=== PATIENT | female | born 1965 | race Caucasian/White ===

== ENCOUNTER 2022-09-29 10:05 | Outpatient (OUT) | payer OTHER, SELFPAY ==
[2022-09-29 10:46] LABS: Basophils Percent Auto 0.3 % (0.2-2.0); Eosinophils Absolute Auto 0.3 10^3/uL (0.0-0.7); Eosinophils Percent Auto 3.1 % (0.9-7.0); Hematocrit 38.5 % (36.0-48.0); Immature Granulocytes Abs Auto 0.04 10^3/uL (0.00-0.03); Immature Granulocytes Pct Auto 0.4 % (0.0-0.5); Lymphocytes Absolute Auto 2.1 10^3/uL (1.2-3.8); Lymphocytes Percent Auto 21.6 % (20.5-60.0); Mean Corpuscular HGB Conc 31.2 g/dL (29.9-35.2); Mean Corpuscular Hemoglobin 27.7 pg (26.7-34.0); Mean Corpuscular Volume 88.9 fL (81.0-99.0); Mean Platelet Volume 10.5 fL (9.5-13.5); Monocytes Absolute Auto 0.6 10^3/uL (0.3-0.8); Monocytes Percent Auto 6.7 % (1.7-12.0); Neutrophils Absolute Auto 6.5 10^3/uL (1.4-6.5); Neutrophils Percent Auto 67.9 % (43.0-75.0); Platelet Count 233 10^3/uL (150-450); Red Blood Count 4.33 10^6/uL (4.20-5.40); Red Cell Distribution Width 15.7 % (11.0-15.0); White Blood Count 9.6 10^3/uL (4.0-11.0)
[2022-09-29 10:49] LABS: Bilirubin Urine NEGATIVE (NEGATIVE); Blood Urine NEGATIVE (NEGATIVE); Clarity Urine CLEAR (CLEAR); Color Urine YELLOW (YELLOW); Glucose Urine UA NEGATIVE (NEGATIVE); Ketones Urine NEGATIVE (NEGATIVE); Leukocyte Esterase Urine NEGATIVE (NEGATIVE); Nitrite Urine NEGATIVE (NEGATIVE); Protein Urine NEGATIVE (NEG/TRACE); Urobilinogen Urine 0.2 EU/dL (0.2-1.0); pH Urine 5.5 (5.0-9.0)
[2022-09-29 11:03] LABS: Bacteria Urine TRACE #/HPF (NONE SEEN); Cast Seen? NONE SEEN #/LPF (NONE SEEN); Crystals Seen? None Seen #/HPF (None Seen); Mucus Urine NONE SEEN (NONE SEEN); RBC Urine 0-2 #/HPF (0-2); Squamous Epithelial Cell Urine RARE #/LPF (NONE/RARE); WBC Urine NONE SEEN #/HPF (NONE SEEN)
[2022-09-29 11:15] LABS: Microalbumin Urine Random <1.3 mg/dL (<=30.0)
[2022-09-29 11:20] LABS: Alanine Aminotransferase 18 U/L (14-59); Albumin Globulin Ratio 0.6; Albumin Level 3.2 g/dL (3.4-5.0); Alkaline Phosphatase 101 U/L (46-116); Anion Gap 10.6; Aspartate Amino Transferase 12 U/L (15-37); BUN Creatinine Ratio 14.9; Bilirubin Total 0.4 mg/dL (0.2-1.0); Carbon Dioxide 29.2 mmol/L (21.0-32.0); Chloride 103 mmol/L (98-107); Chol HDL Ratio 2.1; Cholesterol 86 mg/dL (<=200); Estimated GFR (African America >60 (>=60); Estimated GFR (Non-African Ame >60 (>=60); Glucose 97 mg/dL (74-106); HDL Cholesterol 41 mg/dL (40-60); LDL Cholesterol Calculated 32.2 mg/dL; Potassium 3.8 mmol/L (3.5-5.1); Sodium 139 mmol/L (136-145); Thyroid Stimulating Hormone 1.663 uIU/mL (0.358-3.740); Total Protein 8.2 g/dL (6.4-8.2); Triglycerides 64 mg/dL (<=150); VLDL CHOLESTEROL 12.8 mg/dL
[2022-09-29 11:24] LABS: Estimated Average Glucose 123 mg/dL; Glycohemoglobin A1C 5.9 % (4.5-6.2)
== END 2022-09-29 10:06 ==
LOC: LAB 10:10
PROVIDERS: PCP Nurse Practitioner; Visit Provider Nurse Practitioner
DX: E11.9 Type 2 diabetes mellitus without complications (principal); I10 Essential (primary) hypertension; E66.9 Obesity, unspecified
CPT/HCPCS: 36415; 80053; 80061; 81001; 82043; 83036; 84443; 85025

== ENCOUNTER 2022-10-03 13:52 | Outpatient (OUT) | payer OTHER, SELFPAY ==
--- NOTE | 2022-10-03 13:56 | MM_ITS ---
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 MG MAMM SCREEN 3D JULI CAD, 09/25/2020. MG MAMM SCREEN JULI W CAD, 06/28/2019. MG MAMM SCREEN JULI W CAD, 09/08/2013. INDICATIONS: Screening mammogram Z12.31 Calculator Name NCI Breast Cancer Risk Assessment Tool 5 Year Breast Cancer Risk 1.20% Lifetime Breast Cancer Risk 8.10% Personal Breast Cancer No Personal Ovarian Cancer No Treatments None Family Cancers None LOCATION: [facility] BREAST COMPOSITION: Extremely dense, which lowers the sensitivity of mammography. FINDINGS: DIAGNOSTIC CATEGORY 1--NEGATIVE. RIGHT BREAST: No significant suspicious finding. No significant change has occurred. LEFT BREAST: No significant suspicious finding. No significant change has occurred. RECOMMENDATIONS: ROUTINE MAMMOGRAM AND CLINICAL EVALUATION IN 12 MONTHS. PLEASE NOTE: A NORMAL MAMMOGRAM DOES NOT EXCLUDE THE POSSIBILITY OF BREAST CANCER. A CLINICALLY SUSPICIOUS PALPABLE LUMP SHOULD BE BIOPSIED. Dictated by: Austin Correa M.D. on 10/08/2022 at 14:57 Approved by: Austin Correa M.D. on 10/08/2022 at 15:00
== END 2022-10-03 13:53 ==
LOC: MAMMO 13:53
PROVIDERS: PCP Nurse Practitioner; Visit Provider Nurse Practitioner
DX: Z12.31 Encounter for screening mammogram for malignant neoplasm of breast (principal)
CPT/HCPCS: 77063; 77067

== ENCOUNTER 2023-03-13 12:51 | Outpatient (OUT) | payer OTHER, SELFPAY ==
[2023-03-13 13:46] LABS: Estimated Average Glucose 128 mg/dL; Glycohemoglobin A1C 6.1 % (4.5-6.2)
== END 2023-03-13 12:52 | disposition home or self-care (01) ==
LOC: LAB 12:53
PROVIDERS: PCP Nurse Practitioner; Visit Provider Nurse Practitioner
DX: E11.9 Type 2 diabetes mellitus without complications (principal)
CPT/HCPCS: 36415; 83036

== ENCOUNTER 2024-11-16 21:00 | Outpatient (REF) | payer OTHER, SELFPAY ==
--- OUTSIDE RECORDS SUMMARY | 2024-11-16 13:40 | XMS_ITS | Encounter Summary ---
Author Organization [facility] Address [address] [place] [address] Care Team Providers Care Manager Mortgage Name Role Phone Janet Munoz NP Unavailable [phone] Peter Meyer MD Primary Care Provider [phone] Reason for Visit * Reason Comments Hypertension Encounter Details Date Type Department Care Team (Late st Contact Info) Description 11/16/2024 1:40 PM EDT Office Visit [facility] [address] [place] [address] Janet Munoz NP [address] [place] [address] HTN (hypertension), benign (Primary Dx); Bilateral carotid artery stenosis; Type 2 diabetes mellitus without complication, without long-term current use of insulin ([facility]); Morbid (severe) obesity due to excess calories ([facility]); Tobacco dependence; Mixed hyperlipidemia ; Symptomatic urinary tract infection; Pre-diabetes; Environmental and seasonal allergies; Hidradenitis suppurativa Social History Tobacco Use Types Packs/Day Years Used Date Smoking Tobacco: Every Day Cigarettes Passive Smoke Exposure: Current Smokeless Tobacco: Never Alcohol Use Standard Drinks/Week Comments Never 0 (1 standard drink = 0.6 oz pur e alcohol) caffine: mountain dew 2 daily Social Connection and Isolat ion Panel [NHANES] Answer Date Recorded In a typical week, how many times do you talk on the phone with family, friends, or neighbors? More than three times a week 08/30/2023 How often do you get togethe r with friends or relatives? Twice a week 08/30/2023 How often do you attend chur ch or restorationism services? Never 08/30/2023 Do you belong to any clubs o r organizations such as confucianist groups, unions, fraternal or athletic groups, or school groups? No 08/30/2023 How often do you attend meet ings of the clubs or organizations you belong to? Never 08/30/2023 Are you , , di vorced, , never , or living with a partner? 08/30/2023 AUDIT-C Answer Date Recorded Q1: How often do you have a drink containing alcohol? Never 08/30/2023 Q2: How many drinks containi ng alcohol do you have on a typical day when you are drinking? Patient does not drink Q3: How often do you have si x or more drinks on one occasion? Never 08/30/2023 Overall Financial Resource Strain (CARDIA) Answe r Date Recorded How hard is it for you to pa y for the very basics like food, housing, medical care, and heating? Very hard 08/30/2023 PHQ-2 Answer Date Recorded Patient Health Questionnaire-2 Score 0 09/02/2023 [facility] - Occupational Stress Questionnaire Answer Date Recorded Do you feel stress - tense, restless, nervous, or anxious, or unable to sleep at night because your mind is troubled all the time - these days? Not at all 08/30/2023 Exercise Vital Sign Answer Date Recorde d On average, how many days pe r week do you engage in moderate to strenuous exercise (like a brisk walk)? 2 days On average, how many minutes do you engage in exercise at this level? Patient declined 08/30/2023 Hunger Vital Sign Answer Date Recorded Within the past 12 months, y ou worried that your food would run out before you got the money to buy more. Sometimes true Within the past 12 months, t he food you bought just didn't last and you didn't have money to get more. Sometimes true 08/2023 PRAPARE - Transportation Answer Date Re corded In the past 12 months, has l ack of transportation kept you from medical appointments or from getting medications? No 08/2023 In the past 12 months, has l ack of transportation kept you from meetings, work, or from getting things needed for daily living? No 08/30/2023 Housing Stability Vital Sign Answer Silas e Recorded In the last 12 months, was t here a time when you were not able to pay the mortgage or rent on time? No 08/30/2023 In the last 12 months, how many places have you lived? 1 08/30/2023 In the last 12 months, was t here a time when you did not have a steady place to sleep or slept in a [facility] (including now)? No 08/30/2023 Comments Unknown Sex and Gender Information Value Date Recorded Sex Assigned at Not on file Legal Sex Female 7:17 PM EDT Gender Identity Not on file Sexual Orientation Not on file documented as of this encounter Last Filed Vital Signs Vital Sign Reading Time Taken Comments Blood Pressure 144/76 11/16/2024 1:44 PM EDT Pulse 114 11/16/2024 1:44 PM EDT Temperature 36.9 C (98.5 F) 11/16/2024 1:44 PM EDT Respiratory Rate 20 11/16/2024 1:44 PM EDT Oxygen Saturation 95% 11/16/2024 1:44 PM EDT Inhaled Oxygen Concentration - - Weight 103 kg (226 lb 9.6 oz) 11/16/2024 1:44 PM EDT Height - - Body Mass Index 34.45 05/09/2024 1:26 PM EST documented in this encounter Patient Instructions * Patient Instructions* Janet Munoz NP - 11/16/2024 1:40 PM EDT Buproprion: take 1 pill every other day for 5 doses, then 1 pill every 3rd for 5 dose then stop Augmentin for urinary tract infection documented in this encounter Progress Notes * Janet Munoz NP - 11/16/2024 2:26 PM EDTAssociated Problem(s): Hidradenitis suppurativa Flare to left axillary region augmentin * Janet Munoz NP - 11/16/2024 2:24 PM EDTAssociated Problem(s): Symptomatic urinary tract infection +UTI on office dip Augmentin BID for 10 days Check culture * FRANCISCO GONSALES - 11/16/2024 1:40 PM EDT Lower back pain, abd pain, burning urination, urgency, frequency, foul smell, dark urine * Janet Munoz NP - 11/16/2024 1:40 PM EDT Images from the original note were not included. Kena Urbina is a 59 y.o. female presents with chief complaint of Hypertension HPI: Continues with smoking despite buproprion , wants to quit this, only remembers once a day, also gets tremors from meds, does not want a new med to take its place Hypertension This is a chronic problem. The current episode started more than 1 year ago. The problem has been waxing and waning since onset. The problem is uncontrolled. Associated symptoms include peripheral edema. Pertinent negatives include no chest pain, headaches, palpitations or shortness of breath. Pasttreatments include LOIDA inhibitors. The current treatment provides moderate improvement. There are no compliance problems. UTI This is a new problem. The current episode started 1 to 4 weeks ago. The problem is unchanged. Associated symptoms include pain. The pain is present in the back and suprapubic region. Risk factors include diabetes. SUBJECTIVE: MEDICATIONS: Current Outpatient Medications Medication Instructions albuterol HFA 90 mcg/act inhaler 2 puffs, Inhalation, Every 6 hours PRN amoxicillin-clavulanate (Augmentin) 875-125 MG tablet 875 mg, Oral, 2 times daily, Take with food aspirin 81 mg, Once atorvastatin (LIPITOR) 80 mg, Oral, Nightly Blood Glucose Monitoring Suppl (Contour Blood Glucose System) w/Device kit 1 kit, Does not apply, Daily Blood Glucose Monitoring Suppl (True Metrix Air Glucose Meter) w/Device kit 1 each, Does not apply,Daily clopidogrel (PLAVIX) 75 mg, Daily RT folic acid (FOLVITE) 1 mg, Daily glucose blood (Contour Test) test strip Once a day lisinopril 40 mg, Oral, Daily metFORMIN XR (GLUCOPHAGE-XR) 500 mg, Oral, Daily montelukast (SINGULAIR) 10 mg, Oral, Nightly ondansetron ODT (ZOFRAN-ODT) 4 mg, Every 8 hours PRN tiZANidine (ZANAFLEX) 4 mg, Oral, Nightly PRN zolpidem (AMBIEN) 10 mg, Oral, Nightly PRN ALLERGIES: Allergies Allergen Reactions Sumatriptan Anaphylaxis, Palpitations and Other Gives signs of heart attack REVIEW OF SYMPTOMS: Review of Systems Constitutional: Negative for appetite change, chills and fever. HENT: Negative for congestion, ear pain and sore throat. Eyes: Negative for pain, discharge, redness and visual disturbance. Respiratory: Negative for cough, shortness of breath and wheezing. Cardiovascular: Negative for chest pain, palpitations and leg swelling. Gastrointestinal: Negative for abdominal pain, blood in stool, constipation, diarrhea, nausea and vomiting. Genitourinary: Positive for dysuria. Negative for difficulty urinating and frequency. Musculoskeletal: Negative for arthralgias, back pain, joint swelling and myalgias. Skin: Negative for rash and wound. Neurological: Negative for dizziness, tremors, seizures, syncope and headaches. Psychiatric/Behavioral: Negative for behavioral problems, self-injury and suicidal ideas. The patient is not nervous/anxious. Hematological: Does not bruise/bleed easily. Endocrine: Negative for polydipsia, polyphagia and polyuria. Allergic/Immunologic: Negative for environmental allergies and food allergies. PAST MEDICAL HISTORY Past Medical History: Diagnosis Date COPD (chronic obstructive pulmonary disease) (HCC) DM II (diabetes mellitus, type II), controlled ([facility]) HTN (hypertension) Past Surgical History: Procedure Laterality Date ABDOMINAL SURGERY family history includes HTN in her mother; Heart attack in her father; Heart disease in her mother. OBJECTIVE: Visit Vitals BP 144/76 (BP Location: Left arm, Patient Position: Sitting, BP Cuff Size: Large adult) Pulse (!) 114 Temp 98.5 ??F (Temporal) Resp 20 Wt 226 lb 9.6 oz SpO2 95% BMI 34.45 kg/m?? Smoking Status Every Day BSA 2.22 m?? Physical Exam Vitals and nursing note reviewed. Constitutional: General: She is not in acute distress. Appearance: Normal appearance. HENT: Head: Normocephalic and atraumatic. Right Ear: External ear normal. Left Ear: External ear normal. Nose: Nose normal. Mouth/Throat: Mouth: Mucous membranes are moist. Eyes: Extraocular Movements: Extraocular movements intact. Conjunctiva/sclera: Conjunctivae normal. Neck: Vascular: Carotid bruit (right carotid bruit) present. Cardiovascular: Rate and Rhythm: Normal rate and regular rhythm. Pulses: Normal pulses. Heart sounds: Normal heart sounds. Pulmonary: Effort: Pulmonary effort is normal. Breath sounds: Normal breath sounds. No wheezing or rhonchi. Abdominal: General: Bowel sounds are normal. There is no distension. Palpations: Abdomen is soft. There is no mass. Tenderness: There is no abdominal tenderness. Comments: Mild flank pain Musculoskeletal: General: Normal range of motion. Cervical back: Normal range of motion and neck supple. Right lower leg: Edema present. Left lower leg: Edema present. Comments: Trace edema Skin: General: Skin is warm and dry. Capillary Refill: Capillary refill takes 2 to 3 seconds. Findings: No rash. Comments: HS lesion right axillary region Neurological: General: No focal deficit present. Mental Status: She is alert and oriented to person, place, and time. Psychiatric: Mood and Affect: Mood normal. Behavior: Behavior normal. Thought Content: Thought content normal. Judgment: Judgment normal. ASSESSMENT AND PLAN: Follow up in about 8 weeks (around 01/11/2025) for Recheck. Problem List Items Addressed This Visit HTN (hypertension), benign - Primary Please check blood pressure daily and record DASH diet Limit caffeine Take medication as directed Contact office if chest pain, pressure, dizziness, shortness of breath, swelling legs Recommend slow position changes increase lisinopril at 40mg daily Pt did not want b jairo therapy d/t side effect of fatigue Relevant Medications lisinopril 40 MG tablet Bilateral carotid artery stenosis Is on ASA, and statin Has had US and fu with vascular doctor See report in chart for specifics Aggressive risk factor modification is goal: control blood pressure, and needs to quit smoking Relevant Medications atorvastatin (Lipitor) 80 MG tablet Hidradenitis suppurativa Flare to left axillary region augmentin Tobacco dependence The patient has been advised of the risks of continued smoking: stroke, DC, all forms of cancer, lung disease, and . Options for quitting smoking include: cold turkey, hypnosis, acupuncture, nicotine replacement meds(gum, lozenges, and patches), Buproprion, and Varenicline. At this time pt is encouraged to evaluate their goals for wanting to quit smoking, and reach out toprovider when ready to start this process Wean off buproprion Mixed hyperlipidemia Continue statin therapy Check labs yearly and as needed with dose changes Relevant Medications atorvastatin (Lipitor) 80 MG tablet Environmental and seasonal allergies Relevant Medications montelukast (Singulair) 10 MG tablet Type 2 diabetes mellitus without complications (HCC) Check blood sugars daily, notify if <70 or >200. Take medications (pills or insulin) as directed. Monitor for s/s of hypoglycemia (sweaty, dizziness, nausea, vomiting, or shakiness). Watch for increase in thirst, urination, or appetite. Inspect feet frequently monitoring for open wounds , andalso recommend yearly eye exam. Pt should attempt to remain as physically active as chronic conditions allow, as well as trying to follow a diet low in carbohydrates, and simple sugars. Current meds: metformin, statin, asa, loida A1c 6.6% 11/16/24, 6.8% 08/18/24 Relevant Orders POCT glycosylated hemoglobin (Hb A1C) docked device (Completed) Morbid (severe) obesity due to excess calories ([facility]) Discussed with patient their BMI (actual, verses recommended). We have also discussed lifestyle modifications: attempts to perform physical activity as chronic conditions allow, also to monitor dietary intake: increasing protein/fruits/veggies and lowering carb intake (unless contraindicated). Limit sodas, juices, and sugary drinks. Symptomatic urinary tract infection +UTI on office dip Augmentin BID for 10 days Check culture Relevant Medications amoxicillin-clavulanate (Augmentin) 875-125 MG tablet Other Relevant Orders POCT Urinalysis dipstick (Completed) Urine culture (clean catch) Other Visit Diagnoses Pre-diabetes Relevant Medications metFORMIN XR (Glucophage-XR) 500 MG 24 hr tablet * Janet Munoz NP - 11/16/2024 6:45 AM EDTAssociated Problem(s): Mixed hyperlipidemia Continue statin therapy Check labs yearly and as needed with dose changes * Janet Munoz NP - 11/16/2024 6:45 AM EDTAssociated Problem(s): Tobacco dependence The patient has been advised of the risks of continued smoking: stroke, DC, all forms of cancer, lung disease, and . Options for quitting smoking include: cold turkey, hypnosis, acupuncture, nicotine replacement meds(gum, lozenges, and patches), Buproprion, and Varenicline. At this time pt is encouraged to evaluate their goals for wanting to quit smoking, and reach out toprovider when ready to start this process Wean off buproprion * Janet Munoz NP - 11/16/2024 6:44 AM EDTAssociated Problem(s): Morbid (severe) obesity due to excess calories ([facility]) Discussed with patient their BMI (actual, verses recommended). We have also discussed lifestyle modifications: attempts to perform physical activity as chronic conditions allow, also to monitor dietary intake: increasing protein/fruits/veggies and lowering carb intake (unless contraindicated). Limit sodas, juices, and sugary drinks. * Janet Munoz NP - 11/16/2024 6:44 AM EDTAssociated Problem(s): Type 2 diabetes mellitus without complications (HCC) Check blood sugars daily, notify if <70 or >200. Take medications (pills or insulin) as directed. Monitor for s/s of hypoglycemia (sweaty, dizziness, nausea, vomiting, or shakiness). Watch for increase in thirst, urination, or appetite. Inspect feet frequently monitoring for open wounds , andalso recommend yearly eye exam. Pt should attempt to remain as physically active as chronic conditions allow, as well as trying to follow a diet low in carbohydrates, and simple sugars. Current meds: metformin, statin, asa, loida A1c 6.6% 11/16/24, 6.8% 08/18/24 * Janet Munoz NP - 11/16/2024 6:44 AM EDTAssociated Problem(s): Bilateral carotid artery stenosis Is on ASA, and statin Has had US and fu with vascular doctor See report in chart for specifics Aggressive risk factor modification is goal: control blood pressure, and needs to quit smoking * Janet Munoz NP - 11/16/2024 6:44 AM EDTAssociated Problem(s): HTN (hypertension), benign Please check blood pressure daily and record DASH diet Limit caffeine Take medication as directed Contact office if chest pain, pressure, dizziness, shortness of breath, swelling legs Recommend slow position changes increase lisinopril at 40mg daily Pt did not want b jairo therapy d/t side effect of fatigue documented in this encounter Plan of Treatment Upcoming Encounters Date Type Department Care Team (Late st Contact Info) Description 01/11/2025 1:20 PM EDT Office Visit [facility] [address] [place] [address] Janet Munoz NP [address] [place] [address] Scheduled Orders Name Type Priority Associated Diagnoses Orde r Schedule Urine culture (clean catch) Microbiology Routine Symptomatic urinary tract infection Expected: 11/16/2024 (Approximate), Expires: 11/16/2025 documented as of this encounter Procedures Procedure Name Priority Date/Time Associated Diagnosis Comments POCT GLYCOSYLATED HEMOGLOBIN (HGB A1C) Routine 11/16/2024 2:05 PM EDT Type 2 diabetes mellitus without complication, without long-term current use of insulin (HCC) POCT URINALYSIS DIPSTICK Routine 11/16/2024 2:05 PM EDT Symptomatic urinary tract infection documented in this encounter Results * (ABNORMAL) POCT Urinalysis dipstick (11/16/2024 2:05 PM EDT) Color, UA Camille Clarity, UA Clear Glucose, UA Negative Negative - 2000(110) ++++ mg/dL Bilirubin, UA Negative Negative - 4(70) +++ mg/dL Ketones, UA Negative Negative - 160(16) ++++ mg/dL Spec Grav, UA 1.010 1 - 1.03 Blood, UA Positive Negative - 50 Leeroy/mcL Comment:trace-lysed pH, UA 5.5 5 - 9 Protein, UA Negative Negative - 2000(20) ++++ mg/dL Urobilinogen, UA 0.2 0.2 - 12 mg/dL Leukocytes, UA Positive Negative - 500+++ Trudy/mcL Comment:large Nitrite, UA Positive Negative - Positive Urine 11/16/2024 2:05 PM EDT Janet Munoz NP POINT OF CARE TEST ENTER/EDIT O RDERABLES Final Result * (ABNORMAL) POCT glycosylated hemoglobin (Hb A1C) docked device (11/16/2024 2:05 PM EDT) Hemoglobin A1C 6.6 Blood Venous blood specimen / Unknown 11/16/2024 2:05 PM EDT Janet Munoz CUTTER OPERATOR HELPER POINT OF CARE TEST ENTER/EDIT O RDERABLES Final Result documented in this encounter Visit Diagnoses Diagnosis HTN (hypertension), benign- Primary Essential hypertension, benign Bilateral carotid artery stenosis Occlusion and stenosis of carotid artery without mention of cerebral infarction Type 2 diabetes mellitus without complication, without long-term current use of insulin ([facility]) Morbid (severe) obesity due to excess calories ([facility]) Tobacco dependence Tobacco use disorder Mixed hyperlipidemia Mixed hyperlipidemia Symptomatic urinary tract infection Pre-diabetes Other abnormal glucose Environmental and seasonal allergies Hidradenitis suppurativa Hidradenitis documented in this encounter Care Teams Manager Mortgage Relationship Specialty Start Date End Date Peter Meyer MD [address] [place] [address] PCP - General Family Medicine 10/06/23 Janet Munoz NP [address] [place] [address] Nurse Practitioner Family Medicine 02/25/23 documented as of this encounter
--- OUTSIDE RECORDS SUMMARY | 2024-11-16 21:05 | XMS_ITS | Clinical Summary ---
Author Organization [facility] Address [facility] [place] [address] Care Team Providers Care Cook Relief Name Role Phone Janet Munoz CNP Primary Care Provider Allergies Active Allergy Reactions Criticality Noted Date Comments Fibrinolysin Unknown 04/21/2015 Sumatriptan Other: See Comments 12/06/2019 Gives signs of heart attack Medications albuterol HFA (PROVENTIL HFA, VENTOLIN HFA) 90 mcg/actuation inhaler inhale 2 puffs by mouth and INTO THE LUNGS four times a day if needed 12/05/2019 Active zolpidem (AMBIEN) 10 mg Take 10 mg by mouth at bedtime as needed. Active lisinopril (ZESTRIL, PRINIVIL) 10 mg tablet Take 10 mg by mouth once daily. Active polyethylene glycol 3350 (MIRALAX ORAL) Take by mouth. Active soy isofla/blk cohosh/mag bark (ESTROVEN ORAL) Take by mouth. Active cyanocobalamin, vitamin B-12, (VITAMIN B12 ORAL) Take by mouth. Active cetirizine HCl (ALLERGY RELIEF, CETIRIZINE, ORAL) Take by mouth. Active simethicone (GAS RELIEF ORAL) Take 25 mg by mouth. Active triamcinolone acetonide (NASACORT NASAL) Use in the nose. Active melatonin 10 mg cap Take by mouth. Active ascorbic acid, vitamin C, (VITAMIN C) 500 mg tablet Take 500 mg by mouth once daily. Active montelukast (SINGULAIR) 10 mg tablet Take 10 mg by mouth daily at bedtime. Active acetaminophen/d iphenhydramine (PM PAIN RELIEF ORAL) Take by mouth. Active multivit,benjamin,mi ns/FA/bioflav4 (DIABETES HEALTH SUPPORT ORAL) Take by mouth. Active metFORMIN ER (GLUCOPHAGE XR) 500 mg 24 hr tablet 12/22/2020 Active atorvastatin (LIPITOR) 40 mg tablet 03/06/2022 Active aspirin, enteric coated (ASPIRIN, ENTERIC COATED) 81 mg EC tablet Take 81 mg by mouth. Active tiZANidine (ZANAFLEX) 4 mg tablet as needed. 03/04/2023 Active Active Problems No known active problems Immunizations Immunization Administration Dates Next Due COVID-19 original vaccine, a ge 12+ yr, monovalent ([employer]fm - PURPLE TOP) 08/31/2020,08/10/2020 influenza (IIV4) vaccine, ag e 6 mo - 64 yr, quadrivalent, PF (AFLURIA, FLUARIX, FLULAVAL, FLUZONE) 01/09/2019,02/03/2017,01/18/2016,2014 influenza (IIV4) vaccine, quadrivalent (AFLURIA, FLULAVAL, FLUZONE) 02/04/2018 influenza (ccIIV4) vaccine, age 6+ mo, quadrivalent, PF (FLUCELVAX) 03/27/2021 Social History Tobacco Use Types Packs/Day Years Used Date Smoking Tobacco: Every Day Cigarettes 0.5 41 Smokeless Tobacco: Never Alcohol Use Standard Drinks/Week Comments Not Currently 0 (1 standard drink = 0.6 oz pur e alcohol) PHQ-2 Answer Date Recorded PHQ-2 score 1 09/04/2020 Area Deprivation Index Answer Date Tristan rded National Score (1-100), lower number is lower ri sk 60 03/22/2024 State Score (1-10), lower number is lower risk 4 03/22/2024 Data from: https://www.neighborhoodatlas.medicine.[facility].edu/. Last address used for calculation [address] 03/22/2024 Comments No Sex and Gender Information Value Date Recorded Sex Assigned at Not on file Legal Sex Female 3:25 PM EST Gender Identity Not on file Sexual Orientation Not on file Last Filed Vital Signs Vital Sign Reading Time Taken Comments Blood Pressure 156/82 03/22/2024 2:14 PM EST Pulse 62 03/22/2024 2:14 PM EST Temperature 36.2 C (97.1 F) 03/22/2024 2:14 PM EST Respiratory Rate 18 03/22/2024 2:14 PM EST Oxygen Saturation 100% 03/22/2024 2:14 PM EST Inhaled Oxygen Concentration - - Weight 104.4 kg (230 lb 2.6 oz) 03/22/2024 2:14 PM EST Height 171.5 cm (5' 7.52 ) 03/22/2024 2:14 PM ES T Body Mass Index 35.5 03/22/2024 2:14 PM EST Plan of Treatment Upcoming Encounters Date Type Department Care Team (Latest Contact Info) Description 03/21/2025 2:15 PM EST Office Visit [facility] [address] [place] [address] [place] [address] 1 year follow up with lab 03/21/2025 2:20 PM EST Visit (SP) Office Hematology/Oncology [address] [place] [address] [place] [address] Luis Manuel Wells MD [address] [place] [address] [place] [address] 1 year follow up with lab Health Maintenance Due Date Last Done Comments Anxiety Screening 09/24/1985 Depression Screening 09/24/1985 HIV Screening 09/24/1985 Hepatitis C Screening 09/24/1985 DTaP,Tdap,Td Vaccine (1 - Tdap) 09/24/1986 Hepatitis B Vaccine (1 of 3 - 19+ 3-dose series) 09/24/1986 Pneumococcal Vaccine: 50+ (1 of 2 - PCV) 09/24/1986 Cervical Cancer Screening 09/24/1988 CT Colonography 09/24/2012 Cologuard (FIT-DNA) 09/24/2012 Colonoscopy 09/24/2012 Colorectal Cancer Screening 09/24/2012 Fecal Occult Blood 09/24/2012 Sigmoidoscopy 09/24/2012 Lung Cancer Screening 09/24/2017 Shingrix Vaccine (1 of 2) 09/24/2017 Mammogram Screening 04/14/2019 04/14/2018, 04/14/2018, 04/14/2018, Additional history exists Influenza Vaccine (#1) 2024 , 01/09/2019, 02/04/2018, Additional history exists Diabetes Screening 03/22/2027 03/22/2024, 0 10/07/2023, 10/07/2023, Additional history exists Lipid Screening 09/09/2028 09/10/2023 Procedures Procedure Name Priority Date/Time Associated Diagnosis Comments COMPREHENSIVE METABOLIC PANEL Routine 03/22/2024 2:48 PM EST Monoclonal gammopathy from Last 3 Months or Most Recently Relevant to Health Maintenance Results * (ABNORMAL) COMPREHENSIVE METABOLIC PANEL (03/22/2024 2:48 PM EST) Pathologist [facility] Protein, Total 8.1(H) 6.3 - 8.0 g/dL 03/22/2024 3:18 PM EST [facility] Albumin 4.2 3.9 - 4.9 g/dL 03/22/2024 3:18 PM EST [facility] Calcium, Total 9.5 8.5 - 10.2 mg/dL 03/22/2024 3:18 PM EST [facility] Bilirubin, Total 0.2 0.2 - 1.3 mg/dL 03/22/2024 3:18 PM EST [facility] Alkaline Phosphatase 129(H) 34 - 123 U/L 03/22/2024 3:18 PM EST [facility] AST 20 13 - 35 U/L 03/22/2024 3:18 PM EST [facility] ALT 21 7 - 38 U/L 03/22/2024 3:18 PM EST [facility] Glucose 146(H) 74 - 99 mg/dL 03/22/2024 3:18 PM EST [facility] Comment: The [place] Diabetes Association (ADA) provides guidance for cutoff values for fasting glucose and random glucose. The ADA defines fasting as no caloric intake for at least 8 hours. Fasting plasma glucose results between 100 to 125 mg/dL indicate increased risk for diabetes (prediabetes). Fasting plasma glucose results greater than or equal to 126 mg/dL meet the criteria for diagnosis of diabetes. In the absence of unequivocal hyperglycemia, results should be confirmed by repeat testing. In a patient with classic symptoms of hyperglycemia or hyperglycemic crisis, random plasma glucose results greater than or equal to 200 mg/dL meet the criteria for diagnosis of diabetes. Reference: Standards of Medical Care in Diabetes 2016, [place] [employer] Association. Diabetes Care. 2016.39(Suppl 1). BUN 9 7 - 21 mg/dL 03/22/2024 3:18 PM EST [facility] Creatinine 0.67 0.58 - 0.96 mg/dL 03/22/2024 3:18 PM EST [facility] Sodium 139 136 - 144 mmol/L 03/22/2024 3:18 PM EST [facility] Potassium 3.7 3.7 - 5.1 mmol/L 03/22/2024 3:18 PM EST [facility] Chloride 103 98 - 107 mmol/L 03/22/2024 3:18 PM EST [facility] CO2 24 22 - 30 mmol/L 03/22/2024 3:18 PM EST [facility] Anion Gap 12 8 - 15 mmol/L 03/22/2024 3:18 PM EST [facility] Estimated Glomerular Filtration Rate 103 >=60 mL/min/1. 73m 03/22/2024 3:18 PM EST [facility] Comment:Estimated Glomerular Filtration Rate (eGFR) is calculated using the 2020 CKD-EPI creatinine equation. This equation utilizes serum creatinine, sex, and age as parameters. The creatinine assay has traceable calibration to isotope dilution- mass spectrometry. Refer to KDIGO guidelines for clinical interpretation. In patients with unstable renal function, e.g. those with acute kidney injury, the eGFR may not accurately reflect actual GFR. Blood BLOOD SPECIMEN / Unknown Venipuncture / Unknown 03/22/2024 2:48 PM EST 03/22/2024 2:48 PM EST us Luis Manuel Wells MD LABORATORY Final Res ult [facility] [address] [place] [address] from Last 3 Months or Most Recently Relevant to Health Maintenance Insurance [facility] [employer] Care Teams Cook Relief Relationship Specialty Start Date End Date Janet Munoz, [employer]OOK WRITER [facility] [place] [address] PCP - General Family Medicine 03/25/22
--- OUTSIDE RECORDS SUMMARY | 2024-11-16 21:05 | XMS_ITS | Clinical Summary ---
Author Organization [employer]) Sys tem Address [id number] [address] [place] [address] Care Team Providers Care Genetics Physician Name Role Phone Janet Munoz APRN-CNC MILL SET UP OPERATOR Primary Care Provider Allergies Active Allergy Reactions Criticality Noted Date Comments Sumatriptan Anaphylaxis,Other (S ee Comments),Palpitations High 12/06/2019 Gives signs of heart attack Medications albuterol (PROVENTIL HFA;VENTOLIN HFA) 90 mcg/actuation inhaler 2 Active ascorbic acid (VITAMIN C) 500 mg tablet Take 1 tablet (500 mg total) by mouth in the morning. Active lisinopriL (PRINIVIL,ZESTRIL) 10 mg tablet 3 tablets (30 mg total). 2 Active metFORMIN XR (GLUCOPHAGE XR) 500 mg 24 hr tablet 1 Active melatonin 10 mg capsule Take by mouth. Active metFORMIN XR (GLUCOPHAGE XR) 500 mg 24 hr tablet 2 Active zolpidem (AMBIEN) 10 mg tablet 2 Active aspirin 81 mg Take 1 tablet (81 mg total) by mouth in the morning. Active atorvastatin (LIPITOR) 80 mg tablet Take 1 tablet (80 mg total) by mouth nightly. 60 tablet 3 5 Active montelukast (SINGULAIR) 10 mg tablet Take 1 tablet (10 mg total) by mouth. 4 Active ondansetron ODT (ZOFRAN ODT) 4 mg disintegrating tablet Dissolve 1 tablet (4 mg total) on tongue every 8 (eight) hours as needed. Active tiZANidine (ZANAFLEX) 4 mg tablet Take 1 tablet (4 mg total) by mouth daily as needed. 4 Active clopidogreL (PLAVIX) 75 mg tablet Take 1 tablet (75 mg total) by mouth in the morning. 30 tablet 5 Active clopidogreL (PLAVIX) 75 mg tablet Take 1 tablet (75 mg total) by mouth in the morning. 90 tablet 2 5 Active Active Problems Problem Noted Date Diagnosed Date Morbid (severe) obesity due to excess calories 0 05/09/2024 Type 2 diabetes mellitus without complications 1 05/29/2023 Diverticulitis 09/02/2023 Heart palpitations 09/02/2023 Insomnia, unspecified 09/02/2023 Overview (05/16/2024): Med agreement signed 03/28/24 Monoclonal gammopathy of undetermined significan ce 09/02/2023 Tobacco dependence 09/02/2023 Hidradenitis suppurativa 07/27/2023 HTN (hypertension), benign 07/27/2023 Insulin resistance 07/27/2023 Bilateral carotid artery stenosis 05/05/2022 Encounters Date Type Department Care Team Description 09/27/2024 Travel 08/24/2024 Refill [facility] [address] [place] [address] Kimi Méndez DO 08/23/2024 Orders Only [facility] [address] [facility] [place] [id number] [phone] Britany Hernandez CMA 08/23/2024 Refill [facility] [address] [place] [address] Kimi Méndez DO from Last 3 Months Family History Medical History Relation Name Comments Stroke Mother Breast cancer Paternal Aunt Relation Name Status Comments Mother Paternal Aunt Social History Tobacco Use Types Packs/Day Years Used Date Smoking Tobacco: Every Day Cigarettes 0.5 42 Smokeless Tobacco: Never Tobacco Cessation:Ready to Q uit: Not Asked; Counseling Given: Not Answered Alcohol Use Standard Drinks/Week Comments Not Currently 0 (1 standard drink = 0.6 oz pur e alcohol) Childcare Answer Date Recorded Childcare Unknown 10/06/2018 Employment Answer Date Recorded Employment Unknown 10/06/2018 Hunger Screening Answer Date Recorded Within the past 12 months we worried whether our food would run out before we got money to buy more. Never True 10/03/2023 Within the past 12 months th e food we bought just didn't last and we didn't have money to get more. Never True 10/03/2023 Purpose - Life Answer Date Recorded Purpose and direction in life Unknown Comments No Sex and Gender Information Value Date Recorded Sex Assigned at Not on file Legal Sex Female 11:34 AM EDT Gender Identity Not on file Sexual Orientation Not on file Last Filed Vital Signs Vital Sign Reading Time Taken Comments Blood Pressure 148/82 07/19/2024 11:23 AM EDT Pulse 84 07/19/2024 11:23 AM EDT Temperature 36.8 C (98.2 F) 10/03/2023 11:23 PM EDT Respiratory Rate 18 10/04/2023 12:59 AM EDT Oxygen Saturation 97% 10/04/2023 12:59 AM EDT Inhaled Oxygen Concentration - - Weight 103 kg (227 lb) 07/19/2024 11:23 AM EDT Height 170.2 cm (5' 7 ) 07/19/2024 11:23 AM EDT Body Mass Index 35.55 07/19/2024 11:23 AM EDT Plan of Treatment Upcoming Encounters Date Type Department Care Team (Late st Contact Info) Description 01/13/2025 9:00 AM EDT Office Visit [facility] [address] [place] [id number] Chico Solitario MD [address] [place] [address] Ashley Corbett MD [address] [place] [address] Health Maintenance Due Date Last Done Comments Diabetic Ophthalmology Exam 1967 Tobacco Counseling 1967 Depression Screening 1979 Adult BMI Follow Up Plan 09/24/1985 Diabetic Foot Exam 09/24/1985 DTaP,Tdap and Td Vaccines (1 - Tdap) 09/24/1986 Zoster (Shingles) Vaccine (1 of 2) 09/24/1986 Pap Smear 09/24/1988 COVID-19 Vaccine (3 - Pfizer risk series) 09/28/2020 08/31/2020, 08/10/2020 Influenza Vaccine 12/26/2024 03/28/2024, , 01/09/2019, Additional history exists Tobacco Screening 07/07/2025 07/07/2024 Adult BMI Screening 07/19/2025 07/19/2024 Medical Devices Not on file Procedures Procedure Name Priority Date/Time Associated Diagnosis Comments MICROALBUMIN / CREATININE URINE RATIO Routine 09/27/2024 12:59 PM EDT Essential (primary) hypertension Palpitations Occlusion and stenosis of bilateral carotid arteries Morbid (severe) obesity due to excess calories ([facility]) Type 2 diabetes mellitus without complications ([facility]) Mixed hyperlipidemia Nicotine dependence, unspecified, uncomplicated URINALYSIS Routine 09/27/2024 12:59 PM EDT Essential (primary) hypertension Palpitations Occlusion and stenosis of bilateral carotid arteries Morbid (severe) obesity due to excess calories (CMS-HCC) Type 2 diabetes mellitus without complications (CMS-HCC) Mixed hyperlipidemia Nicotine dependence, unspecified, uncomplicated ERYTHROCYTE SEDIMENTATION RATE (ESR) Routine 09/27/2024 12:56 PM EDT Stenosis of left carotid artery C-REACTIVE PROTEIN Routine 09/27/2024 12 :56 PM EDT Stenosis of left carotid artery TSH Routine 09/27/2024 12:56 PM EDT Essential (primary) hypertension Palpitations Occlusion and stenosis of bilateral carotid arteries Morbid (severe) obesity due to excess calories (CMS-HCC) Type 2 diabetes mellitus without complications (CMS-HCC) Mixed hyperlipidemia Nicotine dependence, unspecified, uncomplicated COMPREHENSIVE METABOLIC PANEL Routine 09/27/2024 12:56 PM EDT Essential (primary) hypertension Palpitations Occlusion and stenosis of bilateral carotid arteries Morbid (severe) obesity due to excess calories (CMS-HCC) Type 2 diabetes mellitus without complications (CMS-HCC) Mixed hyperlipidemia Nicotine dependence, unspecified, uncomplicated CBC WITH AUTO DIFFERENTIAL Routine 09/27/2024 12:56 PM EDT Essential (primary) hypertension Palpitations Occlusion and stenosis of bilateral carotid arteries Morbid (severe) obesity due to excess calories (CMS-HCC) Type 2 diabetes mellitus without complications (CMS-HCC) Mixed hyperlipidemia Nicotine dependence, unspecified, uncomplicated LIPID PROFILE Routine 09/27/2024 12:56 PM EDT Essential (primary) hypertension Palpitations Occlusion and stenosis of bilateral carotid arteries Morbid (severe) obesity due to excess calories (CMS-HCC) Type 2 diabetes mellitus without complications (CMS-HCC) Mixed hyperlipidemia Nicotine dependence, unspecified, uncomplicated from Last 3 Months Results * Microalbumin - Albumin: Creatinine Urine Ratio (09/27/2024 12:59 PM EDT) URINE CREATININE,RDM 94.94 mg/dL 09/27/2024 6:21 PM EDT [facility] MALB/CREAT RATIO 09/28/19 6:21 PM EDT [facility] Comment:Urine Microalbumin / Creatinine ratio not calculated due to non-numeric component. MICROALBUMIN, URINE <0.7 0.0 - 1.9 mg/dL 09/27/2024 6:21 PM EDT [facility] Urine Urine specimen collection, clean catch / Unknown 09/27/2024 12:59 PM EDT 09/27/2024 12:59 PM EDT us Janet Munoz VEHICLE MAINTENANCE TECHNICIAN-CNC MILL SET UP OPERATOR URINE ORDERABLES Final Result [facility] [address] [place] [address], [place] [phone] * (ABNORMAL) Urinalysis (09/27/2024 12:59 PM EDT) COLOR Yellow Yellow, Colorless 09/27/2024 6:02 PM EDT [facility] TURBIDITY Clear Clear 09/27/2024 6:02 PM EDT [facility] SPECIFIC GRAVITY 1.017 1.003 - 1.035 09/27/2024 6:02 PM EDT [facility] NITRITE Positive(A) Negative 09/27/2024 6:02 PM EDT [facility] PH,URINE 5.5 5.0 - 8.5 09/27/2024 6:02 PM EDT [facility] LEUKOCYTE ESTERASE Large(A) Negative 09/27/2024 6:02 PM EDT [facility] PROTEIN Negative Negative 09/27/2024 6:02 PM EDT [facility] KETONES (URINE) Negative Negative 6:02 PM EDT [facility] UROBILINOGEN <1.1 eu/dL <1.1 eu/dL 09/27/2024 6:02 PM EDT [facility] BILIRUBIN (URINE) Negative Negative 09/27/2024 6:02 PM EDT [facility] BLOOD/HGB Negative Negative 09/27/2024 6:02 PM EDT [facility] MUCOUS Present(A) None 09/27/2024 6:02 PM EDT [facility] R.B.CELLS 2 0 - 5 09/27/2024 6:02 PM EDT [facility] SQUAMOUS EPITHELIUM 6(H) 0 - 5 09/27/2024 6:02 PM EDT [facility] W.B.CELLS 17(H) 0 - 5 09/27/2024 6:02 PM EDT [facility] GLUCOSE (URINE) Negative Negative 6:02 PM EDT [facility] Urine 09/27/2024 12:5 9 PM EDT 09/27/2024 12:59 PM EDT us Janet Munoz VEHICLE MAINTENANCE TECHNICIAN-CNC MILL SET UP OPERATOR URINE ORDERABLES Final Result [facility] [address] [place] [address], [place] [phone] * (ABNORMAL) Erythrocyte Sedimentation Rate (ESR) (09/27/2024 12:56 PM EDT) [facility] ESR, Erythrocyte Sedimentation Rate 31(H) 0 - 30 mm/h 09/27/2024 6:56 PM EDT [facility] Blood Venipuncture / Unknown 09/27/2024 12:56 PM EDT 09/27/2024 12:56 PM EDT us Kimi Méndez DO LAB BLOOD ORDERABLES Final Resul t [facility] [address] [place] [address], * (ABNORMAL) CBC auto differential (09/27/2024 12:56 PM EDT) [facility] WBC 10.9 4 - 11 x10E9/L 09/27/2024 6:05 PM EDT [facility] RBC Count 4.72 3.8 - 5.2 X10E12/L 09/27/2024 6:05 PM EDT [facility] Hemoglobin 13.4 11.7 - 15.5 g/dL 09/27/2024 6:05 PM EDT [facility] Hematocrit 41.3 35 - 47 % 09/27/2024 6:05 PM EDT [facility] MCV 87 80 - 100 fL 09/27/2024 6:05 PM EDT [facility] MCH 28.4 27 - 34 pg 09/27/2024 6:05 PM EDT [facility] MCHC 32.5 32 - 36 g/dL 09/27/2024 6:05 PM EDT [facility] RDW 15.5(H) 11.5 - 15 % 09/27/2024 6:05 PM EDT [facility] Platelet Count 228 150 - 450 X10E9/L 09/27/2024 6:05 PM EDT [facility] MPV 9.2 7 - 12 fL 09/27/2024 6:05 PM EDT [facility] Neutrophils % 68.9 % 09/27/2024 6:05 PM EDT [facility] Lymphocytes % 20.4 % 09/27/2024 6:05 PM EDT [facility] Monocytes % 6.4 % 09/27/2024 6:05 PM EDT [facility] Eosinophils % 3.3 % 09/27/2024 6:05 PM EDT [facility] Basophils % 1.0 % 09/27/2024 6:05 PM EDT [facility] Neutrophils Absolute (A) 7.5(H) 1.5 - 6.6 10*3/uL 09/27/2024 6:05 PM EDT [facility] Lymphocytes Absolute 2.2 1.0 - 3.5 10*3/uL 09/27/2024 6:05 PM EDT [facility] Monocytes Absolute 0.7 0.0 - 0.9 10*3/uL 09/27/2024 6:05 PM EDT [facility] Eosinophils Absolute 0.4 0.0 - 0.4 10*3/uL 09/27/2024 6:05 PM EDT [facility] Basophils Absolute 0.1 0.0 - 0.2 10*3/uL 09/27/2024 6:05 PM EDT [facility] Differential Type AUTOMATED DIFFERENTIAL 09/27/2024 6:05 PM EDT [facility] Blood Venous blood / Unknown Venipuncture / Unknown 09/27/2024 12:56 PM EDT 09/27/2024 12:56 PM EDT us Janet Munoz VEHICLE MAINTENANCE TECHNICIAN-CNC MILL SET UP OPERATOR LAB BLOOD ORDERABLES Fi nal Result [facility] [address] [place] [address], [place] [phone] * (ABNORMAL) C-reactive protein (09/27/2024 12:56 PM EDT) C REACTIVE PROTEIN 2.2(H) <=0.7 mg/dL 09/27/2024 6:05 PM EDT [facility] Blood Venipuncture / Unknown 09/27/2024 12:56 PM EDT 09/27/2024 12:56 PM EDT Kimi Méndez DO LAB BLOOD ORDERABLES Final Resul t [facility] [address] [place] [address], [place] [phone] * TSH (09/27/2024 12:56 PM EDT) Pathologist [facility] TSH 1.17 0.49 - 4.67 uIU/mL 09/27/2024 6:09 PM EDT [facility] Blood Venous blood / Unknown Venipuncture / Unknown 09/27/2024 12:56 PM EDT 09/27/2024 12:56 PM EDT Janet Munoz VEHICLE MAINTENANCE TECHNICIAN-CNC MILL SET UP OPERATOR LAB BLOOD ORDERABLES Fi nal Result [facility] [address] [place] [address], [place] [phone] * (ABNORMAL) Lipid profile (09/27/2024 12:56 PM EDT) CHOLESTEROL 91(L) 150 - 200 mg/dL 09/27/2024 5:59 PM EDT [facility] TRIGLYCERIDE 117 27 - 150 mg/dL 09/27/2024 5:59 PM EDT [facility] HDL CHOLESTEROL 34(L) >39 mg/dL 5:59 PM EDT [facility] Comment: HDL <40 mg/dL - High Risk HDL > or = 40mg/dL- Desirable HDL >60 mg/dL - Negative Risk LDL (CALC) 34 <130 mg/dL 09/27/2024 5:59 PM EDT [facility] Comment: LDL <100 mg/dL - Desirable LDL >160 mg/dL - High Risk CHOLESTEROL:HDL 2.7 1.0 - 5.0 5:59 PM EDT [facility] VERY LOW LIPOPROTEIN 23 0 - 30 mg/dL 09/27/2024 5:59 PM EDT [facility] Blood Venous blood / Unknown Venipuncture / Unknown 09/27/2024 12:56 PM EDT 09/27/2024 12:56 PM EDT us Janet Munoz VEHICLE MAINTENANCE TECHNICIAN-CNC MILL SET UP OPERATOR LAB BLOOD ORDERABLES Fi nal Result [facility] [address] [place] [id number], * (ABNORMAL) Comprehensive metabolic panel (09/27/2024 12:56 PM EDT) SODIUM 135 134 - 146 mmol/L 09/27/2024 5:59 PM EDT [facility] POTASSIUM 4.4 3.5 - 5.0 mmol/L 09/27/2024 5:59 PM EDT [facility] CHLORIDE 101 98 - 109 mmol/L 09/27/2024 5:59 PM EDT [facility] CARBON DIOXIDE 23 22 - 32 mmol/L 09/27/2024 5:59 PM EDT [facility] ANION GAP 11 5 - 15 mmol/L 09/27/2024 5:59 PM EDT [facility] BLOOD UREA NITROGEN 13 5 - 23 mg/dL 09/27/2024 5:59 PM EDT [facility] CREATININE 0.74 0.40 - 1.00 mg/dL 09/27/2024 5:59 PM EDT [facility] Comment:METHOD TRACEABLE TO IDMS STANDARD GLUCOSE 128(H) 65 - 99 mg/dL 09/27/2024 5:59 PM EDT [facility] CALCIUM 9.6 8.5 - 10.5 mg/dL 09/27/2024 5:59 PM EDT [facility] TOTAL PROTEIN 8.1(H) 6.0 - 8.0 g/dL 09/27/2024 5:59 PM EDT [facility] ALBUMIN 3.9 3.2 - 5.3 g/dL 09/27/2024 5:59 PM EDT [facility] ALKALINE PHOSPHATASE 101 39 - 130 U/L 09/27/2024 5:59 PM EDT [facility] AST 17 <=41 U/L 09/27/2024 5:59 PM EDT [facility] ALT 18 <=31 U/L 09/27/2024 5:59 PM EDT [facility] BILIRUBIN,TOTAL 0.3 0.3 - 1.2 mg/dL 09/27/2024 5:59 PM EDT [facility] EGFR Non-Race Dependent >90 >=60 ml/min/1.7 3sq.m 09/27/2024 5:59 PM EDT [facility] Comment: Reported eGFR is based on the CKD-EPI 2020 equation that does not use a race coefficient. Blood Venous blood / Unknown Venipuncture / Unknown 09/27/2024 12:56 PM EDT 09/27/2024 12:56 PM EDT Janet Munoz VEHICLE MAINTENANCE TECHNICIAN-CNC MILL SET UP OPERATOR LAB BLOOD ORDERABLES nal Result [facility] [address] [place] [address], from Last 3 Months Insurance [employer] Care Teams Genetics Physician Relationship Specialty Start Date End Date Janet Munoz, VEHICLE MAINTENANCE TECHNICIAN-CNC MILL SET UP OPERATOR PCP - General Nurse Practitioner 04/29/22
--- OUTSIDE RECORDS SUMMARY | 2024-11-16 21:05 | XMS_ITS | Clinical Summary ---
Author Organization [facility] Healthcare Address [address] [place] [address] Care Team Providers Care Repairer Handtools Name Role Phone Janet Munoz NP Unavailable [phone] Peter Meyer MD Primary Care Provider [phone] Allergies Active Allergy Reactions Criticality Noted Date Comments Sumatriptan Anaphylaxis,Palpitat ions ,Other High 12/06/2019 Gives signs of heart attack Medications ondansetron ODT (Zofran-ODT) 4 MG disintegrating tablet Take 4 mg by mouth every 8 (eight) hours if needed for nausea or vomiting Active folic acid (Folvite) 1 MG tablet Take 1 mg by mouth Daily Active aspirin 81 MG EC tablet Take 81 mg by mouth 1 (one) time Active tiZANidine (Zanaflex) 4 MG tabletIndications: Muscle spasm Take 1 tablet (4 mg) by mouth as needed at bedtime for muscle spasms 90 tablet 1 09/04/19 24 Active clopidogrel (Plavix) 75 MG tablet Take 75 mg by mouth in the morning. 05/18/19 25 Active Blood Glucose Monitoring Suppl (True Metrix Air Glucose Meter) w/Device kitIndications:Typ e 2 diabetes mellitus without complication, without long-term current use of insulin ([facility]) 1 each Daily 1 kit 05/19/19 25 026 Active Blood Glucose Monitoring Suppl (Contour Blood Glucose System) w/Device kitIndications:Typ e 2 diabetes mellitus without complication, without long-term current use of insulin ([facility]) 1 kit Daily 1 kit 05/28/19 25 026 Active glucose blood (Contour Test) test stripIndications:T ype 2 diabetes mellitus without complication, without long-term current use of insulin (HCC) Once a day 100 each 4 05/28/19 25 026 Active albuterol HFA 90 mcg/act inhalerIndications :Environmental and seasonal allergies Inhale 2 puffs every 6 (six) hours if needed for wheezing or shortness of breath 25.5 g 3 06/16/19 25 Active zolpidem (Ambien) 10 MG tabletIndications: Primary insomnia Take 1 tablet (10 mg) by mouth as needed at bedtime for sleep 90 tablet 1 09/13/19 25 025 Active atorvastatin (Lipitor) 80 MG tabletIndications: Bilateral carotid artery stenosis,Mixed hyperlipidemia Take 1 tablet (80 mg) by mouth at bedtime 90 tablet 1 11/17/19 25 025 Active metFORMIN XR (Glucophage-XR) 500 MG 24 hr tabletIndications: Pre-diabetes Take 1 tablet (500 mg) by mouth Daily 90 tablet 1 11/17/19 25 025 Active montelukast (Singulair) 10 MG tabletIndications: Environmental and seasonal allergies Take 1 tablet (10 mg) by mouth at bedtime 90 tablet 1 11/17/19 25 025 Active lisinopril 40 MG tabletIndications: HTN (hypertension), benign Take 1 tablet (40 mg) by mouth Daily 90 tablet 1 11/17/19 25 025 Active amoxicillin-clavul anate (Augmentin) 875-125 MG tabletIndications: Symptomatic urinary tract infection Take 1 tablet (875 mg) by mouth in the morning and 1 tablet (875 mg) before bedtime. Do all this for 10 days. Take with food. 20 tablet 11/17/19 25 025 Active lisinopril 30 MG tabletIndications: HTN (hypertension), benign Take 1 tablet (30 mg) by mouth Daily 90 tablet 1 05/09/19 25 025 Discontin ued(Reord er) atorvastatin (Lipitor) 80 MG tabletIndications: Bilateral carotid artery stenosis,Mixed hyperlipidemia Take 1 tablet (80 mg) by mouth at bedtime 90 tablet 1 06/20/19 25 025 Discontin ued(Reord er) buPROPion SR (Wellbutrin SR) 150 MG 12 hr tabletIndications: Tobacco dependence Take 1 tablet (150 mg) by mouth in the morning and 1 tablet (150 mg) before bedtime. Do not crush, chew, or split. 180 tablet 08/20/19 25 025 Discontin ued(Reord er) metFORMIN XR (Glucophage-XR) 500 MG 24 hr tabletIndications: Pre-diabetes Take 1 tablet (500 mg) by mouth Daily 90 tablet 1 08/26/19 25 025 Discontin ued(Reord er) montelukast (Singulair) 10 MG tabletIndications: Environmental and seasonal allergies Take 1 tablet (10 mg) by mouth at bedtime 90 tablet 1 08/26/19 25 025 Discontin ued(Reord er) buPROPion SR (Wellbutrin SR) 150 MG 12 hr tabletIndications: Tobacco dependence Take 1 tablet (150 mg) by mouth in the morning and 1 tablet (150 mg) before bedtime. Do not crush, chew, or split. 180 tablet 1 11/17/19 25 025 Discontin ued(Side effects) amoxicillin-clavul anate (Augmentin) 875-125 MG tabletIndications: Symptomatic urinary tract infection Take 1 tablet (875 mg) by mouth in the morning and 1 tablet (875 mg) before bedtime. Do all this for 10 days. Take with food. 20 tablet 11/17/19 25 025 Discontin ued(Reord er) Active Problems Problem Noted Date Diagnosed Date Symptomatic urinary tract infection 11/16/2024 Assessment & Plan (11/16/2024 2:24 PM EDT): +UTI on office dip Augmentin BID for 10 days Check culture Morbid (severe) obesity due to excess calories 0 05/09/2024 Assessment & Plan (11/16/2024 6:44 AM EDT): Discussed with patient their BMI (actual, verses recommended). We have also discussed lifestyle modifications: attempts to perform physical activity as chronic conditions allow, also to monitor dietary intake: increasing protein/fruits/veggies and lowering carb intake (unless contraindicated). Limit sodas, juices, and sugary drinks. Assessment & Plan (08/18/2024 7:06 AM EDT): Discussed with patient their BMI (actual, verses recommended). We have also discussed lifestyle modifications: attempts to perform physical activity as chronic conditions allow, also to monitor dietary intake: increasing protein/fruits/veggies and lowering carb intake (unless contraindicated). Limit sodas, juices, and sugary drinks. Assessment & Plan (06/20/2024 7:02 AM EST): Discussed with patient their BMI (actual, verses recommended). We have also discussed lifestyle modifications: attempts to perform physical activity as chronic conditions allow, also to monitor dietary intake: increasing protein/fruits/veggies and lowering carb intake (unless contraindicated). Limit sodas, juices, and sugary drinks. Assessment & Plan (05/09/2024 1:44 PM EST): Discussed with patient their BMI (actual, verses recommended). We have also discussed lifestyle modifications: attempts to perform physical activity as chronic conditions allow, also to monitor dietary intake: increasing protein/fruits/veggies and lowering carb intake (unless contraindicated). Limit sodas, juices, and sugary drinks. Has lost 6 pounds since last visit Needs flu shot 03/28/2024 Type 2 diabetes mellitus without complications 1 05/29/2023 Assessment & Plan (11/16/2024 2:09 PM EDT): Check blood sugars daily, notify if <70 or >200. Take medications (pills or insulin) as directed. Monitor for s/s of hypoglycemia (sweaty, dizziness, nausea, vomiting, or shakiness). Watch for increase in thirst, urination, or appetite. Inspect feet frequently monitoring for open wounds , and also recommend yearly eye exam. Pt should attempt to remain as physically active as chronic conditions allow, as well as trying to follow a diet low in carbohydrates, and simple sugars. Current meds: metformin, statin, asa, andrey A1c 6.6% 11/16/24, 6.8% 08/18/24 Assessment & Plan (08/18/2024 1:30 PM EDT): Check blood sugars daily, notify if <70 or >200. Take medications (pills or insulin) as directed. Monitor for s/s of hypoglycemia (sweaty, dizziness, nausea, vomiting, or shakiness). Watch for increase in thirst, urination, or appetite. Inspect feet frequently monitoring for open wounds , and also recommend yearly eye exam. Pt should attempt to remain as physically active as chronic conditions allow, as well as trying to follow a diet low in carbohydrates, and simple sugars. Current meds: metformin, statin, asa, andrey A1c 6.8% 08/18/24 Assessment & Plan (06/20/2024 7:03 AM EST): Check blood sugars daily, notify if <70 or >200. Take medications (pills or insulin) as directed. Monitor for s/s of hypoglycemia (sweaty, dizziness, nausea, vomiting, or shakiness). Watch for increase in thirst, urination, or appetite. Inspect feet frequently monitoring for open wounds , and also recommend yearly eye exam. Pt should attempt to remain as physically active as chronic conditions allow, as well as trying to follow a diet low in carbohydrates, and simple sugars. A1c 6.8% (03/28/24) Assessment & Plan (03/28/2024 2:48 PM EST): Check blood sugars daily, notify if <70 or >200. Take medications (pills or insulin) as directed. Monitor for s/s of hypoglycemia (sweaty, dizziness, nausea, vomiting, or shakiness). Watch for increase in thirst, urination, or appetite. Inspect feet frequently monitoring for open wounds , and also recommend yearly eye exam. Pt should attempt to remain as physically active as chronic conditions allow, as well as trying to follow a diet low in carbohydrates, and simple sugars. A1c 6.8% At this point no increase in her metfromin, will see if she can start to loose weight and go from there Pre-operative clearance 10/07/2023 Assessment & Plan (10/07/2023 1:52 PM EDT): Here for surgical clearance. Denies CP, SOB. No known hx of CAD/CHF. She has mild/mod carotid artery disease. Current smoker, trying to quit. She is scheduled for left radial fx repair/reduction under local anesthesia. She is limited by her back pain and is not very active but can ambulate at low pace or climb one flight of stairs without any symptoms to suggest underlying CAD/CHF. Reviewed most recent labs. Diabetes is well controlled. No sig electrolyte abnormality. She is at low risk of MACE and cleared to proceed with surgery. Medical clearance signed and faxed. Urinary tract infection without hematuria 2023 Environmental and seasonal allergies 09/04/2023 Muscle spasm 09/04/2023 Diverticulitis 09/02/2023 Hyperproteinemia 09/02/2023 Increased white blood cell count 09/02/2023 Monoclonal gammopathy of undetermined significan ce 09/02/2023 Assessment & Plan (03/28/2024 2:29 PM EST): Continue with hematology Recent labs completed Tobacco dependence 09/02/2023 Assessment & Plan (11/16/2024 2:25 PM EDT): The patient has been advised of the risks of continued smoking: stroke, CO, all forms of cancer, lung disease, and . Options for quitting smoking include: cold turkey, hypnosis, acupuncture, nicotine replacement meds (gum, lozenges, and patches), Buproprion, and Varenicline. At this time pt is encouraged to evaluate their goals for wanting to quit smoking, and reach out to provider when ready to start this process Wean off buproprion Assessment & Plan (08/18/2024 1:29 PM EDT): The patient has been advised of the risks of continued smoking: stroke, CO, all forms of cancer, lung disease, and . Options for quitting smoking include: cold turkey, hypnosis, acupuncture, nicotine replacement meds (gum, lozenges, and patches), Buproprion, and Varenicline. At this time pt is encouraged to evaluate their goals for wanting to quit smoking, and reach out to provider when ready to start this process At last appt ordered buproprion is smoking less, would like to consider hypnosis and is going to look into this Assessment & Plan (06/20/2024 2:26 PM EST): The patient has been advised of the risks of continued smoking: stroke, CO, all forms of cancer, lung disease, and . Options for quitting smoking include: cold turkey, hypnosis, acupuncture, nicotine replacement meds (gum, lozenges, and patches), Buproprion, and Varenicline. At this time pt is encouraged to evaluate their goals for wanting to quit smoking, and reach out to provider when ready to start this process Would like to trial buproprion Assessment & Plan (05/09/2024 7:27 AM EST): The patient has been advised of the risks of continued smoking: stroke, CO, all forms of cancer, lung disease, and . Options for quitting smoking include: cold turkey, hypnosis, acupuncture, nicotine replacement meds (gum, lozenges, and patches), Buproprion, and Varenicline. At this time pt is encouraged to evaluate their goals for wanting to quit smoking, and reach out to provider when ready to start this process Assessment & Plan (03/28/2024 7:19 AM EST): The patient has been advised of the risks of continued smoking: stroke, CO, all forms of cancer, lung disease, and . Options for quitting smoking include: cold turkey, hypnosis, acupuncture, nicotine replacement meds (gum, lozenges, and patches), Buproprion, and Varenicline. At this time pt is encouraged to evaluate their goals for wanting to quit smoking, and reach out to provider when ready to start this process Assessment & Plan (09/02/2023 2:04 PM EDT): .LAsm Heart palpitations 09/02/2023 Insomnia, unspecified 09/02/2023 Overview (03/28/2024): Med agreement signed 03/28/24 Assessment & Plan (05/09/2024 7:25 AM EST): Has been using ambien Doing well OARRS reviewed Assessment & Plan (03/28/2024 7:16 AM EST): Has been using ambien Doing well OARRS reviewed Assessment & Plan (09/02/2023 2:03 PM EDT): Has been using ambien Doing well OARRS reviewed Screening mammogram for breast cancer 09/02/2023 Mixed hyperlipidemia 09/02/2023 Assessment & Plan (11/16/2024 6:45 AM EDT): Continue statin therapy Check labs yearly and as needed with dose changes Assessment & Plan (08/18/2024 7:10 AM EDT): Continue statin therapy Check labs yearly and as needed with dose changes Assessment & Plan (06/20/2024 7:02 AM EST): Continue statin therapy Check labs yearly and as needed with dose changes Assessment & Plan (05/09/2024 1:44 PM EST): Continue statin therapy Check labs yearly and as needed with dose changes Assessment & Plan (03/28/2024 7:20 AM EST): Continue statin therapy Check labs as directed Assessment & Plan (09/02/2023 2:05 PM EDT): Cont statin Check labs Body mass index (BMI) 35.0-35.9, adult Assessment & Plan (03/28/2024 2:30 PM EST): Discussed with patient their BMI (actual, verses recommended). We have also discussed lifestyle modifications: attempts to perform physical activity as chronic conditions allow, also to monitor dietary intake: increasing protein/fruits/veggies and lowering carb intake (unless contraindicated). Limit sodas, juices, and sugary drinks. Also discussed oral medications that can be utilized for weight loss, as well as surgical options for weight loss. 13 pound gain since 08/2023 Colon cancer screening 09/02/2023 Menopausal symptoms 07/27/2023 Insulin resistance 07/27/2023 Assessment & Plan (03/28/2024 7:19 AM EST): Check insulin level, cont metfromin HTN (hypertension), benign 07/27/2023 Assessment & Plan (11/16/2024 2:23 PM EDT): Please check blood pressure daily and record DASH diet Limit caffeine Take medication as directed Contact office if chest pain, pressure, dizziness, shortness of breath, swelling legs Recommend slow position changes increase lisinopril at 40mg daily Pt did not want b jairo therapy d/t side effect of fatigue Assessment & Plan (08/18/2024 7:06 AM EDT): Please check blood pressure daily and record DASH diet Limit caffeine Take medication as directed Contact office if chest pain, pressure, dizziness, shortness of breath, swelling legs Recommend slow position changes continue lisinopril at 30mg daily Pt did not want b jairo therapy d/t side effect of fatigue Assessment & Plan (06/20/2024 2:25 PM EST): Please check blood pressure daily and record DASH diet Limit caffeine Take medication as directed Contact office if chest pain, pressure, dizziness, shortness of breath, swelling legs Recommend slow position changes continue lisinopril at 30mg daily Would recommend possible b jairo d/t tachy rhythm, She does not want b jairo d/t extreme fatigue Assessment & Plan (05/09/2024 1:57 PM EST): Please check blood pressure daily and record DASH diet Limit caffeine Take medication as directed Contact office if chest pain, pressure, dizziness, shortness of breath, swelling legs Recommend slow position changes At last visit increase of lisinopril 20mg daily, still not to goal Will increase to 30mg, w goal of 130/80 or less Fu in 6 weeks Assessment & Plan (03/28/2024 2:47 PM EST): Please check blood pressure daily and record DASH diet Limit caffeine Take medication as directed Contact office if chest pain, pressure, dizziness, shortness of breath, swelling legs Recommend slow position changes Is on lisinopril at 10mg daily, will increase to 20mg daily Fu in 6 weeks for blood pressure check Assessment & Plan (10/07/2023 1:53 PM EDT): Usually at goal and well controlled. Elevated today, likely due to pain. Monitor and follow up as clinically indicated. Cw home meds, no changes made. Assessment & Plan (09/02/2023 2:04 PM EDT): No changes Check labs Hidradenitis suppurativa 07/27/2023 Assessment & Plan (11/16/2024 2:26 PM EDT): Flare to left axillary region augmentin Assessment & Plan (03/28/2024 2:29 PM EST): Treatment as directed Nausea 07/27/2023 Bilateral carotid artery stenosis 05/05/2022 Assessment & Plan (11/16/2024 6:44 AM EDT): Is on ASA, and statin Has had US and fu with vascular doctor See report in chart for specifics Aggressive risk factor modification is goal: control blood pressure, and needs to quit smoking Assessment & Plan (08/18/2024 7:06 AM EDT): Is on ASA, and statin Has had US and fu with vascular doctor See report in chart for specifics Aggressive risk factor modification is goal: control blood pressure, and needs to quit smoking Assessment & Plan (06/20/2024 7:02 AM EST): Is on ASA, and statin Has had US and fu with vascular doctor See report in chart for specifics Aggressive risk factor modification is goal: control blood pressure, and needs to quit smoking Assessment & Plan (03/28/2024 2:39 PM EST): Is on ASA, and statin Has vascular appt 05/21 they order US Personal history of other di seases of the nervous system and sense organs 01/09/2014 Resolved Problems Problem Noted Date Diagnosed Date Resolved Date Viral upper respiratory tract infection 06/20/2024 08/18/2024 Assessment & Plan (06/20/2024 2:28 PM EST): No atb at this time Clear drainage Bilateral carotid artery occlusion 09/02/2023 09/02/2023 Pre-diabetes 09/02/2023 03/28/2024 Assessment & Plan (03/28/2024 7:18 AM EST): Check A1c Check blood sugars daily, notify if <70 or >200. Take medications (pills or insulin) as directed. Monitor for s/s of hypoglycemia (sweaty, dizziness, nausea, vomiting, or shakiness). Watch for increase in thirst, urination, or appetite. Inspect feet frequently monitoring for open wounds , and also recommend yearly eye exam. Pt should attempt to remain as physically active as chronic conditions allow, as well as trying to follow a diet low in carbohydrates, and simple sugars. Assessment & Plan (09/02/2023 2:04 PM EDT): Check A1c Check blood sugars daily, notify if <70 or >200. Take medications (pills or insulin) as directed. Monitor for s/s of hypoglycemia (sweaty, dizziness, nausea, vomiting, or shakiness). Watch for increase in thirst, urination, or appetite. Inspect feet frequently monitoring for open wounds , and also recommend yearly eye exam. Pt should attempt to remain as physically active as chronic conditions allow, as well as trying to follow a diet low in carbohydrates, and simple sugars. Encounters Date Type Department Care Team Description 11/16/2024 1:40 PM EDT Office Visit [facility] [address] [place] [address] Janet Munoz NP HTN (hypertension), benign (Primary Dx); Bilateral carotid artery stenosis; Type 2 diabetes mellitus without complication, without long-term current use of insulin (HCC); Morbid (severe) obesity due to excess calories ([facility]); Tobacco dependence; Mixed hyperlipidemia ; Symptomatic urinary tract infection; Pre-diabetes; Environmental and seasonal allergies; Hidradenitis suppurativa 11/16/2024 Bamboo flowsheet [facility] [address] [place] [address] Janet Munoz NP 09/28/2024 Refill [facility] [address] [place] [address] Janet Munoz, JUNAID Urinary tract infection without hematuria, site unspecified (Primary Dx) 09/11/2024 Refill [facility] [address] [place] [address] Janet Munoz NP Primary insomnia 08/25/2024 Refill [facility] [address] [place] [address] Janet Munoz, JUNAID Pre-diabetes; Environmental and seasonal allergies 08/19/2024 Refill [facility] [address] [place] [address] Janet Munoz, JUNAID Tobacco dependence 08/18/2024 1:00 PM EDT Office Visit [facility] [address] [place] [address] Janet Munoz NP HTN (hypertension), benign (Primary Dx); Heart palpitations; Bilateral carotid artery stenosis; Morbid (severe) obesity due to excess calories ([facility]); Type 2 diabetes mellitus without complication, without long-term current use of insulin ([facility]); Tobacco dependence; Mixed hyperlipidemia 08/18/2024 Bamboo flowsheet [facility] [address] [place] [phone] Janet Munoz, JUNAID from Last 3 Months Immunizations Immunization Administration Dates Next Due Influenza, injectable, MDCK, preservative free, quadrivalent 03/28/2024,03/27/2021 Influenza, injectable, quadrivalent 02/04/2018 Influenza, injectable, quadr ivalent, preservative free 01/09/2019,02/04/2018,02/03/2017,2015,01/23/2015 Family History Medical History Relation Name Comments Heart attack Father HTN Mother Heart disease Mother Relation Name Status Comments Father Mother Social History Tobacco Use Types Packs/Day Years Used Date Smoking Tobacco: Every Day Cigarettes Passive Smoke Exposure: Current Smokeless Tobacco: Never Tobacco Cessation:Ready to Q uit: Yes; Counseling Given: Yes Alcohol Use Standard Drinks/Week Comments Never 0 [...] often do you attend chur ch or buddhist services? Never 08/30/2023 Do you belong to any clubs o r organizations such as restorationism groups, unions, fraternal or athletic groups, or [...] Recorded Patient Health Questionnaire-2 Score 0 09/02/2023 [facility] [employer] [facility] [employer] ional [facility] - Occupational Stress [...] No 08/30/2023 Housing Stability Vital Sign Answer Islas e Recorded In the last 12 months, [...] place to sleep or slept in a usp (including now)? No 08/30/2023 Comments Unknown Sex [...] 9.6 oz) 11/16/2024 1:44 PM EDT Height 172.7 cm (5' 8 ) 05/09/2024 1:26 PM EST Body Mass Index 34.45 05/09/2024 1:26 PM EST Plan of Treatment Upcoming Encounters Date Type Department Care Team (Late st Contact Info) Description 01/11/2025 1:20 PM EDT Office Visit [facility] [address] [place] [address] Janet Munoz, JUNAID [address] [place] [address] Health Maintenance Due Date Last Done Comments CT Colonography 1967 FIT 1967 FOBT 1967 Sigmoidoscopy 1967 HPV/Cotest 09/24/1997 Cervical Cancer Screening 04/27/2020 Pap Smear 04/27/2020 04/27/2017 Colonoscopy 09/13/2023 09/12/2013 Influenza Vaccine (#1) 2024 , 03/27/2021, 01/09/2019, Additional history exists Diabetes: Hemoglobin A1C 02/16/2025 025, 08/18/2024, 03/28/2024, Additional history exists Mammogram 04/11/2025 04/11/2024, 03/27, 10/03/2022, Additional history exists Diabetes: Retinopathy Screening 08/20/2025 Diabetes: Urine Protein Screening 09/27/2025 09/27/2024, 09/27/2024, 09/27/2024, Additional history exists Colorectal Cancer Screening 09/17/2026 FIT-DNA 09/17/2026 09/18/2023 Procedures Procedure Name Priority Date/Time Associated Diagnosis Comments POCT URINALYSIS DIPSTICK Routine 11/16/2024 2:05 PM EDT Symptomatic urinary tract infection POCT GLYCOSYLATED HEMOGLOBIN (HGB A1C) Routine 11/16/2024 2:05 PM EDT Type 2 diabetes mellitus without complication, without long-term current use of insulin (HCC) MICROALBUMIN / CREATININE URINE RATIO Routine 09/27/2024 12:59 PM EDT URINALYSIS, MANUAL ONLY Routine 09/27/2024 12:59 PM EDT TSH ([place]) Routine 09/27/2024 12:56 PM EDT CBC WITH AUTO DIFFERENTIAL Routine 09/27/2024 12:56 PM EDT LIPID PANEL Routine 09/27/2024 12:56 PM EDT COMPREHENSIVE METABOLIC PANEL Routine 09/27/2024 12:56 PM EDT POCT GLYCOSYLATED HEMOGLOBIN (HGB A1C) Routine 08/18/2024 1:28 PM EDT Type 2 diabetes mellitus without complication, without long-term current use of insulin (HCC) BI MAMMOGRAM SCREENING TOMOSYNTHESIS BILATERAL 04/11/2024 10:56 AM EST LAB COLOGUARD COLON CANCER SCREEN Routine 09/18/2023 10:50 AM EDT Colon cancer screening from Last 3 Months or Most Recently Relevant to Health Maintenance Results * (ABNORMAL) POCT glycosylated hemoglobin (Hb A1C) docked device (11/16/2024 2:05 PM EDT) Only the most recent of2 resultswithin the time period is included. Hemoglobin A1C 6.6 Blood Venous blood specimen / Unknown 11/16/2024 2:05 PM EDT Janet Munoz NP POINT OF CARE TEST ENTER/EDIT O RDERABLES Final Result * (ABNORMAL) POCT Urinalysis dipstick (11/16/2024 2:05 [...] - 9 Protein, UA Negative Negative - 1999(20) ++++ mg/dL Urobilinogen, UA 0.2 0.2 - 12 mg/dL Leukocytes, UA Positive Negative - 500+++ Trudy/mcL Comment:large Nitrite, UA Positive Negative - Positive Urine 11/16/2024 2:05 PM EDT Janet Munoz WORD PROCESSING SUPERVISOR POINT OF CARE TEST ENTER/EDIT O RDERABLES Final Result * Microalbumin / creatinine urine ratio (09/27/2024 12:59 PM EDT) URINE CREATININE, RDM 94.94 mg/dL [facility] MALB/CREAT RATIO NA [facility] Comment:Urine Microalbumin / Creatinine ratio not calculated due to non-numeric component. MICROALBUMIN, URINE <0.7 0.0 - 1.9 mg/dL [facility] Comment: PERFORMED AT [facility] [address],[place] [address] 09/27/2024 12:5 9 PM EDT 09/27/2024 5:42 PM EDT Janet Munoz WORD PROCESSING SUPERVISOR LAB URINE ORDERABLES Final Resu lt [facility] * (ABNORMAL) Urinalysis, manual only (09/27/2024 12:59 PM EDT) COLOR Yellow Yellow, Colorless [facility] TURBIDITY Clear Clear [facility] SPECIFIC GRAVITY 1.017 1.003 - 1.035 NA [facility] NITRITE Positive(A) Negative [facility] PH, URINE 5.5 5.0 - 8.5 NA [facility] LEUKOCYTE ESTERASE Large(A) Negative [facility] PROTEIN Negative Negative [facility] KETONES (URINE) Negative Negative [facility] UROBILINOGEN <1.1 eu/dL <1.1 eu/dL [facility] BILIRUBIN (URINE) Negative Negative [facility] BLOOD/HGB Negative Negative [facility] MUCOUS Present(A) None [facility] RED BLOOD CELLS 2 0 - 5 NA [facility] SQUAMOUS EPITHELIUM 6(H) 0 - 5 NA [facility] WHITE BLOOD CELLS 17(H) 0 - 5 NA [facility] GLUCOSE (URINE) Negative Negative [facility] Comment: PERFORMED AT [address], [place] [address] 09/27/2024 12:5 9 PM EDT 09/27/2024 5:42 PM EDT Janet Munoz WORD PROCESSING SUPERVISOR LAB URINE ORDERABLES Final Resu lt [facility] * TSH ([facility]) (09/27/2024 12:56 PM EDT) TSH 1.17 0.49 - 4.67 uIU/mL [facility] Comment: PERFORMED AT [place] [address],[place] [address] 09/27/2024 12:5 6 PM EDT 09/27/2024 5:35 PM EDT Janet Munoz WORD PROCESSING SUPERVISOR LAB BLOOD ORDERABLES Final Resu lt [facility] * (ABNORMAL) CBC auto differential (09/27/2024 12:56 PM EDT) WHITE BLOOD CELL COUNT, WBC 10.9 4 - 11 x10E9/L [facility] RED BLOOD CELL COUNT, RBC 4.72 3.8 - 5.2 X10E12/L [facility] HEMOGLOBIN 13.4 11.7 - 15.5 g/dL [facility] HEMATOCRIT 41.3 35 - 47 % [facility] MEAN CELL VOLUME, MCV 87 80 - 100 fL [facility] MEAN CELL HEMOGLOBIN, MCH 28.4 27 - 34 pg [facility] MEAN CELL HEMOGLOGIN CONCENTRATION, MCHC 32.5 32 - 36 g/dL [facility] RED CELL DISTRIBUTION WIDTH, RDW 15.5(H) 11.5 - 15 % [facility] PLATELET COUNT 228 150 - 450 X10E9/L [facility] MEAN PLATELET VOLUME, MPV 9.2 7 - 12 fL [facility] % NEUTROPHILS 68.9 % [facility] % LYMPHOCYTES 20.4 % [facility] % MONOCYTES 6.4 % [facility] % EOSINOPHILS 3.3 % [facility] % BASOPHILS 1.0 % [facility] ABSOLUTE NEUTROPHIL 7.5(H) 1.5 - 6.6 10*3/uL [facility] ABSOLUTE LYMPHOCYTE 2.2 1.0 - 3.5 10*3/uL [facility] ABSOLUTE MONOCYTE 0.7 0.0 - 0.9 10*3/uL [facility] ABSOLUTE EOSINOPHIL 0.4 0.0 - 0.4 10*3/uL [facility] ABSOLUTE BASOPHIL 0.1 0.0 - 0.2 10*3/uL [facility] DIFFERENTIAL TYPE AUTOMATED DIFFERENTIAL [facility] Comment: PERFORMED AT [address] [address] 09/27/2024 12:5 6 PM EDT 09/27/2024 5:35 PM EDT us Janet Munoz WORD PROCESSING SUPERVISOR LAB BLOOD ORDERABLES Final Resu lt [facility] * (ABNORMAL) Lipid panel (09/27/2024 12:56 PM EDT) CHOLESTEROL 91(L) 150 - 200 mg/dL [facility] TRIGLYCERIDE 117 27 - 150 mg/dL [facility] HDL CHOLESTEROL 34(L) >39 mg/dL [facility] Comment: HDL <40 mg/dL - High Risk HDL > or = 40mg/dL- Desirable HDL >60 mg/dL - Negative Risk LDL (CALC) 34 <130 mg/dL [facility] Comment: LDL <100 mg/dL - Desirable LDL >160 mg/dL - High Risk CHOLESTEROL:HDL 2.7 1.0 - 5.0 NA [facility] VERY LOW LIPOPROTEIN 23 0 - 30 mg/dL [facility] Comment: PERFORMED AT [address],[place] [address] 09/27/2024 12:5 6 PM EDT 09/27/2024 5:35 PM EDT us Janet Munoz WORD PROCESSING SUPERVISOR LAB BLOOD ORDERABLES Final Resu lt [facility] * (ABNORMAL) Comprehensive metabolic panel (09/27/2024 12:56 PM EDT) Sodium 135 134 - 146 mmol/L [facility] Potassium, Bld 4.4 3.5 - 5.0 mmol/L [facility] Chloride 101 98 - 109 mmol/L [facility] Carbon Dioxide 23 22 - 32 mmol/L [facility] Anion Gap 11 5 - 15 mmol/L [facility] BUN 13 5 - 23 mg/dL [facility] Creatinine 0.74 0.40 - 1.00 mg/dL [facility] Comment:METHOD TRACEABLE TO IDMS STANDARD Glucose 128(H) 65 - 99 mg/dL [facility] Calcium 9.6 8.5 - 10.5 mg/dL [facility] TOTAL PROTEIN 8.1(H) 6.0 - 8.0 g/dL [facility] ALBUMIN 3.9 3.2 - 5.3 g/dL [facility] ALKALINE PHOSPHATASE 101 39 - 130 U/L [facility] AST 17 <=41 U/L [facility] ALT 18 <=31 U/L [facility] TOTAL BILIRUBIN 0.3 0.3 - 1.2 mg/dL [facility] EGFR >90 >=60 ml/min/1.7 3sq.m [facility] Comment: Reported eGFR is based on the CKD-EPI 2020 equation that does not use a race coefficient. PERFORMED AT [facility] [address],[place] [address] 09/27/2024 12:5 6 PM EDT 09/27/2024 5:35 PM EDT us Janet Munoz WORD PROCESSING SUPERVISOR LAB BLOOD ORDERABLES Final Resu lt [facility] * Bilateral screening mammogram with tomosynthesis (04/11/2024 10:56 AM EST) Anatomical Region Laterality Modality Breast Bilateral Mammography 04/11/2024 10:5 6 AM EST Narrative 04/11/2024 10:55 AM EST THIS EXAM WAS PERFORMED AT [facility] 1967 [id number] EXAM: MAMM SCREENING BILATERAL W CAD, 04/08/2024 1:16 PM CLINICAL INDICATIONS: Screening, Visit for screening mammogram COMPARISON: 04/12/2018 TECHNIQUE: Bilateral digital tomosynthesis MLO and CC views of the breasts were obtained, with creation of synthetic 2D views. Computer aided detection was utilized. FINDINGS: The breasts are heterogeneously dense, which may obscure small masses. There are no suspicious masses, calcifications, or areas of architectural distortion. IMPRESSION: No mammographic evidence of malignancy. BI-RADS: BI-RADS 1 - Negative RECOMMENDATION: Routine screening mammogram in 1 year. Due to the density and/or complexity of breast tissue on mammography, Molecular Breast Imaging is recommended as a supplement to annual screening mammography. MBI can be used to help detect mammographically occult cancers in dense breasts. RISK ASSESSMENT: TC Lifetime risk: 11%. The patient's reported personal and family medical history was used calculate their Tyrer-Cuzick lifetime risk of malignancy. Scores less than 20% are not considered high risk per ACR guidelines and patient should continue with the above recommendation. Finalized by Joselo Aj MD on 04/11/2024 10:55 AM 1 c MAMM 1 YR FDA Accredited Performing Facility: [facility] - Mammography/[facility]A Imaging [address] [facility] [address] Procedure Note Radiology, Radiologist, - 04/11/2024 THIS EXAM WAS PERFORMED AT [facility] 1967 [id number] EXAM: MAMM SCREENING BILATERAL W CAD, 04/08/2024 1:16 PM CLINICAL INDICATIONS: Screening, Visit for screening mammogram COMPARISON: 04/12/2018 TECHNIQUE: Bilateral digital tomosynthesis MLO and CC views of the breastswere obtained, with creation of synthetic 2D views. Computer aideddetection was utilized. FINDINGS: The breasts are heterogeneously dense, which may obscure small masses. There are no suspicious masses, calcifications, or areas of architecturaldistortion. IMPRESSION: No mammographic evidence of malignancy. BI-RADS: BI-RADS 1 - Negative RECOMMENDATION: Routine screening mammogram in 1 year. Due to the densityand/or complexity of breast tissue on mammography, Molecular BreastImaging is recommended as a supplement to annual screening mammography.MBI can be used to help detect mammographically occult cancers in densebreasts. RISK ASSESSMENT: TC Lifetime risk: 11%. The patient's reported personal and family medical history was usedcalculate their Tyrer-zick lifetime risk of malignancy. Scores less than20% are not considered high risk per ACR guidelines and patient shouldcontinue with the above recommendation. Finalized by Joselo Aj MD on 04/11/2024 10:55 AM 1 c MAMM 1 YR FDA Accredited Performing Facility: [facility] - [facility]ammography[facility] [address] [place] [address] Janet Munoz NP IMG BI PROCEDURES Final Result * Cologuard?? colon cancer screening (09/18/2023 10:50 AM EDT) NONINV COLON CA DNA+OCC BLD SCRN STL-IMP Negative Negative 09/24/2023 12:48 AM EDT [employer] (CLIA #:[id number]) Comment: NEGATIVE TEST RESULT. A negative Cologuard result indicates a low likelihood that a colorectal cancer (CRC) or advanced adenoma (adenomatous polyps with more advanced pre-malignant features) is present. The chance that a person with a negative Cologuard test has a colorectal cancer is less than 1 in 1500 (negative predictive value >99.9%) or has an advanced adenoma is less than 5.3% (negative predictive value 94.7%). These data are based on a prospective cross-sectional study of 10,000 individuals at average risk for colorectal cancer who were screened with both Cologuard and colonoscopy. (Caat Malave al, N Engl J Med 2014;370(14):7924-8507) The normal value (reference range) for this assay is negative. COLOGUARD RE-SCREENING RECOMMENDATION: Periodic colorectal cancer screening is an important part of preventive healthcare for asymptomatic individuals at average risk for colorectal cancer. Following a negative Cologuard result, the [place] Cancer Society and U.S. Multi-Society Task Force screening guidelines recommend a Cologuard re-screening interval of 3 years. References: [place] [employer] Guideline for Colorectal Cancer Screening: https://www.cancer.org/cancer/rbsfg-rwcvzi-mvftpz/drnmfqyrs-fanqifsbs-kyddkqj/ac s-rec ommendations.html.; Ananth DK, Kayode CARMONA, Bianca AndersenK, Colorectal Cancer Screening: Recommendations for Physicians and Patients from the U.S. Multi-Society Task Force on Colorectal Cancer Screening , Am J Gastroenterology 2017; 112:1005-4552. TEST DESCRIPTION: Composite algorithmic analysis of stool DNA-biomarkers with hemoglobin immunoassay. Quantitative values of individual biomarkers are not reportable and are not associated with individual biomarker result reference ranges. Cologuard is intended for colorectal cancer screening of adults of either sex, 45 years or older, who are at average-risk for colorectal cancer (CRC). Cologuard has been approved for use by the U.S. FDA. The performance of Cologuard was established in a cross sectional study of average-risk adults aged 50-84. Cologuard performance in patients ages 45 to 49 years was estimated by sub-group analysis of near-age groups. Colonoscopies performed for a positive result may find as the most clinically significant lesion: colorectal cancer [4.0%], advanced adenoma (including sessile serrated polyps greater than or equal to 1cm diameter) [20%] or non- advanced adenoma [31%]; or no colorectal neoplasia [45%]. These estimates are derived from a prospective cross-sectional screening study of 10,000 individuals at average risk for colorectal cancer who were screened with both Cologuard and colonoscopy. (Cata Malave al, N Engl J Med 2014;370(14):6853-6587.) Cologuard may produce a false negative or false positive result (no colorectal cancer or precancerous polyp present at colonoscopy follow up). A negative Cologuard test result does not guarantee the absence of CRC or advanced adenoma (pre-cancer). The current Cologuard screening interval is every 3 years. ([place] Cancer Society and U.S. Multi-Society Task Force). Cologuard performance data in a 10,000 patient pivotal study using colonoscopy as the reference method can be accessed at the following location: www.Routezilla.Stayhound/results. Additional description of the Cologuard test process, warnings and precautions can be found at www.cologuard.com. Stool specimen (specimen) 09/18/2023 10:50 AM EDT 09/19/2023 7:56 AM EDT us Janet Munoz NP LAB MOLECULAR DIAGNOSTICS ORDER NATY Final Result [employer] (CLIA #:[id number]) [address] [place] [address], from Last 3 Months or Most Recently Relevant to Health Maintenance Insurance Care Teams Repairer Handtools Relationship Specialty Start Date End Date Peter Meyer MD [address] [place] [id number] PCP - General Family Medicine 10/06/23 Janet Munoz NP [address] [place] [id number] Nurse Practitioner Family Medicine 02/25/23
--- OUTSIDE RECORDS SUMMARY | 2024-11-16 21:05 | XMS_ITS | Encounter Summary ---
Author Organization [employer] [facility] [employer] Address [facility] [id number] [address] [place] [address] Care Team Providers Care Press Room Supervisor Name Role Phone BetovenkatDora houstona Nathaly BRAID CUTTER-INSURANCE BILLING CLERK Primary Care Provider Encounter Details Date Type Department Care Team (Late st Contact Info) Description 10/08/2021 Orders Only [facility] [address] [place] [address] Ref Prov, [place] [address] Social History Tobacco Use Types Packs/Day Years Used Date Smoking Tobacco: Never Assessed Childcare Answer Date Recorded Childcare Unknown 10/06/2018 Employment Answer Date Recorded Employment Unknown 10/06/2018 Purpose - Life Answer Date Recorded Purpose and direction in life Unknown Comments No Sex and Gender Information Value Date Recorded Sex Assigned at Not on file Legal Sex Female 11:34 AM EDT Gender Identity Not on file Sexual Orientation Not on file documented as of this encounter Plan of Treatment Upcoming Encounters Date Type Department Care Team (Late st Contact Info) Description 01/13/2025 9:00 AM EDT Office Visit [facility] [address] [place] [phone] Chico Solitario MD [address] [place] [address] Ashley Corbett MD [address] [place], [place] [phone] documented as of this encounter Procedures Procedure Name Priority Date/Time Associated Diagnosis Comments VASC CAROTID DUPLEX BILATERAL Routine 10/08/2021 documented in this encounter Results * Vas carotid duplex bilateral (10/08/2021) Anatomical Region Laterality Modality Vascular Bilateral Ultrasound us Not In System Ref Prov CV VASCULAR ORDERABLES Fi nal Result documented in this encounter Visit Diagnoses Not on filedocumented in this encounter Care Teams Press Room Supervisor Relationship Specialty Start Date End Date Janet Munoz, BRAID CUTTER-INSURANCE BILLING CLERK PCP - General Nurse Practitioner 04/29/22 documented as of this encounter
--- OUTSIDE RECORDS SUMMARY | 2024-11-16 21:05 | XMS_ITS | Encounter Summary ---
Author Organization [facility] Address [address] [place] [address] Care Team Providers Care Polysomnography Tech Name Role Phone Janet Munoz NP Unavailable [phone] Janet Munoz NP Primary Care Provider Shaikh EARLE Tejada Primary Care Provider [phone] Peter Meyer MD Primary Care Provider [phone] Encounter Details Date Type Department Care Team (Late st Contact Info) Description 05/11/2023 Abstract [facility] [address] [place] [phone] Janet Munoz NP [address] [place] [address] Social History Tobacco Use Types Packs/Day Years Used Date Smoking Tobacco: Never Assessed Comments Unknown Sex and Gender Information Value Date Recorded Sex Assigned at Not on file Legal Sex Female 7:17 PM EDT Gender Identity Not on file Sexual Orientation Not on file documented as of this encounter Plan of Treatment Upcoming Encounters Date Type Department Care Team (Late st Contact Info) Description 01/11/2025 1:20 PM EDT Office Visit [facility] [address] [place] [phone] Janet Munoz NP [address] [place] [phone] documented as of this encounter Visit Diagnoses Not on filedocumented in this encounter Care Teams Polysomnography Tech Relationship Specialty Start Date End Date Janet Munoz NP [address] [place] [phone] PCP - General 08/30/23 10/04/23 Shaikh Tejada MD [address] [place] [address] PCP - General Internal Medicine 10/05/23 10/05/23 Peter Meyer MD [address] [place] [address] PCP - General Family Medicine 10/06/23 Janet Munoz NP [address] [place] [phone] Nurse Practitioner Family Medicine 02/25/23 documented as of this encounter
--- OUTSIDE RECORDS SUMMARY | 2024-11-16 21:05 | XMS_ITS | Encounter Summary ---
Author Organization [facility] Address [id number] [address] [place] [address] Care Team Providers Care Med Admin Name Role Phone Janet Munoz APRN-PACKAGE CRIMPER Primary Care Provider Encounter Details Date Type Department Care Team (Late st Contact Info) Description 05/18/2024 Telephone [facility] [address] [place] [address] Kimi Méndez DO [address] [place] [address] Social History Tobacco Use Types Packs/Day Years Used Date Smoking Tobacco: Every Day Cigarettes 0.5 42 Smokeless Tobacco: Never Alcohol Use Standard Drinks/Week [...] on file documented as of this encounter Miscellaneous Notes * Telephone Encounter - Lora Lopez - 05/18/2024 2:22 PM EST Patient just had a CTA that was ordered as STAT. She is now calling to find out when she is to [facility] office for results. Progress note is not complete yet, so I am unable to provide info to patient. Patient can be reached at [phone] Thank you * Telephone Encounter - Marta Peterson LPN - 05/18/2024 2:22 PM EST Electronic Typesetting Machine Operator spoke with , patient is to begin taking plavix and to come to the office to discuss test results. documented in this encounter Plan of Treatment Upcoming Encounters Date Type Department Care Team (Late st Contact Info) Description 01/13/2025 9:00 AM EDT Office Visit [facility] [address] [place] [phone] Chico Solitario MD [address] [place] [address] Ashley Corbett MD [address] [place] [address] documented as of this encounter Visit Diagnoses Not on filedocumented in this encounter Care Teams Med Admin Relationship Specialty Start Date End Date Janet Munoz, MEAL MILLER-PACKAGE CRIMPER PCP - General Nurse Practitioner 04/29/22 documented as of this encounter
--- OUTSIDE RECORDS SUMMARY | 2024-11-16 21:05 | XMS_ITS | Encounter Summary ---
Author Organization [facility] tem Address [facility] [id number] [address] [place] [address] Care Team Providers Care Supervisor Shuttle Fitting Name Role Phone Janet Munoz REAL ESTATE SALES ASSOCIATE-GAS PLANT SPECIALIST Primary Care Provider Encounter Details Date Type Department Care Team (Late st Contact Info) Description 08/23/2024 Orders Only [facility] [address] [facility] [place] [phone] Britany Hernandez, [facility] Social History Tobacco Use Types Packs/Day Years [...] Encounters Date Type Department Care Team (Late Contact Info) Description 01/13/2025 9:00 AM EDT Office Visit [facility] [address] [place] [phone] Chico Solitario MD [address] [place] [address] Ashley Corbett MD [address] [place] [address] documented as of this encounter Visit Diagnoses Not on filedocumented in this encounter Care Teams Supervisor Shuttle Fitting Relationship Specialty Start Date End Date Janet Munoz, REAL ESTATE SALES ASSOCIATE-GAS PLANT SPECIALIST PCP - General Nurse Practitioner 04/29/22 documented as of this encounter
--- OUTSIDE RECORDS SUMMARY | 2024-11-16 21:05 | XMS_ITS | Encounter Summary ---
Author Organization [facility] Address [address] [place] [address] Care Team Providers Care Mud Analysis Well Logging Operator Name Role Phone Janet Munoz GASTROENTEROLOGY TECHNICIAN Unavailable [phone] Peter Meyer MD Primary Care Provider [phone] Encounter Details Date Type Department Care Team (Late st Contact Info) Description 11/16/2024 Bamboo flowsheet [facility] [address] [place] [phone] Janet Munoz NP [address] [place] [phone] Social History Tobacco Use Types Packs/Day Years Used Date Smoking Tobacco: Every Day Cigarettes Passive Smoke Exposure: Current Smokeless Tobacco: Never Alcohol Use Standard Drinks/Week Comments Never 0 (1 standard drink = 0.6 oz pur e alcohol) caffine: [facility] 2 daily Social Connection and Isolat ion Panel [NHANES] Answer Date Recorded In a typical week, how many times do you talk on the phone with family, friends, or neighbors? More than three times a week 08/30/2023 How often do you get togethe r with friends or relatives? Twice a week 08/30/2023 How often do you attend chur ch or restoration services? Never 08/30/2023 Do you belong to any clubs o r organizations such as gnosticism groups, unions, fraternal or athletic groups, or [...] Recorded Patient Health Questionnaire-2 Score 0 09/02/2023 [facility] - Occupational Stress Questionnaire Answer Date Recorded [...] place to sleep or slept in a fdc (including now)? No 08/30/2023 Comments Unknown Sex and Gender Information Value Date Recorded Sex Assigned at Not on file Legal Sex Female 7:17 PM EDT Gender Identity Not on file Sexual Orientation Not on file documented as of this encounter Plan of Treatment Upcoming Encounters Date Type Department Care Team (Late st Contact Info) Description 01/11/2025 1:20 PM EDT Office Visit [facility] [address] [place] [address] Janet Munoz NP [address] [place] [phone] documented as of this encounter Visit Diagnoses Not on filedocumented in this encounter Care Teams Mud Analysis Well Logging Operator Relationship Specialty Start Date End Date Peter Meyer MD [address] [place] [phone] PCP - General Family Medicine 10/06/23 Janet Munoz NP [address] [place] [phone] Nurse Practitioner Family Medicine 02/25/23 documented as of this encounter
--- OUTSIDE RECORDS SUMMARY | 2024-11-16 21:05 | XMS_ITS | Encounter Summary ---
Author Organization [facility] Address [id number] [address] [place] [address] Care Team Providers Care Security Director Name Role Phone Janet Munoz [facility] Primary Care Provider Encounter Details Date Type Department Care Team (Late Contact Info) Description 12/25/2021 Orders Only [facility] [address] [place] [place] [phone] Janet Munoz, [facility] [address] [place] [address] Social History Tobacco Use Types Packs/Day Years [...] on file Sexual Orientation Not on file COVID-19 Exposure Response Date Recorded In the last month, have you been in contact with someone who was confirmed or suspected to have Coronavirus / COVID-19? No / Unsure 11/25/2021 12:48 PM EDT documented as of this encounter Plan of Treatment Upcoming Encounters Date Type Department Care Team (Late st Contact Info) Description 01/13/2025 9:00 AM EDT Office Visit [facility] [address] [place] [phone] Chico Solitario MD [address] [place] [address] Ashley Corbett MD [address] [place] [address] documented as of this encounter Procedures Procedure Name Priority Date/Time Associated Diagnosis Comments MULTIPLE LABS Routine 12/25/2021 VASC CAROTID DUPLEX BILATERAL Routine 12/25/2021 documented in this encounter Results * Multiple labs (12/25/2021) us Janet SMITH [place] IMAGING Final R esult MANUALLY TRANSCRIBED RESULTS * Vas carotid duplex bilateral (12/25/2021) Anatomical Region Laterality Modality Vascular Bilateral Ultrasound us Janet MSITH CV VASCULAR ORDERABLES Final Result documented in this encounter Visit Diagnoses Not on filedocumented in this encounter Care Teams Security Director Relationship Specialty Start Date End Date Janet Munoz APRN-CNP PCP - General Nurse Practitioner 04/29/22 documented as of this encounter
--- OUTSIDE RECORDS SUMMARY | 2024-11-16 21:05 | XMS_ITS | Encounter Summary ---
Author Organization [facility] Address [address] [place] [address] Care Team Providers Care Pasta Maker Name Role Phone Janet Munoz NP Unavailable [phone] Janet Munoz NP Primary Care Provider [phone] Shaikh EARLE Tejada Primary Care Provider [phone] Peter Meyer MD Primary Care Provider [phone] Encounter Details Date Type Department Care Team (Late st Contact Info) Description 09/11/2023 Orders Only [facility] [address] [place] [address] Janet Munoz NP [address] [place] [address] Social History Tobacco Use Types Packs/Day Years Used Date Smoking Tobacco: Every Day Cigarettes Smokeless Tobacco: Never Alcohol Use Standard Drinks/Week [...] 08/30/2023 How often do you attend chur or moravian services? Never 08/30/2023 Do you belong to any clubs o r organizations such as hindu groups, unions, fraternal or athletic groups, or [...] Recorded Patient Health Questionnaire-2 Score 0 09/02/2023 [facility] - Occupational Stress Questionnaire Answer Date Recorded [...] place to sleep or slept in a snf (including now)? No 08/30/2023 Comments Unknown Sex [...] Office Visit [facility] [address] [place] [address] Janet Munoz NP [address] [place] [address] documented as of this encounter Procedures Procedure Name Priority Date/Time Associated Diagnosis Comments MISCELLANEOUS LAB TEST Routine 09/10/2023 11:27 AM EDT documented in this encounter Results * - Miscellaneous Test (09/10/2023 11:27 AM EDT) Janet Munoz NP LAB BLOOD ORDERABLES Final Resu lt documented in this encounter Visit Diagnoses Not on filedocumented in this encounter Care Teams Pasta Maker Relationship Specialty Start Date End Date Janet Munoz NP [address] [place] [address] PCP - General 08/30/23 10/04/23 Shaikh Tejada MD [address] [place] [address] PCP - General Internal Medicine 10/05/23 10/05/23 Peter Meyer MD [address] [place] [address] PCP - General Family Medicine 10/06/23 Janet Munoz NP [address] [place] [address] Nurse Practitioner Family Medicine 02/25/23 documented as of this encounter
--- OUTSIDE RECORDS SUMMARY | 2024-11-16 21:05 | XMS_ITS | Encounter Summary ---
Author Organization [facility] Address [address] [place] [address] Care Team Providers Care Cylinder Machine Operator Name Role Phone Janet Munoz ORACLE DATA WAREHOUSE DEVELOPER Unavailable [phone] Peter Meyer MD Primary Care Provider [phone] Encounter Details Date Type Department Care Team (Late st Contact Info) Description 04/11/2024 External Result [facility] [address] [place] [address] Janet Munoz NP [address] [place] [address] Social History Tobacco Use Types Packs/Day Years Used Date Smoking Tobacco: Every Day Cigarettes Passive Smoke Exposure: Current Smokeless Tobacco: Never Alcohol Use Standard Drinks/Week Comments Never 0 (1 standard drink = 0.6 oz pur e alcohol) caffine: [facility] 2 daily Social Connection and Isolat ion Panel [NHANES] Answer Date Recorded In a typical week, how many times do you talk on the phone with family, friends, or neighbors? More than three times a week 08/30/2023 How often do you get togethe r with friends or relatives? Twice a week 08/30/2023 How often do you attend chur ch or confucianist services? Never 08/30/2023 Do you belong to any clubs o r organizations such as orthodoxy groups, unions, fraternal or athletic groups, or [...] Recorded Patient Health Questionnaire-2 Score 0 09/02/2023 [facility] - Occupational Stress [...] place to sleep or slept in a senior care (including now)? No 08/30/2023 Comments Unknown Sex and Gender Information Value Date Recorded Sex Assigned at Not on file Legal Sex Female 7:17 PM EDT Gender Identity Not on file Sexual Orientation Not on file documented as of this encounter Plan of Treatment Upcoming Encounters Date Type Department Care Team (Late st Contact Info) Description 01/11/2025 1:20 PM EDT Office Visit [facility] [address] [place] [address] Janet Munoz NP [address] [place] [address] documented as of this encounter Procedures Procedure Name Priority Date/Time Associated Diagnosis Comments MICROALBUMIN / CREATININE URINE RATIO Routine 09/27/2024 12:59 PM EDT URINALYSIS, MANUAL ONLY Routine 09/27/2024 12:59 PM EDT TSH ([facility]) Routine 09/27/2024 12:56 PM EDT CBC WITH AUTO DIFFERENTIAL Routine 09/27/2024 12:56 PM EDT LIPID PANEL Routine 09/27/2024 12:56 PM EDT COMPREHENSIVE METABOLIC PANEL Routine 09/27/2024 12:56 PM EDT BI MAMMOGRAM SCREENING TOMOSYNTHESIS BILATERAL 04/11/2024 10:56 AM EST documented in this encounter Results * Microalbumin / creatinine urine ratio (09/27/2024 12:59 PM EDT) URINE CREATININE, RDM 94.94 mg/dL [facility] MALB/CREAT RATIO NA [facility] Comment:Urine Microalbumin / Creatinine ratio not calculated due to non-numeric component. MICROALBUMIN, URINE <0.7 0.0 - 1.9 mg/dL [facility] Comment: PERFORMED AT [address], [place] [address] 09/27/2024 12:5 9 PM EDT 09/27/2024 5:42 PM EDT us Janet Munoz ORACLE DATA WAREHOUSE DEVELOPER LAB URINE ORDERABLES Final Resu lt [facility] [...] (URINE) Negative Negative [facility] Comment: PERFORMED AT [address],[place] [address] 09/27/2024 12:5 9 PM EDT 09/27/2024 5:42 PM EDT us Janet Munoz ORACLE DATA WAREHOUSE DEVELOPER LAB URINE ORDERABLES Final Resu lt [facility] * TSH ([facility]) (09/27/2024 12:56 PM EDT) TSH 1.17 0.49 - 4.67 uIU/mL [facility] Comment: PERFORMED AT [facility] [address],[place] [address] 09/27/2024 12:5 6 PM EDT 09/27/2024 5:35 PM EDT us Janet Whiterosemarie ORACLE DATA WAREHOUSE DEVELOPER LAB BLOOD ORDERABLES Final Resu lt [facility] [...] TYPE AUTOMATED DIFFERENTIAL [facility] Comment: PERFORMED AT [facility] [address],[place] [address] 09/27/2024 12:5 6 PM EDT 09/27/2024 5:35 PM EDT Janet Munoz ORACLE DATA WAREHOUSE DEVELOPER LAB BLOOD ORDERABLES Final Resu lt Performing Organization Address City/[facility]/ZIP Co de Phone Number [facility] * (ABNORMAL) Lipid panel (09/27/2024 12:56 [...] - 30 mg/dL [facility] Comment: PERFORMED AT [facility] [address] [facility],[place] [address] 09/27/2024 12:5 6 PM EDT 09/27/2024 5:35 PM EDT Janet Munoz ORACLE DATA WAREHOUSE DEVELOPER LAB BLOOD ORDERABLES Final Resu lt Performing Organization Address [facility]/ZIP Co de Phone Number [facility] * (ABNORMAL) Comprehensive metabolic panel (09/27/2024 [...] not use a race coefficient. PERFORMED AT [place] [address] [facility],[place] [address] 09/27/2024 12:5 6 PM EDT 09/27/2024 5:35 PM EDT us Janet Munoz ORACLE DATA WAREHOUSE DEVELOPER LAB BLOOD ORDERABLES Final Resu lt [facility] * Bilateral screening mammogram with tomosynthesis (04/11/2024 10:56 AM EST) Anatomical Region Laterality Modality Breast Bilateral Mammography 04/11/2024 10:5 6 AM EST Narrative 04/11/2024 10:55 AM EST THIS EXAM WAS PERFORMED AT [facility] 1965 [id number] EXAM: MAMM SCREENING BILATERAL W CAD, 04/08/2024 [...] MAMM 1 YR FDA Accredited Performing Facility: [facility] - Mammography/[facility]A Imaging [address] [facility] [id number] Procedure Note Radiology, Radiologist, - 04/11/2024 THIS EXAM WAS PERFORMED AT [facility] 1965 [id number] EXAM: MAMM SCREENING BILATERAL W CAD, 04/08/2024 [...] and family medical history was usedcalculate their Tyrer-Cuzick lifetime risk of malignancy. Scores less than20% are not considered high risk per ACR guidelines and patient shouldcontinue with the above recommendation. Finalized by Joselo Aj MD on 04/11/2024 10:55 AM 1 c MAMM 1 YR FDA Accredited Performing Facility: [facility] - [facility]amm[facility]A Imaging [address] [place] [address] Janet Munoz ORACLE DATA WAREHOUSE DEVELOPER IMG BI PROCEDURES Final Result documented in this encounter Visit Diagnoses Not on filedocumented in this encounter Care Teams Cylinder Machine Operator Relationship Specialty Start Date End Date Petre Meyer MD [address] [place] [address] PCP - General Family Medicine 10/06/23 Janet Munoz NP [address] [place] [address] Nurse Practitioner Family Medicine 02/25/23 documented as of this encounter
--- OUTSIDE RECORDS SUMMARY | 2024-11-16 21:05 | XMS_ITS | Encounter Summary ---
Author Organization [facility] Address [address] [place] [address] Care Team Providers Care Business Support Associate Name Role Phone Manjula Fuller MD Primary Care Provider [phone] Janet Munoz CNP Primary Care Provider [phone] Source Comments In the event this information is protected by the Federal Confidentiality of Alcohol and Drug AbusePatient Records regulations: The Federal rules restrict any use of the information to criminally investigate or prosecute any alcohol or drug abuse patient.[facility] Encounter Details Date Type Department Care Team (Latest Contact Info) Description 11/30/2019 H&P External-NonCCF Provider, EUGENIA See Do not enter address information under generic External Provider. Social History Tobacco Use Types Packs/Day Years [...] Description 03/21/2025 2:15 PM EST Office Visit [facility] [address] [place] [address] [place] [address] 1 year follow up with lab 03/21/2025 2:20 PM EST Visit (SP) Office Hematology/Oncology [address] [place] [address] [place] [address] Luis Manuel Wells MD [address] [place] [address] [place] [address] 1 year follow up with lab documented as of this encounter Visit Diagnoses Not on filedocumented in this encounter Care Teams Business Support Associate Relationship Specialty Start Date End Date Manjula Fuller MD PCP - General Family Medicine 04/25/14 03/24/22 Janet Munoz, IMPREGNATION OPERATOR [address] [place] [address] PCP - General Family Medicine 03/25/22 documented as of this encounter
--- OUTSIDE RECORDS SUMMARY | 2024-11-16 21:05 | XMS_ITS | Encounter Summary ---
Author Organization [facility] Address [address] [place] [address] Care Team Providers Care Cellular Tower Climber Name Role Phone Janet Munoz STEAMING CABINET TENDER Unavailable [phone] Peter Meyer MD Primary Care Provider [phone] Encounter Details Date Type Department Care Team (Late st Contact Info) Description 05/18/2024 Orders Only [facility] [address] [place] [address] Janet Munoz, JUNAID [address] [place] [phone] Social History Tobacco Use Types Packs/Day Years Used Date Smoking Tobacco: Every Day Cigarettes Passive Smoke Exposure: Current Smokeless Tobacco: Never Alcohol Use Standard Drinks/Week Comments Never 0 (1 standard drink = 0.6 oz pur e alcohol) caffine: [facility] 2 daily Social Connection and Isolat ion Panel [NHANES] Answer Date Recorded In a typical week, how many times do you talk on the phone with family, friends, or neighbors? More than three times a week 08/30/2023 How often do you get togethe r with friends or relatives? Twice a week 08/30/2023 How often do you attend chur ch or yazidi services? Never 08/30/2023 Do you belong to any clubs o r organizations such as mormon groups, unions, fraternal or athletic groups, or [...] Recorded Patient Health Questionnaire-2 Score 0 09/02/2023 [facility] - [...] place to sleep or slept in a retirement (including now)? No 08/30/2023 Comments Unknown Sex [...] Office Visit [facility] [address] [place] [address] Janet Munoz NP [address] [place] [address] documented as of this encounter Visit Diagnoses Not on filedocumented in this encounter Care Teams Cellular Tower Climber Relationship Specialty Start Date End Date Peter Meyer MD [address] [place] [address] PCP - General Family Medicine 10/06/23 Janet Munoz NP [address] [place] [address] Nurse Practitioner Family Medicine 02/25/23 documented as of this encounter
--- OUTSIDE RECORDS SUMMARY | 2024-11-16 21:05 | XMS_ITS | CCD ---
Author Organization [facility] Care Team Providers Care Storeroom Keeper Name Role Phone Manjula Fuller MD Primary Care Provider [phone] AICHHOLZ, SUBGRADE ROLLER OPERATOR JANET Admitting Unavailable AICHHOLZ, SUBGRADE ROLLER OPERATOR JANET Attending Unavailable AICHHOLZ, SUBGRADE ROLLER OPERATOR JANET Primary Care Unavailable AICHHOLZ, SUBGRADE ROLLER OPERATOR JANET Consulting Unavailable AICHHOLZ, SUBGRADE ROLLER OPERATOR JANET Admitting Unavailable AICHHOLZ, SUBGRADE ROLLER OPERATOR JANET Attending Unavailable AICHHOLZ, SUBGRADE ROLLER OPERATOR JANET Primary Care Unavailable DR CARLOS ZELAYA V Consulting Unavailable AICHHOLZ, SUBGRADE ROLLER OPERATOR JANET Consulting Unavailable AICHHOLZ, SUBGRADE ROLLER OPERATOR JANET Admitting Unavailable AICHHOLZ, SUBGRADE ROLLER OPERATOR JANET Attending Unavailable AICHHOLZ, SUBGRADE ROLLER OPERATOR JANET Primary Care Unavailable AICHHOLZ, SUBGRADE ROLLER OPERATOR JANET Consulting Unavailable AICHHOLZ, SUBGRADE ROLLER OPERATOR JANET Admitting Unavailable AICHHOLZ, SUBGRADE ROLLER OPERATOR JANET Attending Unavailable AICHHOLZ, SUBGRADE ROLLER OPERATOR JANET Primary Care Unavailable AICHHOLZ, SUBGRADE ROLLER OPERATOR JANET Consulting Unavailable AICHHOLZ, SUBGRADE ROLLER OPERATOR JANET Admitting Unavailable AICHHOLZ, SUBGRADE ROLLER OPERATOR JANET Attending Unavailable AICHHOLZ, SUBGRADE ROLLER OPERATOR JANET Primary Care Unavailable AICHHOLZ, SUBGRADE ROLLER OPERATOR JANET Consulting Unavailable Aichholz Janet NIETO Primary Care Provider Aichholz TOBACCO CURER, Janet Unavailable Peter Meyer MD Primary Care Provider AichholJanet tiwari CNP Primary Care Provider AICJANET MARINO Primary Care Unavailable VENNEPUREDGERMAN, LUIS MANUEL Attending Unavailable JANET MUNOZ NIEVES Primary Care Unavailable Aichholz LEATHER WHITENER-Janet NIETO Primary Care Provider KIMI TEJADA Attending Unavailable AICHHOLZ, JANET J Referring Unavailable AICHHOLZ, JANET J Primary Care Unavailable TEJADA, KIMI M Attending Unavailable AICHHOLZ, JANET J Referring Unavailable AICHHOLZ, JANET J Primary Care Unavailable Aichholz LEATHER WHITENER-SUBGRADE ROLLER OPERATOR, Janet J Primary Care Provider JANET MUNOZ Attending Unavailable AICHHOLJANET Tiwari Attending Unavailable AICHHOLJANET Tiwari Attending Unavailable SHAIKH REICH Attending Unavailable AICHHOLZJANET Attending Unavailable AICHHOLZ, JANET Attending Unavailable Aichholz LEATHER WHITENER-SUBGRADE ROLLER OPERATOR, Janet Andersen Primary Care Provider JANET MUNOZ J Primary Care Unavailable DAV SUAREZ Attending Unavailable HUEY ROBERSON Attending Unavailable HUEY ROBERSON Referring Unavailable AICHHOLZ, JANET J Primary Care Unavailable WINTER GOMEZ Referring Unavailable AICHHOLZ, JANET J Primary Care Unavailable WINTER GOMEZ ROSALINA Referring Unavailable AICHHOLZ, JANET J Primary Care Unavailable PATRICIA WINTER ROSALINA Attending Unavailable PATRICIA, WINTER ROSALINA Referring Unavailable AICHHOLZ, JANET J Primary Care Unavailable JULIO CÉSAR SHEPHERD W Referring Unavailable AICHHOLZ, JANET J Primary Care Unavailable HENRY SHEPHERDSON W Referring Unavailable AICHHOLZ, JANET J Primary Care Unavailable AICHHOLZ, JANET J Referring Unavailable AICHHOLZ, JANET J Primary Care Unavailable RENE WALLER Referring Unavailable AICHHOLZ, JANET J Primary Care Unavailable TEJADA, KIMI M Referring Unavailable AICHHOLZ, JANET J Primary Care Unavailable TEJADA, KIMI M Attending Unavailable TEJADA, KIMI M Referring Unavailable AICHHOLZ, JANET J Primary Care Unavailable TEJADA, KIMI M Attending Unavailable TEJADA, KIMI M Referring Unavailable AICHHOLZ, JANET J Primary Care Unavailable BOUMEGOUAS, MANEL Attending Unavailable TEJADA, KIMI M Referring Unavailable AICHHOLZ, JANET J Primary Care Unavailable BOUMEGOUAS, MANEL Attending Unavailable BOUMEGOUAS, MANEL Referring Unavailable AICHHOLZ, JANET J Primary Care Unavailable BOUMEGOUAS, MANEL Attending Unavailable BOUMEGOUAS, MANEL Referring Unavailable AICHHOLZ, JANET J Primary Care Unavailable BOUMEGOUAS, MANEL Attending Unavailable CHICO SOLITARIO Referring Unavailable JANET MUNOZ Primary Care Unavailable CHICO SOLITARIO Attending Unavailable CHICO SOLITARIO Referring Unavailable JANET MUNOZ Primary Care Unavailable JANET MUNOZ Referring Unavailable JANET MUNOZ Primary Care Unavailable Allergies Allergy Classification Reported Allergen(s) Allergy Type Date of Onset Reaction(s) Facility (7 sources) Plasmin; Translations: [FIBRINOLYSIN] Drug Allergy 04-21-2015 Unknown [facility] (20 sources) SUMAtriptan; Translations: [SUMATRIPTAN] Drug Allergy 12-06-2019 Other: See Comments, Anaphylaxis, Palpitations, Other, Other (See Comments) [facility] Medications Current Medications Medication Drug Class(es) Dates Sig (Normalized) Sig (Original) Acetaminophen / diphenhydrAMINE (5 sources) Histamine-1 Receptor Antagonist acetaminophen/diphe nhydramine (PM PAIN RELIEF ORAL) Take by mouth. Active acetaminophen/di phenhydramine (PM PAIN RELIEF ORAL) Take by mouth. 0 Active Comment on above: Take by mouth. [id number] 200 actuat albuterol 0.09 mg/actuat metered dose inhaler (20 sources) beta2-Adrenergic Agonist Start: 4 End: 5 take 2 puff(s) by inhalation every six hours for wheezing albuterol HFA 90 mcg/act inhaler Indications: Environmental and seasonal allergies Inhale 2 puffs every 6 (six) hours if needed for wheezing or shortness of breath 25.5 g 3 06/16/2024 Active Start: 11-10-2021 albuterol (PRO VENTIL HFA;VENTOLIN HFA) 90 mcg/actuation inhaler 11/10/2021 Active Start: 12-05-2019 take 2 puff(s) by mo uth four times daily albuterol HFA (PROVENTIL HFA, VENTOLIN HFA) 90 mcg/actuation inhaler inhale 2 puffs by mouth and INTO THE LUNGS four times a day if needed 12/05/2019 Active Comment on above: inhale 2 puffs by mo uth and INTO THE LUNGS four times a day if needed amoxicillin 875 mg / clavulanate 125 mg oral tablet (4 sources) Penicillin-class Antibacterial Start: End: take 1 tablet by mouth in the morning amoxicillin-clavula bob (Augmentin) 875-125 MG tablet Indications: Symptomatic urinary tract infection Take 1 tablet (875 mg) by mouth in the morning and 1 tablet (875 mg) before bedtime. Do all this for 10 days. Take with food. 20 tablet 11/16/2024 11/26/2024 Active ascorbic acid 500 mg oral tablet (14 sources) Vitamin C take 1 tablet by mouth in the morning ascorbic acid (VITAMIN C) 500 mg tablet Take 1 tablet (500 mg total) by mouth in the morning. Active Comment on above: Take 500 mg by mouth once daily. aspirin 81 mg delayed release oral tablet (20 sources) Platelet Aggregation Inhibitor, Nonsteroidal Anti-inflammatory Drug take 1 tablet by mouth once aspirin 81 MG EC tablet Take 81 mg by mouth 1 (one) time Active take 1 tablet by mouth in the mo rning aspirin 81 mg Take 1 tablet (81 mg total) by mouth in the morning. Active Comment on above: Take 81 mg by mouth. Blood Glucose Monitoring Suppl (Contour Blood Glucose System) w/Device kit (15 sources) Start: 05-28-2024 End: 05-28-2025 Blood Glucose Monitoring Suppl (Contour Blood Glucose System) w/Device kit Indications: Type 2 diabetes mellitus without complication, without long-term current use of insulin ([facility]) 1 kit Daily 1 kit 05/28/2024 05/28/2025 Active Start: 05-28-2024 End: 05-28-2025 Blood Glucose Monitoring [address] (Contour Blood Glucose System) w/Device kit Indications: Type 2 diabetes mellitus without complication, without long-term current use of insulin 1 kit Daily 1 kit 05/28/2024 05/28/2025 Active Start: 05-28-2024 End: 05-28-2025 Blood Glucose Monitoring Sup pl (Contour Blood Glucose System) w/Device kit Indications: Type 2 diabetes mellitus without complication, without long-term current use of insulin ([facility]) 1 kit Daily 1 kit 05/28/2024 05/28/2025 Active Blood Glucose Monitoring Sup pl (True Metrix Air Glucose Meter) w/Device kit (17 sources) Start: 05-19-2024 End: 05-19-2025 Blood Glucose Monitoring Sup pl (True Metrix Air Glucose Meter) w/Device kit Indications: Type 2 diabetes mellitus without complication, without long-term current use of insulin (HCC) 1 each Daily 1 kit 05/19/2024 05/19/2025 Active Start: 05-19-2024 End: 05-19-2025 Blood Glucose Monitoring Sup pl (True Metrix Air Glucose Meter) w/Device kit Indications: Type 2 diabetes mellitus without complication, without long-term current use of insulin 1 each Daily 1 kit 05/19/2024 05/19/2025 Active Start: 05-19-2024 End: 05-19-2025 Blood Glucose Monitoring Sup pl (True Metrix Air Glucose Meter) w/Device kit Indications: Type 2 diabetes mellitus without complication, without long-term current use of insulin ([facility]/HCC) 1 each Daily 1 kit 05/19/2024 05/19/2025 Active End: 05-19-2024 Blood Glucose Monitoring [address] (True Metrix Air Glucose Meter) w/Device kit 1 each Daily 05/19/2024 Discontinued (Reorder) Cetirizine (5 sources) Histamine-1 Receptor Antagonist cetirizine HCl (ALLERGY RELIEF, CETIRIZINE, ORAL) Take by mouth. Active cetirizine HCl ( ALLERGY RELIEF, CETIRIZINE, ORAL) Take by mouth. 0 Active Comment on above: Take by mouth. clopidogrel 75 mg oral tablet (20 sources) P2Y12 Platelet Inhibitor Start: 5 End: 5 take 1 tablet by mouth in the morning clopidogrel (Plavix) 75 MG tablet Take 75 mg by mouth in the morning. 05/18/2024 Active cyanocobalamin, vitamin B-12, (VITAMIN B12 ORAL) (5 sources) cyanocobalamin, vitamin B-12, (VITAMIN B12 ORAL) Take by mouth. Active cyanocobalamin, vitamin B-12, (VITAMIN B12 ORAL) Take by mouth. 0 Active Comment on above: Take by mouth. folic acid 1 mg oral tablet (20 sources) take 1 tablet by mouth once daily folic acid (Folvite) 1 MG tablet Take 1 mg by mouth Daily Active Glucose Blood (TRUE METRIX BLOOD GLUCOSE TEST ) (1 source) End: 5 Glucose Blood (TRUE METRIX BLOOD GLUCOSE TEST ) 1 each by In Vitro route Daily 05/19/2024 Discontinued (Reorder) lisinopril 40 mg oral tablet (20 sources) Angiotensin Converting Enzyme Inhibitor Start: End: take 1 tablet by mouth once daily lisinopril 40 MG tablet Indications: HTN (hypertension), benign Take 1 tablet (40 mg) by mouth Daily 90 tablet 1 11/16/2024 02/14/2025 Active Start: 05-09-2024 End: 11-16-2024 take 1 tablet by mouth once daily lisinopril 30 MG tablet Indications: HTN (hypertension), benign Take 1 tablet (30 mg) by mouth Daily 90 tablet 1 05/09/2024 11/16/2024 Discontinued (Reorder) Start: 03-28-2024 End: 06-26-2024 take 1 tablet by mouth in the morning lisinopril 20 MG tablet Indications: HTN (hypertension), benign (CMS/HCC) Take 1 tablet (20 mg) by mouth in the morning. 90 tablet 1 03/28/2024 05/09/2024 Discontinued (Ineffective) Start: 08-28-2021 lisinopriL (ME INIVIL,ZESTRIL) 10 mg tablet 3 tablets (30 mg total). 08/28/2021 Active Start: 08-28-2021 End: 06-26-2024 lisinopriL (PRINIVIL,ZESTRIL ) 10 mg tablet 08/28/2021 Active Comment on above: Take 10 mg by mouth once daily. melatonin 10 mg oral capsule (14 sources) melatonin 10 mg capsule Take by mouth. Active Comment on above: Take by mouth. multivit,benjamin,mins/FA/bioflav 4 (DIABETES HEALTH SUPPORT ORAL) (5 sources) multivit,benjamin,min s/FA/bioflav 4 (DIABETES HEALTH SUPPORT ORAL) Take by mouth. Active multivit,benjamin,min s/FA/bioflav4 (DIABETES HEALTH SUPPORT ORAL) Take by mouth. 0 Active Comment on above: Take by mouth. nitrofurantoin, macrocrystals 25 mg / nitrofurantoin, monohydrate 75 mg oral capsule (1 source) Nitrofuran Antibacterial Start: End: take 1 capsule by mouth in the morning nitrofurantoin, macrocrystal-monohydr ate, (Macrobid) 100 MG capsule Indications: Urinary tract infection without hematuria, site unspecified Take 1 capsule (100 mg) by mouth in the morning and 1 capsule (100 mg) before bedtime. Do all this for 7 days. 14 capsule 09/28/2024 10/05/2024 Active ondansetron 4 mg disintegrating oral tablet (20 sources) Serotonin-3 Receptor Antagonist take 1 tablet by mouth every eight hours as needed for nausea and vomiting ondansetron ODT (Zofran-ODT) 4 MG disintegrating tablet Take 4 mg by mouth every 8 (eight) hours if needed for nausea or vomiting Active Polyethylene Glycols (5 sources) polyethylene gly col 3350 (MIRALAX ORAL) Take by mouth. Active polyethylene gly col 3350 (MIRALAX ORAL) Take by mouth. 0 Active Comment on above: Take by mouth. simethicone 25 mg delayed release oral capsule (5 sources) simethicone (GAS RELIEF ORAL) Take 25 mg by mouth. Active Comment on above: Take 25 mg by mouth. soy isofla/blk cohosh/mag ba rk (ESTROVEN ORAL) (5 sources) soy isofla/blk c ohosh/mag bark (ESTROVEN ORAL) Take by mouth. Active soy isofla/blk c ohosh/mag bark (ESTROVEN ORAL) Take by mouth. 0 Active Comment on above: Take by mouth. tiZANidine 4 mg oral tablet (20 sources) Central alpha-2 Adrenergic Agonist Start: 03-04-2023 tiZANidine (Zanaflex) 4 MG tablet Indications: Muscle spasm Take 1 tablet (4 mg) by mouth as needed at bedtime for muscle spasms 90 tablet 1 09/04/2023 Active Triamcinolone (5 sources) Corticosteroid triamcinolone ac etonide (NASACORT NASAL) Use in the nose. Active triamcinolone ac etonide (NASACORT NASAL) Use in the nose. 0 Active Comment on above: Use in the nose. zolpidem tartrate 10 mg oral tablet (20 sources) gamma-Aminobutyric Acid-ergic Agonist Start: 09-12-2024 End: 12-11-2024 zolpidem (Ambien) 10 MG tablet Indications: Primary insomnia Take 1 tablet (10 mg) by mouth as needed at bedtime for sleep 90 tablet 1 09/12/2024 12/11/2024 Active Start: 09-18-2021 End: 06-26-2024 zolpidem (Ambien) 10 MG tabl et Indications: Primary insomnia Take 1 tablet (10 mg) by mouth as needed at bedtime for sleep 90 tablet 1 03/28/2024 Active Comment on above: Take 10 mg by mouth at bedtime as needed. Completed/Discontinued Medications Medication Drug Class(es) Dates Sig (Normalized) Sig (Original) acetaminophen 325 mg / HYDROcodone bitartrate 5 mg oral tablet (5 sources) Opioid Agonist Start: 10-10-2023 End: 03-28-2024 take 1 tablet by mouth every six hours as needed for pain HYDROcodone-acetamin ophen (Udell) 5-325 MG tablet Take 1 tablet by mouth every 6 (six) hours if needed for severe pain 10/10/2023 03/28/2024 Discontinued (Therapy completed) atorvastatin 80 mg oral tablet (20 sources) HMG-CoA Reductase Inhibitor Start: 05-23-2024 End: 02-14-2025 take 1 tablet by mouth at bedtime atorvastatin (Lipitor) 80 MG tablet Indications: Bilateral carotid artery stenosis , Mixed hyperlipidemia Take 1 tablet (80 mg) by mouth at bedtime 90 tablet 1 06/20/2024 11/16/2024 Discontinued (Reorder) Start: 10-02-2021 End: 07-11-2024 take 1 tablet by mouth at bedtime atorvastatin (Lipitor) 40 MG tablet Indications: Mixed hyperlipidemia (CMS/HCC) Take 1 tablet (40 mg) by mouth at bedtime Take 40 mg by mouth at bedtime 90 tablet 1 04/12/2024 07/11/2024 Active 12 hr buPROPion hydrochloride 150 mg extended release oral tablet (17 sources) Aminoketone Start: 06-20-2024 End: 11-17-2024 take 1 tablet by mouth every twelve hours in the morning buPROPion SR (Wellbutrin SR) 150 MG 12 hr tablet Indications: Tobacco dependence Take 1 tablet (150 mg) by mouth in the morning and 1 tablet (150 mg) before bedtime. Do not crush, chew, or split. 180 tablet 1 11/16/2024 11/16/2024 Discontinued (Side effects) 24 hr metFORMIN hydrochloride 500 mg extended release oral tablet (20 sources) Biguanide Start: 09-04-2023 End: 02-14-2025 take 1 tablet by mouth once daily metFORMIN XR (Glucophage-XR) 500 MG 24 hr tablet Indications: Pre-diabetes Take 1 tablet (500 mg) by mouth Daily 90 tablet 1 08/25/2024 11/16/2024 Discontinued (Reorder) Start: 12-22-2020 metFORMIN XR ( GLUCOPHAGE XR) 500 mg 24 hr tablet 08/28/2021 Active montelukast 10 mg oral tablet (20 sources) Leukotriene Receptor Antagonist Start: 09-04-2023 End: 02-14-2025 take 1 tablet by mouth at bedtime montelukast (Singulair) 10 MG tablet Indications: Environmental and seasonal allergies Take 1 tablet (10 mg) by mouth at bedtime 90 tablet 1 08/25/2024 11/16/2024 Discontinued (Reorder) Comment on above: Take 10 mg by mouth daily at bedtime. Problems Active Problems Problem Classification Problem Date Documented Date Episodic/Chronic Diabetes mellitus without complication (20 sources) Type 2 diabetes mellitus without complication; Translations: [Type 2 diabetes mellitus without complications] Onset: 10-02-2021 Chronic Diabetes mellitus without complication (20 sources) Prediabetes; Translations: [Prediabetes] Onset: 09-02-2023 Resolved: 03-28-2024 09-02-2023 Episodic Diseases of white blood cells (20 sources) Leukocytosis; Translations: [Elevated white blood cell count, unspecified] Onset: 09-02-2023 09-02-2023 Chronic Disorders of lipid metabolism (20 sources) Mixed hyperlipidemia; Translations: [Mixed hyperlipidemia] Onset: 09-02-2023 09-02-2023 Chronic Diverticulosis and diverticulitis (20 sources) Diverticulitis; Translations: [Diverticulitis of intestine, part unspecified, without perforation or abscess without bleeding] Onset: 09-02-2023 09-02-2023 Chronic Essential hypertension (20 sources) Benign hypertension; Translations: [Essential (primary) hypertension] Onset: 07-27-2023 07-27-2023 Chronic Headache; including migraine (2 sources) Headache; Translations: [Chronic nonintractable headache, unspecified headache type] 06-06-2024 Episodic Headache; including migraine (2 sources) Headache; including migraine; Translations: [Headache, unspecified] Onset: 05-23-2024 Menopausal disorders (20 sources) Menopausal symptom; Translations: [Menopausal and female climacteric states] Onset: 07-27-2023 07-27-2023 Chronic Miscellaneous mental health disorders (6 sources) Primary insomnia; Translations: [Primary insomnia] 03-27-2024 Chronic Neoplasms of unspecified nature or uncertain behavior (20 sources) Monoclonal gammopathy (clinical); Translations: [Monoclonal gammopathy] Onset: 09-02-2023 Chronic Occlusion or stenosis of precerebral arteries (20 sources) Occlusion and stenosis of bilateral carotid arteries; Translations: [Bilateral stenosis of carotid arteries] Onset: 11-18-2021 Resolved: 09-02-2023 Chronic Other lower respiratory disease (2 sources) Dyspnea on exertion; Translations: [Other forms of dyspnea] 07-07-2024 Episodic Other lower respiratory disease (1 source) Other forms of dyspnea; Translations: [Other forms of dyspnea] Onset: 07-07-2024 Episodic Other nervous system disorders (2 sources) Other chronic pain; Translations: [Other chronic pain] Onset: 05-23-2024 Chronic Other nutritional; endocrine; and metabolic disorders (20 sources) Insulin resistance; Translations: [Insulin resistance] Onset: 07-27-2023 07-27-2023 Chronic Other nutritional; endocrine; and metabolic disorders (20 sources) Hyperproteinemia; Translations: [Other disorders of plasma-protein metabolism, not elsewhere classified] Onset: 09-02-2023 09-02-2023 Chronic Other nutritional; endocrine; and metabolic disorders (20 sources) Body mass index 30+ - obesity; Translations: [Obesity, unspecified] Onset: 09-02-2023 09-02-2023 Chronic Other nutritional; endocrine; and metabolic disorders (20 sources) Obesity caused by energy imbalance; Translations: [Morbid (severe) obesity due to excess calories] Onset: 05-09-2024 05-09-2024 Chronic Other nutritional; endocrine; and metabolic disorders (1 source) Morbid (severe) obesity due to excess calories; Translations: [Morbid (severe) obesity due to excess calories] Onset: 05-16-2024 Chronic Other skin disorders (20 sources) Hidradenitis suppurativa; Translations: [Hidradenitis suppurativa] Onset: 07-27-2023 07-27-2023 Episodic Other upper respiratory disease (20 sources) Allergic disposition; Translations: [Other allergic rhinitis] Onset: 09-04-2023 09-04-2023 Chronic Substance-related disorders (20 sources) Tobacco dependence syndrome; Translations: [Nicotine dependence, unspecified, uncomplicated] Onset: 09-02-2023 09-02-2023 Chronic Unclassified (2 sources) CONTACT W/AND (SUSP) EXPOS COVID-19; Translations: [CONTACT W/AND (SUSP) EXPOS COVID-19] Onset: 03-08-2022 Unclassified (1 source) Carotid Artery Disease Onset: 05-23-2024 Unclassified (1 source) New Patient Onset: 07-07-2024 Urinary tract infections (20 sources) Urinary tract infectious disease; Translations: [Urinary tract infection, site not specified] Onset: 09-11-2023 09-11-2023 Episodic Viral infection (1 source) COVID-19; Translations: [COVID-19] Onset: 03-08-2022 Past or Other Problems Problem Classification Problem Date Documented Date Episodic/Chronic Cardiac dysrhythmias (20 sources) Palpitations; Translations: [Palpitations] Onset: 09-02-2023 09-02-2023 Episodic E Codes: Fall (1 source) Unspecified fall, initial encounter; Translations: [Unspecified fall, initial encounter] Onset: 10-03-2023 Episodic Fracture of upper limb (3 sources) Other intraarticular fracture of lower end of left radius, subsequent encounter for closed fracture with routine healing; Translations: [Other intraarticular fracture of lower end of left radius, initial encounter for closed fracture] Onset: 10-03-2023 Episodic Immunizations and screening for infectious disease (20 sources) Needs influenza immunization; Translations: [Encounter for immunization] Onset: 03-28-2024 03-28-2024 Episodic Nausea and vomiting (20 sources) Nausea; Translations: [Nausea] Onset: 07-27-2023 07-27-2023 Episodic Other circulatory disease (1 source) Other specified symptoms and signs involving the circulatory and respiratory systems; Translations: [OTH SPEC SX SIGNS INVLV CIRC RS] Onset: 10-04-2021 Episodic Other connective tissue disease (20 sources) Spasm; Translations: [Other muscle spasm] Onset: 09-04-2023 09-04-2023 Episodic Other nervous system disorders (20 sources) H/O: Disorder; Translations: [Personal history of other diseases of the nervous system and sense organs] Onset: 01-09-2014 07-27-2023 Episodic Other non-traumatic joint disorders (2 sources) Pain in wrist Onset: 10-03-2023 Episodic Other screening for suspected conditions (not mental disorders or infectious disease) (20 sources) Encounter for screening mammogram for malignant neoplasm of breast; Translations: [Patient encounter status] Onset: 10-01-2021 Episodic Other upper respiratory infections (14 sources) Viral upper respiratory tract infection; Translations: [Acute upper respiratory infection, unspecified] Onset: 06-20-2024 Resolved: 08-18-2024 06-20-2024 Episodic Residual codes; unclassified (20 sources) Insomnia; Translations: [Insomnia, unspecified] Onset: 09-02-2023 09-02-2023 Episodic Unclassified (1 source) CONTACT W/AND (SUSP) EXPOS COVID-19; Translations: [CONTACT W/AND (SUSP) EXPOS COVID-19] Onset: 03-04-2022 Results Test Name Value Interpretation Reference Range Facility HbA1c (Bld) [Mass fraction]o n 11-16-2024 Interpretation and review of laboratory results Abnormal [facility] - Hematology and Cell countson 11-16-2024 HbA1c (Bld) [Mass fraction] 6.6 % [facility] Urinalysis macro (dipstick) panel (U)on 11-16-2024 Bilirubin, UA Negative Negative - 4(70) +++ mg/dL [facility] Blood, UA Positive Negative - 50 Leeroy/mcL [facility] Comment on above: trace-lysed Clarity, UA Clear [facility] Color, UA Camille [facility] Glucose, UA Negative Negative - 2000(110) ++++ mg/dL [facility] Interpretation and review of laboratory results Abnormal [facility] Ketones, UA Negative Negative - 160(16) ++++ mg/dL [facility] Leukocytes, UA Positive Negative - 500+++ Trudy/mcL [facility] Comment on above: large Nitrite, UA Positive Negative - Positive [facility] pH, UA 5.5 5 - 9 [facility] Protein, UA Negative Negative - 1999(20) ++++ mg/dL [facility] Spec Grav, UA 1.01 1 - 1.03 [facility] Urobilinogen, UA 0.2 0.2 - 12 mg/dL [facility] C-REACTIVE PROTEINon 09-27- 025 C REACTIVE PROTEIN 2.2 mg/dL High <=0.7 [facility] Comment on above: Performed By: #### CHICO Kimbrough BCA, BMP #### [facility] ([id number]) [address] [address] CBC WITH AUTO DIFFERENTIALon 09-27-2024 BASOPHILS ABSOLUTE COUNT (10*3/UL) BY AUTOMATED COUNT 0.1 10*3/uL Normal 0.0-0.2 [facility] Comment on above: Performed By: #### CHICO Kimbrough BCA, BMP #### [facility] ([id number]) [address], [address] [address] BASOPHILS RELATIVE PERCENT BY AUTOMATED COUNT 1.0 % Normal [facility] Comment on above: Performed By: #### CHICO Kimbrough BCA, BMP #### [facility] ([id number]) [address], [address] [place] [address] CELLAVISION DIFFERENTIAL TYPE AUTOMATED DIFFERENTIAL Normal [facility] Comment on above: Performed By: #### CHICO Kimbrough BCA, BMP #### [facility] ([id number]) [address], [address] [place] [address] Eosinophils (Bld) [#/Vol] 0.4 10*3/uL Normal 0.0-0.4 [facility] Comment on above: Performed By: #### CHICO Kimbrough BCA, BMP #### [facility] ([id number]) [address] [address] [place] [address] EOSINOPHILS RELATIVE PERCENT BY AUTOMATED COUNT 3.3 % Normal [facility] Comment on above: Performed By: #### CHICO Kimbrough BCA, BMP #### [facility] ([id number]) [address] [address] [place] [address] Erythrocyte distribution width (RBC) [Ratio] 15.5 % High 11.5-15 [facility] Comment on above: Performed By: #### C CHICO PENNINGTON, BMP #### [facility] ([id number]) [address] [address] [place] [address] Hematocrit (Bld) [Volume fraction] 41.3 % Normal 35-47 [facility] Comment on above: Performed By: #### CHICO Kimbrough BCA, BMP #### [facility] ([id number]) [address] [address] Hemoglobin (Bld) [Mass/Vol] 13.4 g/dL Normal 11.7-15.5 [facility] Comment on above: Performed By: #### CHICO Kimbrough BCA, BMP #### [facility] ([id number]) [address] [address] [place] [address] LYMPHOCYTES ABSOLUTE COUNT (10*3/UL) BY AUTOMATED COUNT 2.2 10*3/uL Normal 1.0-3.5 [facility] Comment on above: Performed By: #### CHICO Kimbrough BCA, BMP #### [facility] ([id number]) [address] [address] [place] [address] LYMPHOCYTES RELATIVE PERCENT BY AUTOMATED COUNT 20.4 % Normal [facility] Comment on above: Performed By: #### CHICO Kimbrough BCA, BMP #### [facility] ([id number]) [address] [address] [place] [address] MCH (RBC) [Entitic mass] 28.4 pg Normal 27-34 [facility] Comment on above: Performed By: #### ERASTO Kimbrough BCA1C, BMP #### [facility] ([id number]) [address] [address] MCHC (RBC) [Mass/Vol] 32.5 g/dL Normal 32-36 [facility] Comment on above: Performed By: #### CHICO Kimbrough BCA, BMP #### [facility] ([id number]) [address], [address] [place] [address] MCV (RBC) [Entitic vol] 87 fL Normal 80-100 [facility] Comment on above: Performed By: #### CHICO Kimbrough BCA, BMP #### [facility] ([id number]) [address], [facility] [address] [place] [address] MONOCYTES ABSOLUTE COUNT (10*3/UL) BY AUTOMATED COUNT 0.7 10*3/uL Normal 0.0-0.9 [facility] Comment on above: Performed By: #### CHICO Kimbrough BCA, BMP #### [facility] ([id number]) [address], [address] [place] [address] MONOCYTES RELATIVE PERCENT BY AUTOMATED COUNT 6.4 % Normal [facility] Comment on above: Performed By: #### CHICO Kimbrough BCA, BMP #### [facility] ([id number]) [address], [address] [place] [address] NEUTROPHILS ABSOLUTE COUNT BY AUTOMATED COUNT 7.5 10*3/uL High 1.5-6.6 [facility] Comment on above: Performed By: #### CHICO Kimbrough BCA, BMP #### [facility] ([id number]) [address], [address] [place] [address] NEUTROPHILS RELATIVE PERCENT BY AUTOMATED COUNT 68.9 % Normal [facility] Comment on above: Performed By: #### CHICO Kimbrough BCA, BMP #### [facility] ([id number]) [address], [address] [place] [address] Platelet mean volume (Bld) [Entitic vol] 9.2 fL Normal 7-12 [facility] Comment on above: Performed By: #### C CHICO PENNINGTON, BMP #### [facility] ([id number]) [address], [address] [place] [address] Platelets (Bld) [#/Vol] 228 10*3/uL Normal 150-450 [facility] Comment on above: Performed By: #### C GORGE HA1C, BMP #### [facility] ([id number]) [address], [address] [place] [address] RBC COUNT 4.72 X10E12/L Normal 3.8-5.2 [facility] Comment on above: Performed By: #### C CHICO PENNINGTON, BMP #### [facility] ([id number]) [address], [address] [place] [address] WBC (Bld) [#/Vol] 10.9 10*3/uL Normal 4-11 [facility] Comment on above: Performed By: #### C CHICO PENNINGTON, BMP #### [facility] ([id number]) [address], [address] [place] [address] COMPREHENSIVE METABOLIC PANE [place] 09-27-2024 Albumin [Mass/Vol] 3.9 g/dL Normal 3.2-5.3 [facility] Comment on above: Performed By: #### C MP #### [facility] ([facility]) [address] [place] [address] VIR ALP [Catalytic activity/Vol] 101 U/L Normal 39-130 [facility] Comment on above: Performed By: #### C MP #### [facility] ([facility]) [address] [place] [address] VIR ALT [Catalytic activity/Vol] 18 U/L Normal <=31 [facility] Comment on above: Performed By: #### C MP #### [facility] ([facility]) [address] [place] [address] VIR Anion gap [Moles/Vol] 11 mmol/L Normal 5-15 [facility] Comment on above: Performed By: #### C MP #### [facility] ([facility]) [address] [place] [address] VIR AST [Catalytic activity/Vol] 17 U/L Normal <=41 [facility] Comment on above: Performed By: #### C MP #### [facility] ([facility]) [address] [place] [address] VIR Bilirubin [Mass/Vol] 0.3 mg/dL Normal 0.3-1.2 [facility] Comment on above: Performed By: #### C MP #### [facility] ([facility]) [address] [place] [address] VIR Calcium [Mass/Vol] 9.6 mg/dL Normal 8.5-10.5 [facility] Comment on above: Performed By: #### C MP #### [facility] ([facility]) [address] [place] [address] VIR Chloride [Moles/Vol] 101 mmol/L Normal 98-109 [facility] Comment on above: Performed By: #### C MP #### [facility] ([facility]) [address] [place] [address] VIR CO2 [Moles/Vol] 23 mmol/L Normal 22-32 [facility] Comment on above: Performed By: #### C MP #### [facility] ([facility]) [address] [place] [address] VIR Creatinine [Mass/Vol] 0.74 mg/dL Normal 0.40-1.00 [facility] Comment on above: Result Comment: METH OD TRACEABLE TO IDMS STANDARD Performed By: #### C MP #### [facility] ([facility]) [address] [place] [address] VIR EGFR (CKD-EPI) NON-RACE DEPENDENT >^90 Normal >=60 [facility] Comment on above: Result Comment: Repo rted eGFR is based on the CKD-EPI 2020 equation that does not use a race coefficient. Performed By: #### C MP #### [facility] ([facility]) [address] [place] [address] VIR Glucose [Mass/Vol] 128 mg/dL High 65-99 [facility] Comment on above: Performed By: #### C MP #### [facility] ([facility]) [address] [place] [address] VIR Potassium [Moles/Vol] 4.4 mmol/L Normal 3.5-5.0 [facility] Comment on above: Performed By: #### C MP #### [facility] ([facility]) [address] [place] [address] VIR Protein [Mass/Vol] 8.1 g/dL High 6.0-8.0 [facility] Comment on above: Performed By: #### C MP #### [facility] ([facility]) [address] [place] [address] VIR Sodium [Moles/Vol] 135 mmol/L Normal 134-146 [facility] Comment on above: Performed By: #### C MP #### [facility] ([facility]) [address] [place] [address] VIR Urea nitrogen [Mass/Vol] 13 mg/dL Normal 5-23 [facility] Comment on above: Performed By: #### C MP #### [facility] ([facility]) [address] [place] [address] VIR ERYTHROCYTE SEDIMENTATION RA TE (ESR)on 09-27-2024 ESR, ERYTHROCYTE SEDIMENTATION RATE 31 mm/h High 0-30 [facility] Comment on above: Performed By: #### C BCA, HA1C, BMP #### [facility] ([id number]) [address] [place] [address] LIPID PROFILEon 09-27-2024 Cholesterol [Mass/Vol] 91 mg/dL Low 150-200 [facility] Comment on above: Performed By: #### L IPR #### [facility] ([facility]) [address] [place] [address] VIR Cholesterol in HDL [Mass/Vol] 34 mg/dL Low >39 [facility] Comment on above: Result Comment: HDL <40 mg/dL - High Risk HDL > or = 40mg/dL- Desirable HDL >60 mg/dL - Negative Risk Performed By: #### L IPR #### [facility] ([facility]) [address] [place] [address] VIR Cholesterol in LDL [Mass/Vol] 34 mg/dL Normal <130 [facility] Comment on above: Result Comment: LDL <100 mg/dL - Desirable LDL >160 mg/dL - High Risk Performed By: #### L IPR #### [facility] ([facility]) [address] [place] [address] VIR CHOLESTEROL:HDL 2.7 Normal 1.0-5.0 [facility] Comment on above: Performed By: #### L IPR #### [facility] ([facility]) [address] [place] [address] VIR Triglyceride [Mass/Vol] 117 mg/dL Normal 27-150 [facility] Comment on above: Performed By: #### L IPR #### [facility] ([facility]) [address] [place] [address] VIR VERY LOW LIPOPROTEIN 23 mg/dL Normal 0-30 [facility] Comment on above: Performed By: #### L IPR #### [facility] ([facility]) [address] [place] [address] VIR MICROALBUMIN / CREATININE UR INE RATIOon 09-27-2024 Albumin DL <= 20 mg/L (U) [Mass/Vol] mg/dL Normal 0.0-1.9 [facility] Comment on above: Performed By: #### C BCA, HA1C, BMP #### [facility] ([id number]) [address], [address] [place] [address] MALB/CREAT RATIO Normal [facility] Comment on above: Result Comment: Urin e Microalbumin / Creatinine ratio not calculated due to non-numeric component. Performed By: #### C GORGE HA1C, BMP #### [facility] ([id number]) [address] [place] [address] URINE CREATININE,RDM 94.94 mg/dL Normal [facility] Comment on above: Performed By: #### C GORGE HA1C, BMP #### [facility] ([id number]) [address], [address] [place] [address] TSHon 09-27-2024 TSH 1.17 uIU/mL Normal 0.49-4.67 [facility] Comment on above: Performed By: #### C GORGE HA1C, BMP #### [facility] ([id number]) [address], [address] [place] [address] URINALYSISon 09-27-2024 Bilirubin Ql (U) Negative Normal Negative [facility] Comment on above: Performed By: #### C GORGE HA1C, BMP #### [facility] ([id number]) [address], [address] [place] [address] BLOOD/HGB Negative Normal Negative [facility] Comment on above: Performed By: #### C GORGE HA1C, BMP #### [facility] ([id number]) [address], [address] [place] [address] Color (U) Yellow Normal Yellow, Colorless [facility] Comment on above: Performed By: #### C BCA, HA1C, BMP #### [facility] ([id number]) [address], [address] [place] [address] Glucose Ql (U) Negative Normal Negative [facility] Comment on above: Performed By: #### C GORGE HA1C, BMP #### [facility] ([id number]) [address] [place] [address] Ketones Ql (U) Negative Normal Negative [facility] Comment on above: Performed By: #### C GORGE HA1C, BMP #### [facility] ([id number]) [address], [address] [place] [address] Leukocyte esterase Test strip Ql (U) Large Abnormal Negative [facility] Comment on above: Performed By: #### C CHICO PENNINGTON, BMP #### [facility] ([id number]) [address] [place] [address] MUCOUS Present Abnormal None [facility] Comment on above: Performed By: #### C GORGE HA1C, BMP #### [facility] ([id number]) [address], [address] [place] [address] Nitrite Ql (U) Positive Abnormal Negative [facility] Comment on above: Performed By: #### C GORGE HAMaribeth, BMP #### [facility] ([id number]) [address], [address] [place] [address] PH,URINE 5.5 Normal 5.0-8.5 [facility] Comment on above: Performed By: #### C GORGE HA1C, BMP #### [facility] ([id number]) [address] [place] [address] Protein Ql (U) Negative Normal Negative [facility] Comment on above: Performed By: #### C GORGE HA1C, BMP #### [facility] ([id number]) [address], [address] [place] [address] R.B.CELLS 2 Normal 0-5 [facility] Comment on above: Performed By: #### C GORGE HA1C, BMP #### [facility] ([id number]) [address], [address] [place] [address] Specific gravity (U) [Rel density] 1.017 Normal 1.003-1.035 [facility] Comment on above: Performed By: #### CHICO Kimbrough BCA, BMP #### [facility] ([id number]) [address], [facility] [address] [place] [address] SQUAMOUS EPITHELIUM 6 High 0-5 [facility] Comment on above: Performed By: #### C CHICO PENNINGTON, BMP #### [facility] ([id number]) [address] [address] TUR[address] Clear Normal Clear [facility] Comment on above: Performed By: #### CHICO Kimbrough BCA, BMP #### [facility] ([id number]) [address], [address] [address] UROBILINOGEN <1.1 eu/dL Normal <1.1 eu/dL [facility] Comment on above: Performed By: #### CHICO Kimbrough BCA, BMP #### [facility] ([id number]) [address], [address] [address] W.B.CELLS 17 High 0-5 [facility] Comment on above: Performed By: #### CHICO Kimbrough BCA, BMP #### [facility] ([id number]) [address], [address] [address] HbA1c (Bld) [Mass fraction]o n 08-18-2024 Interpretation and review of laboratory results Abnormal [facility] - Hematology and Cell countson 08-18-2024 HbA1c (Bld) [Mass fraction] 6.8 % [facility] MR BRAIN W WO CONTon 025 MR BRAIN W WO CONT MR BRAIN W WO CONT MR BRAIN W WO CONT 06/13/2024 1:37 PM INDICATION: Chronic nonintractable headache, unspecified headache type COMPARISON: No relevant prior studies available. TECHNIQUE: Multiplanar multisequence MR images of the brain were obtained with and without intravenous contrast. FINDINGS: BRAIN: Moderate burden of specific nonspecific T2/FLAIR hyperintensities in the bilateral deep and subcortical white matter. Irregular contour of the lateral mcleod of the lateral ventricles and abnormal nodular foci which are isointense to cline matter concentrated in the periventricular region. No areas of diffusion restriction. No acute intracranial hemorrhage. No pathologic enhancement. 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 VENTRICLES: Normal ventricular size. VASCULATURE: Suspected atheromatous disease and associated narrowing of right greater than left internal carotid arteries. ORBITS: Unremarkable. PARANASAL SINUSES: Mild paranasal sinus mucosal thickening. Air-fluid level within left maxillary sinus. Multiple polypoid lesions. TEMPORAL BONE: Trace fluid in the left mastoid air cells. SOFT TISSUES: The visualized head and neck soft tissues are unremarkable. OSSEOUS STRUCTURES: Degenerative changes of visualized cervical spine. 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 * Moderate burden of nonspecific white matter signal abnormality, favored to be due to chronic small vessel ischemic change, among possible other etiologies. 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 Follow-up examination in 6-12 months could be obtained as a conservative measure. Approved by Anne Marie Da Silva DO on 06/15/2024 9:01 AM IJesus DO have personally reviewed the image(s) and agree with and/or edited the report Finalized by Jesus Connor DO on 06/15/2024 9:[address] [facility] CT CTA CAROTIDon 05-17-[address] CTA CAROTID History: Carotid artery stenosis and visual loss. Exam/Technique: Contiguous axial images are obtained of the CT carotid angiogram 100ml Omnipaque 350 intravenous contrast. Coronal and sagittal reconstructions were performed and reviewed. CT angiogram protocol with 3-D and volumetric scans acquired. Automatic dose exposure reduction technique utilized. Comparison: Findings: NON VASCULAR FINDINGS: Osteopenia with degenerative change. Chronic left chest deformity from previous trauma. Upper lobe emphysema in the lungs. Thyromegaly without thyroid nodules. VASCULAR FINDINGS: The pulmonary outflow demonstrates no obvious embolism. [Atherosclerotic disease aortic arch and great vessels at multiple levels. Narrowing proximal brachiocephalic trunk significant narrowing of the proximal common carotid artery off the aortic arch. There is vertebral artery origin from the subclavian arteries bilaterally with mild atherosclerotic narrowing of the proximal left vertebral artery. Vertebral arteries are tortuous through the intervertebral foramina with no stenosis identified in the neck. Common carotid arteries demonstrate atherosclerotic changes and calcifications in the left mid common carotid artery. The right common carotid artery bifurcation significant atherosclerotic calcification with approximately 50% stenosis.The right internal carotid arteries patent to the skull base. The left common carotid artery bifurcation demonstrates severe calcification and attenuation of the lumen resulting in greater than 70% stenosis at the bifurcation. Above this the internal carotid artery is markedly attenuated in caliber to the skull base. Just proximal to the skull base of the second area of significant calcification with 50% narrowing of the narrowed lumen. IMPRESSION: Severe atherosclerotic changes aortic arch extending into the major great vessel including possibly the left proximal vertebral artery. Right carotid bifurcation demonstrates 50% stenosis. Left carotid bifurcation demonstrates greater than 70% stenosis. Left internal carotid artery just proximal to the skull base demonstrates a further area of 50% stenosis of narrowed lumen. Study interpreted with NASCET criteria. Distal ICA -Area of Stenosis/Max ICA diameter. All CT scans at this facility use dose modulation, iterative reconstruction, and/or weight based dosing when appropriate to reduce radiation dose to as low as reasonably achievable. Finalized by Juma Moore MD on 05/17/2024 3:[address] [facility] CTA Carotid artery W contras t Darryl 05-17-2024 History: Carotid art leeroy stenosis and visual loss. Exam/Technique: Contiguous axial images are obtained of the CT carotid angiogram 100ml Omnipaque 350 intravenous contrast. Coronal and sagittal reconstructions were performed and reviewed. CT angiogram protocol with 3-D and volumetric scans acquired. Automatic dose exposure reduction technique utilized. Comparison: Findings: NON VASCULAR FINDINGS: Osteopenia with degenerative change. Chronic left chest deformity from previous trauma. Upper lobe emphysema in the lungs. Thyromegaly without thyroid nodules. VASCULAR FINDINGS: The pulmonary outflow demonstrates no obvious embolism. [Atherosclerotic disease aortic arch and great vessels at multiple levels. Narrowing proximal brachiocephalic trunk significant narrowing of the proximal common carotid artery off the aortic arch. There is vertebral artery origin from the subclavian arteries bilaterally with mild atherosclerotic narrowing of the proximal left vertebral artery. Vertebral arteries are tortuous through the intervertebral foramina with no stenosis identified in the neck. Common carotid arteries demonstrate atherosclerotic changes and calcifications in the left mid common carotid artery. The right common carotid artery bifurcation significant atherosclerotic calcification with approximately 50% stenosis.The right internal carotid arteries patent to the skull base. The left common carotid artery bifurcation demonstrates severe calcification and attenuation of the lumen resulting in greater than 70% stenosis at the bifurcation. Above this the internal carotid artery is markedly attenuated in caliber to the skull base. Just proximal to the skull base of the second area of significant calcification with 50% narrowing of the narrowed lumen. IMPRESSION: Severe atherosclerotic changes aortic arch extending into the major great vessel including possibly the left proximal vertebral artery. Right carotid bifurcation demonstrates 50% stenosis. Left carotid bifurcation demonstrates greater than 70% stenosis. Left internal carotid artery just proximal to the skull base demonstrates a further area of 50% stenosis of narrowed lumen. Study interpreted with NASCET criteria. Distal ICA -Area of Stenosis/Max ICA diameter. All CT scans at this facility use dose modulation, iterative reconstruction, and/or weight based dosing when appropriate to reduce radiation dose to as low as reasonably achievable. Finalized by Juma Moore MD on 05/17/2024 3:40 PM [facility] Juma Moore M D - 05/17/2024 History: Carotid artery stenosis and visual loss. Exam/Technique: Contiguous axial images are obtained of the CT carotid angiogram 100ml Omnipaque 350 intravenous contrast. Coronal and sagittal reconstructions were performed and reviewed. CT angiogram protocol with 3-D and volumetric scans acquired. Automatic dose exposure reduction technique utilized. Comparison: Findings: NON VASCULAR FINDINGS: Osteopenia with degenerative change. Chronic left chest deformity from previous trauma. Upper lobe emphysema in the lungs. Thyromegaly without thyroid nodules. VASCULAR FINDINGS: The pulmonary outflow demonstrates no obvious embolism. [Atherosclerotic disease aortic arch and great vessels at multiple levels. Narrowing proximal brachiocephalic trunk significant narrowing of the proximal common carotid artery off the aortic arch. There is vertebral artery origin from the subclavian arteries bilaterally with mild atherosclerotic narrowing of the proximal left vertebral artery. Vertebral arteries are tortuous through the intervertebral foramina with no stenosis identified in the neck. Common carotid arteries demonstrate atherosclerotic changes and calcifications in the left mid common carotid artery. The right common carotid artery bifurcation significant atherosclerotic calcification with approximately 50% stenosis.The right internal carotid arteries patent to the skull base. The left common carotid artery bifurcation demonstrates severe calcification and attenuation of the lumen resulting in greater than 70% stenosis at the bifurcation. Above this the internal carotid artery is markedly attenuated in caliber to the skull base. Just proximal to the skull base of the second area of significant calcification with 50% narrowing of the narrowed lumen. IMPRESSION: Severe atherosclerotic changes aortic arch extending into the major great vessel including possibly the left proximal vertebral artery. Right carotid bifurcation demonstrates 50% stenosis. Left carotid bifurcation demonstrates greater than 70% stenosis. Left internal carotid artery just proximal to the skull base demonstrates a further area of 50% stenosis of narrowed lumen. Study interpreted with NASCET criteria. Distal ICA -Area of Stenosis/Max ICA diameter. All CT scans at this facility use dose modulation, iterative reconstruction, and/or weight based dosing when appropriate to reduce radiation dose to as low as reasonably achievable. Finalized by Juma Moore MD on 05/17/2024 3:40 PM [facility] Radiology Study observation (narrative) [facility] CTA Carotid artery W contras t IVOrdered By: Juma Moore on 05-17-2024 [facility] Work Phone: CREATININEon 05-16-2024 Creatinine [Mass/Vol] 0.75 mg/dL Normal 0.40-1.00 [facility] Comment on above: Result Comment: METH OD TRACEABLE TO IDMS STANDARD Performed By: #### C RT #### [facility] ([id number]) [address] [place] [address], [address] [place] [address] eGFR (CKD-EPI) NON-RACE DEPENDENT >90 Normal >59 [facility] Comment on above: Result Comment: Reported eGFR is based on the CKD-EPI 2020 equation that does not use a race coefficient. Performed By: #### C RT #### [facility] ([id number]) [address] [place] [address], [address] [place] [address] Creatinine includes GFR, ser umon 05-16-2024 Creatinine [Mass/Vol] 0.75 mg/dL 0.40 - 1.00 mg/dL [facility] Comment on above: METHOD TRACEABLE TO IDMS STANDARD eGFR (CKD-EPI)non-race dependent - PINF [facility] Comment on above: Reported eGFR is based on the CKD-EPI 2020 equation that does not use a race coefficient. 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 Finalized by Joeslo Aj MD on 04/11/2024 10:55 AM 1 c MAMM [address] [facility] HbA1c (Bld) [Mass fraction]o n 03-28-2024 Interpretation and review of laboratory results Abnormal [facility] - Hematology and Cell countson 03-28-2024 HbA1c (Bld) [Mass fraction] 6.8 % [facility] CBC W Auto Differential pane l (Bld)on 03-22-2024 Basophils (Bld) [#/Vol] 0.05 10*3/uL [facility] Differential cell count method Nom (Bld) Auto [facility] Eosinophils (Bld) [#/Vol] 0.31 10*3/uL [facility] Immature granulocytes (Bld) [#/Vol] 0.06 10*3/uL [facility] Immature granulocytes/100 WBC (Bld) 0.5 % [facility] Lymphocytes (Bld) [#/Vol] 2.49 10*3/uL [facility] MCV (RBC) [Entitic vol] 87.0 fL 80.0 - 100.0 fL [facility] Monocytes (Bld) [#/Vol] 0.69 10*3/uL [facility] Neutrophils (Bld) [#/Vol] 8.02 10*3/uL High [facility] Nucleated RBC (Bld) [#/Vol] [facility] Nucleated RBC/100 WBC (Bld) [Ratio] 0.0 % /100 WBC [facility] Platelet mean volume (Bld) [Entitic vol] 10.7 fL 9.0 - 12.7 fL [facility] Platelets (Bld) [#/Vol] 260 10*3/uL [facility] WBC (Bld) [#/Vol] 11.62 10*3/uL High [facility] Basophils (Bld) [#/Vol] 0.05 10*3/uL Normal <0.11 [facility] Comment on above: Order Comment: Speci men Type: BLOOD SPECIMEN Ordering Facility: [facility] Address: [address] [place] [address] Performed By: #### 5 7021-8 #### [facility] CLIA [id number] [address] [place] [address] Basophils/100 WBC (Bld) 0.4 % Normal [facility] Comment on above: Order Comment: Speci men Type: BLOOD SPECIMEN Ordering Facility: [facility] Address: [address] [place] [address] Performed By: #### 5 7021-8 #### [facility] CLIA [id number] [address] [place] [address] Differential cell count method Nom (Bld) Auto Normal [facility] Comment on above: Order Comment: Speci men Type: BLOOD SPECIMEN Ordering Facility: [facility] Address: [address] [place] [address] Performed By: #### 5 7021-8 #### [facility] CLIA [id number] [address] [place] [address] Eosinophils (Bld) [#/Vol] 0.31 10*3/uL Normal <0.46 [facility] Comment on above: Order Comment: Speci men Type: BLOOD SPECIMEN Ordering Facility: [facility] Address: [address] [place] [address] Performed By: #### 5 7021-8 #### [facility] CLIA [id number] [address] [place] [address]394 Eosinophils/100 WBC (Bld) 2.7 % Normal [facility] Comment on above: Order Comment: Speci men Type: BLOOD SPECIMEN Ordering Facility: [facility] Address: [address] [place] [address] Performed By: #### 5 7021-8 #### [facility] CLIA [id number] [address] [place] [address] 36262 Erythrocyte distribution width (RBC) [Ratio] 14.5 % Normal 11.5-15.0 [facility] Comment on above: Order Comment: Speci men Type: BLOOD SPECIMEN Ordering Facility: [facility] Address: [address] [place] [address] Performed By: #### 5 7021-8 #### [facility] CLIA [id number] [address] [place] [address]349 Hematocrit (Bld) [Volume fraction] 43.4 % Normal 36.0-46.0 [facility] Comment on above: Order Comment: Speci men Type: BLOOD SPECIMEN Ordering Facility: [facility] Address: [address] [place] [address] Performed By: #### 5 7021-8 #### [facility] CLIA [id number] [address] [place] [address] 81731 Hemoglobin (Bld) [Mass/Vol] 14.2 g/dL Normal 11.5-15.5 [facility] Comment on above: Order Comment: Speci men Type: BLOOD SPECIMEN Ordering Facility: [facility] Address: [facility] [place] [address] Performed By: #### 5 7021-8 #### [facility] CLIA [id number] [address] [place] [address] 36448 Immature granulocytes (Bld) [#/Vol] 0.06 10*3/uL Normal <0.10 [facility] Comment on above: Order Comment: Speci men Type: BLOOD SPECIMEN Ordering Facility: [facility] Address: [address] [place] [address] Performed By: #### 5 7021-8 #### [facility] CLIA [id number] [address] [place] [address] 33460 Immature granulocytes/100 WBC (Bld) 0.5 % Normal [facility] Comment on above: Order Comment: Speci men Type: BLOOD SPECIMEN Ordering Facility: [facility] Address: [address] [place] [address] Performed By: #### 5 7021-8 #### [facility] CLIA [id number] [address] [place] [address] 16844 Lymphocytes (Bld) [#/Vol] 2.49 10*3/uL Normal 1.00-4.00 [facility] Comment on above: Order Comment: Speci men Type: BLOOD SPECIMEN Ordering Facility: [facility] Address: [address] [place] [address] Performed By: #### 5 7021-8 #### [facility] CLIA [id number] [address] [place] [address] 34306 Lymphocytes/100 WBC (Bld) 21.4 % Normal [facility] Comment on above: Order Comment: Speci men Type: BLOOD SPECIMEN Ordering Facility: [facility] Address: [address] [place] [address] Performed By: #### 5 7021-8 #### [facility] CLIA [id number] [address] [place] [address] 81577 MCH (RBC) [Entitic mass] 28.5 pg Normal 26.0-34.0 [facility] Comment on above: Order Comment: Speci men Type: BLOOD SPECIMEN Ordering Facility: [facility] Address: [address] [place] [address] Performed By: #### 5 7021-8 #### [facility] CLIA [id number] [address] [place] [address] 50144 MCHC (RBC) [Mass/Vol] 32.7 g/dL Normal 30.5-36.0 [facility] Comment on above: Order Comment: Speci men Type: BLOOD SPECIMEN Ordering Facility: [facility] Address: [address] [place] [address] Performed By: #### 5 7021-8 #### [facility] CLIA [id number] [address] [place] [address] 70759 MCV (RBC) [Entitic vol] 87.0 fL Normal 80.0-100.0 [facility] Comment on above: Order Comment: Speci men Type: BLOOD SPECIMEN Ordering Facility: [facility] Address: [address] [place] [address] Performed By: #### 5 7021-8 #### [facility] CLIA [id number] [address] [place] [address] 08374 Monocytes (Bld) [#/Vol] 0.69 10*3/uL Normal <0.87 [facility] Comment on above: Order Comment: Speci men Type: BLOOD SPECIMEN Ordering Facility: [facility] Address: [address] [place] [address] Performed By: #### 5 7021-8 #### [facility] CLIA [id number] [address] [place] [address] 10641 Monocytes/100 WBC (Bld) 5.9 % Normal [facility] Comment on above: Order Comment: Speci men Type: BLOOD SPECIMEN Ordering Facility: [facility] Address: [address] [place] [address] Performed By: #### 5 7021-8 #### [facility] CLIA [id number] [address] [place] [address] 66852 Neutrophils (Bld) [#/Vol] 8.02 10*3/uL High 1.45-7.50 [facility] Comment on above: Order Comment: Speci men Type: BLOOD SPECIMEN Ordering Facility: [facility] Address: [address] [place] [address] Performed By: #### 5 7021-8 #### [facility] CLIA [id number] [address] [place] [address] 63518 Neutrophils/100 WBC (Bld) 69.1 % Normal [facility] Comment on above: Order Comment: Speci men Type: BLOOD SPECIMEN Ordering Facility: [facility] Address: [address] [place] [address] Performed By: #### 5 7021-8 #### [facility] CLIA [id number] [address] [place] [address] 80956 Nucleated RBC (Bld) [#/Vol] 10*3/uL Normal <0.01 [facility] Comment on above: Order Comment: Speci men Type: BLOOD SPECIMEN Ordering Facility: [facility] Address: [address] [place] [address] Performed By: #### 5 7021-8 #### [facility] CLIA [id number] [address] [place] [address] 96071 Nucleated RBC/100 WBC (Bld) [Ratio] 0.0 /100 WBC Normal [facility] Comment on above: Order Comment: Speci men Type: BLOOD SPECIMEN Ordering Facility: [facility] Address: [address] [place] [address] Performed By: #### 5 7021-8 #### [facility] CLIA [id number] [address] [place] [address] 21466 Platelet mean volume (Bld) [Entitic vol] 10.7 fL Normal 9.0-12.7 [facility] Comment on above: Order Comment: Speci men Type: BLOOD SPECIMEN Ordering Facility: [facility] Address: [address] [place] [address] Performed By: #### 5 7021-8 #### [facility] CLIA [id number] [address] [place] [address] 76643 Platelets (Bld) [#/Vol] 260 10*3/uL Normal 150-400 [facility] Comment on above: Order Comment: Speci men Type: BLOOD SPECIMEN Ordering Facility: [facility] Address: [address] [place] [address] Performed By: #### 5 7021-8 #### [facility] CLIA [id number] [address] [place] [address] 69328 RBC (Bld) [#/Vol] 4.99 10*6/uL Normal 3.90-5.20 [facility] Comment on above: Order Comment: Speci men Type: BLOOD SPECIMEN Ordering Facility: [facility] Address: [address] [place] [address] Performed By: #### 5 7021-8 #### [facility] CLIA [id number] [address] [place] [address] 70171 WBC (Bld) [#/Vol] 11.62 10*3/uL High 3.70-11.00 [facility] Comment on above: Order Comment: Speci men Type: BLOOD SPECIMEN Ordering Facility: [facility] Address: [address] [place] [address] Performed By: #### 5 7021-8 #### [facility] CLIA [id number] [address] [place] [address] 45533 [facility] CBC W AUTO DIFF BLDon [facility] BASOPHILS # BLD AUTO 0.05 [facility] DIFFERENTIAL METHOD BLD Auto [facility] EOSINOPHIL # BLD AUTO 0.31 [facility] LYMPHOCYTES # BLD AUTO 2.49 [facility] MONOCYTES # BLD AUTO 0.69 [facility] NEUTROPHILS # BLD AUTO 8.02 High [facility] NRBC # BLD AUTO <0.01 [facility] NRBC/100 WBC BLD-RTO 0 /100 WBC [facility] PLATELET # BLD AUTO 260 [facility] PMV BLD AUTO 10.7 fL 9.0 - 12.7 fL [facility] WBC # BLD AUTO 11.62 High [facility] IMM GRANULOCYTES # BLD AUTO 0.06 [facility] IMM GRANULOCYTES/LEUK NFR BLD AUTO 0.5 % [facility] MCV (RBC) [Entitic vol] 87 fL 80.0 - 100.0 fL [facility] Specimen Type: BLOOD SPECIMEN Ordering Facility: [facility] Address: [facility] [place] [place] [address] Original Ordering Provider: [facility] CNOV[facility] Visit (SP) Office ([place]) AUGUSTA LEDEZMA ([id number]) 1965 F Date Time Provider Department 03/22/24 2:00 PM LUIS MANUEL WELLS During your visit today, we recorded the following information about you: Temperature Pulse Respiration Blood pressure 97.1 degrees 62/minute 18/minute 156/82 Weight Height 104.4 kg 1.715 m Luis Manuel Wells MD 03/22/2024 4:42 PM Signed PATIENT NAME: Augusta Ledezma CLINIC NO.: [id number] ATTENDING PHYSICIAN: Luis Manuel Wells MD DATE OF SERVICE: March 22, 2024. Some of the elements of this note have been copied from my previous progress note dated 03/25/2022. All the information has been reviewed carefully. Dear Janet Munoz, [employer]GR[employer] ROLLER OPERATOR is an update on a follow up visit on female Augusta Ledezma at the clinic March 24, 2023 Diagnosis: 1. MGUS Treatment History: HPI: Augusta Ledezma is a 57 year old year old female here for follow up. Doing well and lost father in 05/2022 Visit 03/22/24: - Doing well - No major complaints - Last mammogram was in 2022 - Cologuard was in 2023. PAST MEDICAL HISTORY Diagnosis Date Diabetes mellitus (HCC) Elevated blood protein Hidradenitis Social History Tobacco Use Smoking status: Every Day Current packs/day: 0.50 Average packs/day: 0.5 packs/day for 41.0 years (20.5 ttl pk-yrs) Types: Cigarettes Smokeless tobacco: Never Vaping Use Vaping status: Never Used Substance Use Topics Alcohol use: Not Currently Drug use: Never No family history on file. Past medical, social and family history reviewed without any changes. REVIEW OF SYSTEMS GENERAL: No weight loss, malaise or fevers. No night sweats. HEENT: Negative for headaches, No changes in hearing or vision, no nose bleeds or other nasal problems. RESPIRATORY: Negative for cough, wheezing and shortness of breath CARDIOVASCULAR: Negative for chest pain, leg swelling and palpitations GI: Negative for abdominal discomfort, blood in stools or black stools and change in bowel habits : Negative for dysuria, frequency and incontinence MUSCULOSKELETAL: Negative for joint pain or swelling, back pain, and muscle pain. SKIN: Negative for lesions, rash, and itching. HEMATOLOGY/LYMPHOLOGY Negative for prolonged bleeding, bruising easily, and swollen nodes. NEURO: Negative for numbness or tingling of hands/feet. No weakness. PHYSICAL EXAMINATION: There were no vitals taken for this visit. Wt 102.9 kg (226 lb 12.8 oz) BMI 34.98 kg/m2 Last 3 Encounter Wt Readings: Date: Wt: 09/04/2020 102.9 kg (226 lb 12.8 oz) 06/05/2020 102.7 kg (226 lb 6.4 oz) 12/06/2019 99.3 kg (219 lb) General appearance:ECOG PERFORMANCE STATUS: 0- Fully active, able to carry on all pre-disease performance w/o restriction. Patient in NAD. Skin: Skin color, texture, turgor normal. No rashes or lesions. Eyes: Anicteric sclera. Pupils are equally round and reactive to light. Extraocular movements are intact. Lymph Nodes: No cervical, supraclavicular, axillary or inguinal adenopathy. Oropharynx: Lips, mucosa, and tongue normal. Back: No pain to percussion. Negative SLR test Lungs clear to auscultation, No wheezing or rhonchi Heart: RRR without murmur, gallop, or rubs. Abdomen soft, non-tender. No masses, organomegaly Extremities: No deformities. No edema Neuro: Gait and speech normal. Reflexes normal and symmetric. Muscular strength intact. Sensation grossly intact. Rectal: Deferred : Deferred LABS: Glucose (mg/dL) Date Value 03/17/2023 122 03/05/2021 103 Potassium (mmol/L) Date Value 03/17/2023 4.0 03/05/2021 4.4 Sodium (mmol/L) Date Value 03/17/2023 137 03/05/2021 135 Chloride (mmol/L) Date Value 03/17/2023 101 03/05/2021 99 CO2 (mmol/L) Date Value 03/17/2023 25 03/05/2021 23 Creatinine (mg/dL) Date Value 03/17/2023 0.69 03/05/2021 0.69 BUN (mg/dL) Date Value 03/17/2023 8 03/05/2021 16 Anion Gap (mmol/L) Date Value 03/17/2023 11 03/05/2021 13 Calcium (mg/dL) Date Value 03/05/2021 9.5 Calcium, Total (mg/dL) Date Value 03/17/2023 10.2 Protein, Total (g/dL) Date Value 03/17/2023 8.9 03/17/2023 8.4 03/05/2021 7.7 03/05/2021 8.1 Albumin (g/dL) Date Value 03/17/2023 4.7 03/05/2021 4.1 Bilirubin, Total (mg/dL) Date Value 03/17/2023 0.2 03/05/2021 <0.2 Alkaline Phosphatase (U/L) Date Value 03/17/2023 108 03/05/2021 96 AST (U/L) Date Value 03/17/2023 11 03/05/2021 14 ALT (U/L) Date Value 03/17/2023 9 03/05/2021 17 WBC Date Value Ref Range Status 03/17/2023 10.50 3.70 - 11.00 k/uL Final RBC Date Value Ref Range Status 03/17/2023 4.92 3.90 - 5.20 m/uL Final Hemoglobin Date Value Ref Range Status 03/17/2023 14.3 11.5 - 15.5 g/dL Final Hematocrit Date Value Ref Range Status 03/17/2023 44.7 36.0 - 46.0 % Final MCV Date Value Ref Range Status (more content not included)... Normal [facility] metabolic 2000 panelOrdered By: Kenia Potter on 03-22-2024 Albumin [Mass/Vol] 4.2 g/dL 3.9 - 4.9 g/dL [facility] ALP [Catalytic activity/Vol] 129 U/L High 34 - 123 U/L [facility] ALT [Catalytic activity/Vol] 21 U/L 7 - 38 U/L [facility] Anion gap [Moles/Vol] 12 mmol/L 8 - 15 mmol/L [facility] AST [Catalytic activity/Vol] 20 U/L 13 - 35 U/L [facility] Bilirubin [Mass/Vol] 0.2 mg/dL 0.2 - 1.3 mg/dL [facility] Calcium [Mass/Vol] 9.5 mg/dL 8.5 - 10. 2 mg/dL [facility] Chloride [Moles/Vol] 103 mmol/L 98 - 107 mmol/L [facility] CO2 [Moles/Vol] 24 mmol/L 22 - 30 mmol/L [facility] Creatinine [Mass/Vol] 0.67 mg/dL 0.58 - 0.96 mg/dL [facility] GFR/1.73 sq M.predicted among non-blacks MDRD (S/P/Bld) [Vol rate/Area] 103 mL/min/{1.73_m2} - PINF [facility] Comment on above: Estimated Glomerular Filtration Rate (eGFR) is calculated using the 2020 CKD-EPI creatinine equation. This equation utilizes serum creatinine, sex, and age as parameters. The creatinine assay has traceable calibration to isotope dilution-mass spectrometry. Refer to KDIGO guidelines for clinical interpretation. In patients with unstable renal function, e.g. those with acute kidney injury, the eGFR may not accurately reflect actual GFR. Glucose [Mass/Vol] 146 mg/dL High 74 - 99 mg/dL [facility] Comment on above: The [place] Diabete s Association (ADA) provides guidance for cutoff values [...] Standards of Medical Care in Diabetes 2016, [place] [employer]. Diabetes Care. 2016.39(Suppl 1). Interpretation and review of laboratory results Abnormal [facility] Potassium [Moles/Vol] 3.7 mmol/L 3.7 - 5.1 mmol/L [facility] Protein [Mass/Vol] 8.1 g/dL High 6.3 - 8.0 g/dL [facility] Sodium [Moles/Vol] 139 mmol/L 136 - 144 mmol/L [facility] Urea nitrogen [Mass/Vol] 9 mg/dL 7 - 21 mg/dL [facility] metabolic 2000 panelon 03-22-2024 Albumin [Mass/Vol] 4.2 g/dL Normal 3.9-4.9 [facility] Comment on above: Order Comment: Speci men Type: BLOOD SPECIMEN Ordering Facility: [facility] Address: [address] [place] [address] Performed By: #### 2 4323-8 #### [facility] CLIA [id number] [address] [place] [address] ALP [Catalytic activity/Vol] 129 U/L High 34-123 [facility] Comment on above: Order Comment: Speci men Type: BLOOD SPECIMEN Ordering Facility: [facility] Address: [address] [id number] Performed By: #### 2 4323-8 #### [facility] CLIA [id number] [address] [place] [address] ALT [Catalytic activity/Vol] 21 U/L Normal 7-38 [facility] Comment on above: Order Comment: Speci men Type: BLOOD SPECIMEN Ordering Facility: [facility] Address: [address] [place] [address] Performed By: #### 2 4323-8 #### [facility] CLIA [id number] [address] [place] [address] Anion gap [Moles/Vol] 12 mmol/L Normal 8-15 [facility] Comment on above: Order Comment: Speci men Type: BLOOD SPECIMEN Ordering Facility: [facility] Address: [address] [place] [address] Performed By: #### 2 4323-8 #### [facility] CLIA [id number] [address] [place] [address] AST [Catalytic activity/Vol] 20 U/L Normal 13-35 [facility] Comment on above: Order Comment: Speci men Type: BLOOD SPECIMEN Ordering Facility: [facility] Address: [address] [place] [address] Performed By: #### 2 4323-8 #### [facility] CLIA [id number] [address] [place] [address] 76657 Bilirubin [Mass/Vol] 0.2 mg/dL Normal 0.2-1.3 [facility] Comment on above: Order Comment: Speci men Type: BLOOD SPECIMEN Ordering Facility: [facility] Address: [address] [place] [address] Performed By: #### 2 4323-8 #### [facility] CLIA [id number] [address] [place] [address] Calcium [Mass/Vol] 9.5 mg/dL Normal 8.5-10.2 [facility] Comment on above: Order Comment: Speci men Type: BLOOD SPECIMEN Ordering Facility: [facility] Address: [address] [place] [address] Performed By: #### 2 4323-8 #### [facility] CLIA [id number] [address] [place] [address] Chloride [Moles/Vol] 103 mmol/L Normal 98-107 [facility] Comment on above: Order Comment: Speci men Type: BLOOD SPECIMEN Ordering Facility: [facility] Address: [address] [place] [address] Performed By: #### 2 4323-8 #### [facility] CLIA [id number] [address] [place] [address] CO2 [Moles/Vol] 24 mmol/L Normal 22-30 [facility] Comment on above: Order Comment: Speci men Type: BLOOD SPECIMEN Ordering Facility: [facility] Address: [address] [place] [address] Performed By: #### 2 4323-8 #### [facility] CLIA [id number] [address] [place] [address] Creatinine [Mass/Vol] 0.67 mg/dL Normal 0.58-0.96 [facility] Comment on above: Order Comment: Speci men Type: BLOOD SPECIMEN Ordering Facility: [facility] Address: [address] [place] [address] Performed By: #### 2 4323-8 #### [facility] CLIA [id number] [address] [place] [address] Creatinine and Glomerular filtration rate.predicted panel (S/P/Bld) 103 mL/min/1.73m??? Normal >=60 [facility] Comment on above: Order Comment: Speci men Type: BLOOD SPECIMEN Ordering Facility: [facility] Address: [address] [place] [address] Result Comment: Danna mated Glomerular Filtration Rate (eGFR) is calculated using the 2020 CKD-EPI creatinine equation. This equation utilizes serum creatinine, sex, and age as parameters. The creatinine assay has traceable calibration to isotope dilution-mass spectrometry. Refer to KDIGO guidelines for clinical interpretation. In patients with unstable renal function, e.g. those with acute kidney injury, the eGFR may not accurately reflect actual GFR. Performed By: #### 2 4323-8 #### [facility] CLIA [id number] [address] [place] [address] Glucose [Mass/Vol] 146 mg/dL High 74-99 [facility] Comment on above: Order Comment: Rachele dozier Type: BLOOD SPECIMEN Ordering Facility: [facility] Address: [address] [place] [address] Result Comment: The [place] Diabetes Association (ADA) provides guidance for cutoff [...] Standards of Medical Care in Diabetes 2016, [place] [employer] Association. Diabetes Care. 2016.39(Suppl 1). Performed By: #### 2 4323-8 #### [facility] CLIA [id number] [address] [place] [address] Potassium [Moles/Vol] 3.7 mmol/L Normal 3.7-5.1 [facility] Comment on above: Order Comment: Rachele dozier Type: BLOOD SPECIMEN Ordering Facility: [facility] Address: [address] [place] [address] Performed By: #### 2 4323-8 #### [facility] CLIA [id number] [address] [place] [address] Sodium [Moles/Vol] 139 mmol/L Normal 136-144 [facility] Comment on above: Order Comment: Sulmai men Type: BLOOD SPECIMEN Ordering Facility: [facility] Address: [address] [place], [place] [address] Performed By: #### 2 4323-8 #### [facility] CLIA [id number] [address] [place] [address] Urea nitrogen [Mass/Vol] 9 mg/dL Normal 7-21 [facility] Comment on above: Order Comment: Speci men Type: BLOOD SPECIMEN Ordering Facility: [facility] Address: [address] [place] [address] Performed By: #### 2 4323-8 #### [facility]ULY[facility]IL[facility] CLIA [id number] [address] [place] [address] IMMUNOFIXATION SCREEN, SERUM on 03-22-2024 MPA RESULT No M protein is identified. Normal No M protein is identified. [facility] Comment on above: Order Comment: Speci men Type: BLOOD SPECIMEN Ordering Facility: [facility] Address: [address] [place] [address] Performed By: #### I FESC #### [facility] CLIA [id number] [address] [place] [address] [place] STAFF REVIEW (MPA) Reviewed by Dr. Dc Pickett MD [facility] Comment on above: Order Comment: Speci men Type: BLOOD SPECIMEN Ordering Facility: [facility] Address: [address] [place] [address] Performed By: #### I FES #### [facility] CLIA [id number] [address] [place] [address] [place] IMMUNOGLOBULINS,IGG,IGA,IGMo n 03-22-2024 IgA [Mass/Vol] 616 mg/dL High 70-400 [facility] Comment on above: Order Comment: Speci men Type: BLOOD SPECIMEN Ordering Facility: [facility] Address: [address] [place] [address] Performed By: #### S ERIMM #### [facility] CLIA [id number] [address] [place] [address] [place] IgG [Mass/Vol] 1795 mg/dL High 700-1600 [facility] Comment on above: Order Comment: Speci men Type: BLOOD SPECIMEN Ordering Facility: [facility] Address: [address] [place] [address] Performed By: #### S ERIMM #### [facility] CLIA [id number] [address] [place] [address] [place] IgM [Mass/Vol] 70 mg/dL Normal 40-230 [facility] Comment on above: Order Comment: Speci men Type: BLOOD SPECIMEN Ordering Facility: [facility] Address: [address] [place] [address] Performed By: #### S ERIMM #### [facility] CLIA [id number] [address] [place] [address] [place] KAPPA/LAKHANI,FREE,SERon 2023 Immunoglobulin light chains.kappa.free (S) [Mass/Vol] 47.0 mg/L High 3.3-19.4 [facility] Comment on above: Order Comment: Speci [facility] Type: BLOOD SPECIMEN Ordering Facility: [facility] Address: [address] [place] [address] Result Comment: Rare ly, increased serum free light chains levels may not be detected or accurately quantified due to prozone phenomenon or in high viscosity samples using this immunoturbidimetric assay. Correlation with other laboratory results and clinical findings is recommended. The [place] Free Light Chain was performed using the Binding Site Optilite immunoturbidimetric method. Result obtained with different assay methods or kits cannot be used interchangeably. Performed By: #### K LFRS #### [facility] CLIA [id number] [address] [place] [address] [place] Immunoglobulin light chains.kappa/Immuno globulin light chains.lambda (S) [Mass ratio] 1.52 Normal 0.26-1.65 [facility] Comment on above: Order Comment: Speci men Type: BLOOD SPECIMEN Ordering Facility: [facility] Address: [address] [place] [address] Performed By: #### K LFRS #### [facility] CLIA [id number] [address] [place] [address] [place] Immunoglobulin light chains.lambda.free [Mass/Vol] 30.9 mg/L High 5.7-26.3 [facility] Comment on above: Order Comment: Speci men Type: BLOOD SPECIMEN Ordering Facility: [facility] Address: [address] [place] [address] Result Comment: Rare ly, increased serum free light chains levels may not be detected or accurately quantified due to prozone phenomenon or in high viscosity samples using this immunoturbidimetric assay. Correlation with other laboratory results and clinical findings is recommended. The [place] Free Light Chain was performed using the Binding Site Optilite immunoturbidimetric method. Result obtained with different assay methods or kits cannot be used interchangeably. Performed By: #### K LFRS #### [facility] CLIA [id number] [address] [place] [address] [place] [address] [place] Laboratory - Hematology and Cell countson 03-22-2024 Basophils/100 WBC (Bld) 0.4 % [facility] Eosinophils/100 WBC (Bld) 2.7 % [facility] Erythrocyte distribution width (RBC) [Ratio] 14.5 % 11.5 - 15.0 % [facility] Hematocrit (Bld) [Volume fraction] 43.4 % 36.0 - 46.0 % [facility] Hemoglobin (Bld) [Mass/Vol] 14.2 g/dL 11.5 - 15.5 g/dL [facility] Lymphocytes/100 WBC (Bld) 21.4 % [facility] MCH (RBC) [Entitic mass] 28.5 pg 26.0 - 34.0 pg [facility] MCHC (RBC) [Mass/Vol] 32.7 g/dL 30.5 - 36.0 g/dL [facility] Monocytes/100 WBC (Bld) 5.9 % [facility] Neutrophils/100 WBC (Bld) 69.1 % [facility] RBC (Bld) [#/Vol] 4.99 10*6/uL 3.90 - 5.2 0 m/uL [facility] No Panel Informationon 03-22 Interpretation and review of laboratory results Abnormal [facility] PROTEIN ELECTROPHORESIS SERU M (P)on 03-22-2024 Albumin [Mass/Vol] 4.10 g/dL Normal 3.43-5.41 [facility] Comment on above: Order Comment: Speci men Type: BLOOD SPECIMEN Ordering Facility: [facility] Address: [address] [place] [address] Performed By: #### L [id number] #### [facility] CLIA [id number] [address] [place] [address] [place] Alpha 1 globulin Elph [Mass/Vol] 0.35 g/dL Normal 0.18-0.43 [facility] Comment on above: Order Comment: Speci men Type: BLOOD SPECIMEN Ordering Facility: [facility] Address: [address] [place] [address] Performed By: #### L [id number] #### [facility] CLIA [id number] [address] [place] [address] [place] Alpha 2 globulin Elph [Mass/Vol] 0.92 g/dL Normal 0.42-0.98 [facility] Comment on above: Order Comment: Speci men Type: BLOOD SPECIMEN Ordering Facility: [facility] Address: [address] [place] [address] Performed By: #### L [id number] #### [facility] CLIA [id number] [address] [place] [address] [place] Beta globulin Elph [Mass/Vol] 1.22 g/dL High 0.61-1.17 [facility] Comment on above: Order Comment: Speci men Type: BLOOD SPECIMEN Ordering Facility: [facility] Address: [address] [place] [address] Performed By: #### L [id number] #### [facility] CLIA [id number] [address] [place] [address] [place] Gamma globulin Elph [Mass/Vol] 1.50 g/dL Normal 0.53-1.51 [facility] Comment on above: Order Comment: Speci men Type: BLOOD SPECIMEN Ordering Facility: [facility] Address: [address] [place] [address] Performed By: #### L [id number] #### [facility] CLIA [id number] [address] [place] [address] [place] M-PROTEIN LOCATION Normal [facility] Comment on above: Order Comment: Speci men Type: BLOOD SPECIMEN Ordering Facility: [facility] Address: [address] [place] [address] Result Comment: Not Applicable. Performed By: #### L [id number] #### [facility] CLIA [id number] [address] [place] [address] [place] Protein Fractions [Interp] No definitive M protein is identified on protein electrophoresis. Normal No definitive M protein is identified on protein electrophores is. [facility] Comment on above: Order Comment: Speci men Type: BLOOD SPECIMEN Ordering Facility: [facility] Address: [address] [place] [address] Performed By: #### L [id number] #### [facility] CLIA [id number] [address] [place] [address] [place] Protein.monoclonal Elph [Mass/Vol] 0.00 g/dL Normal <=0.00 [facility] Comment on above: Order Comment: Speci men Type: BLOOD SPECIMEN Ordering Facility: [facility] Address: [address] [place] [address] Performed By: #### L [id number] #### [facility] CLIA [id number] [address] [place] [address] [place] SPE STAFF REVIEW Reviewed by Dr. Dc Pickett MD Normal [facility] Comment on above: Order Comment: Speci men Type: BLOOD SPECIMEN Ordering Facility: [facility] Address: [address] [place] [address] Performed By: #### L [id number] #### [facility] CLIA [id number] [address] [place] [address] [place] Prot SerPl-mCncon 03-22-2024 Protein [Mass/Vol] 8.1 g/dL High 6.3-8.0 [facility] Comment on above: Order Comment: Speci men Type: BLOOD SPECIMEN Ordering Facility: [facility] Address: [address] [place], [place] [address] Performed By: #### 2 885-2 #### [facility] CLIA [id number] [address] [place] [address] [place] Performed By: #### 2 4323-8 #### [facility] CLIA [id number] [address] [place] [address] CNCOon 01-07-2024 CNCO Letter Text Normal [facility] BASIC METABOLIC PANLon 10-06 Anion gap [Moles/Vol] 11 mmol/L Normal 5-15 [facility] Comment on above: Performed By: #### C CHICO [place], BMP #### [facility] ([id number]) [address] [place] [address] Calcium [Mass/Vol] 9.7 mg/dL Normal 8.5-10.5 [facility] Comment on above: Performed By: #### C GORGE HA1C, BMP #### [facility] ([id number]) [address] [place] [address] Chloride [Moles/Vol] 102 mmol/L Normal 98-109 [facility] Comment on above: Performed By: #### C GORGE HA1C, BMP #### [facility] ([id number]) [address] [place] [address] CO2 [Moles/Vol] 26 mmol/L Normal 22-32 [facility] Comment on above: Performed By: #### C GORGE HA1C, BMP #### [facility] ([id number]) [address] [place] [address] Creatinine [Mass/Vol] 0.80 mg/dL Normal 0.40-1.00 [facility] Comment on above: Result Comment: METH OD TRACEABLE TO IDMS STANDARD Performed By: #### C CHICO [place], BMP #### [facility] ([id number]) [address] [place] [address] GFR/1.73 sq M.predicted among non-blacks MDRD (S/P/Bld) [Vol rate/Area] 86 mL/min/{1.73_m2} Normal >59 [facility] Comment on above: Result Comment: Reported eGFR is based on the CKD-EPI 2020 equation that does not use a race coefficient. Performed By: #### C CHICO [place], BMP #### [facility] ([id number]) [address] [place] [address] Glucose [Mass/Vol] 111 mg/dL High 65-99 [facility] Comment on above: Performed By: #### C GORGE HA1C, BMP #### [facility] ([id number]) [address] [address] [place] [address] Potassium [Moles/Vol] 3.8 mmol/L Normal 3.5-5.0 [facility] Comment on above: Performed By: #### C GORGE HA1C, BMP #### [facility] ([id number]) [address] [place] [address] Sodium [Moles/Vol] 139 mmol/L Normal 134-146 [facility] Comment on above: Performed By: #### C GORGE HA1C, BMP #### [facility] ([id number]) [address] [address] [place] [address] Urea nitrogen [Mass/Vol] 10 mg/dL Normal 5-23 [facility] Comment on above: Performed By: #### C BCA HA1C, BMP #### [facility] ([id number]) [address] [address] [place] [address] CBC AND AUTO DIFFon 10-07-19 24 ABSOLUTE BASOPHIL 0.1 X10E9/L Normal 0.0-0.2 [facility] Comment on above: Performed By: #### CHICO Kimbrough BCA, BMP #### [facility] ([id number]) [address], [facility] [address] [place] [address] ABSOLUTE NEUTROPHIL 11.1 X10E9/L High 1.5-6.6 [facility] Comment on above: Performed By: #### CHICO Kimbrough BCA, BMP #### [facility] ([id number]) [address], [facility] [address] [place] [address] Basophils/100 WBC (Bld) 0.8 % Normal [facility] Comment on above: Performed By: #### CHICO Kimbrough BCA, BMP #### [facility] ([id number]) [address] [place] [address] Eosinophils (Bld) [#/Vol] 0.1 10*3/uL Normal 0.0-0.4 [facility] Comment on above: Performed By: #### CHICO Kimbrough BCA, BMP #### [facility] ([id number]) [address], [facility] [address] [place] [address] Eosinophils/100 WBC (Bld) 0.8 % Normal [facility] Comment on above: Performed By: #### CHICO Kimbrough BCA, BMP #### [facility] ([id number]) [address], [facility] [address] [place] [address] Erythrocyte distribution width (RBC) [Ratio] 14.4 % Normal 11.5-15.0 [facility] Comment on above: Performed By: #### CHICO Kimbrough BCA, BMP #### [facility] ([id number]) [address] [place] [address] Hematocrit (Bld) [Volume fraction] 41.0 % Normal 35-47 [facility] Comment on above: Performed By: #### CHICO Kimbrough BCA, BMP #### [facility] ([id number]) [address] [place] [address] Hemoglobin (Bld) [Mass/Vol] 12.8 g/dL Normal 11.7-15.5 [facility] Comment on above: Performed By: #### C CHICO [place], BMP #### [facility] ([id number]) [address] [address] [place] [address] Lymphocytes (Bld) [#/Vol] 2.4 10*3/uL Normal 1.0-3.5 [facility] Comment on above: Performed By: #### C CHICO [place], BMP #### [facility] ([id number]) [address], [facility] [address] [place] [address] Lymphocytes/100 WBC (Bld) 16.2 % Normal [facility] Comment on above: Performed By: #### C CHICO [place], BMP #### [facility] ([id number]) [address], [facility] [address] [place] [address] MCH (RBC) [Entitic mass] 27.8 pg Normal 27-34 [facility] Comment on above: Performed By: #### CHICO Kimbrough BCA, BMP #### [facility] ([id number]) [address] [place] [address] MCHC (RBC) [Mass/Vol] 31.3 g/dL Low 32-36 [facility] Comment on above: Performed By: #### Kaylan [place] HAMaribeth, BMP #### [facility] ([id number]) [address] [address] [place] [address] MCV (RBC) [Entitic vol] 89 fL Normal 80-100 [facility] Comment on above: Performed By: #### Kaylan [place] HA1C, BMP #### [facility] ([id number]) [address] [place] [address] Monocytes (Bld) [#/Vol] 1.1 10*3/uL High 0-0.9 [facility] Comment on above: Performed By: #### CHICO Kimbrough BCA, BMP #### [facility] ([id number]) [address] [place] [address] Monocytes/100 WBC (Bld) 7.4 % Normal [facility] Comment on above: Performed By: #### CHICO Kimbrough BCA, BMP #### [facility] ([id number]) [address] [place] [address] Neutrophils/100 WBC (Bld) 74.8 % Normal [facility] Comment on above: Performed By: #### CHICO Kimbrough BCA, BMP #### [facility] ([id number]) [address] [place] [address] Platelet mean volume (Bld) [Entitic vol] 9.3 fL Normal 7-12 [facility] Comment on above: Performed By: #### CHICO Kimbrough BCA, BMP #### [facility] ([id number]) [address] [place] [address] Platelets (Bld) [#/Vol] 265 10*3/uL Normal 150-450 [facility] Comment on above: Performed By: #### CHICO Kimbrough BCA, BMP #### [facility] ([id number]) [address] [place] [address] RBC COUNT 4.62 X10E12/L Normal 3.80-5.20 [facility] Comment on above: Performed By: #### CHICO Kimbrough BCA, BMP #### [facility] ([id number]) [address] [place] [address] WBC (Bld) [#/Vol] 14.8 10*3/uL High 4.0-11.0 [facility] Comment on above: Performed By: #### C CHICO [place] BMP #### [facility] ([id number]) [address] [place] [address] HGB A1C (GLYCO-HGB)on 2023 Glucose [Mass/Vol] 140 mg/dL Normal [facility] Comment on above: Performed By: #### C CHICO [place] BMP #### [facility] ([id number]) [address] [place] [address] HbA1c (Bld) [Mass fraction] 6.5 % High 4.4-5.6 [facility] Comment on above: Result Comment: NOTE ADA Guidelines Result HgbA1c Normal : less than 5.7 % Prediabetes : 5.7 % to 6.4 % Diabetes : > 6.4 % Use with caution in patients with abnormal hemoglobin variants as the half-life of red blood cells and in vivo glycation rates are affected. Performed By: #### CHICO Kimbrough BCA, BMP #### [facility] ([id number]) [address], [facility] [address] [place] [address] XR WRIST LT MIN 3 VWSon 06-0 XR WRIST LT MIN 3 VWS XR WRIST LT MIN 3 VWS XR WRIST LT MIN 3 VWS CLINICAL HISTORY: Acute wrist pain after fall COMPARISON: None. FINDINGS: 3 views are obtained. Soft tissues: Soft tissue swelling at the left wrist. Osseous structures: Lucent lines vertically in the distal end of the left radius with disruption of the lateral cortex suggesting nondisplaced fractures. Joints: No dislocation or malalignment. IMPRESSION: * Acute nondisplaced left distal radial fracture. Finalized by Tamy Evans MD on 10/03/2023 11:[address] [facility] Covid-19 PCR (CVDTBH)on SARS-CoV-2 (COVID-19) RNA DIONTE+probe Ql (Unsp spec) Detected Critically abnormal NOT DETECTED [facility] Comment on above: Result Comment: This test is not yet approved or cleared by the [place] FDA. When there are no FDA-approved or cleared tests available, and other criteria are met, FDA can make tests available under an emergency access mechanism called an Emergency Use Authorization (EUA). The EUA for this test is supported by the Cleaner And Polisher of Health and Human Service's (HHS's) declaration that circumstances exist to justify the emergency use of in vitro diagnostics for the detection and/or diagnosis of the virus that causes COVID-19. This EUA will remain in effect (meaning this test can be used) for the duration of the COVID-19 declaration justifying emergency of IVDs, unless it is terminated or revoked by FDA (after which the test may no longer be used). Performed By: #### A LT, AST, LIPID #### [facility] [address] [place] [address] Dr. Verónica Meredith LIPID PROFILEon 11-18-2021 CHOL-HDL RATIO NORM SEE BELOW Normal [facility] Comment on above: Result Comment: 3.3 - 4.4 LOW RISK 4.4 - 7.1 AVERAGE RISK 7.1 - 11.0 MODERATE RISK >11.0 HIGH RISK Performed By: #### A LT, AST, LIPID #### [facility] [address] [place] [address] Dr. Verónica Meredith Cholesterol [Mass/Vol] 84 mg/dL Normal <=200 [facility] Comment on above: Performed By: #### A LT, AST, LIPID #### [facility] [address] [place] [address] Dr. Verónica Meredith Cholesterol in HDL [Mass/Vol] 32 mg/dL Critically low 40-[address] [facility] Comment on above: Performed By: #### A LT, AST, LIPID #### [facility] [address] [place] [address] Dr. Verónica Meredith Cholesterol in LDL [Mass/Vol] 35.0 mg/dL Normal [facility] Comment on above: Performed By: #### A LT, AST, LIPID #### [facility] [address] [address] [address] Verónica Meredith Cholesterol.total/C holesterol in HDL [Mass ratio] 2.6 {ratio} Normal [facility] Comment on above: Performed By: #### A LT, AST, LIPID #### [facility] [address] [address] [address] Verónica Meredith HDL NORMAL > or = 60 mg/dl - LO W CARDIOVASCULAR RISK <40 mg/dl - HIGH CARDIOVASCULAR RISK Normal [facility] Comment on above: Performed By: #### A LT, AST, LIPID #### [facility] [address] [address] [address] Verónica Meredith LDL CALC NORMAL SEE BELOW Normal [facility] Comment on above: Result Comment: <100 mg/dl OPTIMAL 100 - 129 mg/dl NEAR OR ABOVE OPTIMAL 130 - 159 mg/dl BORDERLINE HIGH 160 - 189 mg/dl HIGH >190 mg/dl VERY HIGH Performed By: #### A LT, AST, LIPID #### [facility] [address] [place] [address] Dr. Verónica Meredith Triglyceride [Mass/Vol] 85 mg/dL Normal <=[address] [facility] Comment on above: Performed By: #### A LT, AST, LIPID #### [facility] [address] [place] [address] Dr. Verónica Meredith VLDL CALC 17.0 mg/dL Normal [facility] Comment on above: Performed By: #### A LT, AST, LIPID #### [facility] [address] [place] [address] Dr. Verónica Meredith SGJohn 11-18-2021 AST [Catalytic activity/Vol] 27 U/L Normal 15-[address] [facility] Comment on above: Performed By: #### A LT, AST, LIPID #### [facility] [address] [place] [address] Dr. Verónica OLIVARESPTon 11-18-2021 ALT [Catalytic activity/Vol] 23 U/L Normal 14-[address] [facility] Comment on above: Performed By: #### A LT, AST, LIPID #### [facility] [address] [address] [address] Verónica Meredith GLYCOHEMOGLOBIN A1Con 2021 ADA RECOMMENDATION SEE BELOW Normal [facility] Comment on above: Result Comment: ADA RECOMMENDED LIMIT 4.0 - 6.0 ADA THERAPEUTIC TARGET < 7.0 ACTION SUGGESTED > 7.0 Performed By: #### A 1C #### [facility] [address] [address] [address] Verónica Meredith Glucose [Mass/Vol] 128 mg/dL Normal [facility] Comment on above: Performed By: #### A 1C #### [facility] [address] [place] [address] Dr. Verónica Meredith HbA1c (Bld) [Mass fraction] 6.1 % Normal 4.5-6.[address] [facility] Comment on above: Performed By: #### A 1C #### [facility] [address] [place] [address] Dr. Verónica Meredith LIPID PROFILEon 10-02-2021 CHOL-HDL RATIO NORM SEE BELOW Normal [facility] Comment on above: Result Comment: 3.3 - 4.4 LOW RISK 4.4 - 7.1 AVERAGE RISK 7.1 - 11.0 MODERATE RISK >11.0 HIGH RISK Performed By: #### L IPID #### [facility] [address] [place] [address] Dr. Verónica Meredith Cholesterol [Mass/Vol] 151 mg/dL Normal <=[address] [facility] Comment on above: Performed By: #### L IPID #### [facility] [address] [place] [address] Dr. Verónica Meredith Cholesterol in HDL [Mass/Vol] 35 mg/dL Critically low 40-[address] [facility] Comment on above: Performed By: #### L IPID #### [facility] [address] [place] [address] Dr. Verónica Meredith Cholesterol in LDL [Mass/Vol] 83.2 mg/dL Normal [facility] Comment on above: Performed By: #### L IPID #### [facility] [address] [place] [address] Dr. Verónica Meredith Cholesterol.total/C holesterol in HDL [Mass ratio] 4.3 {ratio} Normal [facility] Comment on above: Performed By: #### L IPID #### [facility] [address] [address] [address] Verónica Meredith HDL NORMAL > or = 60 mg/dl - LO W CARDIOVASCULAR RISK <40 mg/dl - HIGH CARDIOVASCULAR RISK Normal [facility] Comment on above: Performed By: #### L IPID #### [facility] [address] [address] [address] Verónica Meredith LDL CALC NORMAL SEE BELOW Normal [facility] Comment on above: Result Comment: <100 mg/dl OPTIMAL 100 - 129 mg/dl NEAR OR ABOVE OPTIMAL 130 - 159 mg/dl BORDERLINE HIGH 160 - 189 mg/dl HIGH >190 mg/dl VERY HIGH Performed By: #### L IPID #### [facility] [address] [place] [address] Dr. Verónica Meredith Triglyceride [Mass/Vol] 164 mg/dL Critically high <=150 [facility] Comment on above: Performed By: #### L IPID #### [facility] [address] [address] [address] Verónica Meredith VLDL CALC 32.8 mg/dL Normal [facility] Comment on above: Performed By: #### L IPID #### [facility] [address] [place] [address] Dr. Verónica Meredith MICROALBUMIN, RAND URon 06- mALB 2.7 mg/L Normal <=30.0 [facility] Comment on above: Performed By: #### M ALBR #### [facility] [address] [address] [address] Verónica Meredith UA RANDOM W/MICROSCOPICon BACTERIA SMALL Abnormal NONE SEEN [facility] Comment on above: Performed By: #### U AMIC #### [facility] [address] [place] [address] Dr. Verónica Meredith Bilirubin Ql (U) Negative Normal NEGATIVE [facility] Comment on above: Performed By: #### U AMIC #### [facility] [address] [address] [address] Verónica Meredith CAST NONE SEEN Normal NONE SEEN [facility] Comment on above: Performed By: #### U AMIC #### [facility] [address] [place] [address] Dr. Verónica Meredith Clarity (U) CLEAR Normal CLEAR [facility] Comment on above: Performed By: #### U AMIC #### [facility] [address] [address] [address] Verónica Meredith Color (U) LT. YELLOW Normal YELLOW [facility] Comment on above: Performed By: #### U AMIC #### [facility] [address] [place] [address] Dr. Verónica Meredith Crystals LM Nom (Urine sed) NONE SEEN Normal NONE SEEN [facility] Comment on above: Performed By: #### U AMIC #### [facility] [address] [place] [address] Dr. Verónica Meredith Epithelial cells LM Ql (Urine sed) MODERATE Abnormal NONE SEEN /RARE [facility] Comment on above: Performed By: #### U AMIC #### [facility] [address] [place] [address] Dr. Verónica Meredith Glucose Ql (U) Negative Normal NEGATIVE [facility] Comment on above: Performed By: #### U AMIC #### [facility] [address] [place] [address] Dr. Verónica Meredith Hemoglobin Ql (U) TRACE-INTACT Abnormal NEGATIVE [facility] Comment on above: Performed By: #### U AMIC #### [facility] [address] [place] [address] Dr. Verónica Meredith Ketones Ql (U) Negative Normal NEGATIVE [facility] Comment on above: Performed By: #### U AMIC #### [facility] [address] [place] [address] Dr. Verónica Meredith LEUKOCYTES SMALL Abnormal NEGATIVE [facility] Comment on above: Performed By: #### U AMIC #### [facility] [address] [place] [address] Dr. Verónica Meredith MUCOUS NONE SEEN Normal NONE SEEN [facility] Comment on above: Performed By: #### U AMIC #### [facility] [address] [address] [address] Verónica Meredith Nitrite Ql (U) Negative Normal NEGATIVE [facility] Comment on above: Performed By: #### U AMIC #### [facility] [address] [address] [address] Verónica Meredith pH (U) 5.5 [pH] Normal 5-[address] [facility] Comment on above: Performed By: #### U AMIC #### [facility] [address] [address] [address] Verónica Meredith RBC 0-2 Normal 0-[address] [facility] Comment on above: Performed By: #### U AMIC #### [facility] [address] [place] [address] Dr. Verónica Meredith SPEC GRAVITY 1.020 Normal 1.005-<=1.025 [facility] Comment on above: Performed By: #### U AMIC #### [facility] [address] [place] [address] Dr. Verónica Meredith UA PROTEIN Negative Normal NEGATIVE/ TRACE [facility] Comment on above: Performed By: #### U AMIC #### [facility] [address] [place] [address] Dr. Verónica Meredith Urobilinogen Qn (U) 0.2 {Joi'U}/dL Normal 0.2 - 1. [address] [facility] Comment on above: Performed By: #### U AMIC #### [facility] [address] [place] [address] Dr. Verónica Meredith WBC 5-10 Abnormal NONE SEEN [facility] Comment on above: Performed By: #### U AMIC #### [facility] [address] [place] [address] Dr. Verónica Meredith MG MAMM SCREEN 3D JULI CADon 10-01-2021 MG MAMM SCREEN 3D JULI CAD Patient: AUGUSTA LEDEZMA Exam Date: 10/01/2021 : 1965 Gender:F Ordering : EMILIA JANET MUNOZ [facility] Admission #: [id number] Family : Order #: [id number] CLICK HERE TO VIEW EXAM RADIOLOGY REPORT PROCEDURE: MAMMOGRAM SCREENING 3D BILATERAL CAD COMPARISON: MG MAMM SCREEN 3D JULI CAD, 2020. MG MAMM SCREEN JULI W CAD, 06/28/2019. INDICATIONS: Screening mammography Calculator Name NCI Breast Cancer Risk Assessment Tool 5 Year Breast Cancer Risk 1.10% Lifetime Breast Cancer Risk 8.20% Personal Breast Cancer No Personal Ovarian Cancer No Treatments None Family Cancers None LOCATION: [facility] BREAST COMPOSITION: Extremely dense, which lowers the sensitivity of mammography. FINDINGS: DIAGNOSTIC CATEGORY 1--NEGATIVE. NO CHANGE FROM COMPARISON ASSESSMENT. Scattered benign-appearing calcifications are present. Scattered benign-appearing lymph nodes are present. RIGHT BREAST: No significant suspicious finding. LEFT BREAST: No significant suspicious finding. RECOMMENDATIONS: ROUTINE MAMMOGRAM AND CLINICAL EVALUATION IN 12 MONTHS. PLEASE NOTE: A NORMAL MAMMOGRAM DOES NOT EXCLUDE THE POSSIBILITY OF BREAST CANCER. A CLINICALLY SUSPICIOUS PALPABLE LUMP SHOULD BE BIOPSIED. Dictated by: Carlos Zelaya MD on 10/01/2021 at 15:07 Approved by: Carlos Zelaya MD on 10/01/2021 at 15:09 Normal [facility] US CAROTID ART BILon 06-07-2 022 US CAROTID ART JULI EXAMINATION: US KUHN TID ART JULI HISTORY: Cardiovascular symptoms COMPARISON: No relevant comparison available. TECHNIQUE: Duplex Doppler ultrasound analysis of carotid and vertebral arteries. . Bilateral carotid arterial duplex examination was performed using B-mode, color flow and spectral analysis. Carotid stenosis is reported according to validated velocity parameters, similar to NASCET criteria. FINDINGS: RIGHT CAROTID ARTERY Moderate diffuse atherosclerosis. 69% area reduction distal common carotid artery Subclavian: PSV: 133.8 cm/s cm/s EDV: 0.0 cm/s cm/s CCA: Prox: PSV: 106.2 cm/s cm/s EDV: 17.5 cm/s cm/s Mid: PSV: 65.9 cm/s cm/s EDV: 16.7 cm/s cm/s Distal: PSV: 56.8 cm/s cm/s EDV: 14.1 cm/s cm/s BULB: PSV: 52.9 cm/s cm/s EDV: 15.4 cm/s cm/s ICA: Prox: PSV: 92.6 cm/s cm/s EDV: 27.9 cm/s cm/s Mid: PSV: 96.1 cm/s cm/s EDV: 30.1 cm/s cm/s Distal: PSV: 97.4 cm/s cm/s EDV: 30.1 cm/s cm/s ECA: PSV: 150.4 cm/s cm/s EDV: 16.4 cm/s cm/s VERTEBRAL: PSV: 51.5 cm/s cm/s EDV: 15.9 cm/s cm/s ICA/CCA ratio: PSV: 0.9 EDV: 1.7 LEFT CAROTID ARTERY Moderate diffuse atherosclerosis. 629% area reduction proximal ICA Subclavian: PSV: 122.6 cm/s cm/s EDV: 0.0 cm/s CCA: Prox: PSV: 124.2 cm/s cm/s EDV: 27.3 cm/s Mid: PSV: 141.9 cm/s cm/s EDV: 20.8 cm/s Distal: PSV: 111.2 cm/s cm/s EDV: 24.1 cm/s BULB: PSV: 77.3 cm/s cm/s EDV: 24.1 cm/s ICA: Prox: PSV: 72.5 cm/s cm/s EDV: 27.3 cm/s Mid: PSV: 103.2 cm/s cm/s EDV: 40.2 cm/s Distal: PSV: 104.8 cm/s cm/s EDV: 35.4 cm/s ECA: PSV: 87.0 cm/s cm/s EDV: 19.2 cm/s VERTEBRAL: PSV: 67.2 cm/s cm/s EDV: 16.7 cm/s ICA/CCA ratio: PSV: 0.7 EDV: 1.7 IMPRESSION: Moderate bilateral atherosclerotic plaque 69% area reduction distal right common carotid artery 69% area reduction proximal left internal carotid artery Spectral Doppler US Thresholds (Reference: Markell EG, et al. Radiology 2000; 214:247-252) Stenosis (%) PSV (cm/sec) VICA/VCCA 0-49 <150 <2.5 50-69 150-225 2.5-4.0 >70 >225 >4.0 Electronically authenticated by: CARLOS ZELAYA Date: 2021-10-01 17:[address] [facility] GLYCOHEMOGLOBIN A1Con 2020 ADA RECOMMENDATION ADA THERAPEUTIC TARG ET 6.0 - 7.0 ACTION SUGGESTED > 7.[address] [facility] Comment on above: Performed By: #### A 1C #### [facility] [address] [address] [address] Verónica Meredith Glucose [Mass/Vol] 128 mg/dL Normal [facility] Comment on above: Performed By: #### A 1C #### [facility] [address] [place], [place] [address] Dr. Verónica Meredith HbA1c (Bld) [Mass fraction] 6.1 % Critically high <=6.[address] [facility] Comment on above: Performed By: #### A 1C #### [facility] [address] [address] [address] Verónica Meredith Vital Signs Date Time Vital Sign Value Performing Clinician Elizabeth ardon 11-16-2024 13:44-0400 Body mass index (BMI) [Ratio] 34.45 kg/m2 Janet Munoz [employer] Work Phone: [facility] 11-16-2024 13:44-0400 Body temperature 98.49 [degF] Janet Munoz [employer] Work Phone: [facility] 11-16-2024 13:44-0400 Body weight 102.78 kg Janet Munoz [employer] Work Phone: [facility] 11-16-2024 13:44-0400 Diastolic blood pressure 76 mm[Hg] Janet Munoz [employer] Work Phone: [facility] 11-16-2024 13:44-0400 Heart rate 114 /min Janet Munoz [employer] Work Phone: [facility] 11-16-2024 13:44-0400 Respiratory rate 20 /min Janet Munoz [employer] Work Phone: [facility] 11-16-2024 13:44-0400 SaO2% (BldA) [Mass fraction] 95 % Janetarturo Collazoz [employer] Work Phone: [facility] 11-16-2024 13:44-0400 Systolic blood pressure 144 mm[Hg] Janet Collazoz [employer] Work Phone: [facility] 08-18-2024 13:08-0400 Body mass index (BMI) [Ratio] 34.06 kg/m2 Janetarturo Whitegabriellaz [employer] Work Phone: [facility] 08-18-2024 13:08-0400 Body temperature 98.8 [degF] Janet Cindygabriellaz [employer] Work Phone: [facility] 08-18-2024 13:08-0400 Body weight 101.61 kg Janetarturo Collazoz [employer] Work Phone: [facility] 08-18-2024 13:08-0400 Diastolic blood pressure 76 mm[Hg] Janet Cindyholz [employer] Work Phone: [facility] 08-18-2024 13:08-0400 Heart rate 104 /min Janet Cindyholz [employer] Work Phone: [facility] 08-18-2024 13:08-0400 Respiratory rate 18 /min Janet Cindyholz [employer] Work Phone: [facility] 08-18-2024 13:08-0400 SaO2% (BldA) [Mass fraction] 95 % Janet Zayz [employer] Work Phone: [facility] 08-18-2024 13:08-0400 Systolic blood pressure 118 mm[Hg] Janet Cindyholz [employer] Work Phone: [facility] 07-07-2024 13:16-0400 Body height 170.2 cm Chico Solitario MD Work Phone: [facility] 07-07-2024 13:16-0400 Body mass index (BMI) [Ratio] 35.4 kg/m2 Chico Solitario MD Work Phone: [facility] 07-07-2024 13:16-0400 Body weight 102.51 kg Chico Solitario MD Work Phone: [facility] 07-07-2024 13:16-0400 Diastolic blood pressure 74 mm[Hg] Chico Solitario MD Work Phone: [facility] 07-07-2024 13:16-0400 Heart rate 100 /min Chico Solitario MD Work Phone: [facility] 07-07-2024 13:16-0400 Systolic blood pressure 138 mm[Hg] Chico Solitario MD Work Phone: [facility] 06-20-2024 13:48-0500 Body mass index (BMI) [Ratio] 34.8 kg/m2 Janet Munoz [employer] Work Phone: [facility] 06-20-2024 13:48-0500 Body temperature 98.1 [degF] Janet Munoz [employer] Work Phone: [facility] 06-20-2024 13:48-0500 Body weight 103.83 kg Janet Alexanedr [employer] Work Phone: [facility] 06-20-2024 13:48-0500 Diastolic blood pressure 76 mm[Hg] Janet Munoz [employer] Work Phone: [facility] 06-20-2024 13:48-0500 Heart rate 108 /min Janet Alexander [employer] Work Phone: [facility] 06-20-2024 13:48-0500 Respiratory rate 20 /min Janet Alexander [employer] Work Phone: [facility] 06-20-2024 13:48-0500 SaO2% (BldA) [Mass fraction] 96 % Janet Munoz [employer] Work Phone: [facility] 06-20-2024 13:48-0500 Systolic blood pressure 138 mm[Hg] Janet Munoz [employer] Work Phone: [facility] 05-23-2024 15:08-0500 Body mass index (BMI) [Ratio] 35.4 kg/m2 Kimi Tejada DO Work Phone: [facility] 05-23-2024 15:08-0500 Body weight 102.51 kg Kimi Tejada DO Work Phone: [facility] 05-23-2024 15:08-0500 Diastolic blood pressure 74 mm[Hg] Kimi Tejada DO Work Phone: [facility] 05-23-2024 15:08-0500 Heart rate 99 /min Kimi Tejada DO Work Phone: [facility] 05-23-2024 15:08-0500 Systolic blood pressure 116 mm[Hg] Kimi Tejada DO Work Phone: [facility] 05-16-2024 11:21-0500 Body mass index (BMI) [Ratio] 35.4 kg/m2 Kimi Tejada DO Work Phone: [facility] 05-16-2024 11:21-0500 Body weight 102.51 kg Kimi Tejada DO Work Phone: [facility] 05-16-2024 11:21-0500 Diastolic blood pressure 79 mm[Hg] Kimi Tejada DO Work Phone: [facility] 05-16-2024 11:21-0500 Heart rate 112 /min Kimi Tejada DO Work Phone: [facility] 05-16-2024 11:21-0500 Systolic blood pressure 142 mm[Hg] Kimi Tejada DO Work Phone: [facility] 05-09-2024 13:26-0500 Body height 172.7 cm Janet Munoz [employer] Work Phone: [facility] 05-09-2024 13:26-0500 Body mass index (BMI) [Ratio] 34.36 kg/m2 Janet Aichholz [employer] Work Phone: [facility] 05-09-2024 13:26-0500 Body temperature 98.1 [degF] Janetarturo Whiteholz [employer] Work Phone: [facility] 05-09-2024 13:26-0500 Body weight 102.51 kg Janet Cindyholz [employer] Work Phone: [facility] 05-09-2024 13:26-0500 Diastolic blood pressure 78 mm[Hg] Janet Aichholz [employer] Work Phone: [facility] 05-09-2024 13:26-0500 Heart rate 91 /min Janet Aichholz [employer] Work Phone: [facility] 05-09-2024 13:26-0500 Respiratory rate 19 /min Janet Betohholz [employer] Work Phone: [facility] 05-09-2024 13:26-0500 SaO2% (BldA) [Mass fraction] 96 % Janet Betohholz [employer] Work Phone: [facility] 05-09-2024 13:26-0500 Systolic blood pressure 142 mm[Hg] Janet Betohholz [employer] Work Phone: [facility] 03-28-2024 14:11-0500 Body height 172.7 cm Janet Betohholz [employer] Work Phone: [facility] 03-28-2024 14:11-0500 Body mass index (BMI) [Ratio] 35.15 kg/m2 Janet Betohholz [employer] Work Phone: [facility] 03-28-2024 14:11-0500 Body temperature 98.8 [degF] Janet Aichholz [employer] Work Phone: [facility] 03-28-2024 14:11-0500 Body weight 104.87 kg Janet Betohholz [employer] Work Phone: [facility] 03-28-2024 14:11-0500 Diastolic blood pressure 82 mm[Hg] Janet Aichholz [employer] Work Phone: [facility] 03-28-2024 14:11-0500 Heart rate 105 /min Janet Whiterosemarie [employer] Work Phone: [facility] 03-28-2024 14:11-0500 Respiratory rate 21 /min Janet Whiterosemarie [employer] Work Phone: [facility] 03-28-2024 14:11-0500 SaO2% (BldA) [Mass fraction] 95 % Janet Whiterosemarie [employer] Work Phone: [facility] 03-28-2024 14:11-0500 Systolic blood pressure 160 mm[Hg] Janet Whiterosemarie [employer] Work Phone: [facility] 03-22-2024 14:14-0500 Body height 171.5 cm Luis Manuel Wells MD Work Phone: [facility] 03-22-2024 14:14-0500 Body mass index (BMI) [Ratio] 35.5 kg/m2 Luis Manuel Wells MD Work Phone: [facility] 03-22-2024 14:14-0500 Body temperature 97.11 [degF] Luis Manuel Wells MD Work Phone: [facility] 03-22-2024 14:14-0500 Body weight 104.4 kg Luis Manuel Wells MD Work Phone: [facility] 03-22-2024 14:14-0500 Diastolic blood pressure 82 mm[Hg] Luis Manuel Wells MD Work Phone: [facility] 03-22-2024 14:14-0500 Heart rate 62 /min Luis Manuel Wells MD Work Phone: [facility] 03-22-2024 14:14-0500 Respiratory rate 18 /min Luis Manuel Wells MD Work Phone: [facility] 03-22-2024 14:14-0500 SaO2% (BldA) [Mass fraction] 100 % Luis Manuel Wells MD Work Phone: [facility] 03-22-2024 14:14-0500 Systolic blood pressure 156 mm[Hg] Luis Manuel Wells MD Work Phone: [facility] 05-11-2023 09:36-0500 Body height 172 cm Rene aWller PA Work Phone: [facility] 05-11-2023 09:36-0500 Body mass index (BMI) [Ratio] 30.36 kg/m2 Rene Waller PA Work Phone: [facility] 05-11-2023 09:36-0500 Body weight 89.81 kg Rene Waller PA Work Phone: [facility] 05-11-2023 09:36-0500 Diastolic blood pressure 80 mm[Hg] Rene Waller PA Work Phone: [facility] 05-11-2023 09:36-0500 Systolic blood pressure 130 mm[Hg] Rene Waller PA Work Phone: [facility] 03-25-2022 15:47-0500 Body height 171.5 cm Evan Bonner MD Work Phone: [facility] 03-25-2022 15:47-0500 Body temperature 97.3 [degF] Evan Bonner MD Work Phone: [facility] 03-25-2022 15:47-0500 Body weight 90.99 kg Evan Bonner MD Work Phone: [facility] 03-25-2022 15:47-0500 Diastolic blood pressure 63 mm[Hg] Evan Bonner MD Work Phone: [facility] 03-25-2022 15:47-0500 Heart rate 104 /min Evan Bonner MD Work Phone: [facility] 03-25-2022 15:47-0500 Respiratory rate 16 /min Evan Bonner MD Work Phone: [facility] 03-25-2022 15:47-0500 SaO2% (BldA) [Mass fraction] 98 % Evan Bonner MD Work Phone: [facility] 03-25-2022 15:47-0500 Systolic blood pressure 144 mm[Hg] Evan Bonner MD Work Phone: [facility] 09-09-2021 13:54-0400 Body height 171.5 cm Danae Philly PA-C Work Phone: [facility] 09-09-2021 13:54-0400 Body temperature 97.9 [degF] Danae Philly PA-C Work Phone: [facility] 09-09-2021 13:54-0400 Body weight 97.89 kg Danae Philly PA-C Work Phone: [facility] 09-09-2021 13:54-0400 Diastolic blood pressure 67 mm[Hg] Danae Philly PA-C Work Phone: [facility] 09-09-2021 13:54-0400 Heart rate 99 /min Danae Philly PA-C Work Phone: [facility] 09-09-2021 13:54-0400 Respiratory rate 16 /min Danae Philly PA-C Work Phone: [facility] 09-09-2021 13:54-0400 SaO2% (BldA) [Mass fraction] 97 % Danae Philly PA-C Work Phone: [facility] 09-09-2021 13:54-0400 Systolic blood pressure 150 mm[Hg] Danae Philly PA-C Work Phone: [facility] Encounters Encounter Date Encounter Type Care Provider Facility Start: 11-16-2024 End: 11-16-2024 [place] flowsjourdan Munoz NP Work Phone: [facility] Start: 11-16-2024 End: 11-16-2024 Bamboo flowsheet Janet Munoz [employer] Work Phone: [facility] Start: 11-16-2024 End: 11-16-2024 Office outpatient visit 25 minutes Janet Munoz [employer] Work Phone: [facility] Comment on above: HTN (hypertension), benign (Primary Dx); Bilateral carotid artery stenosis; Type 2 diabetes mellitus without complication, without long-term current use of insulin (HCC); Morbid (severe) obesity due to excess calories ([facility]-HCC); Tobacco dependence; Mixed hyperlipidemia ; Symptomatic urinary tract infection; Pre-diabetes; Environmental and seasonal allergies; Hidradenitis suppurativa Start: 09-28-2024 End: 09-28-2024 Refill Janet Alexander TOBACCO CURER Work Phone: [facility] FM Comment on above: Urinary tract infect ion without hematuria, site unspecified (Primary Dx) Start: 09-27-2024 ambulatory JANET MUNOZ [facility] Start: 09-11-2024 End: 09-12-2024 Refill Janet Alexander TOBACCO CURER Work Phone: [facility] FM Comment on above: Primary insomnia Start: 08-25-2024 End: 08-25-2024 Refill Janet Zayz TOBACCO CURER Work Phone: [facility] FM Comment on above: Pre-diabetes; Environmental and seasonal allergies Start: 08-23-2024 End: 08-23-2024 Refill Kimi Tejada DO Work Phone: [facility] Start: 08-19-2024 End: 08-19-2024 Refill Janet Alexander TOBACCO CURER Work Phone: [facility] FM Comment on above: Tobacco dependence Start: 08-18-2024 End: 08-18-2024 Bamboo flowsheet Janet Munoz TOBACCO CURER Work Phone: [facility] Start: 08-18-2024 End: 08-18-2024 Bamboo flowsheet Janet Alexander TOBACCO CURER Work Phone: [facility] Start: 08-18-2024 End: 08-18-2024 Office outpatient visit 25 minutes Janet Munoz TOBACCO CURER Work Phone: [facility] Comment on above: HTN (hypertension), benign (CMS/HCC) (Primary Dx); Heart palpitations; Bilateral carotid artery stenosis; Morbid (severe) obesity due to excess calories ([facility]/HCC); Type 2 diabetes mellitus without complication, without long-term current use of insulin; Tobacco dependence; Mixed hyperlipidemia ([facility]) Start: 08-18-2024 End: 08-18-2024 ambulatory JANET BETOHHOLZ Not Available Start: 07-19-2024 End: 07-19-2024 ambulatory [facility] Start: 07-19-2024 End: 07-19-2024 ambulatory [facility] Start: 07-19-2024 End: 07-19-2024 ambulatory [facility] Start: 07-15-2024 End: 07-15-2024 Refill Kimi Tejada DO Work Phone: [facility] Start: 07-07-2024 End: 07-07-2024 Office outpatient new 45 minutes Kimi Tejada DO Work Phone: [facility] Comment on above: Exertional dyspnea ( Primary Dx); Bilateral carotid artery stenosis Start: 07-07-2024 End: 07-07-2024 ambulatory [facility] Start: 07-06-2024 End: 07-06-2024 Telephone encounter Anastacia Mathews CMA [facility] Start: 06-20-2024 End: 06-20-2024 Bamboo flowsheet Janet Alexander TOBACCO CURER Work Phone: [facility] Start: 06-20-2024 End: 06-20-2024 Bamboo flowsheet Janet Alexander TOBACCO CURER Work Phone: [facility] Start: 06-20-2024 End: 06-20-2024 ambulatory JANET AICHHOLZ Not Available Start: 06-20-2024 End: 06-20-2024 Office outpatient visit 15 minutes Janet Alexander TOBACCO CURER Work Phone: [facility] Comment on above: HTN (hypertension), benign (CMS/HCC) (Primary Dx); Bilateral carotid artery stenosis; Morbid (severe) obesity due to excess calories ([facility]); Tobacco dependence; Mixed hyperlipidemia ([facility]); Type 2 diabetes mellitus without complication, without long-term current use of insulin ([facility]); Viral upper respiratory tract infection Start: 06-16-2024 End: 06-16-2024 Refill Janet Aichholz TOBACCO CURER Work Phone: [facility] FM Comment on above: Environmental and se asonal allergies Start: 06-16-2024 End: 06-18-2024 Refill Kimi Tejada DO Work Phone: [facility] Start: 06-13-2024 End: 06-13-2024 ambulatory [facility] Start: 05-28-2024 End: 05-28-2024 Refill Janet Aicvenkatholz TOBACCO CURER Work Phone: [facility] FM Comment on above: Type 2 diabetes luci itus without complication, without long- term current use of insulin ([facility]) (Primary Dx) Start: 05-23-2024 End: 05-23-2024 ambulatory [facility] Start: 05-23-2024 End: 05-23-2024 Office outpatient visit 40 minutes Kimi Tejada DO Work Phone: [facility] [place] Comment on above: Stenosis of left car otid artery (Primary Dx); Bilateral carotid artery stenosis; Chronic nonintractable headache, unspecified headache type Start: 05-19-2024 End: 05-19-2024 Refill Janet Aichholz TOBACCO CURER Work Phone: [facility] Comment on above: Type 2 diabetes luci itus without complication, without long- term current use of insulin (CMS/HCC) (Primary Dx) Start: 05-18-2024 End: 05-18-2024 Orders Only Marta Peterson LEX [facility] Start: 05-17-2024 End: 05-17-2024 ambulatory [facility] Alan [facility] Start: 05-16-2024 End: 05-16-2024 ambulatory [facility] Start: 05-16-2024 End: 05-16-2024 ambulatory [facility] Start: 05-16-2024 End: 05-16-2024 Office outpatient visit 15 minutes Kimi Tejada DO Work Phone: [facility] [place] Comment on above: Internal carotid art leeroy stenosis, bilateral (Primary Dx); Stenosis of left carotid artery Start: 05-09-2024 End: 05-09-2024 Bamboo flowsheet Janet Aichholz TOBACCO CURER Work Phone: [facility] FM Start: 05-09-2024 End: 05-09-2024 Bamboo flowsheet Janet Aichholz TOBACCO CURER Work Phone: [facility] FM Start: 05-09-2024 End: 05-09-2024 ambulatory JANET AICHHOLZ Not Available Start: 05-09-2024 End: 05-09-2024 Office outpatient visit 15 minutes Janet Aichholz TOBACCO CURER Work Phone: [facility] Comment on above: HTN (hypertension), benign (CMS/HCC) (Primary Dx); Morbid (severe) obesity due to excess calories (CMS/HCC); Mixed hyperlipidemia (CMS/HCC); Body mass index (BMI) 35.0-35.9, adult; Primary insomnia; Tobacco dependence Start: 05-02-2024 End: 05-02-2024 ambulatory RENE Jernigan KAN [facility] Start: 04-12-2024 End: 04-12-2024 Refill Janet Aichholz TOBACCO CURER Work Phone: [facility] CW FM Comment on above: Mixed hyperlipidemia (CMS/HCC) Start: 04-08-2024 End: 04-08-[address] [facility] Start: 03-28-2024 End: 03-28-2024 Office outpatient visit 25 minutes Janet Munoz TOBACCO CURER Work Phone: [facility] FM Comment on above: HTN (hypertension), benign (CMS/HCC) (Primary Dx); Primary insomnia; Bilateral carotid artery stenosis; Pre-diabetes; Obesity (BMI 30-39.9); Hidradenitis suppurativa; Monoclonal gammopathy of undetermined significance; Tobacco dependence; Mixed hyperlipidemia (CMS/HCC); Needs flu shot; Type 2 diabetes mellitus without complication, without long-term current use of insulin (CMS/HCC) Start: 03-28-2024 End: 03-28-2024 ambulatory JANETArturo MUNOZ Not Available Start: 03-28-2024 End: 03-28-2024 Bamboo flowsheet Janetarturo Munoz TOBACCO CURER Work Phone: [facility] Start: 03-28-2024 End: 03-28-2024 Bamboo flowsheet Janet Alexander TOBACCO CURER Work Phone: [facility] Start: 03-27-2024 End: 03-28-2024 Refill Janet Alexander TOBACCO CURER Work Phone: [facility] Comment on above: Primary insomnia; Environmental and seasonal allergies; HTN (hypertension), benign (CMS/HCC); Pre-diabetes Start: 03-22-2024 End: 03-22-2024 ambulatory JANET MUNOZ Facility:[facility] Start: 03-22-2024 End: 03-22-2024 Clinisync Result Encounter Generic External Data Provider [facility] External Department Unsolicited Start: 03-22-2024 End: 03-22-2024 Clinisync Result Encounter Generic External Data Provider [facility] External Department Unsolicited Start: 03-22-2024 End: 03-22-2024 Office outpatient visit 15 minutes Luis Manuel Wells MD Work Phone: Hematology/Oncology Comment on above: Monoclonal gammopath y (Primary Dx) Start: 12-29-2023 ambulatory JULIO CÉSAR Jernigan [facility] Start: 11-30-2023 End: 12-27-2023 ambulatory JULIO CÉSAR Jernigan [facility] Start: 10-08-2023 End: 10-08-2023 ambulatory [facility] Start: 10-08-2023 End: 10-26-2023 ambulatory [facility] Start: 10-07-2023 Preoperative state Generic Provider [facility] Start: 10-07-2023 End: 10-07-2023 ambulatory HEARD DAMIR Not Available Start: 10-07-2023 Encounter for other [facility]procedural examination [facility] Start: 10-03-2023 End: 10-04-2023 Emergency department patient visit [facility] Start: 09-02-2023 End: 09-02-2023 ambulatory JANET WHITEGABRIELLAKarie Not Available Start: 05-11-2023 End: 05-11-2023 Office outpatient visit 15 minutes Rene THIBODEAUX Work Phone: [facility] Comment on above: Internal carotid art leeroy stenosis, bilateral (Primary Dx) Start: 03-25-2022 End: 03-25-2022 ambulatory Evan Bonner MD Work Phone: Hematology/Oncology Comment on above: Monoclonal gammopath y (Primary Dx) Start: 03-25-2022 End: 03-25-2022 Patient encounter procedure Evan Bonner MD Work Phone: [facility] Start: 03-05-2022 Telephone encounter Eloise Bright Hematology/Oncology Comment on above: Results Start: 03-04-2022 End: 03-04-2022 ambulatory [employer]GRADE ROLLER OPERATOR JANET ALEXANDER Facility:[facility] Start: 02-24-2022 Orders Only Janet rocha [employer]GRADE ROLLER OPERATOR Work Phone: Hematology/Oncology Comment on above: Type 2 diabetes luci itus without complication, unspecified whether long-term insulin use (HCC) (Primary Dx) Start: 11-18-2021 End: 11-19-2021 ambulatory SUBGRADE ROLLER OPERATOR JANET AICHHOLZ Facility:[facility] Start: 10-02-2021 End: 10-03-2021 ambulatory SUBGRADE ROLLER OPERATOR JANET AICHHOLZ Facility:[facility] Start: 10-01-2021 End: 10-02-2021 ambulatory SUBGRADE ROLLER OPERATOR JANET AICHHOLZ Facility:[facility] Start: 09-09-2021 End: 09-09-2021 ambulatory Danae Fraga PA-C Work Phone: Hematology/Oncology Comment on above: Monoclonal gammopath y (Primary Dx) Start: 09-09-2021 End: 09-09-2021 Patient encounter procedure Danae Fraga PA-C Work Phone: [facility] Start: 04-11-2021 End: 04-12-2021 ambulatory SUBGRADE ROLLER OPERATOR JANET AICHHOLZ Facility:[facility] Procedures Date Procedure Procedure Detail Performing Clinician Start: 11-16-2024 Hemoglobin glycosyla gera a1c Janet Aichholz TOBACCO CURER Work Phone: Start: 11-16-2024 Urnls dip stick/tabl et rgnt non-auto w/o micrscp Janet Aichholz TOBACCO CURER Work Phone: Start: 08-18-2024 Hemoglobin glycosyla gera a1c Janet Aichholz TOBACCO CURER Work Phone: Start: 05-23-2024 Follow-up visit Follow-up KIMI TEJADA Start: 04-11-2024 Mammography Janet Aichh olz TOBACCO CURER Work Phone: Start: 03-28-2024 Hemoglobin glycosyla gera a1c Janet Aichholz TOBACCO CURER Work Phone: Start: 03-22-2024 [facility] CBC W AUTO DIFF BLD Generic External Data Provider Start: 09-10-2023 Lipid 1996 panel - S hany or Plasma Luis Manuel Wells MD Work Phone: Start: 09-10-2023 Microalbumin [Mass/volume] in Urine by Test strip Marta Nicholas LEX Start: 10-03-2022 Mammography Generic Pr ovider Start: 09-04-2020 Adult depression screening assessment Danae Fraga PA-C Work Phone: Start: 04-27-2017 Microscopic observat ion [Identifier] in Cervix by Cyto stain Generic Provider Start: 09-12-2013 Colonoscopy Generic Pr ovider Plan of Treatment Date Care Activity Detail Author Start: 09-09-2028 Lipid panel Lipid Screening [facility] Start: 03-22-2027 Diabetes Screening Diabetes Screenin [facility] Start: 09-17-2026 Screening for malign ant neoplasm of colon [facility] Start: 09-27-2025 Urine screening for protein Diabetes: Urine Protein Screening [facility] Start: 08-20-2025 Glaucoma screening Diabetes: R etinopathy Screening [facility] Start: 07-19-2025 Adult BMI Screening Adult BMI Screen ing [facility] Start: 07-07-2025 Adult BMI Screening Adult BMI Screen ing [facility] Start: 07-07-2025 Tobacco Screening Tobacco Screening [facility] Start: 06-13-2025 Adult BMI Screening Adult BMI Screen ing [facility] Start: 05-28-2025 Tobacco Screening Tobacco Screening [facility] Start: 05-23-2025 Adult BMI Screening Adult BMI Screen ing [facility] Start: 05-23-2025 Tobacco Screening Tobacco Screening [facility] Start: 05-16-2025 Adult BMI Screening Adult BMI Screen ing [facility] Start: 04-11-2025 Screening for malign ant neoplasm of breast Mammogram [facility] Start: 03-21-2025 End: 03-21-2025 Follow-up encounter 03/21/2025 2:30 PM EST Visit (SP) Office Hematology/Oncology [address] [place] [address] Luis Manuel Wells MD [facility] [place] [address] 1 year follow up with lab Hematology/Oncology Comment on above: 1 year follow up wit h lab Start: 03-21-2025 End: 03-21-2025 Patient encounter procedure 03/21/2025 2:15 PM EST Office Visit [facility] [address] [place] [address] 1 year follow up with lab [facility] Comment on above: 1 year follow up wit h lab Start: 03-04-2025 DIABETES SCREEN DIABETES SCREEN [facility] Start: 02-16-2025 Hemoglobin A1c measurement Diabetes: Hemoglobin A1C [facility] Start: 01-13-2025 End: 01-13-2025 Patient encounter procedure 01/13/2025 9:00 AM EDT Office Visit [facility] [address] [place] [address] Chico Solitario MD [address] [place] [address] [facility] Start: 01-11-2025 End: 01-11-2025 Patient encounter procedure 01/11/2025 1:20 PM EDT Office Visit [facility] [address] [place] [address] Janet Munoz NP [address] [place] [phone] [facility] Start: 12-26-2024 Influenza vaccination [facility] Start: 11-17-2024 Hemoglobin A1c measurement Diabetes: Hemoglobin A1C [facility] Start: 11-17-2024 End: 11-17-2024 Patient encounter procedure 11/17/2024 1:20 PM EDT Office Visit [facility] [address] [place] [address] Janet Munoz NP [address] [place] [phone] [facility] Start: 11-16-2024 End: 11-16-2025 Bacteria identified in Urine by Culture Urine culture (clean catch) Microbiology Routine Symptomatic urinary tract infection Expected: 11/16/2024 (Approximate), Expires: 11/16/2025 [facility] Work Phone: Comment on above: Expected: 11/16/2024 (Approximate), Expires: 11/16/2025 Start: 11-16-2024 End: 11-16-2024 Patient encounter procedure [facility] Comment on above: HTN (hypertension), benign (Primary Dx); Bilateral carotid artery stenosis; Type 2 diabetes mellitus without complication, without long-term current use of insulin (HCC); Morbid (severe) obesity due to excess calories (CMS-HCC); Tobacco dependence; Mixed hyperlipidemia Start: 10-02-2024 Tobacco Screening Tobacco Screening [facility] Start: 09-09-2024 Urine screening for protein [facility] Start: 09-03-2024 DIABETES SCREEN DIABETES SCREEN [facility] Start: 08-18-2024 End: 08-18-2025 CBC W Auto Differential panel - Blood CBC and differential Lab Routine Tobacco dependence Expected: 08/18/2024 (Approximate), Expires: 08/18/2025 [facility] Comment on above: Expected: 08/18/2024 (Approximate), Expires: 08/18/2025 Start: 08-18-2024 End: 08-18-2025 Comprehensive metabolic 2000 panel - Serum or Plasma Comprehensive metabolic panel Lab Routine HTN (hypertension), benign (CMS/HCC) Bilateral carotid artery stenosis Morbid (severe) obesity due to excess calories (CMS/HCC) Type 2 diabetes mellitus without complication, without long-term current use of insulin Expected: 08/18/2024 (Approximate), Expires: 08/18/2025 [facility] Comment on above: Expected: 08/18/2024 (Approximate), Expires: 08/18/2025 Start: 08-18-2024 End: 08-18-2025 Lipid 1996 panel - Serum or Plasma Lipid panel Lab Routine Bilateral carotid artery stenosis Mixed hyperlipidemia (CMS/HCC) Expected: 08/18/2024 (Approximate), Expires: 08/18/2025 [facility] Comment on above: Expected: 08/18/2024 (Approximate), Expires: 08/18/2025 Start: 08-18-2024 End: 08-18-2025 Microalbumin/Creatinine panel in random Urine Microalbumin / creatinine, urine ratio Lab Routine HTN (hypertension), benign (CMS/HCC) Type 2 diabetes mellitus without complication, without long-term current use of insulin Expected: 08/18/2024 (Approximate), Expires: 08/18/2025 [facility] Comment on above: Expected: 08/18/2024 (Approximate), Expires: 08/18/2025 Start: 08-18-2024 End: 08-18-2025 Thyrotropin [Units/volume] in Serum or Plasma TSH Lab Routine Heart palpitations Expected: 08/18/2024 (Approximate), Expires: 08/18/2025 [facility] Work Phone: Comment on above: Expected: 08/18/2024 (Approximate), Expires: 08/18/2025 Start: 08-18-2024 End: 08-18-2025 Urinalysis complete panel - Urine Urinalysis with reflex microscopic (clean catch) Lab Routine HTN (hypertension), benign (CMS/HCC) Type 2 diabetes mellitus without complication, without long-term current use of insulin Expected: 08/18/2024 (Approximate), Expires: 08/18/2025 [facility] Comment on above: Expected: 08/18/2024 (Approximate), Expires: 08/18/2025 Start: 08-18-2024 End: 08-18-2024 Patient encounter procedure 08/18/2024 1:00 PM EDT Office Visit [facility] [address] [place] [address] Janet Munoz NP [address] [place] [address] HTN (hypertension), benign (CMS/HCC) (Primary Dx); Heart palpitations; Bilateral carotid artery stenosis; Morbid (severe) obesity due to excess calories (CMS/HCC); Type 2 diabetes mellitus without complication, without long-term current use of insulin; Tobacco dependence; Mixed hyperlipidemia (CMS/HCC) [facility] Comment on above: HTN (hypertension), benign (CMS/HCC) (Primary Dx); Heart palpitations; Bilateral carotid artery stenosis; Morbid (severe) obesity due to excess calories ([facility]); Type 2 diabetes mellitus without complication, without long-term current use of insulin; Tobacco dependence; Mixed hyperlipidemia ([facility]) Start: 07-19-2024 End: 07-19-2024 Patient encounter procedure [facility] Start: 07-07-2024 End: 07-07-2025 NM Heart Perfusion W stress and W radionuclide IV Nuc stress Lexiscan Cardiac Services Routine Exertional dyspnea Expected: 07/07/2024, Expires: 07/07/2025 [facility] Work Phone: Comment on above: Expected: 07/07/2024 , Expires: 07/07/2025 Start: 07-07-2024 End: 07-07-2024 Patient encounter procedure 07/07/2024 1:30 PM EDT Office Visit [facility] [address] [place] [address] Kimi Tejada, [address] [place] [address] Chico Solitario MD [address] [place], [place] [phone] [facility] Start: 06-26-2024 Hemoglobin A1c measurement Diabetes: Hemoglobin A1C [facility] Start: 06-20-2024 End: 06-20-2024 Patient encounter procedure 06/20/2024 1:40 PM EST Office Visit [facility] [address] [place] [address] Janet Munoz NP [address] [place] [phone] [facility] Start: 06-13-2024 End: 06-13-2024 Patient encounter procedure 06/13/2024 1:15 PM EST Appointment [facility] [address] [place] [address] Kimi Tejada, DO [address] [place] [address] [facility] Start: 05-23-2024 End: 05-23-2024 Patient encounter procedure 05/23/2024 2:45 PM EST Office Visit [facility] [address] [place] [address] Kimi Tejada, DO [address] [place] [address] [facility] Start: 05-23-2024 End: 05-23-2025 MR Brain WO and W contrast IV MR brain with and without contrast Imaging Routine Chronic nonintractable headache, unspecified headache type Expected: 05/23/2024, Expires: 05/23/2025 [facility] Comment on above: Expected: 05/23/2024 , Expires: 05/23/2025 Start: 05-11-2024 Adult BMI Screening Adult BMI Screen ing [facility] Start: 05-11-2024 End: 05-11-2025 US Carotid arteries - bilateral Vas carotid duplex bilateral Vascular Ultrasound Routine Internal carotid artery stenosis, bilateral Expected: 05/11/2024 (Approximate), Expires: 05/11/2025 [facility] Work Phone: Comment on above: Expected: 05/11/2024 (Approximate), Expires: 05/11/2025 Start: 05-09-2024 End: 05-09-2024 Patient encounter procedure 05/09/2024 1:20 PM EST Office Visit [facility] [address] [place] [phone] Janet Munoz NP [address] [place] [address] [facility] Start: 05-09-2024 End: 05-09-2024 Patient encounter procedure 05/09/2024 9:40 AM EST Office Visit [facility] [address] [place] [address] [place] [address] Jasper Hunter MD [address] [facility] [place], [place] [id number] 944- Darrel [facility] Start: 05-02-2024 End: 05-02-2024 Patient encounter procedure 05/02/2024 10:30 AM EST Appointment [facility] [address] [place] [address] [facility] Start: 03-28-2024 End: 03-28-2024 Patient encounter procedure [facility] Comment on above: Primary insomnia (Pr imary Dx); HTN (hypertension), benign (CMS/HCC); Bilateral carotid artery stenosis; Pre-diabetes; Obesity (BMI 30-39.9); Hidradenitis suppurativa; Monoclonal gammopathy of undetermined significance; Tobacco dependence; Mixed hyperlipidemia (CMS/HCC) Start: 03-22-2024 End: 06-21-2024 IMMUNOFIXATION SCREEN, SERUM [facility] Comment on above: Expected: 03/22/2024 , Expires: 06/21/2024 Start: 03-22-2024 End: 06-21-2024 IMMUNOGLOBULINS,IGG,IGA,I GM [facility] Comment on above: Expected: 03/22/2024 , Expires: 06/21/2024 Start: 03-22-2024 End: 06-21-2024 KAPPA/LAKHANI,FREE,SER [facility] Comment on above: Expected: 03/22/2024 , Expires: 06/21/2024 Start: 03-22-2024 End: 06-21-2024 PROTEIN ELECTROPHORESIS SERUM W/INTERP [facility] Work Phone: Comment on above: Expected: 03/22/2024 , Expires: 06/21/2024 Start: 01-07-2024 Hemoglobin A1c measurement Diabetes: Hemoglobin A1C [facility] Start: 12-27-2023 Covid-19 Vaccine ( season) Covid-19 Vaccine () [facility] Start: 12-27-2023 Influenza vaccination Influenza Vacc ine (#1) [facility] Start: 10-04-2023 Screening for malign ant neoplasm of breast Mammogram [facility] Start: 09-13-2023 Screening for malign ant neoplasm of colon Colonoscopy [facility] Start: 05-05-2023 Tobacco Screening Tobacco Screening [facility] Start: 03-25-2023 End: 05-25-2023 CBC W Auto Differential panel - Blood CBC + DIFF Lab Routine Monoclonal gammopathy Expected: 03/25/2023 (Approximate), Expires: 05/25/2023 [facility] Work Phone: Comment on above: Expected: 03/25/2023 (Approximate), Expires: 05/25/2023 Start: 03-25-2023 End: 05-25-2023 Comprehensive metabolic 2000 panel - Serum or Plasma COMP METABOLIC PANEL Lab Routine Monoclonal gammopathy Expected: 03/25/2023 (Approximate), Expires: 05/25/2023 [facility] Work Phone: Comment on above: Expected: 03/25/2023 (Approximate), Expires: 05/25/2023 Start: 03-25-2023 End: 05-25-2023 MONOCLONAL PROTEIN, SERUM (BLOOD) MONOCLONAL PROTEIN, SERUM (BLOOD) Lab Routine Monoclonal gammopathy Expected: 03/25/2023 (Approximate), Expires: 05/25/2023 [facility] Work Phone: Comment on above: Expected: 03/25/2023 (Approximate), Expires: 05/25/2023 Start: 03-25-2023 End: 05-25-2023 PROTEIN ELECTROPHORESIS SERUM W/INTERP PROTEIN ELECTROPHORESIS SERUM W/INTERP Lab Routine Monoclonal gammopathy Expected: 03/25/2023 (Approximate), Expires: 05/25/2023 [facility] Work Phone: Comment on above: Expected: 03/25/2023 (Approximate), Expires: 05/25/2023 Start: 12-26-2022 COVID-19 Vaccine ( season) COVID-19 Vaccine ( season) [facility] Start: 12-26-2022 Influenza vaccination Influenza Vacc ine [facility] Start: 03-12-2022 End: 05-12-2022 CBC W Auto Differential panel - Blood CBC + DIFF Lab Routine Monoclonal gammopathy Expected: 03/12/2022, Expires: 05/12/2022 [facility] Work Phone: Comment on above: Expected: 03/12/2022 , Expires: 05/12/2022 Start: 03-12-2022 End: 05-12-2022 Comprehensive metabolic 2000 panel - Serum or Plasma COMP METABOLIC PANEL Lab Routine Monoclonal gammopathy Expected: 03/12/2022, Expires: 05/12/2022 [facility] Work Phone: Comment on above: Expected: 03/12/2022 , Expires: 05/12/2022 Start: 03-12-2022 End: 05-12-2022 IMMUNOGLOBULINS RITESH IMMUNOGLOBULINS RITESH Lab Routine Monoclonal gammopathy Expected: 03/12/2022, Expires: 05/12/2022 [facility] Work Phone: Comment on above: Expected: 03/12/2022 , Expires: 05/12/2022 Start: 03-12-2022 End: 05-12-2022 KAPPA/LAKHANI,FREE,SER KAPPA/LAKHANI,FREE,SER Lab Routine Monoclonal gammopathy Expected: 03/12/2022, Expires: 05/12/2022 [facility] Work Phone: Comment on above: Expected: 03/12/2022 , Expires: 05/12/2022 Start: 03-12-2022 End: 05-12-2022 MONOCLONAL PROTEIN, SERUM (BLOOD) MONOCLONAL PROTEIN, SERUM (BLOOD) Lab Routine Monoclonal gammopathy Expected: 03/12/2022, Expires: 05/12/2022 [facility] Work Phone: Comment on above: Expected: 03/12/2022 , Expires: 05/12/2022 Start: 03-12-2022 End: 05-12-2022 PROT ELECT SERUM WITH BRIGITTE AND INTERP PROT ELECT SERUM WITH BRIGITTE AND INTERP Lab Routine Monoclonal gammopathy Expected: 03/12/2022, Expires: 05/12/2022 [facility] Work Phone: Comment on above: Expected: 03/12/2022 , Expires: 05/12/2022 Start: 03-12-2022 End: 05-12-2022 PROTEIN ELECTROPHORESIS SERUM W/INTERP PROTEIN ELECTROPHORESIS SERUM W/INTERP Lab Routine Monoclonal gammopathy Expected: 03/12/2022, Expires: 05/12/2022 [facility] Work Phone: Comment on above: Expected: 03/12/2022 , Expires: 05/12/2022 Start: 03-04-2022 End: 05-04-2022 Basic metabolic 2000 panel - Serum or Plasma BASIC METABOLIC PNL Lab Routine Type 2 diabetes mellitus without complication, unspecified whether long-term insulin use (HCC) Expected: 03/04/2022, Expires: 05/04/2022 [facility] Work Phone: Comment on above: Expected: 03/04/2022 , Expires: 05/04/2022 Start: 02-24-2022 End: 04-26-2022 Hemoglobin A1c in Blood HGB A1C Lab Routine Type 2 diabetes mellitus without complication, unspecified whether long-term insulin use (HCC) Expected: 02/24/2022, Expires: 04/26/2022 [facility] Work Phone: Comment on above: Expected: 02/24/2022 , Expires: 04/26/2022 Start: 12-26-2021 Influenza vaccination INFLUENZA (#1) [facility] Start: 09-04-2021 Adult depression screening assessment DEPRESSION SCREENING [facility] Start: 04-27-2021 DEPRESSION ASSESSMENT DEPRESSION ASS ESSMENT [facility] Start: 01-31-2021 COVID-19 VACCINE (3 - Booster for Pfizer series) COVID-19 VACCINE (3 - Booster for Pfizer series) [facility] Start: 10-26-2020 COVID-19 VACCINE (3 - Booster for Pfizer series) COVID-19 VACCINE (3 - Booster for Pfizer series) [facility] Start: 06-04-2021 COVID-19 Vaccine (3 - Pfizer risk series) COVID-19 Vaccine (3 - Pfizer risk series) [facility] Start: 04-27-2020 Screening for malign ant neoplasm of cervix [facility] Start: 04-14-2019 Screening for malign ant neoplasm of breast Mammogram Screening [facility] Start: 09-24-2017 Administration of varicella zoster vaccine Zoster (Shingles) Vaccine (1 of 2) [facility] Start: 09-24-2017 Influenza vaccination LUNG CANCER SC REENING [facility] Start: 09-24-2017 Screening for malign ant neoplasm of lung Lung Cancer Screening [facility] Start: 09-24-2017 SHINGRIX VACCINE (1 of 2) NEVAREZ GRIX VACCINE (1 of 2) [facility] Start: 09-24-2012 COLOGUARD (FIT-DNA) COLOGUARD (FIT-D NA) [facility] Start: 09-24-2012 Colonoscopy COLONOSCOPY [facility] Start: 09-24-2012 COLORECTAL CANCER SCREENING COLORECTAL CANCER SCREENING [facility] Start: 09-24-[address] COLONOGRAPHY [facility] Start: 09-24-2012 FECAL OCCULT BLOOD FECAL OCCULT BLOO D [facility] Start: 09-24-2012 LIPID SCREEN LIPID SCREEN [facility] Start: 09-24-2012 Screening for malign ant neoplasm of colon [facility] Start: 09-24-2012 SIGMOIDOSCOPY SIGMOIDOSCOPY [facility] Start: 2007 Mammography MAMMOGRAM [facility] Start: 09-24-1997 HPV TESTING HPV TESTING [facility] Start: 09-24-1997 Screening for malign ant neoplasm of cervix HPV/Cotest [facility] Start: 09-24-1988 PAP TESTING PAP TESTING [facility] Start: 09-24-1988 Screening for malign ant neoplasm of cervix [facility] Start: 09-24-1986 Administration of varicella zoster vaccine Zoster (Shingles) Vaccine (1 of 2) [facility] Start: 09-24-1986 DTaP,Tdap and Td Vac cines (1 - Tdap) DTaP,Tdap and Td Vaccines (1 - Tdap) [facility] Start: 09-24-1986 Hepatitis B Vaccine (1 of 3 - 19+ 3-dose series) Hepatitis B Vaccine (1 of 3 - 19+ 3-dose series) [facility] Start: 09-24-1986 Urine microalbumin profile [facility] Start: 09-24-1985 Adult BMI Follow Up Plan Adult BMI F ollow Up Plan [facility] Start: 09-24-1985 Anxiety Screening Anxiety Screening [facility] Start: 09-24-1985 Depression Screening Depression Scre ening [facility] Start: 09-24-1985 Diabetic foot examination Diabetic F oot Exam [facility] Start: 09-24-1985 HEPATITIS C SCREENING HEPATITIS C [facility] Start: 09-24-1985 Hepatitis C screening Hepatitis C [facility] Start: 09-24-1985 HIV SCREENING HIV SCREENING [facility] Start: 09-24-1985 HIV screening HIV Screening [facility] Start: 1979 Depression Screening Depression Scre ening [facility] Start: 09-24-1973 PNEUMOCOCCAL (1 - PCV) PNEUMOCOCCAL (1 - PCV) [facility] Start: 09-24-1973 Pneumococcal vaccination Pneum ococcal Vaccine (1 of 2 - PCV) [facility] Start: 1967 Glaucoma screening Diabetic Op hthalmology Exam [facility] Start: 1967 HEPATITIS B (1 of 3 - 3-dose series) HEPATITIS B (1 of 3 - 3-dose series) [facility] Start: 1967 Screening for malign ant neoplasm of colon [facility] Start: 1967 Tobacco Counseling Tobacco Counselin g [facility] End: 05-23-2025 C-reactive protein C-reactive protein Lab Routine Stenosis of left carotid artery 1 Occurrences starting 05/23/2024 until 05/23/2025 [facility] Comment on above: 1 Occurrences starti ng 05/23/2024 until 05/23/2025 End: 05-23-2025 Erythrocyte sedimentation rate Erythrocyte Sedimentation Rate (ESR) Lab Routine Stenosis of left carotid artery 1 Occurrences starting 05/23/2024 until 05/23/2025 [facility] Work Phone: Comment on above: 1 Occurrences starti ng 05/23/2024 until 05/23/2025 [facility] Immunizations Immunization Date Immunization Notes Care Provider Skyler solorio 03-28-2024 Influenza, injectabl e, [place]in [place] Canine Kidney, preservative free, quadrivalent Janet Alexander TOBACCO CURER Work Phone: [facility] 03-28-2024 influenza virus vaccine, unspecified formulation Kimi Tejada DO Work Phone: [facility] 03-27-2021 Influenza, injectabl e, Madin [place] Canine Kidney, preservative free, quadrivalent Danae Philly PA-C Work Phone: [facility] 03-27-2021 influenza virus vaccine, unspecified formulation Rene Waller PA Work Phone: [facility] 08-31-2020 COVID-19 vaccine, ag e 12+ yr (PFIZER-BIONTECH - PURPLE TOP) Danae Philly PA-C Work Phone: [facility] 08-10-2020 COVID-19 vaccine, ag e 12+ yr (PFIZER-BIONTECH - PURPLE TOP) Danae Philly PA-C Work Phone: [facility] 01-09-2019 influenza, injectabl e, quadrivalent, preservative free Danae Philly PA-C Work Phone: [facility] 02-04-2018 influenza, injectabl e, quadrivalent, contains preservative Danae Philly PA-C Work Phone: [facility] 02-04-2018 influenza, injectabl e, quadrivalent, preservative free Generic Provider [facility] 02-03-2017 influenza, injectabl e, quadrivalent, preservative free Danae Philly PA-C Work Phone: [facility] 01-18-2016 influenza, injectabl e, quadrivalent, preservative free Danae Philly PA-C Work Phone: [facility] 01-23-2015 influenza, injectabl e, quadrivalent, preservative free Danae Philly PA-C Work Phone: [facility] Payers Date Payer Category Payer Managed Care Other (unspecified) [facility] [id number] 2019 Private Health Insurance [facility] CHOICE PLUS [id number] 2019-Present [phone] [address] [place] [address] HMO [id number] 2019 Private Health Insurance [id number] 1967 Unknown [id number] 2.16.840.1.664710.3.579. 2.593 1967 Unknown [id number] 2.16.840.1.510408.3.579. 2.593 1967 Unknown [id number] 2.16.840.1.696334.3.579. 2.593 1967 Unknown [id number] 2.16.840.1.010456.3.579. 2.593 1967 Unknown [id number] 2.16.840.1.751780.3.579. 2.593 1967 Unknown [id number] 2.16.840.1.091400.3.579. 2.1286 1967 Unknown [id number] 2.16.840.1.909142.3.579. 2.1286 1967 Unknown [id number] 2.16.840.1.966643.3.579. 2.1258 1967 Unknown [id number] 2.16.840.1.699018.3.579. 2.1258 1967 Unknown [id number] 2.16.840.1.169939.3.579. 2.1258 1967 Unknown [id number] 2.16.840.1.218767.3.579. 2.1258 1967 Unknown [id number] 2.16840.1.331621.3.579. 2.1258 1967 Unknown [id number] 2.16.840.1.223673.3.579. 2.1258 1967 Unknown [id number] 2.840.1.032183.3.579. 2.1285 1967 Unknown [id number] 2.840.1.063648.3.579. 2.1285 1967 Unknown [id number] 2.840.1.206500.3.579. 2.1285 1967 Unknown [id number] 2.840.1.935699.3.579. 2.1285 1967 Unknown [id number] 2.840.1.419103.3.579. 2.1285 1967 Unknown [id number] 2.840.1.342030.3.579. 2.1285 1967 Unknown [id number] 2.840.1.936244.3.579. 2.1285 1967 Unknown [id number] 2.840.1.558254.3.579. 2.1285 1967 Unknown [id number] 2.840.1.936522.3.579. 2.1285 1967 Unknown [id number] 2.16840.1.100805.3.579. 2.1285 1967 Unknown [id number] 2.16840.1.079355.3.579. 2.6 1967 Unknown [id number] 2.16.840.1.448867.3.579. 2.1285 1967 Unknown [id number] 2.16.840.1.906967.3.579. 2.6 1967 Unknown [id number] 2.16.840.1.234103.3.579. 2.1285 1967 Unknown [id number] 2.16.840.1.537605.3.579. 2.1285 1967 Unknown [id number] 2.16.840.1.898623.3.579. 2.1285 1967 Unknown [id number] 2.16.840.1.713366.3.579. 2.1285 1967 Unknown [id number] 2.16840.1.039709.3.579. 2.6 1959 Private Health Insurance [id number] Social History Date Type Detail Facility Start: 12-06-2019 End: 10-07-2023 Tobacco smoking status TXIS Smokes tobacco daily [facility] History of tobacco use [facility] Start: 12-06-2019 End: 08-30-2023 Cigarettes smoked current (pack per day) - Reported 0.5 [facility] Start: 12-06-2019 End: 10-07-2023 Tobacco use and exposure Smokeless tobacco non-user [facility] Start: 09-09-2021 End: 03-25-2022 Alcohol intake Current drinker of alcohol (finding) [facility] Start: 1965 Sex Assigned At Not on file [facility] Start: 08-30-2021 End: 03-25-2022 Exposure to SARS-CoV-2 (event) Not sure [facility] History of tobacco use Passive smoker [facility] Start: 10-07-2023 End: 11-16-2024 Alcoholic beverage intake Lifetime non-drinker (finding) [facility] Start: 08-30-2023 End: 09-02-2023 Social connection and isolation panel [facility] Do you belong to any clubs or organizations such as confucianist groups, unions, fraternal or athletic groups, or school groups? No [facility] Are you now , , , , never or living with a partner? [facility] How often to you hav e a drink containing alcohol? Never [facility] How many standard dr inks containing alcohol do you have on a typical day? Patient does not drink [facility] How hard is it for y ou to pay for the very basics like food, housing, medical care, and heating Very hard [facility] Do you feel stress - tense, restless, nervous, or anxious, or unable to sleep at night because your mind is troubled all the time - these days [OSQ] Not at all [facility] (I/We) worried whezachary er (my/our) food would run out before (I/we) got money to buy more. Sometimes true [facility] Start: 09-02-2023 Alcohol Comment caffine: shreyas costa 2 daily [facility] Start: 03-22-2024 End: 07-07-2024 Alcoholic beverage intake Ex-drinker (finding) [facility] Start: 11-30-2014 Sex Female (finding) [facility] Medical Equipment Procedure Code Equipment Code Equipment Origin al Text Equipment Identifier Dates 1 each by Other route Daily 1 each by In Vitro route Daily [id number] Start: 05-19-2024 End: 08-27-2024 Once a day [id number] Start: 05-28-2024 End: 05-28-2025 Clinical Notes 09-09-2021 to 11-16-2024 Janet Munoz NP - 11/16/2024 2:26 PM Lulu Munoz NP - 11/16/2024 2:24 PM FRANCISCO BUCHANAN - 11/16/2024 1:40 PM Lulu Munoz NP - 11/16/2024 1:40 PM EDTPatient Instructions Note Date & Type Note Facility 11-16-2024 History of Presen t illness Narrative Associated Problem(s): Hidradenitis suppurativa Flare to left axillary region augmentin Associated Problem(s): Symptomatic urinary tract infection +UTI on office dip Augmentin BID for 10 days Check culture Lower back pain, abd pain, burning urination, urgency, frequency, foul smell, dark urine Images from the original note were not included. Augusta Ledezma is a 59 y.o. female presents with [...] pain, headaches, palpitations or shortness of breath. Past treatments include ANDREY inhibitors. The current treatment provides moderate improvement. [...] Meter) w/Device kit 1 each, Does not apply, Daily clopidogrel (PLAVIX) 75 mg, Daily RT folic [...] Diagnosis Date COPD (chronic obstructive pulmonary disease) ([facility]) DM II (diabetes mellitus, type II), controlled ([facility]) HTN (hypertension) Past Surgical History: Procedure Laterality Date ABDOMINAL SURGERY family history includes HTN in her mother; Heart attack in her father; Heart disease in her mother. OBJECTIVE: Visit Vitals BP 144/76 (BP Location: Left arm, Patient Position: Sitting, BP Cuff Size: Large adult) Pulse (!) 114 Temp 98.5 F (Temporal) Resp 20 Wt 226 lb 9.6 oz SpO2 95% BMI 34.45 kg/m Smoking Status Every Day BSA 2.22 m Physical Exam Vitals and nursing note reviewed. [...] asa, andrey A1c 6.6% 11/16/24, 6.8% 08/18/24 Relevant Orders POCT glycosylated hemoglobin (Hb A1C) docked device (Completed) Morbid (severe) obesity due to excess calories ([facility]) Discussed with patient their BMI (actual, verses [...] XR (Glucophage-XR) 500 MG 24 hr tablet Associated Problem(s): Mixed hyperlipidemia Continue statin therapy Check labs yearly and as needed with dose changes Associated Problem(s): Tobacco dependence The patient has been [...] to start this process Wean off buproprion Associated Problem(s): Morbid (severe) obesity due to excess calories ([facility]) Discussed with patient their BMI (actual, verses recommended). We have also discussed lifestyle modifications: attempts to perform physical activity as chronic conditions allow, also to monitor dietary intake: increasing protein/fruits/veggies and lowering carb intake (unless contraindicated). Limit sodas, juices, and sugary drinks. Associated Problem(s): Type 2 diabetes mellitus without complications [...] asa, andrey A1c 6.6% 11/16/24, 6.8% 08/18/24 Associated Problem(s): Bilateral carotid artery stenosis Is on ASA, and statin Has had US and fu with vascular doctor See report in chart for specifics Aggressive risk factor modification is goal: control blood pressure, and needs to quit smoking Associated Problem(s): HTN (hypertension), benign Please check blood pressure daily and record DASH diet Limit caffeine Take medication as directed Contact office if chest pain, pressure, dizziness, shortness of breath, swelling legs Recommend slow position changes increase lisinopril at 40mg daily Pt did not want b jairo therapy d/t side effect of fatigue documented in this encounter [facility] 11-16-2024 Instructions Janet Munoz NP - 11/16/2024 1:40 PM EDT Buproprion: take 1 pill every other day for 5 doses, then 1 pill every 3rd for 5 dose then stop Augmentin for urinary tract infection documented in this encounter [facility] 08-23-2024 Miscellaneous Notes Good morning - patient is calling because she says for 2 weeks both her and Ghislaine have been trying to get refills of Plavix requested and now she has been out for 4 days. I am not seeing any requests, perhaps Ghislaine had a bad fax number for us. Please refill RONN, again, she has been out for 4 days. She did have her try to call us on Thursday, but of course we were closed. She would like a call when this has been completed [phone]- she is panicking and is about to ask her PCP to step in and help her get the refill. Thank you. Patient need her Plavix need her medication refilled ronn she is all out Please send to [facility] in [place] documented in this encounter [facility] 08-23-2024 Telephone encounter Note Good morning - patient is calling because she says for 2 weeks both her and Ghislaine have been trying to get refills of Plavix requested and now she has been out for 4 days. I am not seeing any requests, perhaps Ghislaine had a bad fax number for us. Please refill RONN, again, she has been out for 4 days. She did have her try to call us on Thursday, but of course we were closed. She would like a call when this has been completed [phone]- she is panicking and is about to ask her PCP to step in and help her get the refill. Thank you. [facility] 08-23-2024 Telephone encounter Note Patient need her Plavix need her medication refilled ronn she is all out Please send to [facility] in [place] [facility] 08-18-2024 History of Presen t illness Narrative Images from the original note were not included. Augusta Ledezma is a 58 y.o. female presents with chief complaint of No chief complaint on file. HPI: Here for recheck Wants to talk about smoking cessation Does not like side effects from wellbutrin : too fatigued, still has thoughts of wanting to smoke Has cut back 1ppd, down to 6-7 cigs daily Never tried chantix Nicotine Dependence Presents for initial visit. Symptoms include cravings, fatigue and irritability. Symptoms are negative for headache and sore throat. Preferred tobacco types include cigarettes. Preferred cigarette types include filtered. Preferred strength is light. Preferred cigarettes are non-menthol. Preferred brands include Ryla. Her urge triggers include company of smokers, meal time and stress. Risk factors do not include drinking alcohol, drinking coffee or driving.Her first smoke is from 8 to 10 AM. She smokes < 1/2 a pack of cigarettes per day. She started smoking when she was 11-12 years old. Past treatments include buproprion. The treatment provided moderate relief. Compliance with prior treatments has been good. Augusta is ready to quit. SUBJECTIVE: MEDICATIONS: Current Outpatient Medications Medication Instructions albuterol HFA 90 mcg/act inhaler 2 puffs, Inhalation, Every 6 hours PRN aspirin 81 mg, Once atorvastatin (LIPITOR) 80 mg, Oral, Nightly Blood Glucose Monitoring Suppl (Contour Blood Glucose System) w/Device kit 1 kit, Does not apply, Daily Blood Glucose Monitoring Suppl (True Metrix Air Glucose Meter) w/Device kit 1 each, Does not apply, Daily buPROPion SR (WELLBUTRIN SR) 150 mg, Oral, 2 times daily, Do not crush, chew, or split. clopidogrel (PLAVIX) 75 mg, Daily RT folic acid (FOLVITE) 1 mg, Daily glucose blood (Contour Test) test strip Once a day glucose blood (True Metrix Blood Glucose Test) test strip 1 each, Other, Daily, 1 each by In Vitro route Daily lisinopril 30 mg, Oral, Daily metFORMIN XR (GLUCOPHAGE-XR) 500 mg, Oral, Daily montelukast (SINGULAIR) 10 mg, Oral, Nightly ondansetron ODT (ZOFRAN-ODT) 4 mg, Every 8 hours PRN tiZANidine (ZANAFLEX) 4 mg, Oral, Nightly PRN zolpidem (AMBIEN) 10 mg, Oral, Nightly PRN ALLERGIES: Allergies Allergen Reactions Sumatriptan Anaphylaxis, Palpitations and Other Gives signs of heart attack REVIEW OF SYMPTOMS: Review of Systems Constitutional: Positive for fatigue and irritability. Negative for appetite change, chills and fever. HENT: Negative for congestion, ear pain and sore throat. Eyes: Negative for pain, discharge, redness and visual disturbance. Respiratory: Negative for cough, shortness of breath and wheezing. Cardiovascular: Negative for chest pain, palpitations and leg swelling. Gastrointestinal: Negative for abdominal pain, blood in stool, constipation, diarrhea, nausea and vomiting. Genitourinary: Negative for difficulty urinating, dysuria and frequency. Musculoskeletal: Negative for arthralgias, back pain, joint swelling and myalgias. Skin: Negative for rash and wound. Neurological: Negative for dizziness, tremors, seizures, syncope and headaches. Psychiatric/Behavioral: Negative for behavioral problems, self-injury and suicidal ideas. The patient is nervous/anxious. Hematological: Does not bruise/bleed easily. Endocrine: Negative for polydipsia, polyphagia and polyuria. Allergic/Immunologic: Negative for environmental allergies and food allergies. PAST MEDICAL HISTORY Past Medical History: Diagnosis Date COPD (chronic obstructive pulmonary disease) ([facility]) DM II (diabetes mellitus, type II), controlled ([facility]) HTN (hypertension) ([facility]) Past Surgical History: Procedure Laterality Date ABDOMINAL SURGERY family history includes HTN in her mother; Heart attack in her father; Heart disease in her mother. OBJECTIVE: Visit Vitals BP 118/76 (BP Location: Left arm, Patient Position: Sitting, BP Cuff Size: Adult long) Pulse 104 Temp 98.8 F (Temporal) Resp 18 Wt 224 lb SpO2 95% BMI 34.06 kg/m Smoking Status Every Day BSA 2.21 m Physical Exam Vitals and nursing note reviewed. Constitutional: General: She is not in acute distress. Appearance: Normal appearance. HENT: Head: Normocephalic and atraumatic. Right Ear: External ear normal. Left Ear: External ear normal. Nose: Nose normal. Mouth/Throat: Mouth: Mucous membranes are moist. Eyes: Extraocular Movements: Extraocular movements intact. Conjunctiva/sclera: Conjunctivae normal. Cardiovascular: Rate and Rhythm: Normal rate and regular rhythm. Pulses: Normal pulses. Heart sounds: Normal heart sounds. Pulmonary: Effort: Pulmonary effort is normal. Breath sounds: Normal breath sounds. Musculoskeletal: General: Normal range of motion. Cervical back: Normal range of motion and neck supple. Skin: General: Skin is warm and dry. Capillary Refill: Capillary refill takes 2 to 3 seconds. Findings: No rash. Neurological: General: No focal deficit present. Mental Status: She is alert and oriented to person, place, and time. Psychiatric: Mood and Affect: Mood normal. Behavior: Behavior normal. Thought Content: Thought content normal. Judgment: Judgment normal. ASSESSMENT AND PLAN: Follow up in about 3 months (around 11/17/2024) for Recheck. Problem List Items Addressed This Visit HTN (hypertension), benign (CMS/HCC) - Primary Please check blood pressure daily and record DASH diet Limit caffeine Take medication as directed Contact office if chest pain, pressure, dizziness, shortness of breath, swelling legs Recommend slow position changes continue lisinopril at 30mg daily Pt did not want b jairo therapy d/t side effect of fatigue Relevant Orders Comprehensive metabolic panel Urinalysis with reflex microscopic (clean catch) Microalbumin / creatinine, urine ratio Bilateral carotid artery stenosis Is on ASA, and statin Has had US and fu with vascular doctor See report in chart for specifics Aggressive risk factor modification is goal: control blood pressure, and needs to quit smoking Relevant Orders Comprehensive metabolic panel Lipid panel Tobacco dependence The patient has been advised [...] and is going to look into this Relevant Orders CBC and differential Heart palpitations Relevant Orders TSH Mixed hyperlipidemia (CMS/HCC) Continue statin therapy Check labs yearly and as needed with dose changes Relevant Orders Lipid panel Type 2 diabetes mellitus without complications Check blood sugars daily, notify if <70 [...] metformin, statin, asa, andrey A1c 6.8% 08/18/24 Relevant Orders POCT glycosylated hemoglobin (Hb A1C) docked device (Completed) Comprehensive metabolic panel Urinalysis with reflex microscopic (clean catch) Microalbumin / creatinine, urine ratio Morbid (severe) obesity due to excess calories (CMS/HCC) Discussed with patient their BMI (actual, verses recommended). We have also discussed lifestyle modifications: attempts to perform physical activity as chronic conditions allow, also to monitor dietary intake: increasing protein/fruits/veggies and lowering carb intake (unless contraindicated). Limit sodas, juices, and sugary drinks. Relevant Orders Comprehensive metabolic panel Associated Problem(s): Mixed hyperlipidemia (CMS/HCC) Continue statin therapy Check labs yearly and as needed with dose changes Associated Problem(s): Tobacco dependence The patient has been [...] and is going to look into this Associated Problem(s): Type 2 diabetes mellitus without complications Check blood sugars daily, notify if <70 [...] metformin, statin, asa, andrey A1c 6.8% 08/18/24 Associated Problem(s): Morbid (severe) obesity due to excess calories (CMS/HCC) Discussed with patient their BMI (actual, verses recommended). We have also discussed lifestyle modifications: attempts to perform physical activity as chronic conditions allow, also to monitor dietary intake: increasing protein/fruits/veggies and lowering carb intake (unless contraindicated). Limit sodas, juices, and sugary drinks. Associated Problem(s): HTN (hypertension), benign (CMS/HCC) Please check blood pressure daily and record DASH diet Limit caffeine Take medication as directed Contact office if chest pain, pressure, dizziness, shortness of breath, swelling legs Recommend slow position changes continue lisinopril at 30mg daily Pt did not want b jairo therapy d/t side effect of fatigue Associated Problem(s): Bilateral carotid artery stenosis Is on ASA, and statin Has had US and fu with vascular doctor See report in chart for specifics Aggressive risk factor modification is goal: control blood pressure, and needs to quit smoking documented in this encounter [facility] 08-18-2024 Instructions Janet Munoz NP - 08/18/2024 1:00 PM EDT Please get labs completed We will continue to use buproprion, if worsening in depression/anxiety less me know A1c is 6.8% documented in this encounter [facility] 07-07-2024 History of Presen t illness Narrative Augusta Ledezma Date of visit: 07/07/2024 Date of : 1965 Age: 58 y.o. Patient Active Problem List Diagnosis Bilateral carotid artery stenosis Diverticulitis Hidradenitis suppurativa Heart palpitations HTN (hypertension), benign Insulin resistance Insomnia, unspecified Monoclonal gammopathy of undetermined significance Morbid (severe) obesity due to excess calories ([facility] [place]) Tobacco dependence Type 2 diabetes mellitus without complications ([facility] [place]) Allergies Allergen Reactions Sumatriptan Anaphylaxis, Other (See Comments) and Palpitations Gives signs of heart attack Current Outpatient Medications Medication Sig Dispense Refill albuterol (PROVENTIL HFA;VENTOLIN HFA) 90 mcg/actuation inhaler ascorbic acid (VITAMIN C) 500 mg tablet Take 1 tablet (500 mg total) by mouth in the morning. aspirin 81 mg Take 1 tablet (81 mg total) by mouth in the morning. atorvastatin (LIPITOR) 80 mg tablet Take 1 tablet (80 mg total) by mouth nightly. 60 tablet 3 buPROPion SR (WELLBUTRIN SR) 150 mg 12 hr tablet Take 1 tablet (150 mg total) by mouth in the morning and 1 tablet (150 mg total) before bedtime. clopidogreL (PLAVIX) 75 mg tablet Take 1 tablet (75 mg total) by mouth in the morning. 30 tablet 0 lisinopriL (PRINIVIL,ZESTRIL) 10 mg tablet 3 tablets (30 mg total). melatonin 10 mg capsule Take by mouth. metFORMIN XR (GLUCOPHAGE XR) 500 mg 24 hr tablet montelukast (SINGULAIR) 10 mg tablet Take 1 tablet (10 mg total) by mouth. ondansetron ODT (ZOFRAN ODT) 4 mg disintegrating tablet Dissolve 1 tablet (4 mg total) on tongue every 8 (eight) hours as needed. tiZANidine (ZANAFLEX) 4 mg tablet Take 1 tablet (4 mg total) by mouth daily as needed. zolpidem (AMBIEN) 10 mg tablet metFORMIN XR (GLUCOPHAGE XR) 500 mg 24 hr tablet (Patient not taking: Reported on 07/07/2024) No current facility-administered medications for this visit. Chief Complaint Patient presents with New Patient TOBACCO CURER REFERRAL KIMI TEJADA Bilateral carotid artery stenosis, MR BRAIN W/WO CONTRAST FELIZ, NO DEVICES, SCHED W/PT, PT WANTS FELIZ ONLY AND CHOSE TO WAIT History of Present Illness 58-year-old female with multiple coronary artery disease risk factors and known significant bilateral carotid artery disease here to establish care Denies chest pain at rest and with activity she is sedentary for the most part and tells me that after walking she does have hip pain and significant shortness of breath that she has been attributed to her extensive smoking history. Started smoking at the age of 13 she has a about 40 pack year smoking history She does have significant left ICA stenosis with a left eye vision changes not classic for symptomatic carotid stenosis she has chronic migraines and was told by her news assistant that it is a Migraine aura she follows with vascular already Past Medical History: Diagnosis Date Abnormal ECG Carotid artery stenosis Primary hypertension No data recorded No data recorded No data recorded Past Surgical History: Procedure Laterality Date HAND SURGERY Left Family History Problem Relation Age of Onset Stroke Mother Breast cancer Paternal Aunt 32 Social History Socioeconomic History Marital status: Spouse name: Not on file Number of children: Not on file Years of education: Not on file Highest education level: Not on file Occupational History Not on file Tobacco Use Smoking status: Every Day Current packs/day: 0.50 Average packs/day: 0.5 packs/day for 42.0 years (21.0 ttl pk-yrs) Types: Cigarettes Smokeless tobacco: Never Substance and Sexual Activity Alcohol use: Not Currently Drug use: Never Sexual activity: Not on file Other Topics Concern Not on file Social History Narrative Not on file Social Drivers of Health Financial Resource Strain: High Risk (08/30/2023) Received from [facility] Overall Financial Resource Strain (CARDIA) Difficulty of Paying Living Expenses: Very hard Food Insecurity: No Food Insecurity (10/03/2023) Hunger Screening Food Insecurity - Worry: Never True Food Insecurity - Inability: Never True Recent Concern: Food Insecurity - Food Insecurity Present (08/30/2023) Received from [facility] Hunger Vital Sign Worried About Running Out of Food in the Last Year: Sometimes true Ran Out of Food in the Last Year: Sometimes true Transportation Needs: No Transportation Needs (08/30/2023) Received from [facility] PRAPARE - Transportation Lack of Transportation (Medical): No Lack of Transportation (Non-Medical): No Physical Activity: Unknown (08/30/2023) Received from [facility] Exercise Vital Sign Days of Exercise per Week: 2 days Minutes of Exercise per Session: Patient declined Stress: No Stress Concern Present (08/30/2023) Received from [facility] [place] [facility] [employer] - Occupational Stress Questionnaire Feeling of Stress : Not at all Social Connections: Moderately Isolated (08/30/2023) Received from [facility] Social Connection and Isolation Panel [NHANES] Frequency of Communication with Friends and Family: More than three times a week Frequency of Social Gatherings with Friends and Family: Twice a week Attends [employer] Services: Never Active Member of Clubs or Organizations: No Attends Club or Organization Meetings: Never Marital Status: Interpersonal Safety: Not on file Housing Instability: Low Risk (08/30/2023) Received from [facility] Housing Stability Vital Sign Unable to Pay for Housing in the Last Year: No Number of Places Lived in the Last Year: 1 Unstable Housing in the Last Year: No Review of Systems Review of Systems Constitutional: Negative for fever, malaise/fatigue, weight gain and weight loss. HENT: Negative for nosebleeds. Eyes: Negative for blurred vision and double vision. Vascular: Negative for asymmetric leg edema, claudication, lower extremity wounds or ulcers and varicose veins. Respiratory: Negative for cough, shortness of breath and wheezing. Hematologic/Lymphatic: Negative for bleeding problem. Does not bruise/bleed easily. Skin: Negative for color change and rash. Musculoskeletal: Negative for joint swelling and muscle weakness. Gastrointestinal: Negative for change in bowel habit and hematochezia. Genitourinary: Negative for hematuria. Neurological: Negative for dizziness, headaches, light-headedness, loss of balance, numbness and tremors. Psychiatric/Behavioral: Negative for depression. The patient is not nervous/anxious. Allergic/Immunologic: Negative for environmental allergies. CARDIOVASCULAR: Please review HPI. Physical Examination General appearance: Alert, oriented and cooperative. In no acute distress. Skin: Warm and dry to touch. Head: Normocephalic, without obvious abnormality, atraumatic. Ears, Nose, Mouth, Throat: Throat clear without erythema or exudate. Dentition intact. Eyes: Conjunctivae unremarkable, EOM intact. Neck: No JVD, No carotid bruit. Neck supple, trachea midline. Respiratory: Clear to auscultation bilaterally, no use of accessory muscles. Cardiovascular: RRR with normal S1 and S2 with no murmurs. Gastrointestinal: Soft, non-tender. Bowel sounds normal. Musculoskeletal: No peripheral edema. Neurologic: Oriented to time, person and place, affect appropriate. No focal/major motor defects noted. Psychiatric: Appropriate mood, memory and judgement. VITAL SIGNS: BP 138/74 Pulse 100 Ht 170.2 cm (5' 7 ) Wt 102.5 kg (226 lb) BMI 35.40 kg/m Orders Placed or Reconciled This Encounter Medications buPROPion SR (WELLBUTRIN SR) 150 mg 12 hr tablet Sig: Take 1 tablet (150 mg total) by mouth in the morning and 1 tablet (150 mg total) before bedtime. montelukast (SINGULAIR) 10 mg tablet Sig: Take 1 tablet (10 mg total) by mouth. ondansetron ODT (ZOFRAN ODT) 4 mg disintegrating tablet Sig: Dissolve 1 tablet (4 mg total) on tongue every 8 (eight) hours as needed. tiZANidine (ZANAFLEX) 4 mg tablet Sig: Take 1 tablet (4 mg total) by mouth daily as needed. There are no discontinued medications. IMPRESSIONS/PLAN 1. Bilateral carotid artery stenosis - [facility] [place], [place] 2. Exertional dyspnea - Nuc stress Lexiscan; Future Exertional dyspnea Primary hypertension Diabetes type 2 not on insulin Tobacco smoking more than 40 pack year smoking history Bilateral Carotid artery stenosis with intermittent vision changes in her left eye (> 70% left carotid stenosis) 50% right carotid stenosis, follows with vascular Chronic migraines Anxiety Family history early vascular disease with mother with CVA at age 51 She is on dual antiplatelet therapy with aspirin, Plavix and Lipitor 80 She is on lisinopril 30 that was recently increase her blood pressure is still above goal that she is reluctant to up titrate today and tells me she has been making lifestyle changes and would like to wait Given her risk factors exertional dyspnea and PAD we will proceed with a nuclear stress test to further evaluate Smoking cessation counseling provided TODAYS ORDERS Orders Placed This Encounter Procedures Nuc stress Lexiscan FOLLOW UP Return in about 6 months (around 01/07/2025). PCP: JANET MUNOZ, LEATHER WHITENER-SUBGRADE ROLLER OPERATOR Referring Physician: Kimi Tejada DO [address] [facility] [address] [place] [id number] [facility] Miscellaneous Notes Called patient to remind them to bring their most current copy of their medication list with them to their appt. Patient verbalizes understanding. documented in this encounter [facility] 07-06-2024 Telephone encounter Note Called patient to remind them to bring their most current copy of their medication list with them to their appt. Patient verbalizes understanding. [facility] 06-20-2024 History of Presen t illness Narrative Associated Problem(s): Viral upper respiratory tract infection No atb at this time Clear drainage Pt is currently getting over a cold she has had for about a week now. Taking nitequil and dayquil still has fatigue and coughing. Pt would like to talk about getting on wellbutrin to quit smoking Pt has not gotten her results for mri and ct scans Pt went to the eye dr- she has aura headaches Pt has been increased in her statin 1 80mg of the atorvastatin at bedtime. Pt is waiting for [facility] to get ahold of her on her Clopidogrel that is now at 80mg also Pt has an appt with with cardiology on 07/07 at 1:15pm Pt has not been drinking any caffeine since her last visit here Images from the original note were not included. Augusta Ledezma is a 58 y.o. female presents with chief complaint of No chief complaint on file. HPI: Pt is currently getting over a cold she has had for about a week now. Taking nitequil and dayquil still has fatigue and coughing. Pt would like to talk about getting on wellbutrin to quit smoking Pt has not gotten her results for mri and ct scans Pt went to the eye dr- she has aura headaches Pt has been increased in her statin 1 80mg of the atorvastatin at bedtime. Pt is waiting for [facility] to get ahold of her on her Clopidogrel that is now at 80mg also Pt has an appt with with cardiology on 07/07 at 1:15pm Pt has not been drinking any caffeine since her last visit here URI: poss slight, sxs over a week, clear mucus, +cough. No dyspnea, no wheezing, +runny nose Nicotine Dependence Presents for initial visit. Symptoms include cravings and irritability. Symptoms are negative for insomnia and sore throat. Preferred tobacco types include cigarettes. Preferred cigarette types include filtered. Preferred strength is light. Preferred cigarettes are non-menthol. Preferred brands include Ryla. Her urge triggers include meal time. Risk factors do not include company of smokers, contact with substance, disruptive behavior, drinking alcohol, drinking coffee, driving, perceived media message about smoking or stress.Time of day of first tobacco use: it varies. Number of cigarettes per day: 1/2-3/4 pack per day. She started smoking when she was 11-12 years old. Past treatments include nothing. Augusta is ready to quit. Augusta has tried to quit 2 (longest time quit was 6 months) times. There is no history of alcohol abuse and drug use. Hypertension This is a chronic problem. The current episode started more than 1 year ago. The problem has been gradually improving since onset. The problem is controlled. Associated symptoms include anxiety. Pertinent negatives include no chest pain, headaches, palpitations, peripheral edema or shortness of breath. There are no associated agents to hypertension. Risk factors for coronary artery disease include dyslipidemia, diabetes mellitus, obesity, sedentary lifestyle, smoking/tobacco exposure, stress and post-menopausal state. Past treatments include ANDREY inhibitors. The current treatment provides moderate improvement. There are no compliance problems. SUBJECTIVE: MEDICATIONS: Current Outpatient Medications Medication Instructions albuterol HFA 90 mcg/act inhaler 2 puffs, Inhalation, Every 6 hours PRN aspirin 81 mg, Once atorvastatin (LIPITOR) 40 mg, Oral, Nightly, Take 40 mg by mouth at bedtime Blood Glucose Monitoring Suppl (Contour Blood Glucose System) w/Device kit 1 kit, Does not apply, Daily Blood Glucose Monitoring Suppl (True Metrix Air Glucose Meter) w/Device kit 1 each, Does not apply, Daily buPROPion SR (WELLBUTRIN SR) 150 mg, Oral, 2 times daily, Do not crush, chew, or split. clopidogrel (PLAVIX) 75 mg, Daily RT folic acid (FOLVITE) 1 mg, Daily glucose blood (Contour Test) test strip Once a day glucose blood (True Metrix Blood Glucose Test) test strip 1 each, Other, Daily, 1 each by In Vitro route Daily lisinopril 30 mg, Oral, Daily metFORMIN XR (GLUCOPHAGE-XR) 500 mg, Oral, Daily montelukast (SINGULAIR) 10 mg, Oral, Nightly ondansetron ODT (ZOFRAN-ODT) 4 mg, Every 8 hours PRN tiZANidine (ZANAFLEX) 4 mg, Oral, Nightly PRN zolpidem (AMBIEN) 10 mg, Oral, Nightly PRN ALLERGIES: Allergies Allergen Reactions Sumatriptan Anaphylaxis, Palpitations and Other Gives signs of heart attack REVIEW OF SYMPTOMS: Review of Systems Constitutional: Positive for irritability. Negative for appetite change, chills and fever. HENT: Negative for congestion, ear pain and sore throat. Eyes: Negative for pain, discharge, redness and visual disturbance. Respiratory: Negative for cough, shortness of breath and wheezing. Cardiovascular: Negative for chest pain, palpitations and leg swelling. Gastrointestinal: Negative for abdominal pain, blood in stool, constipation, diarrhea, nausea and vomiting. Genitourinary: Negative for difficulty urinating, dysuria and frequency. Musculoskeletal: Negative for arthralgias, back pain, joint swelling and myalgias. Skin: Negative for rash and wound. Neurological: Negative for dizziness, tremors, seizures, syncope and headaches. Psychiatric/Behavioral: Negative for behavioral problems, self-injury and suicidal ideas. The patient is nervous/anxious. The patient does not have insomnia. Hematological: Does not bruise/bleed easily. Endocrine: Negative for polydipsia, polyphagia and polyuria. Allergic/Immunologic: Negative for environmental allergies and food allergies. PAST MEDICAL HISTORY Past Medical History: Diagnosis Date COPD (chronic obstructive pulmonary disease) ([facility]) DM II (diabetes mellitus, type II), controlled ([facility]) HTN (hypertension) ([facility]) Past Surgical History: Procedure Laterality Date ABDOMINAL SURGERY family history includes HTN in her mother; Heart attack in her father; Heart disease in her mother. OBJECTIVE: Visit Vitals BP 138/76 (BP Location: Left arm, Patient Position: Sitting, BP Cuff Size: Adult long) Pulse 108 Temp 98.1 F (Temporal) Resp 20 Wt 228 lb 14.4 oz SpO2 96% BMI 34.80 kg/m Smoking Status Every Day BSA 2.23 m Physical Exam Vitals and nursing note reviewed. Constitutional: General: She is not in acute distress. Appearance: Normal appearance. She is obese. She is not ill-appearing. HENT: Head: Normocephalic and atraumatic. Right Ear: Tympanic membrane, ear canal and external ear normal. Left Ear: Tympanic membrane, ear canal and external ear normal. Nose: Congestion and rhinorrhea (clear) present. Comments: Pressure in sinuses Mouth/Throat: Mouth: Mucous membranes are moist. Pharynx: No oropharyngeal exudate (PND clear) or posterior oropharyngeal erythema. Eyes: Extraocular Movements: Extraocular movements intact. Conjunctiva/sclera: Conjunctivae normal. Neck: Vascular: Carotid bruit (right bruit, neg jerson) present. Cardiovascular: Rate and Rhythm: Normal rate and regular rhythm. Pulses: Normal pulses. Heart sounds: Normal heart sounds. Pulmonary: Effort: Pulmonary effort is normal. Breath sounds: Normal breath sounds. No wheezing or rhonchi (faint rhonchi). Abdominal: General: Bowel sounds are normal. There is no distension. Palpations: Abdomen is soft. There is no mass. Tenderness: There is no abdominal tenderness. Musculoskeletal: General: Normal range of motion. Cervical back: Normal range of motion and neck supple. Right lower leg: No edema. Left lower leg: No edema. Lymphadenopathy: Cervical: No cervical adenopathy. Skin: General: Skin is warm and dry. Capillary Refill: Capillary refill takes 2 to 3 seconds. Neurological: General: No focal deficit present. Mental Status: She is alert and oriented to person, place, and time. Psychiatric: Mood and Affect: Mood normal. Behavior: Behavior normal. Thought Content: Thought content normal. Judgment: Judgment normal. ASSESSMENT AND PLAN: Follow up in about 8 weeks (around 08/15/2024). Problem List Items Addressed This Visit HTN (hypertension), benign (CMS/HCC) - Primary Please check blood pressure daily and record DASH diet Limit caffeine Take medication as directed Contact office if chest pain, pressure, dizziness, shortness of breath, swelling legs Recommend slow position changes continue lisinopril at 30mg daily Would recommend possible b jairo d/t tachy rhythm, She does not want b jairo d/t extreme fatigue Bilateral carotid artery stenosis Is on ASA, and statin Has had US and fu with vascular doctor See report in chart for specifics Aggressive risk factor modification is goal: control blood pressure, and needs to quit smoking Tobacco dependence The patient has been advised [...] this process Would like to trial buproprion Relevant Medications buPROPion SR (Wellbutrin SR) 150 MG 12 hr tablet Mixed hyperlipidemia (CMS/HCC) Continue statin therapy Check labs yearly and as needed with dose changes Type 2 diabetes mellitus without complications (CMS/HCC) Check blood sugars daily, notify if <70 [...] carbohydrates, and simple sugars. A1c 6.8% (03/28/24) Morbid (severe) obesity due to excess calories (CMS/HCC) Discussed with patient their BMI (actual, verses recommended). We have also discussed lifestyle modifications: attempts to perform physical activity as chronic conditions allow, also to monitor dietary intake: increasing protein/fruits/veggies and lowering carb intake (unless contraindicated). Limit sodas, juices, and sugary drinks. Viral upper respiratory tract infection No atb at this time Clear drainage Associated Problem(s): Type 2 diabetes mellitus without complications (CMS/HCC) Check blood sugars daily, notify if <70 [...] carbohydrates, and simple sugars. A1c 6.8% (03/28/24) Associated Problem(s): Mixed hyperlipidemia (CMS/HCC) Continue statin therapy Check labs yearly and as needed with dose changes Associated Problem(s): Tobacco dependence The patient has been [...] this process Would like to trial buproprion Associated Problem(s): Morbid (severe) obesity due to excess calories (CMS/HCC) Discussed with patient their BMI (actual, verses recommended). We have also discussed lifestyle modifications: attempts to perform physical activity as chronic conditions allow, also to monitor dietary intake: increasing protein/fruits/veggies and lowering carb intake (unless contraindicated). Limit sodas, juices, and sugary drinks. Associated Problem(s): Bilateral carotid artery stenosis Is on ASA, and statin Has had US and fu with vascular doctor See report in chart for specifics Aggressive risk factor modification is goal: control blood pressure, and needs to quit smoking Associated Problem(s): HTN (hypertension), benign (CMS/HCC) Please check blood pressure daily and record DASH diet Limit caffeine Take medication as directed Contact office if chest pain, pressure, dizziness, shortness of breath, swelling legs Recommend slow position changes continue lisinopril at 30mg daily Would recommend possible b jairo d/t tachy rhythm, She does not want b jairo d/t extreme fatigue documented in this encounter [facility] 06-20-2024 Instructions Janet Munoz NP - 06/20/2024 1:40 PM EST Start buproprion 150mg twice a day for quitting smoking Take medication only as directed. If any suicidal thoughts, thoughts of hurting others, or hallucinations contact the office or proceed to the Emergency Room for mental health evaluation. Medication may cause dry mouth, dizziness, and in some cases worsening in depression symptoms. Please contact the office if these occur. documented in this encounter [facility] 06-16-2024 Miscellaneous Notes Pt calling for refill of clopidigrel- she only has one left. Verified [facility] is her pharmacy. Patient is calling to report she now has no Plavix left. Would like to go to [facility]. She is used to mail order being automatically refilled. documented in this encounter [facility] 06-16-2024 Telephone encounter Note Pt calling for refill of clopidigrel- she only has one left. Verified [facility] is her pharmacy. [facility] 06-16-2024 Telephone encounter Note Patient is calling to report she now has no Plavix left. Would like to go to [facility]. She is used to mail order being automatically refilled. [facility] 05-23-2024 History of Presen t illness Narrative Images from the original note were not included. CC: Chief Complaint Patient presents with Follow-up Carotid Artery Disease Testing done CT- 05/17/24 58 y.o. female w/ h/o HTN, obesity, DM-2, hidradenitis, MGUS, tobacco use, and asymptomatic carotid artery stenosis. Pt last seen in office 05/11/23 (MORELIA Watt). Asymptomatic. Carotid duplex and RTC in 1 year. 05/16/24: Pt states since she was last seen in office she has overall been same. Has noticed intermittent bright flashes in her L eye w/ transient vision loss. Denies pain/cramping in LE w/ activity, rest pain, and/or tissue loss. +current smoker (1/2 pack/day) - trying to quit. Denies pain/cramping in LE w/ activity, rest pain, and/or tissue loss. CTA carotid ordered. 05/23/24: Pt presented to office w/ her who was present for entire visit. Pt states since she was last seen in office she has overall been same. Pt is very anxious and stressed about CTA results. Continues w/ intermittent vision changes in her L eye but does feel like she has noticed less significant episodes since starting plavix. Describes episodes as pressure on L eye from the inside w/ flashing spots. Has an eye dr but has not been seen in at least 1 year. C/o daily headaches/migraines but states she feels more off today. Denies obvious stroke like symptoms. +chronic neck pain for which she regularly sees chiropractor. Has not previously seen cardiology. Patient Active Problem List Diagnosis Bilateral carotid artery stenosis Diverticulitis Hidradenitis suppurativa Heart palpitations HTN (hypertension), benign Insulin resistance Insomnia, unspecified Monoclonal gammopathy of undetermined significance Morbid (severe) obesity due to excess calories ([facility] [place]) Tobacco dependence Type 2 diabetes mellitus without complications ([facility] [place]) BP 116/74 Pulse 99 Wt 102.5 kg (226 lb) BMI 35.40 kg/m Past Medical History: Diagnosis Date Abnormal ECG Carotid artery stenosis Primary hypertension History reviewed. No pertinent surgical history. Physical Exam: Physical Exam Vitals and nursing note reviewed. Constitutional: Appearance: Normal appearance. HENT: Head: Normocephalic and atraumatic. Pulmonary: Effort: Pulmonary effort is normal. Musculoskeletal: General: Normal range of motion. Comments: Moving all ext equally Skin: General: Skin is warm and dry. Neurological: General: No focal deficit present. Mental Status: She is alert and oriented to person, place, and time. Psychiatric: Attention and Perception: Attention normal. Mood and Affect: Mood normal. Speech: Speech normal. Behavior: Behavior is cooperative. Testing Reviewed: CBC with Differential: Lab Results Component Value Date WBC 14.8 (H) 10/07/2023 HGB 12.8 10/07/2023 HCT 41.0 10/07/2023 PLT 265 10/07/2023 MCV 89 10/07/2023 MCH 27.8 10/07/2023 MCHC 31.3 (L) 10/07/2023 RDW 14.4 10/07/2023 BMP: Lab Results Component Value Date SODIUM 139 10/07/2023 K 3.8 10/07/2023 CL 102 10/07/2023 CO2 26 10/07/2023 BUN 10 10/07/2023 CREATININE 0.75 05/16/2024 EGFR >90 05/16/2024 GLU 111 (H) 10/07/2023 BNP: No results found for: BNP Troponin: No results found for: TROPONINI HgBA1c: Lab Results Component Value Date HGBA1C 6.5 (H) 10/07/2023 Lipid Panel: Lab Results Component Value Date CHOL 91 (L) 09/10/2023 TRIG 141 09/10/2023 HDL 35 (L) 09/10/2023 HDL 30 08/24/2014 CHOLHDLR 08/24/2014 RISK FEMALE RATIO MALE RATIO 1/2 AVERAGE 3.27 3.43 AVERAGE 4.44 4.97 2X 7.05 9.55 3X 11.04 23.39 05/17/24 - CTA carotid: Assessment: Encounter Diagnoses Name Primary? Stenosis of left carotid artery Yes Bilateral carotid artery stenosis Chronic nonintractable headache, unspecified headache type Augusta was seen today for follow-up and carotid artery disease. Diagnoses and all orders for this visit: Stenosis of left carotid artery - Erythrocyte Sedimentation Rate (ESR); Future - C-reactive protein; Future [facility] [place], [place]; Future Chronic nonintractable headache, unspecified headache type - MR brain with and without contrast; Future Other orders - atorvastatin (LIPITOR) 80 mg tablet; Take 1 tablet (80 mg total) by mouth nightly. Plan of care: Please note that total time spent was 40 minutes: Including but not limited to: Preparing to see the patient (e.g., review of tests) Obtaining and/or reviewing separately obtained history Performing a medically appropriate examination and evaluation Counseling and educating the patient/family/caregiver Ordering medications, tests, or procedures Documenting visit details Augusta was seen today for follow-up and carotid artery disease. Diagnoses and all orders for this visit: Stenosis of left carotid artery - Erythrocyte Sedimentation Rate (ESR); Future - C-reactive protein; Future [facility] [place] [place]; Future Chronic nonintractable headache, unspecified headache type - MR brain with and without contrast; Future Other orders - atorvastatin (LIPITOR) 80 mg tablet; Take 1 tablet (80 mg total) by mouth nightly. Augusta Ledezma is a 58 y.o. White or female with h/o HTN, obesity, DM-2, hidradenitis, MGUS, tobacco use, and carotid artery stenosis. Carotid artery stenosis: Testing Summary: US 05/02/24: R - <50% stenosis, L - >70% ICA stenosis CTA 05/17/24: R - 50% stenosis, L - approx >70% stenosis w/ attenuated ICA diameter to the skull base and tandem lesion w/ additional area of approx 50% ICA stenosis just proximal to the skull base L eye vision changes not classic for symptomatic L carotid artery stenosis however are concerning. MRI brain ordered to better evaluate for underlying subacute/chronic changes. Treatment of L ICA stenosis not straightforward given attenuated distal ICA and tandem lesion. Distal extent of proximal ICA lesion is borderline C2 and may require high level of dissection for CEA. While technically would be TCAR candidate given attenuated distal ICA w/ tandem lesion concern for full stent expansion and/or risk of thrombosis. Would not plan to electively treat at this time w/o ongoing symptoms (that are unlikely to be caused by other etiology). Pt encouraged to call/schedule w/ optho for eval of eye symptoms to determine if primary optho cause. Continue w/ medical mgmt. Refer to cardiology to establish care - pt high risk for cardiac diease given age, smoking hx etc. If were to require operative intervention related to carotid disease would also require pre-op eval/risk stratification Medical mgmt: Anti-platelet: ASA, plavix Statin: lipitor Return to clinic after MRI brain and optho eval completed to review results and discuss further plan of care. Notify office and/or ED w/ any acute changes, stroke-like symptoms. SIGNATURE: Kimi Tejada DO CC: JANET MUNOZ APRN-[employer]GR[employer] ROLLER OPERATOR Janet Munoz APRN-* [facility] History of Presen t illness Narrative Images from the original note were not included. CC: Chief Complaint Patient presents with Follow-up Carotid Artery Disease Testing done 58 y.o. female w/ h/o HTN, obesity, DM-2, hidradenitis, MGUS, tobacco use, and asymptomatic carotid artery stenosis. Pt last seen in office 05/11/23 (MORELIA Watt). Asymptomatic. Carotid duplex and RTC in 1 year. 05/16/24: Pt states since she was last seen in office she has overall been same. Has noticed intermittent bright flashes in her L eye w/ transient vision loss. Denies pain/cramping in LE w/ activity, rest pain, and/or tissue loss. +current smoker (1/2 pack/day) - trying to quit. Denies pain/cramping in LE w/ activity, rest pain, and/or tissue loss. Patient Active Problem List Diagnosis Bilateral carotid artery stenosis Diverticulitis Hidradenitis suppurativa Heart palpitations HTN (hypertension), benign Insulin resistance Insomnia, unspecified Monoclonal gammopathy of undetermined significance Morbid (severe) obesity due to excess calories ([facility] [place]) Tobacco dependence Type 2 diabetes mellitus without complications ([facility] [place]) BP 142/79 Pulse 112 Wt 102.5 kg (226 lb) BMI 35.40 kg/m Past Medical History: Diagnosis Date Abnormal ECG Carotid artery stenosis Primary hypertension History reviewed. No pertinent surgical history. Physical Exam: Physical Exam Vitals and nursing note reviewed. Constitutional: Appearance: Normal appearance. HENT: Head: Normocephalic and atraumatic. Pulmonary: Effort: Pulmonary effort is normal. Musculoskeletal: General: Normal range of motion. Comments: Moving all ext equally Skin: General: Skin is warm and dry. Neurological: General: No focal deficit present. Mental Status: She is alert and oriented to person, place, and time. Psychiatric: Attention and Perception: Attention normal. Mood and Affect: Mood normal. Speech: Speech normal. Behavior: Behavior is cooperative. Testing Reviewed: CBC with Differential: Lab Results Component Value Date WBC 14.8 (H) 10/07/2023 HGB 12.8 10/07/2023 HCT 41.0 10/07/2023 PLT 265 10/07/2023 MCV 89 10/07/2023 MCH 27.8 10/07/2023 MCHC 31.3 (L) 10/07/2023 RDW 14.4 10/07/2023 BMP: Lab Results Component Value Date SODIUM 139 10/07/2023 K 3.8 10/07/2023 CL 102 10/07/2023 CO2 26 10/07/2023 BUN 10 10/07/2023 CREATININE 0.75 05/16/2024 EGFR >90 05/16/2024 GLU 111 (H) 10/07/2023 BNP: No results found for: BNP Troponin: No results found for: TROPONINI HgBA1c: Lab Results Component Value Date HGBA1C 6.5 (H) 10/07/2023 Lipid Panel: Lab Results Component Value Date CHOL 91 (L) 09/10/2023 TRIG 141 09/10/2023 HDL 35 (L) 09/10/2023 HDL 30 08/24/2014 CHOLHDLR 08/24/2014 RISK FEMALE RATIO MALE RATIO 1/2 AVERAGE 3.27 3.43 AVERAGE 4.44 4.97 2X 7.05 9.55 3X 11.04 23.39 Assessment: Encounter Diagnoses Name Primary? Internal carotid artery stenosis, bilateral Yes Stenosis of left carotid artery Augusta was seen today for follow-up and carotid artery disease. Diagnoses and all orders for this visit: Internal carotid artery stenosis, bilateral - CT angiogram carotid; Future - Creatinine includes GFR, serum; Future Stenosis of left carotid artery - CT angiogram carotid; Future Plan of care: Please note that total time spent was 20 minutes: Including but not limited to: Preparing to see the patient (e.g., review of tests) Obtaining and/or reviewing separately obtained history Performing a medically appropriate examination and evaluation Counseling and educating the patient/family/caregiver Ordering medications, tests, or procedures Documenting visit details Augusta was seen today for follow-up and carotid artery disease. Diagnoses and all orders for this visit: Internal carotid artery stenosis, bilateral - CT angiogram carotid; Future - Creatinine includes GFR, serum; Future Stenosis of left carotid artery - CT angiogram carotid; Future Augusta Britany Ledezma is a 58 y.o. White or female with h/o HTN, obesity, DM-2, hidradenitis, MGUS, tobacco use, and carotid artery stenosis. Carotid artery stenosis: US 05/02/24: R - <50% stenosis, L - >70% ICA stenosis US w/ concern for significant change w/ progressive L ICA stenosis. Additionally, L flashing eye changes concerning for potential symptomatic ICA stenosis. Stat CTA carotid ordered. Continue w/ medical mgmt. Medical mgmt: Anti-platelet: ASA Statin: lipitor Return to clinic after CTA carotid completed to review results and discuss further plan of care. Notify office and/or ED w/ any acute changes, stroke-like symptoms. SIGNATURE: Kimi Tejada DO CC: JANET MUNOZ APRN-[employer]GR[employer] ROLLER OPERATOR Janet Munoz APRN-* [facility] History of Presen t illness Narrative Associated Problem(s): Mixed hyperlipidemia (CMS/HCC) Continue statin therapy Check labs yearly and as needed with dose changes Pt stopped drinking caffine/soda And is trying to diet she use to Pt states she has not checked her blood sugar her strips are Images from the original note were not included. Augusta Ledezma is a 58 y.o. female presents with chief complaint of Hypertension HPI: Hypertension This is a chronic problem. The current episode started more than 1 year ago. The problem has been gradually improving since onset. Pertinent negatives include no blurred vision, chest pain, headaches, palpitations, peripheral edema or shortness of breath. There are no associated agents to hypertension. Risk factors for coronary artery disease include diabetes mellitus, dyslipidemia, obesity, sedentary lifestyle and smoking/tobacco exposure. Past treatments include ANDREY inhibitors. The current treatment provides moderate improvement. There are no compliance problems. There is no history of kidney disease, heart failure or PVD. SUBJECTIVE: MEDICATIONS: Current Outpatient Medications Medication Instructions albuterol HFA 90 mcg/act inhaler 2 puffs, Inhalation, Every 6 hours PRN aspirin 81 mg, Once atorvastatin (LIPITOR) 40 mg, Oral, Nightly, Take 40 mg by mouth at bedtime folic acid (FOLVITE) 1 mg, Daily lisinopril 30 mg, Oral, Daily metFORMIN XR (GLUCOPHAGE-XR) 500 [...] pain and sore throat. Eyes: Negative for blurred vision, pain, discharge, redness and visual disturbance. Respiratory: Negative for cough, shortness of breath and wheezing. Cardiovascular: Negative for chest pain, palpitations and leg swelling. Gastrointestinal: Negative for abdominal pain, blood in stool, constipation, diarrhea, nausea and vomiting. Genitourinary: Negative for difficulty urinating, dysuria and frequency. Musculoskeletal: Negative for arthralgias, back [...] Diagnosis Date COPD (chronic obstructive pulmonary disease) ([facility]) DM II (diabetes mellitus, type II), controlled ([facility]) HTN (hypertension) ([facility]) Past Surgical History: Procedure Laterality Date ABDOMINAL SURGERY family history includes HTN in her mother; Heart attack in her father; Heart disease in her mother. OBJECTIVE: Visit Vitals BP 142/78 (BP Location: Left arm, Patient Position: Sitting, BP Cuff Size: Adult long) Pulse 91 Temp 98.1 F (Temporal) Resp 19 Ht 5' 8 Wt 226 lb SpO2 96% BMI 34.36 kg/m Smoking Status Every Day BSA 2.22 m Physical Exam Vitals and nursing note reviewed. Constitutional: General: She is not in acute distress. Appearance: Normal appearance. HENT: Head: Normocephalic and atraumatic. Right Ear: External ear normal. Left Ear: External ear normal. Nose: Nose normal. Mouth/Throat: Mouth: Mucous membranes are moist. Eyes: Extraocular Movements: Extraocular movements intact. Conjunctiva/sclera: Conjunctivae normal. Cardiovascular: Rate and Rhythm: Normal rate and regular rhythm. Pulses: Normal pulses. Heart sounds: Normal heart sounds. Pulmonary: Effort: Pulmonary effort is normal. Breath sounds: Normal breath sounds. Musculoskeletal: General: Normal range of motion. Cervical back: Normal range of motion and neck supple. Skin: General: Skin is warm and dry. Capillary Refill: Capillary refill takes 2 to 3 seconds. Findings: No rash. Neurological: General: No focal deficit present. Mental Status: She is alert and oriented to person, place, and time. Psychiatric: Mood and Affect: Mood normal. Behavior: Behavior normal. Thought Content: Thought content normal. Judgment: Judgment normal. ASSESSMENT AND PLAN: No follow-ups on file. Problem List Items Addressed This Visit HTN (hypertension), benign (CMS/HCC) Please check blood pressure daily and record DASH diet Limit caffeine Take medication as directed Contact office if chest pain, pressure, dizziness, shortness of breath, swelling legs Recommend slow position changes At last visit increase of lisinopril 20mg daily, still not to goal Will increase to 30mg, w goal of 130/80 or less Fu in 6 weeks Relevant Medications lisinopril 30 MG tablet Tobacco dependence The patient has been advised [...] provider when ready to start this process Insomnia, unspecified - Primary Has been using ambien Doing well OARRS reviewed Mixed hyperlipidemia (CMS/HCC) Continue statin therapy Check labs yearly and as needed with dose changes Body mass index (BMI) 35.0-35.9, adult Morbid (severe) obesity due to excess calories (CMS/HCC) Discussed with patient their BMI (actual, verses recommended). We have also discussed lifestyle modifications: attempts to perform physical activity as chronic conditions allow, also to monitor dietary intake: increasing protein/fruits/veggies and lowering carb intake (unless contraindicated). Limit sodas, juices, and sugary drinks. Has lost 6 pounds since last visit Associated Problem(s): Tobacco dependence The patient has been [...] provider when ready to start this process Associated Problem(s): Morbid (severe) obesity due to excess calories (CMS/HCC) Discussed with patient their BMI (actual, verses recommended). We have also discussed lifestyle modifications: attempts to perform physical activity as chronic conditions allow, also to monitor dietary intake: increasing protein/fruits/veggies and lowering carb intake (unless contraindicated). Limit sodas, juices, and sugary drinks. Has lost 6 pounds since last visit Associated Problem(s): HTN (hypertension), benign (CMS/HCC) Please check blood pressure daily and record DASH diet Limit caffeine Take medication as directed Contact office if chest pain, pressure, dizziness, shortness of breath, swelling legs Recommend slow position changes At last visit increase of lisinopril 20mg daily, still not to goal Will increase to 30mg, w goal of 130/80 or less Fu in 6 weeks Associated Problem(s): Insomnia, unspecified Has been using ambien Doing well OARRS reviewed documented in this encounter [facility] 05-09-2024 Instructions Janet Munoz NP - 05/09/2024 1:20 PM EST Increase lisinopril to 30mg daily, for now take the 20mg dose you have and take 1.5 tablets daily I did send in script for new 30mg lisinopril, once that comes in, then start taking that instead Continue with weight loss Schedule PAP smear as well documented in this encounter [facility] 03-28-2024 History of Presen t illness Narrative Associated Problem(s): Type 2 diabetes mellitus without complication, without long-term current use of insulin ([facility]) Check blood sugars daily, notify if <70 [...] to loose weight and go from there Associated Problem(s): Hidradenitis suppurativa Treatment as directed Pt takes tylenol 8hr and a compression for her wrist. She does still have left wrist pain still Pt had blood work done at the [facility] the cancer center on the Images from the original note were not included. Augusta Ledezma is a 58 y.o. female presents with chief complaint of No chief complaint on file. HPI: Pre diabetes: no freq thirst/urination, no NT fingers or toes, no open wounds to feet, takes metfromin, Checks blood sugar: not checking Hypertension This is a chronic problem. The current episode started more than 1 year ago. The problem is unchanged. The problem is controlled. Pertinent negatives include no blurred vision, chest pain, headaches, malaise/fatigue, palpitations, peripheral edema or shortness of breath. There are no associated agents to hypertension. Risk factors for coronary artery disease include obesity, smoking/tobacco exposure and sedentary lifestyle. Past treatments include ANDREY inhibitors. The current treatment provides significant improvement. There are no compliance problems. Insomnia This is a chronic problem. The current episode started more than 1 year ago. The problem occurs daily. The problem has been unchanged. Associated symptoms include arthralgias and myalgias. Pertinent negatives include no abdominal pain, chest pain, chills, congestion, coughing, fever, headaches, joint swelling, nausea, rash, sore throat or vomiting. Treatments tried: ambien. The treatment provided significant relief. SUBJECTIVE: MEDICATIONS: Current Outpatient Medications Medication Instructions albuterol HFA 90 mcg/act inhaler 2 puffs, Inhalation, Every 6 hours PRN aspirin 81 mg, Once atorvastatin (LIPITOR) 40 mg, Oral, Nightly, Take 40 mg by mouth at bedtime folic acid (FOLVITE) 1 mg, Daily lisinopril 10 mg, Oral, Every morning metFORMIN XR (GLUCOPHAGE-XR) 500 mg, Oral, Daily montelukast (SINGULAIR) 10 mg, Oral, Nightly ondansetron ODT (ZOFRAN-ODT) 4 mg, Every 8 hours PRN tiZANidine (ZANAFLEX) 4 mg, Oral, Nightly PRN zolpidem (AMBIEN) 10 mg, Oral, Nightly PRN ALLERGIES: Allergies Allergen Reactions Sumatriptan Anaphylaxis, Palpitations and Other Gives signs of heart attack REVIEW OF SYMPTOMS: Review of Systems Constitutional: Negative for appetite change, chills, fever and malaise/fatigue. HENT: Negative for congestion, ear pain and sore throat. Eyes: Negative for blurred vision, pain, discharge, redness and visual disturbance. Respiratory: Negative for cough, shortness of breath and wheezing. Cardiovascular: Negative for chest pain, palpitations and leg swelling. Gastrointestinal: Negative for abdominal pain, blood in stool, constipation, diarrhea, nausea and vomiting. Genitourinary: Negative for difficulty urinating, dysuria and frequency. Musculoskeletal: Positive for arthralgias and myalgias. Negative for back pain and joint swelling. Skin: Negative for rash and wound. Neurological: Negative for dizziness, tremors, seizures, syncope and headaches. Psychiatric/Behavioral: Positive for sleep disturbance. Negative for behavioral problems, self-injury and suicidal ideas. The patient has insomnia. The patient is not nervous/anxious. Hematological: Does not bruise/bleed easily. Endocrine: Negative for polydipsia, polyphagia and polyuria. Allergic/Immunologic: Negative for environmental allergies and food allergies. PAST MEDICAL HISTORY Past Medical History: Diagnosis Date COPD (chronic obstructive pulmonary disease) ([facility]) DM II (diabetes mellitus, type II), controlled ([facility]) HTN (hypertension) ([facility]) Past Surgical History: Procedure Laterality Date ABDOMINAL SURGERY family history includes HTN in her mother; Heart attack in her father; Heart disease in her mother. OBJECTIVE: Visit Vitals BP 160/82 (BP Location: Left arm, Patient Position: Sitting, BP Cuff Size: Large adult long) Pulse 105 Temp 98.8 F (Temporal) Resp 21 Ht 5' 8 Wt 231 lb 3.2 oz SpO2 95% BMI 35.15 kg/m Smoking Status Every Day BSA 2.24 m Physical Exam Vitals and nursing note reviewed. Constitutional: General: She is not in acute distress. Appearance: Normal appearance. She is obese. HENT: Head: Normocephalic and atraumatic. Right Ear: External ear normal. Left Ear: External ear normal. Nose: Nose normal. Mouth/Throat: Mouth: Mucous membranes are moist. Eyes: Extraocular Movements: Extraocular movements intact. Conjunctiva/sclera: Conjunctivae normal. Neck: Vascular: Carotid bruit (burit on the right) present. Cardiovascular: Rate and Rhythm: Normal rate and regular rhythm. Pulses: Normal pulses. Heart sounds: Normal heart sounds. Pulmonary: Effort: Pulmonary effort is normal. No respiratory distress. Breath sounds: Normal breath sounds. No wheezing. Abdominal: General: Bowel sounds are normal. There is no distension. Palpations: Abdomen is soft. There is no mass. Tenderness: There is no abdominal tenderness. Musculoskeletal: General: Normal range of motion. Cervical back: Normal range of motion and neck supple. Right lower leg: No edema. Left lower leg: No edema. Comments: Incision healed to left wrist Skin: General: Skin is warm and dry. Capillary Refill: Capillary refill takes 2 to 3 seconds. Findings: No rash (under left breast, mild eythema favors yeast, although pt puts either cortisone cream or mupircion and it helps). Neurological: General: No focal deficit present. Mental Status: She is alert and oriented to person, place, and time. Psychiatric: Mood and Affect: Mood normal. Behavior: Behavior normal. Thought Content: Thought content normal. Judgment: Judgment normal. ASSESSMENT AND PLAN: No follow-ups on file. Problem List Items Addressed This Visit HTN (hypertension), benign (CMS/HCC) Please check blood pressure daily and record DASH diet Limit caffeine Take medication as directed Contact office if chest pain, pressure, dizziness, shortness of breath, swelling legs Recommend slow position changes Is on lisinopril at 10mg daily Relevant Medications lisinopril 20 MG tablet Bilateral carotid artery stenosis Is on ASA, and statin Has vascular appt 05/21 they order US Hidradenitis suppurativa Treatment as directed Monoclonal gammopathy of undetermined significance Continue with hematology Recent labs completed Pre-diabetes - Primary Check A1c Check blood sugars daily, notify [...] diet low in carbohydrates, and simple sugars. Relevant Orders POCT glycosylated hemoglobin (Hb A1C) docked device Tobacco dependence The patient has been advised [...] provider when ready to start this process Insomnia, unspecified Has been using ambien Doing well OARRS reviewed Mixed hyperlipidemia (CMS/HCC) Continue statin therapy Check labs as directed Obesity (BMI 30-39.9) Discussed with patient their BMI (actual, verses [...] weight loss. 13 pound gain since 08/2023 Needs flu shot Relevant Orders Flu vaccine, MDCK, quadrivalent, PF ([id number]) (Flucelvax single dose syringe) (Completed) Associated Problem(s): Mixed hyperlipidemia (CMS/HCC) Continue statin therapy Check labs as directed Associated Problem(s): Tobacco dependence The patient has been [...] provider when ready to start this process Associated Problem(s): Monoclonal gammopathy of undetermined significance Continue with hematology Recent labs completed Associated Problem(s): Insulin resistance Check insulin level, cont metfromin Associated Problem(s): Obesity (BMI 30-39.9) Discussed with patient their BMI (actual, verses [...] weight loss. 13 pound gain since 08/2023 Associated Problem(s): Pre-diabetes (Resolved 03/28/2024) Check A1c Check blood sugars daily, notify [...] diet low in carbohydrates, and simple sugars. Associated Problem(s): Bilateral carotid artery stenosis Is on ASA, and statin Has vascular appt 05/21 they order US Associated Problem(s): HTN (hypertension), benign (CMS/HCC) Please check blood pressure daily and record DASH diet Limit caffeine Take medication as directed Contact office if chest pain, pressure, dizziness, shortness of breath, swelling legs Recommend slow position changes Is on lisinopril at 10mg daily, will increase to 20mg daily Fu in 6 weeks for blood pressure check Associated Problem(s): Insomnia, unspecified Has been using ambien Doing well OARRS reviewed documented in this encounter [facility] 03-28-2024 Instructions Janet Munoz NP - 03/28/2024 2:20 PM EST Please get mammogram completed, we will fax order to Christianne Sainz and she can call to schedule I would like you to try to get 30 minutes of exercise 5 days out of the week A1c is 6.8% at this point no changes in your metformin dose, lets try to work on cutting back carbs documented in this encounter [facility] 03-22-2024 Instructions Luis Manuel Wells MD - 03/22/2024 2:28 PM EST Labs today F/u in 1 year documented in this encounter [facility] 03-22-2024 History of Presen t illness Narrative PATIENT NAME: Augusta Ledezma [facility] NO.: [id number] ATTENDING PHYSICIAN: Luis Manuel Wells MD DATE OF SERVICE: March 22, 2024. Some of the elements of this note have been copied from my previous progress note dated 03/25/2022. All the information has been reviewed carefully. Dear Janet Munoz, SUBGRADE ROLLER OPERATOR is an update on a follow up visit on female Augusta Ledezma at the clinic March 24, 2023 Diagnosis: 1. MGUS Treatment History: HPI: Augusta Ledezma is a 57 year old year old female here for follow up. Doing well and lost father in 05/2022 Visit 03/22/24: - Doing well - No major complaints - Last mammogram was in 2022 - Cologuard was in 2023. PAST MEDICAL HISTORY Diagnosis Date Diabetes mellitus (HCC) Elevated blood protein Hidradenitis Social History Tobacco Use Smoking status: Every Day Current packs/day: 0.50 Average packs/day: 0.5 packs/day for 41.0 years (20.5 ttl pk-yrs) Types: Cigarettes Smokeless tobacco: Never Vaping Use Vaping status: Never Used Substance Use Topics Alcohol use: Not Currently Drug use: Never No family history on file. Past medical, social and family history reviewed without any changes. REVIEW OF SYSTEMS GENERAL: No weight loss, malaise or fevers. No night sweats. HEENT: Negative for headaches, No changes in hearing or vision, no nose bleeds or other nasal problems. RESPIRATORY: Negative for cough, wheezing and shortness of breath CARDIOVASCULAR: Negative for chest pain, leg swelling and palpitations GI: Negative for abdominal discomfort, blood in stools or black stools and change in bowel habits : Negative for dysuria, frequency and incontinence MUSCULOSKELETAL: Negative for joint pain or swelling, back pain, and muscle pain. SKIN: Negative for lesions, rash, and itching. HEMATOLOGY/LYMPHOLOGY Negative for prolonged bleeding, bruising easily, and swollen nodes. NEURO: Negative for numbness or tingling of hands/feet. No weakness. PHYSICAL EXAMINATION: There were no vitals taken for this visit. Wt 102.9 kg (226 lb 12.8 oz) BMI 34.98 kg/m2 Last 3 Encounter Wt Readings: Date: Wt: 09/04/2020 102.9 kg (226 lb 12.8 oz) 06/05/2020 102.7 kg (226 lb 6.4 oz) 12/06/2019 99.3 kg (219 lb) General appearance:ECOG PERFORMANCE STATUS: 0- Fully active, able to carry on all pre-disease performance w/o restriction. Patient in NAD. Skin: Skin color, texture, turgor normal. No rashes or lesions. Eyes: Anicteric sclera. Pupils are equally round and reactive to light. Extraocular movements are intact. Lymph Nodes: No cervical, supraclavicular, axillary or inguinal adenopathy. Oropharynx: Lips, mucosa, and tongue normal. Back: No pain to percussion. Negative SLR test Lungs clear to auscultation, No wheezing or rhonchi Heart: RRR without murmur, gallop, or rubs. Abdomen soft, non-tender. No masses, organomegaly Extremities: No deformities. No edema Neuro: Gait and speech normal. Reflexes normal and symmetric. Muscular strength intact. Sensation grossly intact. Rectal: Deferred : Deferred LABS: Glucose (mg/dL) Date Value 03/17/2023 122 03/05/2021 103 Potassium (mmol/L) Date Value 03/17/2023 4.0 03/05/2021 4.4 Sodium (mmol/L) Date Value 03/17/2023 137 03/05/2021 135 Chloride (mmol/L) Date Value 03/17/2023 101 03/05/2021 99 CO2 (mmol/L) Date Value 03/17/2023 25 03/05/2021 23 Creatinine (mg/dL) Date Value 03/17/2023 0.69 03/05/2021 0.69 BUN (mg/dL) Date Value 03/17/2023 8 03/05/2021 16 Anion Gap (mmol/L) Date Value 03/17/2023 11 03/05/2021 13 Calcium (mg/dL) Date Value 03/05/2021 9.5 Calcium, Total (mg/dL) Date Value 03/17/2023 10.2 Protein, Total (g/dL) Date Value 03/17/2023 8.9 03/17/2023 8.4 03/05/2021 7.7 03/05/2021 8.1 Albumin (g/dL) Date Value 03/17/2023 4.7 03/05/2021 4.1 Bilirubin, Total (mg/dL) Date Value 03/17/2023 0.2 03/05/2021 <0.2 Alkaline Phosphatase (U/L) Date Value 03/17/2023 108 03/05/2021 96 AST (U/L) Date Value 03/17/2023 11 03/05/2021 14 ALT (U/L) Date Value 03/17/2023 9 03/05/2021 17 WBC Date Value Ref Range Status 03/17/2023 10.50 3.70 - 11.00 k/uL Final RBC Date Value Ref Range Status 03/17/2023 4.92 3.90 - 5.20 m/uL Final Hemoglobin Date Value Ref Range Status 03/17/2023 14.3 11.5 - 15.5 g/dL Final Hematocrit Date Value Ref Range Status 03/17/2023 44.7 36.0 - 46.0 % Final MCV Date Value Ref Range Status 03/17/2023 90.9 80.0 - 100.0 fL Final MCH Date Value Ref Range Status 03/17/2023 29.1 26.0 - 34.0 pg Final MCHC Date Value Ref Range Status 03/17/2023 32.0 30.5 - 36.0 g/dL Final RDW-CV Date Value Ref Range Status 03/17/2023 13.7 11.5 - 15.0 % Final Platelet Count Date Value Ref Range Status 03/17/2023 251 150 - 400 k/uL Final MPV Date Value Ref Range Status 03/17/2023 10.5 9.0 - 12.7 fL Final Abs Neut Date Value Ref Range Status 03/17/2023 7.04 1.45 - 7.50 k/uL Final Lymphocytes % Date Value Ref Range Status 03/17/2023 22.5 % Final Abs Lymph Date Value Ref Range Status 03/17/2023 2.36 1.00 - 4.00 k/uL Final Monocytes % Date Value Ref Range Status 03/17/2023 7.4 % Final Abs [place] Date Value Ref Range Status 03/17/2023 0.78 <0.87 k/uL Final Abs Eosin Date Value Ref Range Status 03/17/2023 0.22 <0.46 k/uL Final Basophils % Date Value Ref Range Status 03/17/2023 0.6 % Final Abs Baso Date Value Ref Range Status 03/17/2023 0.06 <0.11 k/uL Final PATH: Imaging: Assessment and Plan: Augusta Ledezma is a 57 year old year old female here for follow up. 1. MGUS- Ordered labs today. Last M spike was 0.0 in Feb 2023. CBC CMP unremarkable today. 2. HS- She has elected conservative therapy and did not want to proceed with surgery at this time F/u with PCP. F/u in 1 year. Thank you for the kind referral. If there are any questions and or concerns please do not hesitate to contact me at [phone]. Luis Manuel Wells MD Hematology/Medical Oncology [facility] spent a total of 20 minutes on the date of the service which included preparing to see the patient, [id number] patient care, completing clinical documentation, obtaining and/or reviewing separately obtained history, performing a medically appropriate examination and counseling and educating the patient/family/caregiver. CC: DO Manjula Francis documented in this encounter [facility] 03-22-2024 Note HNO ID: [id number] Author: LUIS MANUEL WELLS MD Service: ? Author Type: Physician Type: Progress Notes Filed: 03/22/2024 16:42 Note Text: PATIENT NAME: Augusta Ledezma [facility] NO.: [id number] ATTENDING PHYSICIAN: Luis Manuel Wells MD DATE OF SERVICE: March 22, 2024. Some of the elements of this note have been copied from my previous progress note dated 03/25/2022. All the information has been reviewed carefully. Dear Janet Munoz, SUBGRADE ROLLER OPERATOR is an update on a follow up visit on female Augusta Ledezma at the clinic March 24, 2023 Diagnosis: 1. MGUS Treatment History: HPI: Augusta Ledezma is a 57 year old year old female here for follow up. Doing well and lost father in 05/2022 Visit 03/22/24: - Doing well - No major complaints - Last mammogram was in 2022 - Cologuard was in 2023. PAST MEDICAL HISTORY Diagnosis Date Diabetes mellitus (HCC) Elevated blood protein Hidradenitis Social History Tobacco Use Smoking status: Every Day Current packs/day: 0.50 Average packs/day: 0.5 packs/day for 41.0 years (20.5 ttl pk-yrs) Types: Cigarettes Smokeless tobacco: Never Vaping Use Vaping status: Never Used Substance Use Topics Alcohol use: Not Currently Drug use: Never No family history on file. Past medical, social and family history reviewed without any changes. REVIEW OF SYSTEMS GENERAL: No weight loss, malaise or fevers. No night sweats. HEENT: Negative for headaches, No changes in hearing or vision, no nose bleeds or other nasal problems. RESPIRATORY: Negative for cough, wheezing and shortness of breath CARDIOVASCULAR: Negative for chest pain, leg swelling and palpitations GI: Negative for abdominal discomfort, blood in stools or black stools and change in bowel habits : Negative for dysuria, frequency and incontinence MUSCULOSKELETAL: Negative for joint pain or swelling, back pain, and muscle pain. SKIN: Negative for lesions, rash, and itching. HEMATOLOGY/LYMPHOLOGY Negative for prolonged bleeding, bruising easily, and swollen nodes. NEURO: Negative for numbness or tingling of hands/feet. No weakness. PHYSICAL EXAMINATION: There were no vitals taken for this visit. Wt 102.9 kg (226 lb 12.8 oz) BMI 34.98 kg/m2 Last 3 Encounter Wt Readings: Date: Wt: 09/04/2020 102.9 kg (226 lb 12.8 oz) 06/05/2020 102.7 kg (226 lb 6.4 oz) 12/06/2019 99.3 kg (219 lb) General appearance:ECOG PERFORMANCE STATUS: 0- Fully active, able to carry on all pre-disease performance w/o restriction. Patient in NAD. Skin: Skin color, texture, turgor normal. No rashes or lesions. Eyes: Anicteric sclera. Pupils are equally round and reactive to light. Extraocular movements are intact. Lymph Nodes: No cervical, supraclavicular, axillary or inguinal adenopathy. Oropharynx: Lips, mucosa, and tongue normal. Back: No pain to percussion. Negative SLR test Lungs clear to auscultation, No wheezing or rhonchi Heart: RRR without murmur, gallop, or rubs. Abdomen soft, non-tender. No masses, organomegaly Extremities: No deformities. No edema Neuro: Gait and speech normal. Reflexes normal and symmetric. Muscular strength intact. Sensation grossly intact. Rectal: Deferred : Deferred LABS: Glucose (mg/dL) Date Value 03/17/2023 122 03/05/2021 103 Potassium (mmol/L) Date Value 03/17/2023 4.0 03/05/2021 4.4 Sodium (mmol/L) Date Value 03/17/2023 137 03/05/2021 135 Chloride (mmol/L) Date Value 03/17/2023 101 03/05/2021 99 CO2 (mmol/L) Date Value 03/17/2023 25 03/05/2021 23 Creatinine (mg/dL) Date Value 03/17/2023 0.69 03/05/2021 0.69 BUN (mg/dL) Date Value 03/17/2023 8 03/05/2021 16 Anion Gap (mmol/L) Date Value 03/17/2023 11 03/05/2021 13 Calcium (mg/dL) Date Value 03/05/2021 9.5 Calcium, Total (mg/dL) Date Value 03/17/2023 10.2 Protein, Total (g/dL) Date Value 03/17/2023 8.9 03/17/2023 8.4 03/05/2021 7.7 03/05/2021 8.1 Albumin (g/dL) Date Value 03/17/2023 4.7 03/05/2021 4.1 Bilirubin, Total (mg/dL) Date Value 03/17/2023 0.2 03/05/2021 <0.2 Alkaline Phosphatase (U/L) Date Value 03/17/2023 108 03/05/2021 96 AST (U/L) Date Value 03/17/2023 11 03/05/2021 14 ALT (U/L) Date Value 03/17/2023 9 03/05/2021 17 WBC Date Value Ref Range Status 03/17/2023 10.50 3.70 - 11.00 k/uL Final RBC Date Value Ref Range Status 03/17/2023 4.92 3.90 - 5.20 m/uL Final Hemoglobin Date Value Ref Range Status 03/17/2023 14.3 11.5 - 15.5 g/dL Final Hematocrit Date Value Ref Range Status 03/17/2023 44.7 36.0 - 46.0 % Final MCV Date Value Ref Range Status 03/17/2023 90.9 80.0 - 100.0 fL Final MCH Date Value Ref Range Status 03/17/2023 29.1 26.0 - 34.0 pg Final MCHC Date Value Ref Range Status 03/17/2023 32.0 30.5 - 36.0 g/dL Final RDW-CV Date Value Ref Range Status 03/17/2023 13.7 11.5 - 15.0 % Final Platelet Count Date Value Ref Range Status (more content not included)... [facility] 05-11-2023 History of Presen t illness Narrative Images from the original note were not included. Subjective Chief complaint/Reason for visit: Bilateral internal carotid stenosis Family history of stroke Encounter to discuss test results Augusta Britany Ledezma is a 57 y.o. female who presented to the office for evaluation given their history of carotid stenosis. She underwent carotid duplexes prior to this evaluation, and velocities are consistent with less than 50% stenosis bilaterally. Unfortunately, she recently lost her father. Ms. Ledezma denies acute lateralizing neurological deficits (though does experience numbness radiating from her right buttock all through the leg , which is unchanged) or visual changes consistent with amaurosis fugax. Additionally, she reports no ambulatory symptoms consistent with claudication. Review of Systems Review of Systems Constitutional: Negative for activity change and fever. HENT: Negative for trouble swallowing. Eyes: Negative for visual disturbance. Respiratory: Negative for cough. Skin: Negative for color change and wound. Neurological: Positive for numbness. Negative for weakness. Objective Allergies Allergies Allergen Reactions Imitrex [Sumatriptan] Anaphylaxis Current Medications Current Outpatient Medications Medication Sig Dispense Refill albuterol (PROVENTIL HFA;VENTOLIN HFA) 90 mcg/actuation inhaler ascorbic acid (VITAMIN C) 500 mg tablet Take 1 tablet (500 mg total) by mouth in the morning. aspirin 81 mg Take 1 tablet (81 mg total) by mouth in the morning. atorvastatin (LIPITOR) 40 mg tablet Take 1 tablet (40 mg total) by mouth nightly. lisinopriL (PRINIVIL,ZESTRIL) 10 mg tablet melatonin 10 mg capsule Take by mouth. metFORMIN XR (GLUCOPHAGE XR) 500 mg 24 hr tablet metFORMIN XR (GLUCOPHAGE XR) 500 mg 24 hr tablet zolpidem (AMBIEN) 10 mg tablet No current facility-administered medications for this visit. Vitals BP 130/80 (BP Site: Right Arm, BP Postition: Sitting, BP CUFF SIZE: M (9-13 inches)) Ht 172 cm (5' 7.72 ) Wt 89.8 kg (198 lb) BMI 30.36 kg/m Physical Exam Physical Exam Studies Reviewed Assessment Bilateral internal carotid stenosis Family history of stroke Encounter to discuss test results Plan Ms. Ledezma's carotid velocities remain consistent with less than 50% stenosis bilaterally. I will plan for the patient to return in 1 year with repeat surveillance duplexes, and encourage her to contact the office with any questions or concerns in the interim. I offered her a referral to orthopedics given her symptoms consistent with sciatica, and she would like to avoid this for the time being given her recent stressors and essential stability of her symptoms. I encouraged her to contact the office at any time prior to her next appointment with questions or concerns. She understood and agreed. Thank you. Rene Waller PA-C [facility] Daytime office/After-hours call number: [phone] MORELIA Velásquez 05/11/23 0959 MORELIA Velásquez 05/11/23 1000 documented in this encounter [facility] 03-25-2022 History of Presen t illness Narrative PATIENT NAME: Augusta Ledezma CLINIC NO.: [id number] ATTENDING PHYSICIAN: Evan Bonner MD DATE OF SERVICE: March 25, 2022 Some of the elements of this note have been copied from my previous progress note dated 09/04/2020. All the information has been reviewed carefully. Dear Janet Munoz, SUBGRADE ROLLER OPERATOR is an update on a follow up visit on female Augusta Ledezma at the clinic March 25, 2022 Diagnosis: 1. MGUS Treatment History: HPI: Augusta Ledezma is a 56 year old year old female here for follow up. Lots of stress taking care of her dad and also life but overall doing well and denies any neuropathy PAST MEDICAL HISTORY Diagnosis Date Diabetes mellitus (HCC) Elevated blood protein Hidradenitis Social History Tobacco Use Smoking status: Every Day Packs/day: 0.50 Years: 41.00 Pack years: 20.50 Types: Cigarettes Smokeless tobacco: Never Vaping Use Vaping Use: Never used Substance Use Topics Alcohol use: Yes Drug use: Never No family history on file. Past medical, social and family history reviewed without any changes. REVIEW OF SYSTEMS GENERAL: No weight loss, malaise or fevers. No night sweats. HEENT: Negative for headaches, No changes in hearing or vision, no nose bleeds or other nasal problems. RESPIRATORY: Negative for cough, wheezing and shortness of breath CARDIOVASCULAR: Negative for chest pain, leg swelling and palpitations GI: Negative for abdominal discomfort, blood in stools or black stools and change in bowel habits : Negative for dysuria, frequency and incontinence MUSCULOSKELETAL: Negative for joint pain or swelling, back pain, and muscle pain. SKIN: Negative for lesions, rash, and itching. HEMATOLOGY/LYMPHOLOGY Negative for prolonged bleeding, bruising easily, and swollen nodes. NEURO: Negative for numbness or tingling of hands/feet. No weakness. PHYSICAL EXAMINATION: BP 144/63 Pulse 104 Temp (Src) 97.3 (Temporal) Resp 16 Ht 5' 7.52 (1.72m) Wt 200 lb 9.6 oz (91.0kg) SpO2 98% BMI 30.94 kg/(m^2). Wt 102.9 kg (226 lb 12.8 oz) BMI 34.98 kg/m2 Last 3 Encounter Wt Readings: Date: Wt: 09/04/2020 102.9 kg (226 lb 12.8 oz) 06/05/2020 102.7 kg (226 lb 6.4 oz) 12/06/2019 99.3 kg (219 lb) General appearance:ECOG PERFORMANCE STATUS: 0- Fully active, able to carry on all pre-disease performance w/o restriction. Patient in NAD. Skin: Skin color, texture, turgor normal. No rashes or lesions. Eyes: Anicteric sclera. Pupils are equally round and reactive to light. Extraocular movements are intact. Lymph Nodes: No cervical, supraclavicular, axillary or inguinal adenopathy. Oropharynx: Lips, mucosa, and tongue normal. Back: No pain to percussion. Negative SLR test Lungs clear to auscultation, No wheezing or rhonchi Heart: RRR without murmur, gallop, or rubs. Abdomen soft, non-tender. No masses, organomegaly Extremities: No deformities. No edema Neuro: Gait and speech normal. Reflexes normal and symmetric. Muscular strength intact. Sensation grossly intact. Rectal: Deferred : Deferred LABS: Glucose (mg/dL) Date Value 03/04/2022 98 03/05/2021 103 Potassium (mmol/L) Date Value 03/04/2022 3.8 03/05/2021 4.4 Sodium (mmol/L) Date Value 03/04/2022 137 03/05/2021 135 Chloride (mmol/L) Date Value 03/04/2022 104 03/05/2021 99 CO2 (mmol/L) Date Value 03/04/2022 25 03/05/2021 23 Creatinine (mg/dL) Date Value 03/04/2022 0.62 03/05/2021 0.69 BUN (mg/dL) Date Value 03/04/2022 9 03/05/2021 16 Anion Gap (mmol/L) Date Value 03/04/2022 8 03/05/2021 13 Calcium (mg/dL) Date Value 03/05/2021 9.5 Calcium, Total (mg/dL) Date Value 03/04/2022 9.2 Protein, Total (g/dL) Date Value 03/04/2022 7.9 03/04/2022 7.8 03/04/2022 7.8 03/05/2021 7.7 03/05/2021 8.1 Albumin (g/dL) Date Value 03/04/2022 4.1 03/05/2021 4.1 Bilirubin, Total (mg/dL) Date Value 03/04/2022 0.3 03/05/2021 <0.2 Alkaline Phosphatase (U/L) Date Value 03/04/2022 87 03/05/2021 96 AST (U/L) Date Value 03/04/2022 13 03/05/2021 14 ALT (U/L) Date Value 03/04/2022 12 03/05/2021 17 WBC Date Value Ref Range Status 03/04/2022 7.33 3.70 - 11.00 k/uL Final RBC Date Value Ref Range Status 03/04/2022 4.58 3.90 - 5.20 m/uL Final Hemoglobin Date Value Ref Range Status 03/04/2022 13.0 11.5 - 15.5 g/dL Final Hematocrit Date Value Ref Range Status 03/04/2022 40.2 36.0 - 46.0 % Final MCV Date Value Ref Range Status 03/04/2022 87.8 80.0 - 100.0 fL Final MCH Date Value Ref Range Status 03/04/2022 28.4 26.0 - 34.0 pg Final MCHC Date Value Ref Range Status 03/04/2022 32.3 30.5 - 36.0 g/dL Final RDW-CV Date Value Ref Range Status 03/04/2022 14.6 11.5 - 15.0 % Final Platelet Count Date Value Ref Range Status 03/04/2022 168 150 - 400 k/uL Final MPV Date Value Ref Range Status 03/04/2022 10.6 9.0 - 12.7 fL Final Abs Neut Date Value Ref Range Status 03/04/2022 4.38 1.45 - 7.50 k/uL Final Lymph% Date Value Ref Range Status 03/04/2022 28.1 % Final Abs Lymph Date Value Ref Range Status 03/04/2022 2.06 1.00 - 4.00 k/uL Final [place]% Date Value Ref Range Status 03/04/2022 6.8 % Final Abs [place] Date Value Ref Range Status 03/04/2022 0.50 <0.87 k/uL Final Eosin% Date Value Ref Range Status 03/04/2022 4.6 % Final Abs Eosin Date Value Ref Range Status 03/04/2022 0.34 <0.46 k/uL Final Baso% Date Value Ref Range Status 03/04/2022 0.4 % Final Abs Baso Date Value Ref Range Status 03/04/2022 0.03 <0.11 k/uL Final PATH: Imaging: Assessment and Plan: Augusta Ledezma is a 56 year old year old female here for follow up. 1. MGUS- Follow parameters. Stable and repeat in 12 months 2. HS- She has elected conservative therapy and did not want to proceed with surgery at this time Thank you for the kind referral. If there are any questions and or concerns please do not hesitate to contact me at [phone]. Evan Bonner MD Hematology/Medical Oncology [facility] spent a total of 20 minutes on the date of the service which included preparing to see the patient, [id number] patient care, completing clinical documentation, obtaining and/or reviewing separately obtained history, performing a medically appropriate examination and counseling and educating the patient/family/caregiver. CC: DO Manjula Francis documented in this encounter [facility] 03-05-2022 Miscellaneous Notes Pt informed of result and need for follow up for management. She is agreeable to POC. Lab result routed to Janet Kilgore RN ----- Message from Danae Fraga PA-C sent at 03/05/2022 8:09 AM EST ----- Please call patient and advise of the results and ask who is managing and forward to appropriate person documented in this encounter [facility] 09-09-2021 History of Presen t illness Narrative PATIENT NAME: Augusta [facility] NO.: [id number] ATTENDING PHYSICIAN: Evan Bonner MD DATE OF SERVICE: September 09, 2021 (Elements copied from Dr. Bonner's note dated March 05, 2021, have been reviewed and updated where appropriate, and all reflect current assessment and medical decision making during today's encounter, September 09, 2021) Diagnosis: 1. MGUS Treatment History: HPI: Still with hiradenitis. Hasn't decided on surgery. Augusta returns for follow up. Still having issues with hiradenitis. Has decided against surgery. She is now living with her dad and helping to take care of him and does not have time for surgery. No new pain, fever, chills. No neuropathy. PAST MEDICAL HISTORY Diagnosis Date Diabetes mellitus (HCC) Elevated blood protein Social History Tobacco Use Smoking status: Current Every Day Smoker Packs/day: 0.50 Years: 41.00 Pack years: 20.50 Types: Cigarettes Smokeless tobacco: Never Used Vaping Use Vaping Use: Never used Substance Use Topics Alcohol use: Yes Drug use: Never No family history on file. Past medical, social and family history reviewed without any changes. REVIEW OF SYSTEMS GENERAL: No weight loss, malaise or fevers. No night sweats. HEENT: Negative for headaches, No changes in hearing or vision, no nose bleeds or other nasal problems. RESPIRATORY: Negative for cough, wheezing and shortness of breath CARDIOVASCULAR: Negative for chest pain, leg swelling and palpitations GI: Negative for abdominal discomfort, blood in stools or black stools and change in bowel habits : Negative for dysuria, frequency and incontinence MUSCULOSKELETAL: Negative for joint pain or swelling, back pain, and muscle pain. SKIN: Negative for lesions, rash, and itching. HEMATOLOGY/LYMPHOLOGY Negative for prolonged bleeding, bruising easily, and swollen nodes. NEURO: Negative for numbness or tingling of hands/feet. No weakness. PHYSICAL EXAMINATION: BP 150/67 Pulse 99 Temp (Src) 97.9 (Temporal) Resp 16 Ht 5' 7.52 (1.72m) Wt 215 lb 12.8 oz (97.9kg) SpO2 97% BMI 33.28 kg/(m^2). ECOG PERFORMANCE STATUS: 0- Fully active, able to carry on all pre-disease performance w/o restriction. General: Alert and oriented, no distress, pleasant and cooperative. Heart: Regular, normal S1 and S2, no murmurs, rubs, or gallops Lungs: Clear to auscultation bilaterally Abdomen: Benign Extremities: Feet/ankles without edema, posterior tibial pulses full and symmetrical LABS: Glucose (mg/dL) Date Value 09/03/2021 113 03/05/2021 103 Potassium (mmol/L) Date Value 09/03/2021 3.6 03/05/2021 4.4 Sodium (mmol/L) Date Value 09/03/2021 133 03/05/2021 135 Chloride (mmol/L) Date Value 09/03/2021 98 03/05/2021 99 CO2 (mmol/L) Date Value 09/03/2021 25 03/05/2021 23 Creatinine (mg/dL) Date Value 09/03/2021 0.71 03/05/2021 0.69 BUN (mg/dL) Date Value 09/03/2021 11 03/05/2021 16 Anion Gap (mmol/L) Date Value 09/03/2021 10 03/05/2021 13 Calcium (mg/dL) Date Value 03/05/2021 9.5 Calcium, Total (mg/dL) Date Value 09/03/2021 9.8 Protein, Total (g/dL) Date Value 09/03/2021 8.1 09/03/2021 7.7 03/05/2021 7.7 03/05/2021 8.1 Albumin (g/dL) Date Value 09/03/2021 4.2 03/05/2021 4.1 Bilirubin, Total (mg/dL) Date Value 09/03/2021 0.2 03/05/2021 <0.2 Alkaline Phosphatase (U/L) Date Value 09/03/2021 84 03/05/2021 96 AST (U/L) Date Value 09/03/2021 14 03/05/2021 14 ALT (U/L) Date Value 09/03/2021 11 03/05/2021 17 WBC Date Value Ref Range Status 09/03/2021 11.41 (H) 3.70 - 11.00 k/uL Final RBC Date Value Ref Range Status 09/03/2021 4.63 3.90 - 5.20 m/uL Final Hemoglobin Date Value Ref Range Status 09/03/2021 13.0 11.5 - 15.5 g/dL Final Hematocrit Date Value Ref Range Status 09/03/2021 40.6 36.0 - 46.0 % Final MCV Date Value Ref Range Status 09/03/2021 87.7 80.0 - 100.0 fL Final MCH Date Value Ref Range Status 09/03/2021 28.1 26.0 - 34.0 pg Final MCHC Date Value Ref Range Status 09/03/2021 32.0 30.5 - 36.0 g/dL Final RDW-CV Date Value Ref Range Status 09/03/2021 14.6 11.5 - 15.0 % Final Platelet Count Date Value Ref Range Status 09/03/2021 243 150 - 400 k/uL Final MPV Date Value Ref Range Status 09/03/2021 10.3 9.0 - 12.7 fL Final Abs Neut Date Value Ref Range Status 09/03/2021 7.74 (H) 1.45 - 7.50 k/uL Final Lymph% Date Value Ref Range Status 09/03/2021 23.1 % Final Abs Lymph Date Value Ref Range Status 09/03/2021 2.64 1.00 - 4.00 k/uL Final [place]% Date Value Ref Range Status 09/03/2021 6.4 % Final Abs [place] Date Value Ref Range Status 09/03/2021 0.73 <0.87 k/uL Final Eosin% Date Value Ref Range Status 09/03/2021 1.8 % Final Abs Eosin Date Value Ref Range Status 09/03/2021 0.21 <0.46 k/uL Final Baso% Date Value Ref Range Status 09/03/2021 0.4 % Final Abs Baso Date Value Ref Range Status 09/03/2021 0.05 <0.11 k/uL Final PATH: Imaging: Assessment and Plan: Augusta Ledezma is a 54 year old year old female here for follow up. 1. MGUS- Stable at this time. Continue to follow parameters and see us in 6 months. 2. HS- She will follow up with Dr. Temple and PCP as she has to take care of her dad and she is unsure of surgery at this time. Danae Fraga PA-C CC: DO Manjula Francis documented in this encounter [facility] Evaluation note Diagnosis Monoclonal gammopathy- Primary Monoclonal paraproteinemia [facility] Diagnosis Type 2 diabetes mellitus without complication, unspecified whether middle or intermediate school principal insulin use (HCC)- [facility] Monoclonal gammopathy- Primary Monoclonal paraproteinemia [facility] Bilateral carotid artery occlusion- Primary Occlusion and stenosis of carotid artery without mention of cerebral infarction HTN (hypertension), benign (CMS/HCC) Essential hypertension, benign Pre-diabetes Other abnormal glucose Leukocytosis, unspecified type Tobacco dependence Tobacco use disorder Screening mammogram for breast cancer Mixed hyperlipidemia (CMS/HCC) Mixed hyperlipidemia Obesity (BMI 30-39.9) Primary insomnia Persistent disorder of initiating or maintaining sleep Colon cancer screening Special screening for malignant neoplasms, colon Pre-operative clearance- Primary Unspecified pre-operative examination HTN (hypertension), benign (CMS/HCC) Essential hypertension, benign Primary insomnia Persistent disorder of initiating or maintaining sleep Environmental and seasonal allergies HTN (hypertension), benign (CMS/HCC) Essential hypertension, benign Pre-diabetes Other abnormal glucose Primary insomnia- Primary Persistent disorder of initiating or maintaining sleep HTN (hypertension), benign (CMS/HCC) Essential hypertension, benign Bilateral carotid artery stenosis Occlusion and stenosis of carotid artery without mention of cerebral infarction Pre-diabetes Other abnormal glucose Obesity (BMI 30-39.9) Hidradenitis suppurativa Hidradenitis Monoclonal gammopathy of undetermined significance Tobacco dependence Tobacco use disorder Mixed hyperlipidemia (CMS/HCC) Mixed hyperlipidemia documented in [facility] encounter [facility]* Diagnosis Bilateral carotid artery occlusion- Primary Occlusion and stenosis of carotid artery without mention of cerebral infarction HTN (hypertension), benign (CMS/HCC) Essential hypertension, benign Pre-diabetes Other abnormal glucose Leukocytosis, unspecified type Tobacco dependence Tobacco use disorder Screening mammogram for breast cancer Mixed hyperlipidemia (CMS/HCC) Mixed hyperlipidemia Obesity (BMI 30-39.9) Primary insomnia Persistent disorder of initiating or maintaining sleep Colon cancer screening Special screening for malignant neoplasms, colon Pre-operative clearance- Primary Unspecified pre-operative examination HTN (hypertension), benign (CMS/HCC) Essential hypertension, benign HTN (hypertension), benign (CMS/HCC)- Primary Essential hypertension, benign Primary insomnia Persistent disorder of initiating or maintaining sleep Bilateral carotid artery stenosis Occlusion and stenosis of carotid artery without mention of cerebral infarction Pre-diabetes Other abnormal glucose Obesity (BMI 30-39.9) Hidradenitis suppurativa Hidradenitis Monoclonal gammopathy of undetermined significance Tobacco dependence Tobacco use disorder Mixed hyperlipidemia (CMS/HCC) Mixed hyperlipidemia Needs flu shot Need for prophylactic vaccination and inoculation against influenza Type 2 diabetes mellitus without complication, without long-term current use of insulin (CMS/HCC) documented in this encounter [facility]* Diagnosis Bilateral carotid artery occlusion- Primary Occlusion and stenosis of carotid artery without mention of cerebral infarction HTN (hypertension), benign (CMS/HCC) Essential hypertension, benign Pre-diabetes Other abnormal glucose Leukocytosis, unspecified type Tobacco dependence Tobacco use disorder Screening mammogram for breast cancer Mixed hyperlipidemia (CMS/HCC) Mixed hyperlipidemia Obesity (BMI 30-39.9) Primary insomnia Persistent disorder of initiating or maintaining sleep Colon cancer screening Special screening for malignant neoplasms, colon Pre-operative clearance- Primary Unspecified pre-operative examination HTN (hypertension), benign (CMS/HCC) Essential hypertension, benign HTN (hypertension), benign (CMS/HCC)- Primary Essential hypertension, benign Primary insomnia Persistent disorder of initiating or maintaining sleep Bilateral carotid artery stenosis Occlusion and stenosis of carotid artery without mention of cerebral infarction Pre-diabetes Other abnormal glucose Obesity (BMI 30-39.9) Hidradenitis suppurativa Hidradenitis Monoclonal gammopathy of undetermined significance Tobacco dependence Tobacco use disorder Mixed hyperlipidemia (CMS/HCC) Mixed hyperlipidemia Needs flu shot Need for prophylactic vaccination and inoculation against influenza Type 2 diabetes mellitus without complication, without long-term current use of insulin (CMS/HCC) Mixed hyperlipidemia (CMS/HCC) Mixed hyperlipidemia documented in [facility] encounter [facility]* Diagnosis Bilateral carotid artery occlusion- Primary Occlusion and stenosis of carotid artery without mention of cerebral infarction HTN (hypertension), benign (CMS/HCC) Essential hypertension, benign Pre-diabetes Other abnormal glucose Leukocytosis, unspecified type Tobacco dependence Tobacco use disorder Screening mammogram for breast cancer Mixed hyperlipidemia (CMS/HCC) Mixed hyperlipidemia Obesity (BMI 30-39.9) Primary insomnia Persistent disorder of initiating or maintaining sleep Colon cancer screening Special screening for malignant neoplasms, colon Pre-operative clearance- Primary Unspecified pre-operative examination HTN (hypertension), benign (CMS/HCC) Essential hypertension, benign HTN (hypertension), benign (CMS/HCC)- Primary Essential hypertension, benign Primary insomnia Persistent disorder of initiating or maintaining sleep Bilateral carotid artery stenosis Occlusion and stenosis of carotid artery without mention of cerebral infarction Pre-diabetes Other abnormal glucose Obesity (BMI 30-39.9) Hidradenitis suppurativa Hidradenitis Monoclonal gammopathy of undetermined significance Tobacco dependence Tobacco use disorder Mixed hyperlipidemia (CMS/HCC) Mixed hyperlipidemia Needs flu shot Need for prophylactic vaccination and inoculation against influenza Type 2 diabetes mellitus without complication, without long-term current use of insulin (CMS/HCC) Mixed hyperlipidemia (CMS/HCC) Mixed hyperlipidemia documented [facility] Diagnosis Bilateral carotid artery occlusion- Primary Occlusion and stenosis of carotid artery without mention of cerebral infarction HTN (hypertension), benign (CMS/HCC) Essential hypertension, benign Pre-diabetes Other abnormal glucose Leukocytosis, unspecified type Tobacco dependence Tobacco use disorder Screening mammogram for breast cancer Mixed hyperlipidemia (CMS/HCC) Mixed hyperlipidemia Obesity (BMI 30-39.9) Primary insomnia Persistent disorder of initiating or maintaining sleep Colon cancer screening Special screening for malignant neoplasms, colon Pre-operative clearance- Primary Unspecified pre-operative examination HTN (hypertension), benign (CMS/HCC) Essential hypertension, benign HTN (hypertension), benign (CMS/HCC)- Primary Essential hypertension, benign Primary insomnia Persistent disorder of initiating or maintaining sleep Bilateral carotid artery stenosis Occlusion and stenosis of carotid artery without mention of cerebral infarction Pre-diabetes Other abnormal glucose Obesity (BMI 30-39.9) Hidradenitis suppurativa Hidradenitis Monoclonal gammopathy of undetermined significance Tobacco dependence Tobacco use disorder Mixed hyperlipidemia (CMS/HCC) Mixed hyperlipidemia Needs flu shot Need for prophylactic vaccination and inoculation against influenza Type 2 diabetes mellitus without complication, without long-term current use of insulin (CMS/HCC) HTN (hypertension), benign (CMS/HCC)- Primary Essential hypertension, benign Morbid (severe) obesity due to excess calories (CMS/HCC) Mixed hyperlipidemia (CMS/HCC) Mixed hyperlipidemia Body mass index (BMI) 35.0-35.9, adult Primary insomnia Persistent disorder of initiating or maintaining sleep Tobacco dependence Tobacco use disorder documented in this encounter [facility]* Diagnosis Bilateral carotid artery occlusion- Primary Occlusion and stenosis of carotid artery without mention of cerebral infarction HTN (hypertension), benign (CMS/HCC) Essential hypertension, benign Pre-diabetes Other abnormal glucose Leukocytosis, unspecified type Tobacco dependence Tobacco use disorder Screening mammogram for breast cancer Mixed hyperlipidemia (CMS/HCC) Mixed hyperlipidemia Obesity (BMI 30-39.9) Primary insomnia Persistent disorder of initiating or maintaining sleep Colon cancer screening Special screening for malignant neoplasms, colon Pre-operative clearance- Primary Unspecified pre-operative examination HTN (hypertension), benign (CMS/HCC) Essential hypertension, benign HTN (hypertension), benign (CMS/HCC)- Primary Essential hypertension, benign Primary insomnia Persistent disorder of initiating or maintaining sleep Bilateral carotid artery stenosis Occlusion and stenosis of carotid artery without mention of cerebral infarction Pre-diabetes Other abnormal glucose Obesity (BMI 30-39.9) Hidradenitis suppurativa Hidradenitis Monoclonal gammopathy of undetermined significance Tobacco dependence Tobacco use disorder Mixed hyperlipidemia (CMS/HCC) Mixed hyperlipidemia Needs flu shot Need for prophylactic vaccination and inoculation against influenza Type 2 diabetes mellitus without complication, without long-term current use of insulin (CMS/HCC) HTN (hypertension), benign (CMS/HCC)- Primary Essential hypertension, benign Morbid (severe) obesity due to excess calories (CMS/HCC) Mixed hyperlipidemia (CMS/HCC) Mixed hyperlipidemia Body mass index (BMI) 35.0-35.9, adult Primary insomnia Persistent disorder of initiating or maintaining sleep Tobacco dependence Tobacco use disorder Type 2 diabetes mellitus without complication, without long-term current use of insulin (CMS/HCC)- Primary documented in this encounter [facility]* Diagnosis Bilateral carotid artery occlusion- Primary Occlusion and stenosis of carotid artery without mention of cerebral infarction HTN (hypertension), benign (CMS/HCC) Essential hypertension, benign Pre-diabetes Other abnormal glucose Leukocytosis, unspecified type Tobacco dependence Tobacco use disorder Screening mammogram for breast cancer Mixed hyperlipidemia (CMS/HCC) Mixed hyperlipidemia Obesity (BMI 30-39.9) Primary insomnia Persistent disorder of initiating or maintaining sleep Colon cancer screening Special screening for malignant neoplasms, colon Pre-operative clearance- Primary Unspecified pre-operative examination HTN (hypertension), benign (CMS/HCC) Essential hypertension, benign HTN (hypertension), benign (CMS/HCC)- Primary Essential hypertension, benign Primary insomnia Persistent disorder of initiating or maintaining sleep Bilateral carotid artery stenosis Occlusion and stenosis of carotid artery without mention of cerebral infarction Pre-diabetes Other abnormal glucose Obesity (BMI 30-39.9) Hidradenitis suppurativa Hidradenitis Monoclonal gammopathy of undetermined significance Tobacco dependence Tobacco use disorder Mixed hyperlipidemia (CMS/HCC) Mixed hyperlipidemia Needs flu shot Need for prophylactic vaccination and inoculation against influenza Type 2 diabetes mellitus without complication, without long-term current use of insulin (CMS/HCC) HTN (hypertension), benign (CMS/HCC)- Primary Essential hypertension, benign Morbid (severe) obesity due to excess calories (CMS/HCC) Mixed hyperlipidemia (CMS/HCC) Mixed hyperlipidemia Body mass index (BMI) 35.0-35.9, adult Primary insomnia Persistent disorder of initiating or maintaining sleep Tobacco dependence Tobacco use disorder Type 2 diabetes mellitus without complication, without long-term current use of insulin (CMS/HCC)- Primary documented in this encounter [facility]* Diagnosis Internal carotid artery stenosis, bilateral- Primary Stenosis of left carotid artery Occlusion and stenosis of carotid artery without mention of cerebral infarction Internal carotid artery stenosis, bilateral Stenosis of left carotid artery Occlusion and stenosis of carotid artery without mention of cerebral infarction [facility] Diagnosis Internal carotid artery stenosis, bilateral- Primary [facility] Diagnosis Stenosis of left carotid artery- Primary Occlusion and stenosis of carotid artery without mention of cerebral infarction Bilateral carotid artery stenosis Occlusion and stenosis of carotid artery without mention of cerebral infarction Chronic nonintractable headache, unspecified headache type [facility] Diagnosis Bilateral carotid artery occlusion- Primary Occlusion and stenosis of carotid artery without mention of cerebral infarction HTN (hypertension), benign (CMS/HCC) Essential hypertension, benign Pre-diabetes Other abnormal glucose Leukocytosis, unspecified type Tobacco dependence Tobacco use disorder Screening mammogram for breast cancer Mixed hyperlipidemia (CMS/HCC) Mixed hyperlipidemia Obesity (BMI 30-39.9) Primary insomnia Persistent disorder of initiating or maintaining sleep Colon cancer screening Special screening for malignant neoplasms, colon Pre-operative clearance- Primary Unspecified pre-operative examination HTN (hypertension), benign (CMS/HCC) Essential hypertension, benign HTN (hypertension), benign (CMS/HCC)- Primary Essential hypertension, benign Primary insomnia Persistent disorder of initiating or maintaining sleep Bilateral carotid artery stenosis Occlusion and stenosis of carotid artery without mention of cerebral infarction Pre-diabetes Other abnormal glucose Obesity (BMI 30-39.9) Hidradenitis suppurativa Hidradenitis Monoclonal gammopathy of undetermined significance Tobacco dependence Tobacco use disorder Mixed hyperlipidemia (CMS/HCC) Mixed hyperlipidemia Needs flu shot Need for prophylactic vaccination and inoculation against influenza Type 2 diabetes mellitus without complication, without long-term current use of insulin (CMS/HCC) HTN (hypertension), benign (CMS/HCC)- Primary Essential hypertension, benign Morbid (severe) obesity due to excess calories (CMS/HCC) Mixed hyperlipidemia (CMS/HCC) Mixed hyperlipidemia Body mass index (BMI) 35.0-35.9, adult Primary insomnia Persistent disorder of initiating or maintaining sleep Tobacco dependence Tobacco use disorder Environmental and seasonal allergies documented in this encounter [facility]* Diagnosis Bilateral carotid artery occlusion- Primary Occlusion and stenosis of carotid artery without mention of cerebral infarction HTN (hypertension), benign (CMS/HCC) Essential hypertension, benign Pre-diabetes Other abnormal glucose Leukocytosis, unspecified type Tobacco dependence Tobacco use disorder Screening mammogram for breast cancer Mixed hyperlipidemia (CMS/HCC) Mixed hyperlipidemia Obesity (BMI 30-39.9) Primary insomnia Persistent disorder of initiating or maintaining sleep Colon cancer screening Special screening for malignant neoplasms, colon Pre-operative clearance- Primary Unspecified pre-operative examination HTN (hypertension), benign (CMS/HCC) Essential hypertension, benign HTN (hypertension), benign (CMS/HCC)- Primary Essential hypertension, benign Primary insomnia Persistent disorder of initiating or maintaining sleep Bilateral carotid artery stenosis Occlusion and stenosis of carotid artery without mention of cerebral infarction Pre-diabetes Other abnormal glucose Obesity (BMI 30-39.9) Hidradenitis suppurativa Hidradenitis Monoclonal gammopathy of undetermined significance Tobacco dependence Tobacco use disorder Mixed hyperlipidemia (CMS/HCC) Mixed hyperlipidemia Needs flu shot Need for prophylactic vaccination and inoculation against influenza Type 2 diabetes mellitus without complication, without long-term current use of insulin (CMS/HCC) HTN (hypertension), benign (CMS/HCC)- Primary Essential hypertension, benign Morbid (severe) obesity due to excess calories (CMS/HCC) Mixed hyperlipidemia (CMS/HCC) Mixed hyperlipidemia Body mass index (BMI) 35.0-35.9, adult Primary insomnia Persistent disorder of initiating or maintaining sleep Tobacco dependence Tobacco use disorder HTN (hypertension), benign (CMS/HCC)- Primary Essential hypertension, benign Bilateral carotid artery stenosis Occlusion and stenosis of carotid artery without mention of cerebral infarction Morbid (severe) obesity due to excess calories (CMS/HCC) Tobacco dependence Tobacco use disorder Mixed hyperlipidemia (CMS/HCC) Mixed hyperlipidemia Type 2 diabetes mellitus without complication, without long-term current use of insulin (CMS/HCC) Viral upper respiratory tract infection Acute upper respiratory infections of unspecified site documented in this encounter [facility] HealthcareEvaluation note* Diagnosis Exertional dyspnea- Primary Other dyspnea and respiratory abnormality Bilateral carotid artery stenosis Occlusion and stenosis of carotid artery without mention of cerebral infarction documented in this encounter [facility] SystemEvaluation note* Diagnosis Bilateral carotid artery occlusion- Primary Occlusion and stenosis of carotid artery without mention of cerebral infarction HTN (hypertension), benign (CMS/HCC) Essential hypertension, benign Pre-diabetes Other abnormal glucose Leukocytosis, unspecified type Tobacco dependence Tobacco use disorder Screening mammogram for breast cancer Mixed hyperlipidemia (CMS/HCC) Mixed hyperlipidemia Obesity (BMI 30-39.9) Primary insomnia Persistent disorder of initiating or maintaining sleep Colon cancer screening Special screening for malignant neoplasms, colon Pre-operative clearance- Primary Unspecified pre-operative examination HTN (hypertension), benign (CMS/HCC) Essential hypertension, benign HTN (hypertension), benign (CMS/HCC)- Primary Essential hypertension, benign Primary insomnia Persistent disorder of initiating or maintaining sleep Bilateral carotid artery stenosis Occlusion and stenosis of carotid artery without mention of cerebral infarction Pre-diabetes Other abnormal glucose Obesity (BMI 30-39.9) Hidradenitis suppurativa Hidradenitis Monoclonal gammopathy of undetermined significance Tobacco dependence Tobacco use disorder Mixed hyperlipidemia (CMS/HCC) Mixed hyperlipidemia Needs flu shot Need for prophylactic vaccination and inoculation against influenza Type 2 diabetes mellitus without complication, without long-term current use of insulin HTN (hypertension), benign (CMS/HCC)- Primary Essential hypertension, benign Morbid (severe) obesity due to excess calories (CMS/HCC) Mixed hyperlipidemia (CMS/HCC) Mixed hyperlipidemia Body mass index (BMI) 35.0-35.9, adult Primary insomnia Persistent disorder of initiating or maintaining sleep Tobacco dependence Tobacco use disorder HTN (hypertension), benign (CMS/HCC)- Primary Essential hypertension, benign Bilateral carotid artery stenosis Occlusion and stenosis of carotid artery without mention of cerebral infarction Morbid (severe) obesity due to excess calories (CMS/HCC) Tobacco dependence Tobacco use disorder Mixed hyperlipidemia (CMS/HCC) Mixed hyperlipidemia Type 2 diabetes mellitus without complication, without long-term current use of insulin Viral upper respiratory tract infection Acute upper respiratory infections of unspecified site HTN (hypertension), benign (CMS/HCC)- Primary Essential hypertension, benign Heart palpitations Palpitations Bilateral carotid artery stenosis Occlusion and stenosis of carotid artery without mention of cerebral infarction Morbid (severe) obesity due to excess calories (CMS/HCC) Type 2 diabetes mellitus without complication, without long-term current use of insulin Tobacco dependence Tobacco use disorder Mixed hyperlipidemia (CMS/HCC) Mixed hyperlipidemia documented in this encounter [facility] HealthcareEvaluation note* Diagnosis Bilateral carotid artery occlusion- Primary Occlusion and stenosis of carotid artery without mention of cerebral infarction HTN (hypertension), benign (CMS/HCC) Essential hypertension, benign Pre-diabetes Other abnormal glucose Leukocytosis, unspecified type Tobacco dependence Tobacco use disorder Screening mammogram for breast cancer Mixed hyperlipidemia (CMS/HCC) Mixed hyperlipidemia Obesity (BMI 30-39.9) Primary insomnia Persistent disorder of initiating or maintaining sleep Colon cancer screening Special screening for malignant neoplasms, colon Pre-operative clearance- Primary Unspecified pre-operative examination HTN (hypertension), benign (CMS/HCC) Essential hypertension, benign HTN (hypertension), benign (CMS/HCC)- Primary Essential hypertension, benign Primary insomnia Persistent disorder of initiating or maintaining sleep Bilateral carotid artery stenosis Occlusion and stenosis of carotid artery without mention of cerebral infarction Pre-diabetes Other abnormal glucose Obesity (BMI 30-39.9) Hidradenitis suppurativa Hidradenitis Monoclonal gammopathy of undetermined significance Tobacco dependence Tobacco use disorder Mixed hyperlipidemia (CMS/HCC) Mixed hyperlipidemia Needs flu shot Need for prophylactic vaccination and inoculation against influenza Type 2 diabetes mellitus without complication, without long-term current use of insulin HTN (hypertension), benign (CMS/HCC)- Primary Essential hypertension, benign Morbid (severe) obesity due to excess calories (CMS/HCC) Mixed hyperlipidemia (CMS/HCC) Mixed hyperlipidemia Body mass index (BMI) 35.0-35.9, adult Primary insomnia Persistent disorder of initiating or maintaining sleep Tobacco dependence Tobacco use disorder HTN (hypertension), benign (CMS/HCC)- Primary Essential hypertension, benign Bilateral carotid artery stenosis Occlusion and stenosis of carotid artery without mention of cerebral infarction Morbid (severe) obesity due to excess calories (CMS/HCC) Tobacco dependence Tobacco use disorder Mixed hyperlipidemia (CMS/HCC) Mixed hyperlipidemia Type 2 diabetes mellitus without complication, without long-term current use of insulin Viral upper respiratory tract infection Acute upper respiratory infections of unspecified site HTN (hypertension), benign (CMS/HCC)- Primary Essential hypertension, benign Heart palpitations Palpitations Bilateral carotid artery stenosis Occlusion and stenosis of carotid artery without mention of cerebral infarction Morbid (severe) obesity due to excess calories (CMS/HCC) Type 2 diabetes mellitus without complication, without long-term current use of insulin Tobacco dependence Tobacco use disorder Mixed hyperlipidemia (CMS/HCC) Mixed hyperlipidemia Tobacco dependence Tobacco use disorder documented in this encounter [facility] HealthcareEvaluation note* Diagnosis Bilateral carotid artery occlusion- Primary Occlusion and stenosis of carotid artery without mention of cerebral infarction HTN (hypertension), benign (CMS/HCC) Essential hypertension, benign Pre-diabetes Other abnormal glucose Leukocytosis, unspecified type Tobacco dependence Tobacco use disorder Screening mammogram for breast cancer Mixed hyperlipidemia (CMS/HCC) Mixed hyperlipidemia Obesity (BMI 30-39.9) Primary insomnia Persistent disorder of initiating or maintaining sleep Colon cancer screening Special screening for malignant neoplasms, colon Pre-operative clearance- Primary Unspecified pre-operative examination HTN (hypertension), benign (CMS/HCC) Essential hypertension, benign HTN (hypertension), benign (CMS/HCC)- Primary Essential hypertension, benign Primary insomnia Persistent disorder of initiating or maintaining sleep Bilateral carotid artery stenosis Occlusion and stenosis of carotid artery without mention of cerebral infarction Pre-diabetes Other abnormal glucose Obesity (BMI 30-39.9) Hidradenitis suppurativa Hidradenitis Monoclonal gammopathy of undetermined significance Tobacco dependence Tobacco use disorder Mixed hyperlipidemia (CMS/HCC) Mixed hyperlipidemia Needs flu shot Need for prophylactic vaccination and inoculation against influenza Type 2 diabetes mellitus without complication, without long-term current use of insulin HTN (hypertension), benign (CMS/HCC)- Primary Essential hypertension, benign Morbid (severe) obesity due to excess calories (CMS/HCC) Mixed hyperlipidemia (CMS/HCC) Mixed hyperlipidemia Body mass index (BMI) 35.0-35.9, adult Primary insomnia Persistent disorder of initiating or maintaining sleep Tobacco dependence Tobacco use disorder HTN (hypertension), benign (CMS/HCC)- Primary Essential hypertension, benign Bilateral carotid artery stenosis Occlusion and stenosis of carotid artery without mention of cerebral infarction Morbid (severe) obesity due to excess calories (CMS/HCC) Tobacco dependence Tobacco use disorder Mixed hyperlipidemia (CMS/HCC) Mixed hyperlipidemia Type 2 diabetes mellitus without complication, without long-term current use of insulin Viral upper respiratory tract infection Acute upper respiratory infections of unspecified site HTN (hypertension), benign (CMS/HCC)- Primary Essential hypertension, benign Heart palpitations Palpitations Bilateral carotid artery stenosis Occlusion and stenosis of carotid artery without mention of cerebral infarction Morbid (severe) obesity due to excess calories (CMS/HCC) Type 2 diabetes mellitus without complication, without long-term current use of insulin Tobacco dependence Tobacco use disorder Mixed hyperlipidemia (CMS/HCC) Mixed hyperlipidemia Pre-diabetes Other abnormal glucose Environmental and seasonal allergies documented in this encounter [facility]Evaluation note* Diagnosis Bilateral carotid artery occlusion- Primary Occlusion and stenosis of carotid artery without mention of cerebral infarction HTN (hypertension), benign (CMS/HCC) Essential hypertension, benign Pre-diabetes Other abnormal glucose Leukocytosis, unspecified type Tobacco dependence Tobacco use disorder Screening mammogram for breast cancer Mixed hyperlipidemia (CMS/HCC) Mixed hyperlipidemia Obesity (BMI 30-39.9) Primary insomnia Persistent disorder of initiating or maintaining sleep Colon cancer screening Special screening for malignant neoplasms, colon Pre-operative clearance- Primary Unspecified pre-operative examination HTN (hypertension), benign (CMS/HCC) Essential hypertension, benign HTN (hypertension), benign (CMS/HCC)- Primary Essential hypertension, benign Primary insomnia Persistent disorder of initiating or maintaining sleep Bilateral carotid artery stenosis Occlusion and stenosis of carotid artery without mention of cerebral infarction Pre-diabetes Other abnormal glucose Obesity (BMI 30-39.9) Hidradenitis suppurativa Hidradenitis Monoclonal gammopathy of undetermined significance Tobacco dependence Tobacco use disorder Mixed hyperlipidemia (CMS/HCC) Mixed hyperlipidemia Needs flu shot Need for prophylactic vaccination and inoculation against influenza Type 2 diabetes mellitus without complication, without long-term current use of insulin HTN (hypertension), benign (CMS/HCC)- Primary Essential hypertension, benign Morbid (severe) obesity due to excess calories (CMS/HCC) Mixed hyperlipidemia (CMS/HCC) Mixed hyperlipidemia Body mass index (BMI) 35.0-35.9, adult Primary insomnia Persistent disorder of initiating or maintaining sleep Tobacco dependence Tobacco use disorder HTN (hypertension), benign (CMS/HCC)- Primary Essential hypertension, benign Bilateral carotid artery stenosis Occlusion and stenosis of carotid artery without mention of cerebral infarction Morbid (severe) obesity due to excess calories (CMS/HCC) Tobacco dependence Tobacco use disorder Mixed hyperlipidemia (CMS/HCC) Mixed hyperlipidemia Type 2 diabetes mellitus without complication, without long-term current use of insulin Viral upper respiratory tract infection Acute upper respiratory infections of unspecified site HTN (hypertension), benign (CMS/HCC)- Primary Essential hypertension, benign Heart palpitations Palpitations Bilateral carotid artery stenosis Occlusion and stenosis of carotid artery without mention of cerebral infarction Morbid (severe) obesity due to excess calories (CMS/HCC) Type 2 diabetes mellitus without complication, without long-term current use of insulin Tobacco dependence Tobacco use disorder Mixed hyperlipidemia (CMS/HCC) Mixed hyperlipidemia Primary insomnia Persistent disorder of initiating or maintaining sleep documented in this encounter [facility]Evaluation note* Diagnosis Bilateral carotid artery occlusion- Primary Occlusion and stenosis of carotid artery without mention of cerebral infarction HTN (hypertension), benign (CMS/HCC) Essential hypertension, benign Pre-diabetes Other abnormal glucose Leukocytosis, unspecified type Tobacco dependence Tobacco use disorder Screening mammogram for breast cancer Mixed hyperlipidemia (CMS/HCC) Mixed hyperlipidemia Obesity (BMI 30-39.9) Primary insomnia Persistent disorder of initiating or maintaining sleep Colon cancer screening Special screening for malignant neoplasms, colon Pre-operative clearance- Primary Unspecified pre-operative examination HTN (hypertension), benign (CMS/HCC) Essential hypertension, benign HTN (hypertension), benign (CMS/HCC)- Primary Essential hypertension, benign Primary insomnia Persistent disorder of initiating or maintaining sleep Bilateral carotid artery stenosis Occlusion and stenosis of carotid artery without mention of cerebral infarction Pre-diabetes Other abnormal glucose Obesity (BMI 30-39.9) Hidradenitis suppurativa Hidradenitis Monoclonal gammopathy of undetermined significance Tobacco dependence Tobacco use disorder Mixed hyperlipidemia (CMS/HCC) Mixed hyperlipidemia Needs flu shot Need for prophylactic vaccination and inoculation against influenza Type 2 diabetes mellitus without complication, without long-term current use of insulin HTN (hypertension), benign (CMS/HCC)- Primary Essential hypertension, benign Morbid (severe) obesity due to excess calories (CMS/HCC) Mixed hyperlipidemia (CMS/HCC) Mixed hyperlipidemia Body mass index (BMI) 35.0-35.9, adult Primary insomnia Persistent disorder of initiating or maintaining sleep Tobacco dependence Tobacco use disorder HTN (hypertension), benign (CMS/HCC)- Primary Essential hypertension, benign Bilateral carotid artery stenosis Occlusion and stenosis of carotid artery without mention of cerebral infarction Morbid (severe) obesity due to excess calories (CMS/HCC) Tobacco dependence Tobacco use disorder Mixed hyperlipidemia (CMS/HCC) Mixed hyperlipidemia Type 2 diabetes mellitus without complication, without long-term current use of insulin Viral upper respiratory tract infection Acute upper respiratory infections of unspecified site HTN (hypertension), benign (CMS/HCC)- Primary Essential hypertension, benign Heart palpitations Palpitations Bilateral carotid artery stenosis Occlusion and stenosis of carotid artery without mention of cerebral infarction Morbid (severe) obesity due to excess calories (CMS/HCC) Type 2 diabetes mellitus without complication, without long-term current use of insulin Tobacco dependence Tobacco use disorder Mixed hyperlipidemia (CMS/HCC) Mixed hyperlipidemia Urinary tract infection without hematuria, site unspecified- Primary documented in this encounter [facility]Evaluation note* Diagnosis Bilateral carotid artery occlusion- Primary Occlusion and stenosis of carotid artery without mention of cerebral infarction HTN (hypertension), benign Essential hypertension, benign Pre-diabetes Other abnormal glucose Leukocytosis, unspecified type Tobacco dependence Tobacco use disorder Screening mammogram for breast cancer Mixed hyperlipidemia Mixed hyperlipidemia Obesity (BMI 30-39.9) Primary insomnia Persistent disorder of initiating or maintaining sleep Colon cancer screening Special screening for malignant neoplasms, colon Pre-operative clearance- Primary Unspecified pre-operative examination HTN (hypertension), benign Essential hypertension, benign HTN (hypertension), benign- Primary Essential hypertension, benign Primary insomnia Persistent disorder of initiating or maintaining sleep Bilateral carotid artery stenosis Occlusion and stenosis of carotid artery without mention of cerebral infarction Pre-diabetes Other abnormal glucose Obesity (BMI 30-39.9) Hidradenitis suppurativa Hidradenitis Monoclonal gammopathy of undetermined significance Tobacco dependence Tobacco use disorder Mixed hyperlipidemia Mixed hyperlipidemia Needs flu shot Need for prophylactic vaccination and inoculation against influenza Type 2 diabetes mellitus without complication, without long-term current use of insulin (HCC) HTN (hypertension), benign- Primary Essential hypertension, benign Morbid (severe) obesity due to excess calories ([facility]-HCC) Mixed hyperlipidemia Mixed hyperlipidemia Body mass index (BMI) 35.0-35.9, adult Primary insomnia Persistent disorder of initiating or maintaining sleep Tobacco dependence Tobacco use disorder HTN (hypertension), benign- Primary Essential hypertension, benign Bilateral carotid artery stenosis Occlusion and stenosis of carotid artery without mention of cerebral infarction Morbid (severe) obesity due to excess calories ([facility]-HCC) Tobacco dependence Tobacco use disorder Mixed hyperlipidemia Mixed hyperlipidemia Type 2 diabetes mellitus without complication, without long-term current use of insulin (HCC) Viral upper respiratory tract infection Acute upper respiratory infections of unspecified site HTN (hypertension), benign- Primary Essential hypertension, benign Heart palpitations Palpitations Bilateral carotid artery stenosis Occlusion and stenosis of carotid artery without mention of cerebral infarction Morbid (severe) obesity due to excess calories (CMS-HCC) Type 2 diabetes mellitus without complication, without long-term current use of insulin (HCC) Tobacco dependence Tobacco use disorder Mixed hyperlipidemia Mixed hyperlipidemia HTN (hypertension), benign- Primary Essential hypertension, benign Bilateral carotid artery stenosis Occlusion and stenosis of carotid artery without mention of cerebral infarction Type 2 diabetes mellitus without complication, without long-term current use of insulin (HCC) Morbid (severe) obesity due to excess calories ([facility]) Tobacco dependence Tobacco use disorder Mixed hyperlipidemia Mixed hyperlipidemia Symptomatic urinary tract infection Pre-diabetes Other abnormal glucose Environmental and seasonal allergies Hidradenitis suppurativa Hidradenitis documented [facility]ructionsNot on filedocumented [facility] SystemInstructionsNot on filedocumented in this [facility] SystemInstructionsNot on filedocumented in this [facility] SystemInstructionsNot on filedocumented in this [facility] InstructionsNot on filedocumented in this [facility] InstructionsNot on filedocumented in this [facility] InstructionsNot on filedocumented in this [facility] InstructionsNot on filedocumented in this [facility] Summary Purpose Family History No Family History Records FoundNo Family History Records FoundNo Family History Records FoundNo Family History Records FoundNo Family History Records Found Advance Directives No Advanced Directives Records FoundNo Advanced Directives Records FoundNo Advanced Directives Records FoundNo Advanced Directives Records FoundNo Advanced Directives Records Found Reason for Referral Specialty Diagnoses / Procedures Referred By Contac t Referred To Contact Diagnoses Internal carotid artery stenosis, bilateral Procedures Vas carotid duplex bilateral Rene Waller, MORELIA [address] [place] [address] Referral ID Status Reason Start Date Expiration Date V isits Requested Visits Authorized [id number] Pending Review 05/11/2023 05/10/2024 1 1 Additional Source Comments Source Comments (unrecognize d section and content) In the event this informatio n is protected by the Federal Confidentiality of Alcohol and Drug Abuse Patient Records regulations: The Federal rules restrict any use of the information to criminally investigate or prosecute any alcohol or drug abuse patient.[facility] the event this information is protected by the Federal Confidentiality of Alcohol and Drug Abuse Patient Records regulations: The Federal rules restrict any use of the information to criminally investigate or prosecute any alcohol or drug abuse patient.[facility] HospitalIn the event this information is protected by the Federal Confidentiality of Alcohol and Drug Abuse Patient Records regulations: The Federal rules restrict any use of the information to criminally investigate or prosecute any alcohol or drug abuse patient.[facility] the event this information is protected by the Federal Confidentiality of Alcohol and Drug Abuse Patient Records regulations: The Federal rules restrict any use of the information to criminally investigate or prosecute any alcohol or drug abuse patient.[facility] HospitalIn the event this information is protected by the Federal Confidentiality of Alcohol and Drug Abuse Patient Records regulations: The Federal rules restrict any use of the information to criminally investigate or prosecute any alcohol or drug abuse patient.[facility] Reason for Visit (unrecogniz ed section and content) Reason Comments Monoclonal gammopathy 6 month follow up Reason Comments Results Reason Comments Monoclonal gammopathy 6 week follow up Reason Comments Monoclonal gammopathy VICTORIANO Reason Comments Med Refill Reason Comments Hypertension Diabetes Reason Comments Hypertension Reason Comments Follow-up Carotid Artery Disease Testing done Reason Comments Follow-up Last office visit 05/05/22 Rfafy for BCAS 1year follow up with Carotid completed 05/04/23@[facility] Reason Comments Follow-up Carotid Artery Disease Testing done CT- 05/17/24 Reason Onset Date Comments Med Refill 06/16/2024 Reason Comments 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 Bilateral carotid artery stenosis, MR BRAIN W/WO CONTRAST FELIZ, NO DEVICES, SCHED W/PT, PT WANTS FELIZ ONLY AND CHOSE TO WAIT Specialty Diagnoses / Procedures Referred By Contac t Referred To Contact Cardiology Diagnoses Bilateral carotid artery stenosis Kimi Tejada DO [address] [facility] [address] [place] [id number] Phone: tel: fax: [facility] [address] [place] [address] Phone: tel: fax: Referral ID Status Reason Start Date Expiration Date Visits Requested Visits Authorized [id number] Pending Review Specialty Services Required 05/23/2024 05/23/2025 1 1 Reason Onset Date Comments Med Refill 07/15/2024 Reason Onset Date Comments Med Refill 08/23/2024 Care Teams (unrecognized sec tion and content) Storeroom Keeper Relationship Specialty Start Date End Date Manjula Fuller MD PCP - General Family Practice 04/25/14 Storeroom Keeper Relationship Specialty Start Date End Date Manjula Fuller MD PCP - General Family Medicine 04/25/14 Storeroom Keeper Relationship Specialty Start Date End Date Janet Munoz, SUBGRADE ROLLER OPERATOR [address] [place] [address] PCP - General Family Medicine 03/25/22 Storeroom Keeper Relationship Specialty Start Date End Date Peter Meyer MD [address] [place] [phone] PCP - General Family Medicine 10/06/23 Janet Munoz NP [address] [place] [phone] Nurse Practitioner Family Medicine 02/25/23 Storeroom Keeper Relationship Specialty Start Date End Date Janet Munoz SUBGRADE ROLLER OPERATOR [address] [place] [address] PCP - General Family Medicine 03/25/22 Storeroom Keeper Relationship Specialty Start Date End Date Peter Meyer MD [address] [place] [phone] PCP - General Family Medicine 10/06/23 Janet Munoz NP [address] [place] [phone] Nurse Practitioner Family Medicine 02/25/23 Storeroom Keeper Relationship Specialty Start Date End Date Peter Meyer MD [address] [place] [phone] PCP - General Family Medicine 10/06/23 Janet Munoz NP [address] [place] [phone] Nurse Practitioner Family Medicine 02/25/23 Storeroom Keeper Relationship Specialty Start Date End Date Peter Meyer MD [address] [place] [phone] PCP - General Family Medicine 10/06/23 Janet Munoz NP [address] [place], [place] [phone] Nurse Practitioner Family Medicine 02/25/23 Storeroom Keeper Relationship Specialty Start Date End Date Peter Meyer MD [address] [place] [address] PCP - General Family Medicine 10/06/23 Janet Munoz NP [address] [place] [address] Nurse Practitioner Family Medicine 02/25/23 Storeroom Keeper Relationship Specialty Start Date End Date Peter Meyer MD [address] [place] [phone] PCP - General Family Medicine 10/06/23 Janet Munoz NP [address] [place] [address] Nurse Practitioner Family Medicine 02/25/23 Storeroom Keeper Relationship Specialty Start Date End Date Peter Meyer MD [address] [place] [phone] PCP - General Family Medicine 10/06/23 Janet Munoz NP [address] [place] [address] Nurse Practitioner Family Medicine 02/25/23 Storeroom Keeper Relationship Specialty Start Date End Date Peter Meyer MD [address] [place] [address] PCP - General Family Medicine 10/06/23 Janet Munoz NP [address] [place] [address] Nurse Practitioner Family Medicine 02/25/23 Storeroom Keeper Relationship Specialty Start Date End Date Janet Munoz, LEATHER WHITENER-SUBGRADE ROLLER OPERATOR PCP - General Nurse Practitioner 04/29/22 Storeroom Keeper Relationship Specialty Start Date End Date Peter Meyer MD [address] [place] [address] PCP - General Family Medicine 10/06/23 Janet Munoz NP [address] [place] [address] Nurse Practitioner Family Medicine 02/25/23 Storeroom Keeper Relationship Specialty Start Date End Date Peter Meyer MD [address] [place] [address] PCP - General Family Medicine 10/06/23 Janet Munoz NP [address] [place] [address] Nurse Practitioner Family Medicine 02/25/23 Storeroom Keeper Relationship Specialty Start Date End Date Janet Munoz, LEATHER WHITENER-SUBGRADE ROLLER OPERATOR PCP - General Nurse Practitioner 04/29/22 Storeroom Keeper Relationship Specialty Start Date End Date Janet Munoz, LEATHER WHITENER-SUBGRADE ROLLER OPERATOR [address] [place] [address] PCP - General Nurse Practitioner 04/29/22 Storeroom Keeper Relationship Specialty Start Date End Date Janet Munoz, LEATHER WHITENER-SUBGRADE ROLLER OPERATOR PCP - General Nurse Practitioner 04/29/22 Storeroom Keeper Relationship Specialty Start Date End Date Peter Meyer MD [address] [place] [address] PCP - General Family Medicine 10/06/23 Janet Munoz NP [address] [place] [address] Nurse Practitioner Family Medicine 02/25/23 Storeroom Keeper Relationship Specialty Start Date End Date Janet Munoz APRN-SUBGRADE ROLLER OPERATOR PCP - General Nurse Practitioner 04/29/22 Storeroom Keeper Relationship Specialty Start Date End Date Peter Meyer MD [address] [place] [phone] PCP - General Family Medicine 10/06/23 Janet Munoz NP [address] [place] [address] Nurse Practitioner Family Medicine 02/25/23 Storeroom Keeper Relationship Specialty Start Date End Date Peter Meyer MD [address] [place] [address] PCP - General Family Medicine 10/06/23 Janet Munoz NP [address] [place] [address] Nurse Practitioner Family Medicine 02/25/23 Storeroom Keeper Relationship Specialty Start Date End Date Janet Munoz, LEATHER WHITENER-SUBGRADE ROLLER OPERATOR PCP - General Nurse Practitioner 04/29/22 Storeroom Keeper Relationship Specialty Start Date End Date Janet Munoz APRN-SUBGRADE ROLLER OPERATOR PCP - General Nurse Practitioner 04/29/22 Storeroom Keeper Relationship Specialty Start Date End Date Janet Munoz, LEATHER WHITENER-SUBGRADE ROLLER OPERATOR PCP - General Nurse Practitioner 04/29/22 Storeroom Keeper Relationship Specialty Start Date End Date Peter Meyer MD [address] [place] [address] PCP - General Family Medicine 10/06/23 Janet Munoz NP [address] [place] [address] Nurse Practitioner Family Medicine 02/25/23 Storeroom Keeper Relationship Specialty Start Date End Date Peter Meyer MD [address] [place] [address] PCP - General Family Medicine 10/06/23 Janet Munoz NP [address] [place] [address] Nurse Practitioner Family Medicine 02/25/23 Storeroom Keeper Relationship Specialty Start Date End Date Peter Meyer MD [address] [place] [address] PCP - General Family Medicine 10/06/23 Janet Munoz NP [address] [place] [address] Nurse Practitioner Family Medicine 02/25/23 Storeroom Keeper Relationship Specialty Start Date End Date Peter Meyer MD [address] [place] [address] PCP - General Family Medicine 10/06/23 Janet Munoz NP [address] [place] [address] Nurse Practitioner Family Medicine 02/25/23 Storeroom Keeper Relationship Specialty Start Date End Date Peter Meyer MD [address] [place] [address] PCP - General Family Medicine 10/06/23 Janet Munoz NP [address] [place] [address] Nurse Practitioner Family Medicine 02/25/23 Storeroom Keeper Relationship Specialty Start Date End Date Peter Meyer MD [address] [place] [address] PCP - General Family Medicine 10/06/23 Janet Munoz NP [address] [place] [address] Nurse Practitioner Family Medicine 02/25/23 Storeroom Keeper Relationship Specialty Start Date End Date Peter Meyer MD [address] [place] [address] PCP - General Family Medicine 10/06/23 Janet Munoz NP [address] [place] [address] Nurse Practitioner Family Medicine 02/25/23 INFORMATION SOURCE (unrecogn ized section and content) DATE CREATED AUTHOR 03/08/2022 [facility] DATE CREATED AUTHOR AUTHOR'S ORGANIZ ATION 03/27/2024 [facility] DATE CREATED AUTHOR AUTHOR'S ORGANIZ ATION 05/25/2024 [facility] DATE CREATED AUTHOR AUTHOR'S ORGANIZ ATION 08/19/2024 [facility] DATE CREATED AUTHOR AUTHOR'S ORGANIZ ATION 09/28/2024 [facility] FOR RECORDS PERTAINING TO PATIENTS WHO ARE OR HAVE BEEN ENROLLED IN A CHEMICAL DEPENDENCY/SUBSTANCEABUSE PROGRAM, SOME INFORMATION MAY BE OMITTED. This clinical summary was aggregated from multiple sources. Caution should be exercised in using it in the provision of clinical care. This summary normalizes information from multiple sources, and as a consequence, information in this document may materially change the coding, format and clinical context of patient data. In addition, data may be omitted in some cases. CLINICAL DECISIONS SHOULD BE BASED ON THE PRIMARY CLINICAL RECORDS. [facility] [employer] provides no warranty or guarantee of the accuracy or completeness of information in this document.
--- OUTSIDE RECORDS SUMMARY | 2024-11-16 21:05 | XMS_ITS | Encounter Summary ---
Author Organization [facility] Address [address] [place] [address] Care Team Providers Care Email Marketing Executive Name Role Phone Janet Munoz SPEECH THERAPIST Unavailable [phone] Peter Meyer MD Primary Care Provider [phone] Encounter Details Date Type Department Care Team (Late st Contact Info) Description 05/23/2024 Abstract [facility] [address] [place] [address] Janet Munoz NP [address] [place] [address] Social History Tobacco Use Types Packs/Day Years Used Date Smoking Tobacco: Every Day Cigarettes Passive Smoke Exposure: Current Smokeless Tobacco: Never Alcohol Use Standard Drinks/Week Comments Never 0 (1 standard drink = 0.6 oz pur e alcohol) caffine: [facility] 2 daily Social Connection and Isolat ion Panel [NHANES] Answer Date Recorded In a typical week, how many times do you talk on the phone with family, friends, or neighbors? More than three times a week 08/30/2023 How often do you get togethe r with friends or relatives? Twice a week 08/30/2023 How often do you attend chur ch or shinto services? Never 08/30/2023 Do you belong to any clubs o r organizations such as methodist groups, unions, fraternal or athletic groups, or [...] Recorded Patient Health Questionnaire-2 Score 0 09/02/2023 [facility] - Occupational Stress [...] place to sleep or slept in a assisted (including now)? No 08/30/2023 Comments Unknown Sex [...] Office Visit [facility] [address] [place] [address] Janet Munoz NP [address] [place] [address] documented as of this encounter Visit Diagnoses Not on filedocumented in this encounter Care Teams Email Marketing Executive Relationship Specialty Start Date End Date Peter Meyer MD [address] [place] [address] PCP - General Family Medicine 10/06/23 Janet Munoz NP [address] [place] [address] Nurse Practitioner Family Medicine 02/25/23 documented as of this encounter
--- OUTSIDE RECORDS SUMMARY | 2024-11-16 21:05 | XMS_ITS | Encounter Summary ---
Author Organization [facility] Address [address] [place] [address] Care Team Providers Care Beauty Culture Teacher Name Role Phone Janet Munoz NP Unavailable [phone] Janet Munoz NP Primary Care Provider Shaikh EARLE Tejada Primary Care Provider Peter Meyer MD Primary Care Provider [phone] Encounter Details Date Type Department Care Team (Late st Contact Info) Description 05/11/2023 Abstract [facility] [address] [place] [address] Janet Munoz NP [address] [place] [address] Social History Tobacco Use Types Packs/Day Years [...] 01/11/2025 1:20 PM EDT Office Visit [facility] [address] [place] [address] Janet Munoz NP [address] [place] [address] documented as of this encounter Visit Diagnoses Not on filedocumented in this encounter Care Teams Beauty Culture Teacher Relationship Specialty Start Date End Date Janet Munoz NP [address] [place] [address] PCP - General 08/30/23 10/04/23 Shaikh Tejada MD [address] [place] [address] PCP - General Internal Medicine 10/05/23 10/05/23 Peter Meyer MD [address] [place] [address] PCP - General Family Medicine 10/06/23 Janet Munoz NP [address] [place] [address] Nurse Practitioner Family Medicine 02/25/23 documented as of this encounter
== END 2024-11-16 21:01 | disposition home or self-care (01) ==
LOC: LAB 21:00
PROVIDERS: PCP Nurse Practitioner; Visit Provider Nurse Practitioner
DX: N39.0 Urinary tract infection, site not specified (principal)
CPT/HCPCS: 87086; 87088; 87186